=== PATIENT | male | born 1945 | race Caucasian/White ===

== ENCOUNTER 2019-10-21 13:49 | Inpatient (IN) | payer OTHER ==
[~2019-10-21] VITALS: Ht 185.4 cm; Wt 91.0 kg
[2019-10-21 14:13] LABS: BASOPHILS ABSOLUTE AUTO 0.06 K/mm3 (0.00-0.23); BASOPHILS PERCENT AUTO 1 % (0-2); EOSINOPHILS ABSOLUTE AUTO 0.11 K/mm3 (0.00-0.68); EOSINOPHILS PERCENT AUTO 1 % (0-6); Hematocrit 42.8 % (37.0-53.0); Hemoglobin 14.2 g/dL (13.5-17.5); IMMATURE GRAN ABSOLUTE AUTO 0.03 K/mm3 (0.00-0.10); IMMATURE GRAN PERCENT AUTO 0 % (0-1); LYMPHOCYTES PERCENT AUTO 13 % (21-46); MONOCYTES ABSOLUTE AUTO 0.63 K/mm3 (0.16-1.47); MONOCYTES PERCENT AUTO 6 % (4-13); Mean Corpuscular HGB 29.5 pg (26.0-34.0); Mean Corpuscular HGB Conc 33.2 g/dL (31.5-36.5); Mean Corpuscular Volume 89 fL (80-100); Mean Platelet Volume 9.6 fL (9.1-12.4); NEUTROPHILS ABSOLUTE AUTO 8.26 K/mm3 (1.96-9.15); NEUTROPHILS PERCENT AUTO 79 % (41-73); Platelet Count 234 K/mm3 (150-400); RDW Coefficient Variation 14.1 % (11.7-14.2); RDW Standard Deviation 45.3 fL (35.1-46.3); Red Blood Cell Count 4.81 M/mm3 (4.30-5.90); White Blood Cell Count 10.49 K/mm3 (4.00-11.30)
[2019-10-21 14:28] LABS: Alanine Aminotransfer (ALT/SGP 56 U/L (12-78); Albumin, Blood 2.9 g/dL (3.4-5.0); Albumin/Globulin Ratio 0.9 (0.8-1.8); Alk Phos 85 U/L (50-136); Anion Gap 7 mmol/L (6-16); Aspartate Aminotrans (AST/SGOT 37 U/L (12-37); Bilirubin, Total 0.9 mg/dL (0.1-1.0); Blood Urea Nitrogen 21 mg/dL (8-24); Bun/Creatinine Ratio 17.9 (12.0-20.0); CO2, Blood 26 mmol/L (21-32); Calcium, Blood 8.4 mg/dL (8.5-10.1); Chloride, Blood 100 mmol/L (98-108); Creatinine, Blood 1.17 mg/dL (0.60-1.20); Globulin, Blood 3.4 g/dL (2.2-4.0); Glomerular Filtration Rate >60 (60-); Glucose, Blood 268 mg/dL (70-99); Potassium, Blood 3.7 mmol/L (3.5-5.5); Sodium, Blood 133 mmol/L (136-145); Total Protein, Blood 6.3 g/dL (6.4-8.2); Troponin I 0.128 ng/mL (0.000-0.040)
[2019-10-21] MEDS ORDERED: DULO60 PO (17:26)
[2019-10-21] MEDS ORDERED: ELIQUIS5 MG PO (17:26)
[2019-10-21] MEDS ORDERED: GUAI600T33 PO (17:28)
[2019-10-21] MEDS ORDERED: GLIP5 PO (17:28)
[2019-10-21] MEDS ORDERED: FLUOCINOLON118.28 ML TOP (17:28)
[2019-10-21] MEDS ORDERED: LOSARTAN-HCTZ1 EACH PO (17:29)
[2019-10-21] MEDS ORDERED: Norco 10-325 T1 EACH PO (17:30)
[2019-10-21] MEDS ORDERED: MAGNESIUM OXID500 MG PO (17:31)
[2019-10-21] MEDS ORDERED: Ketoconazole120 ML TOP (17:31)
[2019-10-21] MEDS ORDERED: LEVALBUTEROL TA15 GM INH (17:31)
[2019-10-21] MEDS ORDERED: MEMA10 PO (17:32)
[2019-10-21] MEDS ORDERED: METO25ER PO (17:35)
[2019-10-21] MEDS ORDERED: METFORMIN HCL500 M3 PO (17:36)
[2019-10-21] MEDS ORDERED: NIFE90ER PO (17:36)
[2019-10-21] MEDS ORDERED: ASMANEX HFA13 G2 INH (17:38)
--- NOTE | 2019-10-21 18:21 | NUR ---
Echocardiogram completed.
--- NOTE | 2019-10-21 22:44 | NUR ---
CARE ASSUMPTION PT ADMITTED TO PCU @ APPROX 1830. CARE ASSUMPTION OF PT @ APPROX 1900. PT A&O X4. BP & HR ELEVATED, OTHERWISE VSS. MONITOR SHOWING AFIB, HR 100-150 UPON CARE ASSUMPTION W/ CARDIZEM GTT INFUSING @ 10 MG/HR. PT HR DECREASE TO 80-120 AFTER EVENING MEDICATION AND GOING TO SLEEP. LUNG SOUNDS CLEAR. SPO2 > 92% ON RA. PT INDEPENDENT IN ROOM. WILL CONTINUE TO MONITOR AND PROVIDE CARE.
[2019-10-22 02:27] LABS: BASOPHILS ABSOLUTE AUTO 0.06 K/mm3 (0.00-0.23); BASOPHILS PERCENT AUTO 1 % (0-2); EOSINOPHILS ABSOLUTE AUTO 0.19 K/mm3 (0.00-0.68); EOSINOPHILS PERCENT AUTO 2 % (0-6); Hematocrit 39.5 % (37.0-53.0); Hemoglobin 13.3 g/dL (13.5-17.5); IMMATURE GRAN ABSOLUTE AUTO 0.02 K/mm3 (0.00-0.10); IMMATURE GRAN PERCENT AUTO 0 % (0-1); LYMPHOCYTES ABSOLUTE AUTO 1.52 K/mm3 (0.84-5.20); LYMPHOCYTES PERCENT AUTO 13 % (21-46); MONOCYTES ABSOLUTE AUTO 0.75 K/mm3 (0.16-1.47); MONOCYTES PERCENT AUTO 7 % (4-13); Mean Corpuscular HGB 29.8 pg (26.0-34.0); Mean Corpuscular HGB Conc 33.7 g/dL (31.5-36.5); Mean Corpuscular Volume 88 fL (80-100); Mean Platelet Volume 9.1 fL (9.1-12.4); NEUTROPHILS ABSOLUTE AUTO 8.82 K/mm3 (1.96-9.15); NEUTROPHILS PERCENT AUTO 78 % (41-73); Platelet Count 222 K/mm3 (150-400); RDW Coefficient Variation 14.1 % (11.7-14.2); RDW Standard Deviation 45.1 fL (35.1-46.3); Red Blood Cell Count 4.47 M/mm3 (4.30-5.90); White Blood Cell Count 11.36 K/mm3 (4.00-11.30)
[2019-10-22 02:47] LABS: Bun/Creatinine Ratio 15.3 (12.0-20.0); Calcium, Blood 8.2 mg/dL (8.5-10.1); Creatinine, Blood 1.31 mg/dL (0.60-1.20); Potassium, Blood 2.9 mmol/L (3.5-5.5); Troponin I 0.153 ng/mL (0.000-0.040)
--- NOTE | 2019-10-22 04:44 | NUR ---
K & TROPONIN / CALL TO CALL TO MD STANTON @ APPROX 2029 TO REPORT K OF 2.9 THIS AM AND INCREASING TROPONINS. ORDERS FROM MD STANTON FOR 40 MEQ IV KCL SUPPLEMENTATION, SEE EMAR & REPEAT TROPONIN IN 6 HRS.
--- NOTE | 2019-10-22 05:59 | NUR ---
SHIFT SUMMARY PT A&O X4. VSS W/ BP & HR IMPROVEMENT. MONITOR SHOWS AFIB, W/ FLUCTUATING HR 70-120's. CARDIZEM GTT INFUSING @ 15 MG/HR TITRATED UP FROM 10 MG/HR THIS SHIFT. LUNG SOUNDS CLEAR. SPO2 > 92% ON RA. PT INDEPENDENT IN ROOM. CALL TO MD THIS SHIFT TO REPORT LOW K AND ELEVATING TROPONINS, SEE PREVIOUS NOTE. IV KCL INFUSING @ THIS TIME PER ORDERS. WILL CONTINUE TO MONITOR AND PROVIDE CARE UNTIL REPORT OFF TO DAY SHIFT RN.
--- NOTE | 2019-10-22 15:38 | NUR ---
PT C/O INCREASING SOB AND A "HEAVINESS TO MY BREATHING". LUNGS ARE CLEAR, SPO2 IS 96% ON RA, PT ABLE TO CONVERSE IN FULL SENTENCES. WHILE WAITING FOR CALL BACK FROM DR OLIVER, HAD DEAN FROM RT EVAL PT AND PT STARTED TO HAVE EMESIS. DR OLIVER ORDERED ADDITIONAL LASIX AND PRN ZOFRAN.
--- NOTE | 2019-10-22 18:26 | NUR ---
SHIFT SUMMARY AFTER CARDIOLOGY CONSULT TODAY, PT WAS TRANSITIONED OFF OF CARDIZEM DRIP TO AMIODARONE GTT. DRIP WAS DECREASED TO 0.5 MG/HR AT 1740 THIS EVENING. TELEMETRY HAS SHOWN PT TO A-FLUTTER WITH OCCASIONAL A-FIB, RATE 70'S-80'S. IN THE AFTERNOON PT HAD AN EPISODE OF WORSENING SHORTNESS OF BREATH. DR OLIVER ORDERED AN ADDITIONAL DOSE OF LASIX, AND THE PT REPORTED IMPROVEMENT IN HIS BREATHING AFTER DOSE. PT HAS BEEN DIURESING AND STARTED ON A 1.5L FLUID RESTRICT. EDUCATED PT AND FAMILY OF THE IMPORTANCE OF THE FR AND HOW IT WILL HELP IMPROVE HIS BREATHING AND CARDIAC FUNCTION. PT ALSO COMPLETED 1ST PART OF LEXISCAN TODAY. ELECTROLYTES WERE REPLACED PER MD ORDERS. VITALS HAVE REMAINED STABLE.
[2019-10-23 04:09] LABS: BASOPHILS ABSOLUTE AUTO 0.07 K/mm3 (0.00-0.23); BASOPHILS PERCENT AUTO 1 % (0-2); EOSINOPHILS ABSOLUTE AUTO 0.21 K/mm3 (0.00-0.68); EOSINOPHILS PERCENT AUTO 2 % (0-6); Hematocrit 42.2 % (37.0-53.0); Hemoglobin 13.6 g/dL (13.5-17.5); IMMATURE GRAN ABSOLUTE AUTO 0.06 K/mm3 (0.00-0.10); IMMATURE GRAN PERCENT AUTO 1 % (0-1); LYMPHOCYTES ABSOLUTE AUTO 1.58 K/mm3 (0.84-5.20); LYMPHOCYTES PERCENT AUTO 12 % (21-46); MONOCYTES ABSOLUTE AUTO 0.93 K/mm3 (0.16-1.47); MONOCYTES PERCENT AUTO 7 % (4-13); Mean Corpuscular HGB 28.8 pg (26.0-34.0); Mean Corpuscular HGB Conc 32.2 g/dL (31.5-36.5); Mean Corpuscular Volume 89 fL (80-100); Mean Platelet Volume 9.4 fL (9.1-12.4); NEUTROPHILS ABSOLUTE AUTO 10.15 K/mm3 (1.96-9.15); NEUTROPHILS PERCENT AUTO 78 % (41-73); Platelet Count 269 K/mm3 (150-400); RDW Coefficient Variation 14.1 % (11.7-14.2); RDW Standard Deviation 46.1 fL (35.1-46.3); Red Blood Cell Count 4.73 M/mm3 (4.30-5.90)
[2019-10-23 04:32] LABS: Magnesium, Blood 1.8 mg/dL (1.6-2.4)
[2019-10-23 04:33] LABS: Albumin, Blood 2.8 g/dL (3.4-5.0); Albumin/Globulin Ratio 0.8 (0.8-1.8); Bilirubin, Total 0.9 mg/dL (0.1-1.0); Bun/Creatinine Ratio 17.9 (12.0-20.0); Calcium, Blood 8.8 mg/dL (8.5-10.1); Creatinine, Blood 1.73 mg/dL (0.60-1.20); Globulin, Blood 3.4 g/dL (2.2-4.0); Potassium, Blood 3.6 mmol/L (3.5-5.5); Total Protein, Blood 6.2 g/dL (6.4-8.2)
[2019-10-23 04:37] LABS: Percent Saturation 9.1 % (20.0-50.0)
--- NOTE | 2019-10-23 05:39 | NUR ---
SHIFT SUMMARY PT SLEEPING IN ROOM COMFORTABLY AT THIS TIME. NO ACUTE CHANGES IN STATUS T/O NIGHT. PT SLEPT WELL AND USED CALL LIGHT APPROPRIATELY. PT DID WAKE ONCE DURING NIGHT AND REPORTED SOB, PT WAS LYING FLAT ON STOMACH IN BED AT THAT TIME AND REPORTED WORK OF BREATING DECREASED UPON SITING UP AND PERFORMING PURSED LIP BREATHING. RESP EVEN UNLABORED AT REST W/ SATS >92%. PT REPORTS "FEELS EASIER TO BREATH TONIGHT". DENIED ANY CP. DENIED OTHER NEEDS. AMIODARONE GTT CONTINUES TO INFUSE IN PIV. CALL LIGHT IN REACH.
--- NOTE | 2019-10-23 18:52 | NUR ---
SHIFT SUMMARY TODAY, COMPARED TO YESTERDAY, PT HAS STATED HIS SOB IS IMPROVED. JUAN COMPLETED TODAY AND DUE TO NEED TO FEED PT FOR SCAN, CARDIOVERSION WAS CANCELLED TODAY BY DR OLIVO. PT REMAINS IN A-FLUTTER ON TELEMETRY WITH RATES 70'S-120'S. CONTINUED AMIODARONE DRIP PER DR OLIVO. CONTINUED TO EDUCATED PT AND FAMILY ON FLUID RESTRICTION, MONITORING I&O'S AND WEIGHT MONITORING.
[2019-10-24 04:06] LABS: BASOPHILS PERCENT AUTO 1 % (0-2); EOSINOPHILS ABSOLUTE AUTO 0.23 K/mm3 (0.00-0.68); EOSINOPHILS PERCENT AUTO 2 % (0-6); Hemoglobin 14.3 g/dL (13.5-17.5); IMMATURE GRAN ABSOLUTE AUTO 0.03 K/mm3 (0.00-0.10); IMMATURE GRAN PERCENT AUTO 0 % (0-1); LYMPHOCYTES ABSOLUTE AUTO 1.26 K/mm3 (0.84-5.20); LYMPHOCYTES PERCENT AUTO 9 % (21-46); MONOCYTES ABSOLUTE AUTO 0.92 K/mm3 (0.16-1.47); MONOCYTES PERCENT AUTO 6 % (4-13); Mean Corpuscular HGB 29.7 pg (26.0-34.0); Mean Corpuscular HGB Conc 33.3 g/dL (31.5-36.5); Mean Corpuscular Volume 89 fL (80-100); Mean Platelet Volume 9.5 fL (9.1-12.4); NEUTROPHILS ABSOLUTE AUTO 12.08 K/mm3 (1.96-9.15); NEUTROPHILS PERCENT AUTO 83 % (41-73); Platelet Count 299 K/mm3 (150-400); RDW Coefficient Variation 14.1 % (11.7-14.2); RDW Standard Deviation 45.4 fL (35.1-46.3); Red Blood Cell Count 4.82 M/mm3 (4.30-5.90); White Blood Cell Count 14.62 K/mm3 (4.00-11.30)
[2019-10-24 04:29] LABS: Bun/Creatinine Ratio 24.8 (12.0-20.0); Calcium, Blood 8.8 mg/dL (8.5-10.1); Creatinine, Blood 1.41 mg/dL (0.60-1.20); Potassium, Blood 3.8 mmol/L (3.5-5.5)
--- NOTE | 2019-10-24 05:26 | NUR ---
SHIFT SUMMARY PT SLEEPING IN ROOM COMFORTABLY AT THIS TIME. PT SLEPT WELL T/O NIGHT DENIED NEEDS. RESP EVEN UNLABORED AT REST ON 2L NC W/ SATS >92%. DENIED CP T/O NIGHT. DENIED OTHER NEEDS. PT REPORTED BREATHING FELT EASIER TODAY AND WAS ABLE TO SLEEP LYING FLAT W/O WAKING UP GASPING FOR BREATH TONIGHT. AMIODARONE GTT INFUSING IN PIV PER EMAR. PT TO POSSIBLY HAVE CARDIOVERSION TODAY. REMAINS IN AFLUTTER. DENIES OTHER NEEDS. CALL LIGHT IN REACH.
--- NOTE | 2019-10-24 12:33 | NUR ---
CARDIOVERSION: DR. OLIVO IN, CONSENT SIGNED. IVF INFUSING, SUCTION SET UP, PADS PLACED ON PT. MEDS AND REVERSALS IN RM. RT, PRIMARY RN, MYSELF AND DR. OLIVO IN RM. 1234-BASELINE VS-BP-132/94, HR-116, RR-22, BIOX-88% ON 6L O2. 1237- TIME OUT COMPLETE. 1242- VERSED 2MG IV AND FENTANYL 50 MCG IV GIVEN. 1243- BP-133/97, HR-125, BIOX-86% ON 8L, RR-20, RT TITRATING O2 1247- VERSED 1MG AND FENTANYL 25MCG IV GIVEN. 1248- BP-144/98, HR-120, BIOX-92% ON 14L OXIMIZER. 1249- 50J SHOCK DELIVERED, PT NOW SR AT 74. 1250- BP-161/89, HR-74, BIOX-92% ON 14 L. PT DROWSY BUT REPSONDS EASILY TO VERBAL STIMULOUS. CARDIOVERSION COMPLETE
--- NOTE | 2019-10-24 19:29 | NUR ---
SHIFT SUMMARY PT REMAINS A&O X4, SINUS RHYTHM. O2 HAS BEEN TITRATED ACCORDING TO PT DEMAND, PT WILL FALL ASLEEP FROM MEDS AND O2 WILL DECREASE. PT HAD A BOODY NOSE THIS EVENING W/SOB. RT NOTIFIEDM NO BREATHING TX INDICATED, O2 CONVERTED TO HUMIDIFIED O2. CARDIOVERSION WAS COMPLETED AT THE BEDSIDE TODAY, PLEASE NOTE, VITAL SIGNS REMAIN STABLE. 40 MG IV LASIX WAS GIVEN POST CONVERSION. AMNIODERONE DRIP D/C, PO WAS STARTED. REPORT WAS GIVEN TO IDALMIS RICHARDSON. CALL LIGHT IN [facility].
--- NOTE | 2019-10-24 19:38 | NUR ---
SHIFT SUMMARY NO ACUTE CHANGES NOTED THROUGH THE SHIFT. PT REMAINS A&O, VSS, RA O2 SAT'S >92%, DENIES SOB, PRODUCTIVE COUGH. SPUTUM SAMPLE HAS BEEN SENT TO THE LAB. FLONASE AND INCREASED DOSE ON NICOTINE PATCH FROM 14 MG TO 21 MG PER PT REQUEST WAS ORDERED. PT REPORTS A LG BLACK STOOL X1, MILD STOMACH PAIN. REPORT GIVEN TO IDALMIS RN. CALL LIGHT IN REACH
[2019-10-24 22:56] LABS: PCO2 Arterial 39.4 mmHg (35-45); PO2 Arterial 138 mmHg (80-100); pH Blood Arterial 7.41 (7.35-7.45)
--- NOTE | 2019-10-24 23:50 | NUR ---
TRANSFER NOTE TRANSFER PT FROM PCU 3 TO ICU 15 PER BED. TRANSFER TO ICU BED WITH LIFT SHEET. ALERT FOLLOWING DIRECTIONS. BIPAP IN PLACE SPO2 90-95% LUNG SOUNDS COARSE WITH CRACKLES AND VERY DECREASED BASES R WORSE THAN LEFT. ABDOMEN SOFT WITH BOWEL SOUNDS FOUR QUADS. DR FONG ON PHONE ORDERS NOTED. HOSP AT BEDSIDE. PAWEL HOSE TO LOWER EXTREMITIES. SKIN WARM DRY. FAMILY NOTIFIED OF TRANSFER TO ICU. UPDATE GIVEN. CONTINUE TO MONITOR AND REPORT CHANGE IN PATIENT CONDITION.
--- NOTE | 2019-10-25 01:15 | NUR ---
GRACE PLACED WITH IMMEDIATE URINE RETURN. SPECIMAN SENT TO LAB
--- NOTE | 2019-10-25 01:31 | NUR ---
TRANSFER TO ICU UPON SHIFT CHANGE. PT BREATHING WELL WITH OXYMIZER AT 7L;. PT DENIES WORK OF BREATHING AND STATES BEING COMFORTABLE, SPO2 >92%. BOTH IV'S INFILTRATED, DC'D, AND NEW ONE PLACED BY BHAVNA Gomez. PT IN SR, BP STABLE. LUNGS WET SOUNDING AND COARSE, ESPECIALLY ON THE RIGHT SIDE. AT 2100, PT'S WOB INCREASES AND O2 DEMANDS DEMANDS. OXYMIZERR UP TO 9L. LOLI Pang FIELD SUPPORT TECHNICIAN CALLED, IN TO SEE PT. PLACES ORDER FOR CXR. WOB AND DYSPNEA SUBSIDES FOR 45 MINUTES OR SO. THEN O2 NEEDS INCREASE TO 11L OXYMIZER, LOLI CALLED AGAIN, ASKED IF SHE WOULD VIEW THE CXR. LOLI TO ROOM VERYU QUICKLY UPON VIEWING THIS IMAGE. ORDERS PLACED FOR LABS, IV LASIX, BIPAP, AND TRANSFER TO ICU. ORDERS FULFILLED. PT ON BIPAP /, 50% FIO2 BUT THE FIO2 INCREASEED TO 60%. REPORT CALLED TO PRASHANTH CABRERA, PT TO ICU @0838. ALL BELONGINGS AND MEDS WITH PT. ATTEMPTED TO CALL DAUGTHER/FAMILY BUT WAS UNSUCCESFUL THE LINE WE HAVE ON FILE HAS BEEN DISCONNECTED.
[2019-10-25 01:33] LABS: Source, Urine Catheter
[2019-10-25 01:37] LABS: Bilirubin, Urine Neg (Neg); Blood, Urine Neg (Neg); Glucose Qualitative, Urine Neg (Neg); Ketones, Urine Neg (Neg); Leukocyte Esterase, Urine Neg (Neg); Nitrite, Urine Neg (Neg); Protein, Urine Neg (Neg); Specific Gravity, Urine 1.015 (1.003-1.022); Urobilinogen, Urine NORM (Normal)
[2019-10-25 01:41] LABS: Appearance, Urine Clear (Clear); Color, Urine Yellow (P-Yellow)
--- NOTE | 2019-10-25 02:11 | NUR ---
RT CHANGED TO CPAPOF 10 WITH 60% AFTER PT COMPLAINED OF TOO MUCH PRESSURE CONTINUE TO MONITOR AND REPORT CHANGE IN PATEINT CONDITION
[2019-10-25 04:24] LABS: BASOPHILS ABSOLUTE AUTO 0.08 K/mm3 (0.00-0.23); BASOPHILS PERCENT AUTO 1 % (0-2); EOSINOPHILS PERCENT AUTO 1 % (0-6); Hematocrit 43.1 % (37.0-53.0); Hemoglobin 14.1 g/dL (13.5-17.5); IMMATURE GRAN ABSOLUTE AUTO 0.05 K/mm3 (0.00-0.10); IMMATURE GRAN PERCENT AUTO 0 % (0-1); LYMPHOCYTES ABSOLUTE AUTO 0.61 K/mm3 (0.84-5.20); LYMPHOCYTES PERCENT AUTO 4 % (21-46); MONOCYTES ABSOLUTE AUTO 0.87 K/mm3 (0.16-1.47); MONOCYTES PERCENT AUTO 6 % (4-13); Mean Corpuscular HGB 29.6 pg (26.0-34.0); Mean Corpuscular HGB Conc 32.7 g/dL (31.5-36.5); Mean Corpuscular Volume 90 fL (80-100); Mean Platelet Volume 9.3 fL (9.1-12.4); NEUTROPHILS ABSOLUTE AUTO 14.01 K/mm3 (1.96-9.15); NEUTROPHILS PERCENT AUTO 89 % (41-73); Platelet Count 279 K/mm3 (150-400); RDW Coefficient Variation 14.2 % (11.7-14.2); RDW Standard Deviation 46.7 fL (35.1-46.3); Red Blood Cell Count 4.77 M/mm3 (4.30-5.90); White Blood Cell Count 15.72 K/mm3 (4.00-11.30)
[2019-10-25 04:44] LABS: Albumin, Blood 2.5 g/dL (3.4-5.0); Albumin/Globulin Ratio 0.7 (0.8-1.8); Bilirubin, Total 1.3 mg/dL (0.1-1.0); Bun/Creatinine Ratio 27.5 (12.0-20.0); Calcium, Blood 8.5 mg/dL (8.5-10.1); Creatinine, Blood 1.49 mg/dL (0.60-1.20); Globulin, Blood 3.4 g/dL (2.2-4.0); Magnesium, Blood 1.8 mg/dL (1.6-2.4); Potassium, Blood 4.1 mmol/L (3.5-5.5); Total Protein, Blood 5.9 g/dL (6.4-8.2)
[2019-10-25 04:56] LABS: PCO2 Arterial 43.7 mmHg (35-45); pH Blood Arterial 7.35 (7.35-7.45)
--- NOTE | 2019-10-25 06:16 | NUR ---
SHIFT SUMMARY: RESTS QUIETLY WHEN UNDISTURBED. MONITOR INTACT SHOWING SINUS RHYTHM. HEART RATE 70'S, MEDICATED WITH 0.5 ATIVAN IV FOR INCREASING AGIATION. REMIANS ON BIPAP WITH SETTING 12/8 70% FIO2 BUR OF 10 AND SPO2 90-94 RESPIRATIONS 20-24PER MIN. ABDOMEN SOFT WITH BOWEL SOUNDS FOUR QUADS. FOLLEY PATENT DRAINING INEZ URINE. PAWEL HOSE TO LOWER EXTREMITIES. CONTINUE TO MONITOR AND REPORT CHANGE IN PATIENT CONDITION.
--- NOTE | 2019-10-25 08:00 | NUR ---
INITIAL ASSESSMENT PATIENT SLEEPING SOUNDLY UPON ENTERING ROOM. PATIENT WOKE TO VERBAL STIMULI. PATIENT ALERT AND ORIENTED X 4, AFEBRILE. PATIENT DENIES PAIN OR DISCOMFORT. PATIENT ON BIPAP 12/8, RR OF 10, 70% FIO2. LUNG SOUNDS COARSE THROUGHOUT. PATIENT HAS MOIST, NONPRODUCTIVE COUGH. SOB WITH EXERTION. PATIENT IN SR WITH BBB, HR IN THE 70S. SBP IN THE 160S. ANTIEMBOLISM STOCKINGS IN PLACE. 1+ EDEMA NOTED TO BLES. ABDOMEN SOFT, NONTENDER, NONDISTENDED, WITH HYPERACTIVE BS NOTED. LAST BM EARLY THIS AM. GRACE IN PLACE, DRAINING DARK INEZ COLORED URINE. PATIENT RECEIVING LASIX BID. IVS FLUSHED AND SALINE LOCKED. BED LOW, CALL LIGHT IN REACH. WILL CONTINUE TO MONITOR PATIENT FREQUENTLY THROUGHOUT SHIFT.
--- NOTE | 2019-10-25 12:28 | NUR ---
PATIENT SITTING UP IN BED, EATING LUNCH. PATIENT HAS NO COMPLAINTS. PATIENT REMAINS AFEBRILE. VITAL SIGNS STABLE. PATIENT SATTING 90% AND GREATER ON 12 L HF NC. LUNGS REMAIN VERY COARSE THROUGHOUT. PATIENT REMAINS IN SR WITH BBB, HR IN THE 70S. BP STABLE. URINE IS CRANBERRY IN COLOR. DR. FONG INFORMED THAT ONLY 350 MLS OUT OF GRACE SINCE AM LASIX GIVEN. BLOOD SUGAR OF 226; COVERAGE GIVEN. NO OTHER ACUTE CHANGES TO NOTE ON AT THIS TIME. WILL CONTINUE TO MONITOR.
--- NOTE | 2019-10-25 16:30 | NUR ---
PATIENT AFEBRILE. PATIENT COMPLAINED OF 6/10 SHARP LEFT UPPER CHEST PAIN AT 1605. INFORMED AND STAT 12 LEAD EKG. NO CHANGE IN EKG PER DR. FONG. DR. FONG WENT TO CHECK ON PATIENT SHORT TIME AGO AND PATIENT REPORTS PAIN HAS RESOLVED. NO FURTHER ORDERS ABOUT THE CHEST PAIN AT THIS TIME. PATIENT SATTING 90% AND GREATER ON BIPAP 10/5, 70% FIO2. PATIENT IN SR WITH BBB, HR 60S TO 70S. BP STABLE. PATIENT HAD BLOOD SUGAR OF 193; COVERAGE GIVEN. NO PATIENT'S DAUGHTER IN ROOM. NO CURRENT COMPLAINTS AT THIS TIME. WILL CONTINUE TO MONITOR.
--- NOTE | 2019-10-25 18:40 | NUR ---
SHIFT SUMMARY PATIENT NAPPED ON AND OFF THROUGHOUT DAY. PATIENT REMAINED ALERT AND ORIENTED X 4, AFEBRILE. PATIENT REMAINED SATTING 90% AND GREATER ON BIPAP 12/8, 70% IN AM AND 10/5, 70% IN AFTERNOON. PATIENT SATTED 90% AND GREATER ON 10 TO 12 L HF NC FOR BREAKS OFF OF THE BIPAP. LUNGS REMAINED COARSE THROUGHOUT. PATIENT CONTINUED TO HAVE SOB WITH EXERTION. PATIENT CONTINUED TO HAVE MOIST COUGH; PRODUCING THIN, PINK SPUTUM. PATIENT REMAINED IN SR WITH BBB. HR 60S TO 70S. BP REMAINED STABLE. PATIENT HAD POOR APPETITE MOST OF THE DAY. PATIENT REMAINED UNDER 1500 CC FLUID RESTRICTION. PATIENT GIVEN 100 MG LASIX THIS SHIFT WITH OUTPUT OF 2200 CC. URINE CHANGED FROM CRANBERRY COLOR TO DARK YELLOW. NO CHANGE IN SKIN. PATIENT REPOSITIONED SELF MOST TIMES WITH REMINDING FROM NURSE. IVS SALINE LOCKED. PATIENT REFUSED BED BATH TODAY. PATIENT COMPLAINED OF CP OT DURING SHIFT. STAT EKG PERFORMED; NO CHANGE IN EKG. DR. FONG SAW PATIENT AND PATIENT REPORTED RELIEF OF CHEST PAIN. PATIENT HAS NO COMPLAINTS AT THIS TIME. BED LOW, CALL LIGHT IN REACH. WILL CONTINUE TO MONITOR PATIENT FREQUENTLY UNTIL REPORT GIVEN TO ONCOMING SUPERVISOR FILLING AND PACKING NURSE SHORTLY.
--- NOTE | 2019-10-25 20:00 | NUR ---
ASSUMED CARE OF PT AT 1915. REPORT RECEIVED AT BEDSIDE. PT PRESENTS IN BED. ALERT AND ORIENTED. WEARING BIPAP MASK. TOLERATING THIS WELL. EMPTIED 500 ML URINE FROM GRACE CATHETER COLLECTION BAG PRIOR TO ADMINISTERING 40 MG LASIX. WILL REVIEW CHART AND PLAN OF CARE FOR THIS PT.
--- NOTE | 2019-10-25 23:13 | NUR ---
PT CONTIUES WITH MOIST COUGH. LUNGS WITH COARSENUSS SCATTERE. NO S/S ADVERSE REACTION TO ANTIBIOTIC THERAPY TO NOTE. PT DIURESING WELL. WILL CONTINUE TO MONITOR. HAVE ASSISTED PT WITH REPOSITIONING.
--- NOTE | 2019-10-26 03:57 | NUR ---
PT REQUESTS BREAK FROM BIPAP MASK. PT PLACED ON 10 L/M HIGH FLOW CANNULA. PT FALLS ASLEEP, AND BEGINS TO DESATURATE TO 87-88 PERCENT. PT PLACED BACK TO BIPAP. HE REQUEST THAT BIPAP AIR WARMER BE TURNED OFF. THIS DONE FOR PT. WILL CONTINUE TO MONITOR PT. PT CONTINUES IN SINUS RHYTHM WITH 1ST DEGREE HB, BUNDLE BRANCH BLOCK. WITH OCCASSIONAL PAC'S.
[2019-10-26 04:13] LABS: BASOPHILS ABSOLUTE AUTO 0.05 K/mm3 (0.00-0.23); BASOPHILS PERCENT AUTO 0 % (0-2); EOSINOPHILS ABSOLUTE AUTO 0.15 K/mm3 (0.00-0.68); EOSINOPHILS PERCENT AUTO 1 % (0-6); Hematocrit 41.4 % (37.0-53.0); Hemoglobin 13.5 g/dL (13.5-17.5); IMMATURE GRAN ABSOLUTE AUTO 0.04 K/mm3 (0.00-0.10); IMMATURE GRAN PERCENT AUTO 0 % (0-1); LYMPHOCYTES ABSOLUTE AUTO 1.09 K/mm3 (0.84-5.20); LYMPHOCYTES PERCENT AUTO 8 % (21-46); MONOCYTES ABSOLUTE AUTO 0.89 K/mm3 (0.16-1.47); MONOCYTES PERCENT AUTO 7 % (4-13); Mean Corpuscular HGB 29.3 pg (26.0-34.0); Mean Corpuscular HGB Conc 32.6 g/dL (31.5-36.5); Mean Corpuscular Volume 90 fL (80-100); Mean Platelet Volume 9.2 fL (9.1-12.4); NEUTROPHILS ABSOLUTE AUTO 10.93 K/mm3 (1.96-9.15); NEUTROPHILS PERCENT AUTO 83 % (41-73); Platelet Count 270 K/mm3 (150-400); RDW Coefficient Variation 14.3 % (11.7-14.2); RDW Standard Deviation 46.4 fL (35.1-46.3); Red Blood Cell Count 4.61 M/mm3 (4.30-5.90); White Blood Cell Count 13.15 K/mm3 (4.00-11.30)
[2019-10-26 04:53] LABS: Bun/Creatinine Ratio 25.9 (12.0-20.0); Calcium, Blood 8.6 mg/dL (8.5-10.1); Creatinine, Blood 1.39 mg/dL (0.60-1.20); Magnesium, Blood 1.9 mg/dL (1.6-2.4); Potassium, Blood 3.4 mmol/L (3.5-5.5)
--- NOTE | 2019-10-26 06:22 | NUR ---
PT RESTING IN BED. COMPLIANT WITH BIPAP. TOLERATING MUCH BETTER WITH WARMER TURNED OFF. PT DIURESES WELL AFTER LASIX. MOVES ABOUT IN BED ON HIS OWN. DENIES CHEST PAIN OR PRESSURE. WILL CONTINUE TO MONITOR PT, AND WILL REPORT OFF TO ONCOMING RN.
--- NOTE | 2019-10-26 07:15 | NUR ---
ASSUMED CARE PT. ALERT AND ORIENTED THIS AM. RESTING COMFORTABLY IN BED, DENIES PAIN. PT. ON BREAK FROM BIPAP ON 11L HIGH FLOW NC, WITH HUMIDITY. PT. ABLE TO REPOSITION SELF IN BED. BIPAP SETTINGS ARE 12/8, 60%. COMPRESSION STOCKINGS TO BILAT LE. PT HAS GRACE IN PLACE DRAINING TO GRAVITY FOR STRICT I&O. NADN, CALL LIGHT IN REACH. PT. REQUESTING TO SLEEP FOR A WHILE BEFORE BREAKFAST, BG CHECKED-INSULIN ADMIN PER ORDER. CALL LIGHT IN REACH.
--- NOTE | 2019-10-26 12:30 | NUR ---
PT RESTING COMFORTABLY IN BED T/O DAY. CONTINUES TO DENY PAIN. GOOD OUTPUT POST LASIX ADMIN.
--- NOTE | 2019-10-26 17:07 | NUR ---
SHIFT SUMMARY PT. REMAINS ALERT AND ORIENTED T/O DAY. 02 TITRATED DOWN TO 9LNC WHEN ASLEEP AND 6L NC WHILE AWAKE. PT. OFF BIPAP FOR MOST OF THE DAY. SLEEPING ON AND OFF T/O DAY. PT. VSS REMAIN STABLE. PLANS FOR STATUS CHANGE TOMORROW RAMANA REMAINS IN PLACE FOR STRICT I&O. CALL LIGHT IN REACH. REPORT TO ONCOMING RN.
--- NOTE | 2019-10-26 19:14 | NUR ---
ASSUMED CARE AT 1914. PT DENIES CHEST PAIN, C/O SOB, ON HIGHFLO AT 10L. GRACE INTACT, BIPAP FOR SLEEP.
[2019-10-27 01:57] LABS: Anion Gap 6 mmol/L (6-16); Blood Urea Nitrogen 27 mg/dL (8-24); Bun/Creatinine Ratio 22.1 (12.0-20.0); CO2, Blood 34 mmol/L (21-32); Calcium, Blood 8.6 mg/dL (8.5-10.1); Chloride, Blood 101 mmol/L (98-108); Creatinine, Blood 1.22 mg/dL (0.60-1.20); Glomerular Filtration Rate >60 (60-); Glucose, Blood 149 mg/dL (70-99); Potassium, Blood 3.2 mmol/L (3.5-5.5); Sodium, Blood 141 mmol/L (136-145)
--- NOTE | 2019-10-27 06:45 | NUR ---
PT ON CPAP ON AND OFF OVERNIGHT. ABLE TO MAINTAIN SATS ON NC WHILE AWAKE. ONCE PT FALL ASLEEP BEGINS TO DESAT, PLACED ON BIPAP WHILE SLEEPING. HEART RATE IN THE 80S BUT EKG DISPLAYS ECTOPY WITH INTERMITTEN RUN OF VT, PT IS ASYMPTHOMATIC. STAT MAG AND CBC DRAWN. MAG AND POTASSIUM REPLCED. GRACE INPLACE AND PATENT NO OTHER ACUTE EVENTS WILL CONTINUE TO MONITOR. PT MAY NEED PT/OT
--- NOTE | 2019-10-27 07:26 | NUR ---
ASSUMED CARE REPORT FROM CANDACE RICHARDSON. PT REPORTS SLEEPING POORLY LAST NIGHT; DISCUSSED PLAN OF CARE FOR TODAY WITH PT. PT. DENIES PAIN THIS AM, REPORTS WOB IS EASIER TODAY. PT. CURRENTLY ON 9L HIGH FLOW NC, TITRATED DOWN FROM 11L. VSS THIS AM. NADN. CALL LIGHT IN REACH.
[2019-10-27 08:29] LABS: Anion Gap 7 mmol/L (6-16); Blood Urea Nitrogen 27 mg/dL (8-24); Bun/Creatinine Ratio 23.5 (12.0-20.0); CO2, Blood 32 mmol/L (21-32); Calcium, Blood 8.8 mg/dL (8.5-10.1); Chloride, Blood 100 mmol/L (98-108); Creatinine, Blood 1.15 mg/dL (0.60-1.20); Glomerular Filtration Rate >60 (60-); Glucose, Blood 170 mg/dL (70-99); Magnesium, Blood 1.9 mg/dL (1.6-2.4); Potassium, Blood 3.7 mmol/L (3.5-5.5); Sodium, Blood 139 mmol/L (136-145)
--- NOTE | 2019-10-27 10:10 | NUR ---
UPDATE PT BATH DONE AND PT UP TO BEDSIDE CHAIR, TOLERATED TRASFER WELL. REMAINS ON HIGH FLOW NC, PT UP TO CHAIR FOR BREAKFAST. FLUTTER VALVE EDUCATION COMPLETED. VSS.
--- NOTE | 2019-10-27 11:07 | NUR ---
REPORT TO ONCOMING RN
--- NOTE | 2019-10-27 12:16 | NUR ---
ASSUMDED CARE REPORT RECEIVED FROM DEBRA MISTRY. PT SITTING UP IN BED ON 11L HI MAGNO NC WITH SPO2 96%. OXYGEN TITRATED DOWN TO 9L, THEN 7L WHEN PT MAINTAINED SPO2 ABOVE 90%. PT'S LUNGS HAVE INSPIRATORY WHEEZE, MILD DYSPNEA WITH EXERTION. REMAINS AFIB, RATE IN THE 60S AND 70S, BP STABLE, SEE VS. PT ATE LTAE BREAKFAST SO WISHES TO HAVE LUNCH TRAY HELD FOR NOW. INSULIN STILL GIVEN THOUGH GLUCOSE WAS OVER 300. PT WITH VISITORS IN THE ROOM, NO OTHER REQUESTS AT THIS TIME. CONTINUING TO MONITOR.
--- NOTE | 2019-10-27 17:40 | NUR ---
SHIFT SUMMARY: PT HAS DONE WELL TODAY WITH OXYGEN BEING TITRATED DOWN FROM 11L TO 6L/NC. LUNGS HAVE AN EXPIRATORY WHEEZE THIS EVENING. STILL AFIB, BPS TABLE. PT SPENT MOST OF THE AFTERNOON NAPPING IN BED. SANJAY LIN, AWAITING FIRST POST GRACE VOID. SPOKE WITH PT'S FE AND GAVE HER UPDATED. NO OTHER REQUESTS FROM PT. CONTINUING TO MONITOR.
--- NOTE | 2019-10-27 20:00 | NUR ---
ASSUMPTION OF CARE: PT A&O. AFEBRILE. LUNG SOUNDS COURSE THROUGHOUT. SPO2 >90% ON 6L NC. PT HAS MOIST PRODUCTIVE COUGH. IN AFIB WITH BBB. HR IN THE 80S, SBP IN THE 110S AND STABLE. PT IS ON A FLUID RESTRICTION AND IS VOIDING USING URINAL. 20G IVS IN R WRIST AND AC-SL. WILL CONTINUE TO MONITOR
[2019-10-28 04:09] LABS: BASOPHILS ABSOLUTE AUTO 0.04 K/mm3 (0.00-0.23); BASOPHILS PERCENT AUTO 0 % (0-2); EOSINOPHILS ABSOLUTE AUTO 0.26 K/mm3 (0.00-0.68); EOSINOPHILS PERCENT AUTO 2 % (0-6); Hematocrit 46.3 % (37.0-53.0); Hemoglobin 14.9 g/dL (13.5-17.5); IMMATURE GRAN ABSOLUTE AUTO 0.04 K/mm3 (0.00-0.10); IMMATURE GRAN PERCENT AUTO 0 % (0-1); LYMPHOCYTES ABSOLUTE AUTO 1.44 K/mm3 (0.84-5.20); LYMPHOCYTES PERCENT AUTO 11 % (21-46); MONOCYTES ABSOLUTE AUTO 0.85 K/mm3 (0.16-1.47); MONOCYTES PERCENT AUTO 6 % (4-13); Mean Corpuscular HGB 28.9 pg (26.0-34.0); Mean Corpuscular HGB Conc 32.2 g/dL (31.5-36.5); Mean Corpuscular Volume 90 fL (80-100); Mean Platelet Volume 9.1 fL (9.1-12.4); NEUTROPHILS ABSOLUTE AUTO 10.92 K/mm3 (1.96-9.15); NEUTROPHILS PERCENT AUTO 81 % (41-73); Platelet Count 321 K/mm3 (150-400); RDW Coefficient Variation 13.8 % (11.7-14.2); RDW Standard Deviation 45.7 fL (35.1-46.3); Red Blood Cell Count 5.16 M/mm3 (4.30-5.90); White Blood Cell Count 13.55 K/mm3 (4.00-11.30)
[2019-10-28 04:32] LABS: Anion Gap 7 mmol/L (6-16); Blood Urea Nitrogen 30 mg/dL (8-24); Bun/Creatinine Ratio 25.9 (12.0-20.0); CO2, Blood 33 mmol/L (21-32); Calcium, Blood 8.9 mg/dL (8.5-10.1); Chloride, Blood 102 mmol/L (98-108); Creatinine, Blood 1.16 mg/dL (0.60-1.20); Glomerular Filtration Rate >60 (60-); Glucose, Blood 133 mg/dL (70-99); Magnesium, Blood 1.9 mg/dL (1.6-2.4); Phosphorus, Blood 2.3 mg/dL (2.5-4.9); Potassium, Blood 3.4 mmol/L (3.5-5.5); Sodium, Blood 142 mmol/L (136-145)
--- NOTE | 2019-10-28 05:46 | NUR ---
SHIFT SUMMARY: PT A&O. AFEBRILE THROUGHOUT SHIFT. SPO2 >90% ON 6L NC. OCC PRODUCTIVE COUGH PRODUCING BLOOD TINGED SPUTUM-SAMPLE SENT TO LAB. EXP WHEEZES IN UPPER LOBE AND COARSE IN LOWER LOBES. HR IN THE 80-100S, AFIB WITH BBB. SBP STABLE IN THE 140S. PT IS ABLE TO USE URINAL WITHOUT EPISODES OF INCONTINENCE. 20G IV IN R WRIST AND 20G IN LAC. BOTH SL. FAMILY AT BEDSIDE FIRST PART OF SHIFT. PT CURRENTLY RESTING COMFORTABLY
--- NOTE | 2019-10-28 07:30 | NUR ---
ASSUMED CARE OF PATIENT; SEE ASSESSMENT CHARTING FOR DETAILS. PATIENT SLEEPY BUT ROUSES EASILY; ORIENTED X4. LUNGS REMAIN WITH COARSE WHEEZES T/O CHEST. UDN TX. GIVEN PER ORDER AND PATIENT USING FLUTTER VALVE ROUTINELY. COUGH STRONG AND PRODUCTIVE OF SOME BLOODY TINGED MUCUS; NOTE: PATIENT WITH SOME BLEEDING OF NARES; BLOOD IS MINIMAL AND NO CLOTS, ETC. NOTED. SATINDER GUILLORY PLACED, IN BILAT. NARES, USING Q TIPS. HOPEFULLY WILL HELP PREVENT BLEEDING. PATIENT VOIDING SMALL AMOUNTS OF INEZ-COLORED URINE, INTO URINAL. APPETITE FAIR TO GOOD; NO GI UPSET. STATES HE IS PASSING LG. AMT'S OF FLATUS; ABD. SOFT; DENIES ANY DISCOMFORT.
--- NOTE | 2019-10-28 10:15 | NUR ---
DR. FOX HERE; CHANGED PATIENT TO MED. FLOOR, WITH TELEM., STATUS. [facility]PH[facility] RIDER ORDERED; WILL HAVE MED. FLOOR INITIATE; ROOM ASSIGNMENT IS 326.
--- NOTE | 2019-10-28 10:52 | NUR ---
T/C TO ROSELIA CUTLER RN FOR REPORT; HE WILL CALL RN BACK.
--- NOTE | 2019-10-28 10:58 | NUR ---
REPORT GIVEN TO ROSELIA Bernal RN.
--- NOTE | 2019-10-28 11:15 | NUR ---
TRANSFERRED TO ROOM 326, VIA W/C. DAUGHTER AND SOLE SPLITTER ACCOMPANYING. PATIENT STOOD WITH SBA; STURDY ON FEET. [facility] R[facility]ER SENT WITH PATIENT ALONG WITH OTHER MEDS. CHART AND BELONGINGS SENT, ALSO.
--- NOTE | 2019-10-28 11:41 | NUR ---
NOTED IV IN LEFT AC, NOT CHARTED, IV NOT FLUSHING SO D/C'D THIS IV. UNABLE TO CHART REMOVAL WASN'T PRESENT
--- NOTE | 2019-10-28 18:20 | NUR ---
SHIFT SUMMARY PATIENT TRANSFER FROM ICU BY WC. TELEMETRY IN PLACE. VOIDING YELLOW/INEZ URINE. PATIENT ARRIVED ON 6 L NC. PATIENT ON ROOM AIR BY END OF SHIFT WITH SATS AROUND 92%. FLUID RESTRICTION IN PLACE OF PATIENT. PATIENT A/O AND MAKES NEEDS KNOWN. LN TO CONTINUE TO MONITOR.
--- NOTE | 2019-10-28 21:28 | NUR ---
BEGINNING SHIFT SUMMARY ASSUMED CARE OF PT AT 1900. PT WAS LYING IN BED SLEEPING. PT A/O. PT WAS ON 6L O2 IN ICU, PT WAS RA WHEN ASSESSED, VITALS TAKEN AND PT DROPPED INTO THE 80'S, 2L O2 ADMINISTERED, PT SATURATION ABOVE 90, BASLINE IS RA. HEART SOUNDS IRREGULAR, PT ON TELE, REPORT STATED PT WAS IN A FLUTTER WITH BBB AT 77, 2+ PITTING EDEMA IN BLE, SCUDS IN PLACE. LUNG SOUNDS WHEEZING AND CRACKLES T/O, PT DENIES SOB/DYSPNEA. PT RECEIVED SECOND IV FOR ABX. PT IS CURRENTLY SLEEPING, CALL LIGHT IN REACH, BED IN LOWEST POSTITION, WILL CONTINUE TO MONITOR.
[2019-10-29 05:48] LABS: Calcium, Blood 8.8 mg/dL (8.5-10.1); Creatinine, Blood 1.31 mg/dL (0.60-1.20); Potassium, Blood 3.3 mmol/L (3.5-5.5)
--- NOTE | 2019-10-29 06:33 | NUR ---
END SHIFT SUMMARY PT TOOK OFF OXYGEN DURING THE NIGHT, PT DESATURATED TO THE 80'S 4L O2 ADMINISTERED, PT IS NOT ABOVE 90%. PT HAD A NOSEBLEED DUE TO OXYGEN TUBING, TUBING CHANGED. CALL LIGHT IN REACH, BED IN LOWEST POSTION, WILL CONTINUE TO MONITOR UNTIL DAYSHIFT NURSE ARRIVES.
--- NOTE | 2019-10-29 15:44 | NUR ---
SHIFT SUMMARY DIANA DENIED PAIN THIS SHIFT. SBA TO BR, CALLS APPROPRIATELY. TELE SHOWS AFLUTTER WITH PVCS IN THE 80S. TRIED TO WEAN HIM DOWN ON HIS OXYGEN, UNABLE TO WEAN BELOW 4L OXYGEN AT THIS TIME, PT ON RA AT HOME. GOT INSULIN FOR CBGS. FLUID RESTRICTION LIBERALIZED TO 2L. LUNGS VERY COARSE. TOOK MEDS PRESCRIBED. CALL LIGHT IN REACH. WCTM
--- NOTE | 2019-10-29 18:07 | NUR ---
SHIFT SUMMARY PT AXO, PLEASANT AND COOPERATIVE WITH CARE. THIS NURSE ASSUMED CARE AT ABOUT 1545. NO ACUTE CHANGES. PT SITTING UP IN BED EATING DINNER AT THIS TIME. BED IN LOW POSITION, CALL LIGHT WITHIN REACH.
--- NOTE | 2019-10-30 05:33 | NUR ---
SUPERVISORY CBP OFFICER SUMMARY Patient alert and oriented X3. no complaints of pain or SOB. Moderate loose sounding non productive cough. lung sounds course. worse on left. OOB with standby in attendence for safety.
[2019-10-30 05:36] LABS: Bun/Creatinine Ratio 26.5 (12.0-20.0); Calcium, Blood 8.9 mg/dL (8.5-10.1); Creatinine, Blood 1.32 mg/dL (0.60-1.20); Potassium, Blood 3.7 mmol/L (3.5-5.5)
--- NOTE | 2019-10-30 17:52 | NUR ---
PATIENT A/OX4, WITH FWW AND SBA. ABLE TO USE URINAL INDEPENDENTLY AT BEDSIDE. PATIENT DENIES ANY PAIN OR DISCOMFORT. LUNGS WITH WHEEZES THROUGHOUT, NOW ON RA. TOLERATING ADA DIET. ACHS BLOOD SUGARS, COVERAGE PER SLIDING SCALE. SKIN INTACT.
[2019-10-31 05:19] LABS: BASOPHILS ABSOLUTE AUTO 0.07 K/mm3 (0.00-0.23); BASOPHILS PERCENT AUTO 1 % (0-2); EOSINOPHILS PERCENT AUTO 2 % (0-6); Hematocrit 44.8 % (37.0-53.0); Hemoglobin 14.4 g/dL (13.5-17.5); IMMATURE GRAN ABSOLUTE AUTO 0.04 K/mm3 (0.00-0.10); IMMATURE GRAN PERCENT AUTO 0 % (0-1); LYMPHOCYTES ABSOLUTE AUTO 1.88 K/mm3 (0.84-5.20); LYMPHOCYTES PERCENT AUTO 15 % (21-46); MONOCYTES ABSOLUTE AUTO 0.75 K/mm3 (0.16-1.47); MONOCYTES PERCENT AUTO 6 % (4-13); Mean Corpuscular HGB 28.5 pg (26.0-34.0); Mean Corpuscular HGB Conc 32.1 g/dL (31.5-36.5); Mean Corpuscular Volume 89 fL (80-100); Mean Platelet Volume 8.8 fL (9.1-12.4); NEUTROPHILS ABSOLUTE AUTO 9.91 K/mm3 (1.96-9.15); NEUTROPHILS PERCENT AUTO 77 % (41-73); Platelet Count 342 K/mm3 (150-400); RDW Coefficient Variation 13.7 % (11.7-14.2); RDW Standard Deviation 44.7 fL (35.1-46.3); Red Blood Cell Count 5.05 M/mm3 (4.30-5.90); White Blood Cell Count 12.85 K/mm3 (4.00-11.30)
[2019-10-31 05:48] LABS: Bun/Creatinine Ratio 26.4 (12.0-20.0); Calcium, Blood 8.6 mg/dL (8.5-10.1); Creatinine, Blood 1.29 mg/dL (0.60-1.20); Magnesium, Blood 1.9 mg/dL (1.6-2.4); Potassium, Blood 3.8 mmol/L (3.5-5.5)
[2019-10-31] MEDS ORDERED: ACET325 PO (09:23)
[2019-10-31] MEDS ORDERED: Amiodarone HCl200 MG PO (09:25)
[2019-10-31] MEDS ORDERED: FURO40 PO (09:25)
[2019-10-31] MEDS ORDERED: LOSA50 PO (09:25)
[2019-10-31] MEDS ORDERED: PRED20 PO (09:26)
[2019-10-31] MEDS ORDERED: POTCHL20ER PO (09:26)
--- NOTE | 2019-10-31 14:24 | NUR ---
PATIENT DISCHARGE: PATIENT DISCHARGED / XFR TO HOME HEALTH THIS SHIFT. MEDICATION RECONCILIATION COMPLETED; MED LIST FAXED TO [facility]. DISCHARGE EDUCATION COMPLETED WITH PATIENT. PATIENT TRANSPORTED TO EXIT BY [facility] WITH WHEELCHAIR AT 1420. PATIENT DEPARTED [facility] VIA PRIVATE AUTO.
== END 2019-10-31 14:19 | disposition home health service (06) | DRG 291 ==
LOC: ER 13:49 → PCU 16:39 → ICUW 16:39 → PCU 19:07 → ICUW 10-24 23:42 → MEDS 10-28 11:18 → ENPENDDIS 10-31 08:50 → MEDS 10-31 14:19
PROVIDERS: Emergency Medicine; Hospitalist; Internal Medicine; Internal Medicine Critical Care Medicine; Internal Medicine Pulmonary Disease; Nurse Practitioner Acute Care; ADMIT Family Medicine
PROC: 5A2204Z Restoration of Cardiac Rhythm, Single (ICD-10-PCS; principal; 2019-10-24)
DX: I11.0 Hypertensive heart disease with heart failure (principal); J18.9 Pneumonia, unspecified organism; J96.01 Acute respiratory failure with hypoxia; N17.9 Acute kidney failure, unspecified; I50.41 Acute combined systolic (congestive) and diastolic (congestive) heart failure; I48.91 Unspecified atrial fibrillation; Z79.01 Long term (current) use of anticoagulants; E87.6 Hypokalemia; E11.9 Type 2 diabetes mellitus without complications; E78.5 Hyperlipidemia, unspecified; K21.9 Gastro-esophageal reflux disease without esophagitis; F03.90 Unspecified dementia, unspecified severity, without behavioral disturbance, psychotic disturbance, mood disturbance, and anxiety; Z79.84 Long term (current) use of oral hypoglycemic drugs; E66.9 Obesity, unspecified; D50.9 Iron deficiency anemia, unspecified
CPT/HCPCS: 36415; 36600; 71045; 71046; 71260; 78452; 80048; 80053; 81003; 82728; 82803; 82947; 83540; 83550; 83605; 83735; 83880; 84100; 84145; 84443; 84484; 85025; 87040; 87070; 87205; 92960; 93005; 93010; 93017; 93306; 94640; 94660; 94760; 94761; 94762; 96374-59; 96375-59; 96376-59; 97110; 97162; 97165; 97530; 99152; 99285-25; A9270-GY; A9500; J0280; J0282; J0456; J0696; J1815; J1940; J2060; J2250; J2310; J2405; J2785; J3010; J3475; J3480; J7030; J7050; J7060; J7512; Q9967

== ENCOUNTER 2019-12-12 09:43 | Inpatient (IN) | payer OTHER, MEDICARE ==
[~2019-12-12] VITALS: Ht 185.4 cm; Wt 90.3 kg
[~2019-12-12 09:43] MED LIST: ACET325 PO; Amiodarone HCl200 MG PO; DULO60 PO; ELIQUIS5 MG PO; FLUOCINOLON118.28 ML TOP; FURO40 PO; GLIP5 PO; GUAI600T33 PO; Ketoconazole120 ML TOP; LEVALBUTEROL TA15 GM INH; LOSA50 PO; LOSARTAN-HCTZ1 EACH PO; MAGNESIUM OXID500 MG PO; MEMA10 PO; METO25ER PO; NIFE90ER PO; Norco 10-325 T1 EACH PO; POTCHL20ER PO; PRED20 PO
[2019-12-12 11:10] LABS: BASOPHILS PERCENT AUTO 1 % (0-2); EOSINOPHILS ABSOLUTE AUTO 0.23 K/mm3 (0.00-0.68); EOSINOPHILS PERCENT AUTO 2 % (0-6); Hematocrit 46.8 % (37.0-53.0); IMMATURE GRAN ABSOLUTE AUTO 0.02 K/mm3 (0.00-0.10); IMMATURE GRAN PERCENT AUTO 0 % (0-1); LYMPHOCYTES ABSOLUTE AUTO 1.52 K/mm3 (0.84-5.20); LYMPHOCYTES PERCENT AUTO 16 % (21-46); MONOCYTES PERCENT AUTO 6 % (4-13); Mean Corpuscular HGB 28.2 pg (26.0-34.0); Mean Corpuscular HGB Conc 32.1 g/dL (31.5-36.5); Mean Corpuscular Volume 88 fL (80-100); Mean Platelet Volume 8.6 fL (9.1-12.4); NEUTROPHILS PERCENT AUTO 75 % (41-73); Platelet Count 454 K/mm3 (150-400); RDW Coefficient Variation 13.9 % (11.7-14.2); RDW Standard Deviation 44.9 fL (35.1-46.3); Red Blood Cell Count 5.31 M/mm3 (4.30-5.90); White Blood Cell Count 9.67 K/mm3 (4.00-11.30)
[2019-12-12 11:38] LABS: Albumin, Blood 2.6 g/dL (3.4-5.0); Albumin/Globulin Ratio 0.7 (0.8-1.8); Bilirubin, Total 0.4 mg/dL (0.1-1.0); Bun/Creatinine Ratio 20.4 (12.0-20.0); Calcium, Blood 8.8 mg/dL (8.5-10.1); Creatinine, Blood 1.52 mg/dL (0.60-1.20); Globulin, Blood 3.6 g/dL (2.2-4.0); Potassium, Blood 3.9 mmol/L (3.5-5.5); Total Protein, Blood 6.2 g/dL (6.4-8.2); Troponin I 0.072 ng/mL (0.000-0.040)
--- NOTE | 2019-12-12 18:00 | NUR ---
PT WAS SEEN BY ROSELIA RIGGS SWITCHED PT TO MEDICAL STATUS AND TO TRANSFER TO MEDICAL FLOOR IF THERES ROOM AVAILABILITY, ALSO MENTIONED TO ROSELIA IRGGS ABOUT PT'S ORDER FOR ST TO EVAL AND TREAT IF PT WAS TO STAY NPO, PEARL STRINGER VERIFIED PT CAN RESUME DIET AND DOES NOT NEED TO BE NPO. NO ASPIRATION/COUGHING NOTED WITH PT'S DINNER.
--- NOTE | 2019-12-12 18:50 | NUR ---
SUMMARY: PT RECEIVED FROM ER AROUND 1500, PT IS HERE FOR AFIB RVR AND POSS LL PNA. PT WAS LAST HOSPITALIZED LAST SEPTEMBER 2019 D/T PNA WELL. PT PLAN TO TRANSFER TO MEDICAL FLOOR STATUS CHANGD TO MEDICAL WITH TELE. PT'S HRR AFIB 100'S-120'S PT DENIES CHEST PAIN AT THIS TIME. PT CURRENTLY ON 1L OF O2 SATS KEPT ABOVE 90% PT NOT IN RESPI DISTRESS. TOPROL PO GIVEN @1800 12.5MG. PT CURRENTLY IN BED RESTING CALL LIGHT ROBI ROBLES. TO GIVE REPORT TO ONCOMING SHIFT.
--- NOTE | 2019-12-12 19:08 | NUR ---
PT KINDLY REFUSED NEB TX. NO HOME INHALER AVAILABLE. SPO2 95% ON 1L NC. HR 84. BS DEC WITH CRACKLES LLL. NO RESP DISTRESS NOTED. ADVISED TO CALL IF SHORT OF BREATH.
[2019-12-13 03:57] LABS: BASOPHILS ABSOLUTE AUTO 0.11 K/mm3 (0.00-0.23); BASOPHILS PERCENT AUTO 1 % (0-2); EOSINOPHILS ABSOLUTE AUTO 0.32 K/mm3 (0.00-0.68); EOSINOPHILS PERCENT AUTO 3 % (0-6); Hematocrit 43.6 % (37.0-53.0); Hemoglobin 13.9 g/dL (13.5-17.5); IMMATURE GRAN ABSOLUTE AUTO 0.02 K/mm3 (0.00-0.10); IMMATURE GRAN PERCENT AUTO 0 % (0-1); LYMPHOCYTES ABSOLUTE AUTO 1.98 K/mm3 (0.84-5.20); LYMPHOCYTES PERCENT AUTO 21 % (21-46); MONOCYTES ABSOLUTE AUTO 0.63 K/mm3 (0.16-1.47); MONOCYTES PERCENT AUTO 7 % (4-13); Mean Corpuscular HGB 28.4 pg (26.0-34.0); Mean Corpuscular HGB Conc 31.9 g/dL (31.5-36.5); Mean Corpuscular Volume 89 fL (80-100); Mean Platelet Volume 8.6 fL (9.1-12.4); NEUTROPHILS ABSOLUTE AUTO 6.33 K/mm3 (1.96-9.15); NEUTROPHILS PERCENT AUTO 67 % (41-73); Platelet Count 374 K/mm3 (150-400); RDW Coefficient Variation 14.1 % (11.7-14.2); RDW Standard Deviation 45.3 fL (35.1-46.3); White Blood Cell Count 9.39 K/mm3 (4.00-11.30)
[2019-12-13 04:21] LABS: Albumin, Blood 2.3 g/dL (3.4-5.0); Albumin/Globulin Ratio 0.7 (0.8-1.8); Bilirubin, Total 0.5 mg/dL (0.1-1.0); Bun/Creatinine Ratio 20.1 (12.0-20.0); Calcium, Blood 8.3 mg/dL (8.5-10.1); Creatinine, Blood 1.49 mg/dL (0.60-1.20); Globulin, Blood 3.4 g/dL (2.2-4.0); Potassium, Blood 3.8 mmol/L (3.5-5.5); Total Protein, Blood 5.7 g/dL (6.4-8.2)
--- NOTE | 2019-12-13 05:47 | NUR ---
SHIFT SUMMARY PT SLEEPING IN ROOM COMFORTABLY AT THIS TIME. NO ACUTE CHANGES IN STATUS T/O NIGHT. PT SLEPT WELL. DENIED ANY CP OR SOB. RESP EVEN UNLABORED ON 1L NC W/ SATS >92%. DENIED OTHER NEEDS. PT ABLE TO AMBULATE TO AND FROM RR W/O ASSIST. PT PIV IS SL. CALL LIGHT IN REACH, PT CALLS APPROPRIATELY. WILL GIVE BEDSIDE REPORT TO ONCOMING RN.
--- NOTE | 2019-12-13 18:38 | NUR ---
SHIFT SUMMARY: PT ALERT AND ORIENTED X 4, PT CONTINUES TO RECEIVE IV ABO FOR LLL PNA, IV ABO INFUSED WITHOUT ANY ISSUES, PT HRR STARTED AFIB AT THE BEGINNING OF THE SHIFT CONTROLLED BY ORAL BP MEDS. PT WAS SEEN BY DR. STANTON TODAY ORDER TO DC TELE MONITOR TODAY AND TO REMAIN MEDICAL STATUS AND TO TRANSFER TO MEDICAL FLOOR IF THERE'S ANY ROOM AVAILABLE. PT'S SATS KEPT ABOVE 90% ON ROOMAIR, LUNGS COARSE ON LEFT LOBE, NO RESPI DISTRESS NOTED THROUGHOUT THE SHIFT, PT HAS BEEN INDEPENDENT TO GO TO THE BATHROOM FOR TOILETING. ST THERAPY CAME AND EVAL PT, NO OTHER ORDERS INDICATED. NO ASPIRATION/COUGHING DURING MEALS NOTED. PT CURRENTLY RESTING IN BED CALL LIGHTS WITHIN REACH. TO GIVE REPORT TO ONCOMING SHIFT
--- NOTE | 2019-12-13 22:08 | NUR ---
PT AAOX4. ANSWERES QUESTIONS APPROPRIATELY. INDEPENDENT IN ROOM. STEADY GATE. LUNG SOUNDS EXP WHEEZE IN LLL. NO COMPLAINTS OF PAIN OR DISCOMFORT AT THIS TIME.
--- NOTE | 2019-12-14 06:13 | NUR ---
NOC SHIFT SUMMARY PT IS PLEASANT AND COOPERATIVE WITH CARE. AAO, ANSWERES QUESTIONS APPROPRIATELY. VSS THIS NIGHT. WHEEZE IN LLL. NEED SPUTUM CX. CUP IN ROOM AND PT INSTRUCTED TO HOW TO GIVE SAMPLE WHEN ABLE. PT HAS SLEPT ON AND OFF THROUGH THE NIGHT. NO ACUTE CHANGES NOTED. PRESENTLY APPEARS IN NO ACUTE DISTRESS. CALL LIGHT IN REACH AND BED IN LOWES POSITION. INDEPENDENT IN ROOM. WILL CONTINUE TO MONITOR.
--- NOTE | 2019-12-14 07:15 | NUR ---
ASSUMED PATIENT CARE. PATIENT SLEEPING IN BED, NO SIGNS OF ACUTE DISTRESS.
--- NOTE | 2019-12-14 19:30 | NUR ---
RELINQUISHED PATIENT CARE.
--- NOTE | 2019-12-14 19:38 | NUR ---
PATIENT RECIEVED IV ABX PER ORDER, REMAINED ON ROOM AIR BUT COMPLAINED WORK OF BREATH AT TIMES THROUGH SHIFT. PATIENT A FIB AT BASELINE, RATE WAS CONTROLLED ON THIS DAY SHIFT. PATIENT CONCERNED ABOUT BEING DISCHARGED BEFORE HE IS WELL ENOUGH, CASE MANAGEMENT INVOLVED.
--- NOTE | 2019-12-14 19:55 | NUR ---
PT C/O MILD SOB. LUNGS DIMINISHED ON LEFT SIDE. WHEEZING NOTED. O2 SITTING AT 85-86% ON RA. PT PUT ON 3L WITH O2 AT 94%. WILL NOTIFY RT FOR PRN BREATHING TX.
--- NOTE | 2019-12-14 23:39 | NUR ---
PT TITRATED DOWN TO RA AFTER RESP TREATMENT. O2 NOW 96%. NO WHEEZING NOTED.
--- NOTE | 2019-12-15 04:18 | NUR ---
SHIFT SUMMARY: PT SOB IN BEGINNING OF SHIFT WITH AUDIBLE WHEEZING. LUNGS DIMINISHED ON LEFT SIDE. O2 85% ON RA. PT PUT ON 3LO2 VIA NC. RECIEVED PRN BREATHING TREATMENT X1. ATTEMPTED TO TITRATE OXYGEN DOWN TO RA, HOWEVER UNSUCCESSFUL AND PT REMAINS ON O2 WHILE SLEEPING. WHEEZING IMPROVED AFTER RT TREATMENT. PT INDEPENDENT IN ROOM. VS WNL. SPUTUM SAMPLE COLLECTED AND SENT TO LAB.
--- NOTE | 2019-12-15 07:19 | NUR ---
ASSUMED PATIENT CARE. PATIENT RESTING COMFORTABLY IN BED, ON 3 L O2 WITH O2 SAT IN 90S. NO SIGNS OF ACUTE DISTRESS, WCTM.
--- NOTE | 2019-12-15 12:07 | NUR ---
PATIENT MAINTAINING O2 SATS OF LOW 90S ON 2L OXYGEN. TITRATED DOWN TO 1 L O2 NASAL CANNULA, NO SIGNS OF ACUTE DISTRESS. WCTM.
--- NOTE | 2019-12-15 13:24 | NUR ---
REPORT GIVEN TO DEBRA TANG. PATIENT ON 2 L O2 AND MAINTAINING O2 SATURATION IN LOW 90S. NO SIGNS OF ACUTE DISTRESS.
--- NOTE | 2019-12-15 13:51 | NUR ---
PATIENT CALLED FOR NURSE DUE TO INCREASED WORK OF BREATHING, PATIENT O2 SATURATION 89-91 ON 3L OF O2. PATIENT LUNG SOUNDS ASSESSED, LLE INCREASED COURSENESS, NEW SLIGHT RUBBING SOUND NOTED. BILATERAL ACCESSORY MUSCLES IN USE. PATIENT SAYS "IT FEELS LIKE MY LUNGS ARE FILLING UP, MY BREATHS ARE GETTING SHORTER AND SHORTER." RT CALLED AND RESPIRATORY TREATMENT STARTED. WCTM.
--- NOTE | 2019-12-15 14:22 | NUR ---
DR. STANTON NOTIFIED OF PATIENT EVENT WITH INCREASED WORK OF BREATHING, INFORMED OF RT TREATMENT. DR. STANTON CAME AND LISTENED TO PATIENT LUNGS AND ORDERED A CHEST X-RAY. PATIENT NOTED SLIGHT IMPROVEMENT AFTER RT TREATMENT, BUT ENDORSES THAT HE FEELS MUCH WORSE THAN YESTERDAY. WCTM.
--- NOTE | 2019-12-15 19:28 | NUR ---
RELINQUISHED PATIENT CARE. PATIENT REMAINED IN LOW 90S O2 SATURATION FOR SHIFT EXCEPT FOR EVENT IN EARLY AFTERNOON OF INCREASED WORK OF BREATHING AND O2 DECREASING TO UPPER 80S. O2 WAS TITRATED FROM 1L TO 3L, RT WAS CALLED AND ADMINISTERED BREATHING TREATMENT. PATIENT ENDORSE A SLIGHT IMPROVEMENT, BUT SHARED THAT "IT FEELS LIKE MY LUNGS ARE FILLING UP." DR. STANTON NOTIFIED AND ASSESSED PATIENT, CHEST X-RAY DONE AND SHOWED FLUID IN LUNGS. LASIX ORDERED TO ADDRESS PULMONARY EDEMA.
[2019-12-16 04:39] LABS: BASOPHILS ABSOLUTE AUTO 0.09 K/mm3 (0.00-0.23); BASOPHILS PERCENT AUTO 1 % (0-2); EOSINOPHILS ABSOLUTE AUTO 0.22 K/mm3 (0.00-0.68); EOSINOPHILS PERCENT AUTO 2 % (0-6); Hematocrit 41.8 % (37.0-53.0); Hemoglobin 13.2 g/dL (13.5-17.5); IMMATURE GRAN ABSOLUTE AUTO 0.05 K/mm3 (0.00-0.10); IMMATURE GRAN PERCENT AUTO 0 % (0-1); LYMPHOCYTES ABSOLUTE AUTO 1.13 K/mm3 (0.84-5.20); LYMPHOCYTES PERCENT AUTO 10 % (21-46); MONOCYTES ABSOLUTE AUTO 0.85 K/mm3 (0.16-1.47); MONOCYTES PERCENT AUTO 7 % (4-13); Mean Corpuscular HGB 28.1 pg (26.0-34.0); Mean Corpuscular HGB Conc 31.6 g/dL (31.5-36.5); Mean Corpuscular Volume 89 fL (80-100); Mean Platelet Volume 8.7 fL (9.1-12.4); NEUTROPHILS ABSOLUTE AUTO 9.59 K/mm3 (1.96-9.15); NEUTROPHILS PERCENT AUTO 80 % (41-73); Platelet Count 302 K/mm3 (150-400); RDW Coefficient Variation 14.3 % (11.7-14.2); RDW Standard Deviation 46.5 fL (35.1-46.3); White Blood Cell Count 11.93 K/mm3 (4.00-11.30)
--- NOTE | 2019-12-16 05:45 | NUR ---
SHIFT SUMMARY PT SLEEPNING IN ROOM COMFRORTABLY AT THIS TMIE. NO ACUTE CHANGES IN STATUS T/O NIGHT. PT SLEPT WELL, DENIED ANY CP. PT DID WAKE ONC DURING NIGHT AND REPORT SOME DYSNPNEA AFTER STANDNIG TO USE RR. PT REQUESTED BREATHING TREATMENT. RT TO ROOM, PT REPORTING FEELING MUCH BETTER AFTER TREATMENT. PT BACK IN BED LYING DOWN TO SLEEP. RESP EVEN UNLABORED AT THIS TIME W/ SATS >92%. DENIED OTHER NEEDS. CALL LIGHT IN REACH. WILL GIVE BEDSIDE REPORT TO ONCOMING RN.
[2019-12-16 09:14] LABS: Anion Gap 3 mmol/L (6-16); Blood Urea Nitrogen 21 mg/dL (8-24); Bun/Creatinine Ratio 18.9 (12.0-20.0); CO2, Blood 33 mmol/L (21-32); Calcium, Blood 8.1 mg/dL (8.5-10.1); Chloride, Blood 100 mmol/L (98-108); Creatinine, Blood 1.11 mg/dL (0.60-1.20); Glomerular Filtration Rate >60 (60-); Glucose, Blood 313 mg/dL (70-99); Potassium, Blood 3.9 mmol/L (3.5-5.5); Sodium, Blood 136 mmol/L (136-145)
--- NOTE | 2019-12-16 18:40 | NUR ---
PCU DAY SHIFT SUMMARY ALERT ORIENTED X4 THROUGHOUT SHIFT. CRACKLES TO BILATERAL BASES. SPO2 >90% 4L, PATIENT DESATURATES ON RA AND WITH EXERTION. OCCASIONAL NON PRODUCTIVE COUGH. PATIENT AFIB AT BASELINE TAKES ELIQUIS AT HOME. PATIENT DENIES CHEST PAIN THROUGHOUT SHIFT. TRACE EDEMA OBSERVED TO BILATERAL LOWER EXTREMITIES. PATIENT CURRENTLY MED NO TELE. IS RESTING COMFORTABLY IND. IN ROOM. REFUSES IN ROOM REPORT WITH NOC SHIFT AT THIS TIME. CALL LIGHT WITHIN REACH. VSS THROUGHOUT SHIFT. WILL CONTINUE TO MONITOR AND GIVE REPORT TO NOC SHIFT RN.
[2019-12-17 02:22] LABS: Calcium, Blood 8.6 mg/dL (8.5-10.1); Creatinine, Blood 1.26 mg/dL (0.60-1.20); Potassium, Blood 3.9 mmol/L (3.5-5.5)
--- NOTE | 2019-12-17 05:28 | NUR ---
SHIFT SUMMARY PT SLEEPING IN ROOM COMFORTABLY AT THIS TMIE. NO ACUTE CHANGES IN STATUS T/ NIGHT. PT SLEPT WELL, DENIED ANY CP OR SOB RESP EVEN UNLABORED AT THIS TIME W/ SATS >92%. PT DID NOT REPORT ANY SOB DURING NIGHT AND DID NOT REQUEST BREATHING TX. DENIED OTHER NEEDS. CALL LIGHT IN REACH. WILL GIVE BEDSIDE REPORT TO ONCOMING RN.
--- NOTE | 2019-12-17 07:26 | NUR ---
ASSUMED PATIENT CARE. PATIENT RETING COMFORTABLY IN BED, SPEAKING WITH NURSING STAFF, NO SIGNS OF ACUTE DISTRESS, EQUAL BILATERAL CHEST RISE WITH BREATH.
--- NOTE | 2019-12-17 18:35 | NUR ---
PATIENT REQUIRED OXYGEN BY NASAL CANNULA THROUGHOUT SHIFT. PATIENT WAS FOUND TO BE NAPPING MIDDAY WITH AN O2 SATURATION OF 85-86, PATIENT WAS AWAKENED, INCREASED FROM 3 TO 5, PATIETN RECIEVED RT TREATMENT WHICH IMPROVED SATURATION UP TO 95%. PLAN IS TO CONTINUE TO MANAGE PULMONARY EDEMA VIA DIURESIS. PATIENT TO CONTINUE TO RECIEVE LASIX.
[2019-12-18 04:31] LABS: Anion Gap 7 mmol/L (6-16); Blood Urea Nitrogen 29 mg/dL (8-24); Bun/Creatinine Ratio 24.2 (12.0-20.0); CO2, Blood 29 mmol/L (21-32); Calcium, Blood 8.4 mg/dL (8.5-10.1); Chloride, Blood 103 mmol/L (98-108); Glomerular Filtration Rate >60 (60-); Glucose, Blood 171 mg/dL (70-99); Magnesium, Blood 1.9 mg/dL (1.6-2.4); Potassium, Blood 3.7 mmol/L (3.5-5.5); Sodium, Blood 139 mmol/L (136-145)
--- NOTE | 2019-12-18 07:41 | NUR ---
SHIFT SUMMARY PT A&O; INDEPENDENT TO BATHROOM; VSS; O2 SATS >93 ON 4L HIGH FLOW; PT STATED HE WANTED TO SLEEP AND HAVE DOOR CLOSED; PT SLEPT SEVERAL HOURS IN BETWEEN INTERVENTIONS; DENIES NEEDS; CURRENTLY SLEEPING; CALL LIGHT IN REACH; BED IN LOWEST POSITION; REPORT GIVEN TO DAY SHIFT RN.
--- NOTE | 2019-12-18 10:47 | NUR ---
NOTE PT RESTING QUIETLY. OFF TELEMETRY. PT MEDICAL STATUS NO TELEMETRY. AP IRREG/IRREG. AP HR LOW 100'S. PT REALTED THAT HE IS MORE SOB TODAY THAN YESTERDAY. HE IS REQUIRING 5L HIGH FLOW OXYGEN TO KEEP HIS SPO2 AT REST LOW 90'S. CRACKLES NOTED BILATERAL LUNG BASE. ORDERED LASIX GIVEN. NOTED A 3 POUND WEIGTH GAIN SINCE ADMIT. I/O CURRENTLY NEGATIVE. PT DENIES DISCOMFORT. CALL LIGHT WITH IN REACH AND BED IN LOW POSITION. CONTINUE POT.
--- NOTE | 2019-12-18 16:01 | NUR ---
transfer to 221 Report called to Rosamaria RICHARDSON. Pt tranfering via w/c accompanied by Kingsley. Continue pot.
--- NOTE | 2019-12-18 16:15 | NUR ---
ASSUMED PATIENT CARE. PATIENT ARRIVED TO UNIT VIA WHEELCHAIR, ALERT AND ORIENTED AND SPEAKING WITH NURSING STAFF. OXYGEN ON 5 L NASAL CANNULA. EQUAL BILATERAL CHEST RISE WITH BREATH. NO SIGNS OF ACUTE DISTRESS. WCTM.
--- NOTE | 2019-12-18 18:56 | NUR ---
PATIENT ARRIVED TO THIS UNIT FROM PCU THIS AFTERNOON. PATIENT ON 5 L OXYGEN THROUGH HIGH FLOW NASAL CANNULA. NO SIGNS OF ACUTE RESPIRATORY DISTRESS. PLAN IS TO CONTINUE TO TREAT PULMONARY EDEMA FOUND VIA CHEST X-RAY WITH LASIX. PNA TO CONTINUE TO BE TREATED WITH IV ABX.
[2019-12-19 06:01] LABS: Bun/Creatinine Ratio 25.2 (12.0-20.0); Calcium, Blood 8.8 mg/dL (8.5-10.1); Creatinine, Blood 1.27 mg/dL (0.60-1.20); Potassium, Blood 3.9 mmol/L (3.5-5.5)
--- NOTE | 2019-12-19 06:33 | NUR ---
SHIFT SUMMARY HAS RESTED WELL THIS SHIFT. REMAINS ON HIGH FLOW AT 5L. PRODUCTIVE COUGH NOTED. HAS DENIED PAIN, DISCOMFORT, OR FURTHER NEEDS. SAFETY MEASURES IN PLACE. WILL GIVE HAND OFF TO ONCOMING SHIFT USING SBAR DURING BEDSIDE REPORT.
--- NOTE | 2019-12-19 16:31 | NUR ---
SHIFT SUMMARY PT EATING AND DRINKING, VOIDING, PASSING GAS. PT CONT TO BE SOB WITH ACTIVITY. PT CONT TO BE ON HIGHFLOW O2. BP BEEN CHECKED MANUALLY R/T PT'S AFIB. PT BEEN ASSISTED WITH ADL'S PRN.
--- NOTE | 2019-12-20 03:59 | NUR ---
SHIFT SUMMARY PT IS A/O X4 AND IND. IN ROOM. PT HAS BEEN USING HIGH FLOW O2 THIS SHIFT. LUNGS REMAIN COARSE. DISCUSSED BREATHING TREATMENT WITH PT BUT DECLINED. TOLERATING PO INTAKE. PT HAS AMBULATED MULT TIMES TO BATHROOM; PT IS VOIDING. ASSISTED WITH ADL'S PRN.
[2019-12-20 05:10] LABS: BASOPHILS ABSOLUTE AUTO 0.03 K/mm3 (0.00-0.23); BASOPHILS PERCENT AUTO 0 % (0-2); EOSINOPHILS ABSOLUTE AUTO 0.01 K/mm3 (0.00-0.68); EOSINOPHILS PERCENT AUTO 0 % (0-6); Hemoglobin 13.3 g/dL (13.5-17.5); IMMATURE GRAN ABSOLUTE AUTO 0.04 K/mm3 (0.00-0.10); IMMATURE GRAN PERCENT AUTO 0 % (0-1); LYMPHOCYTES ABSOLUTE AUTO 0.72 K/mm3 (0.84-5.20); LYMPHOCYTES PERCENT AUTO 5 % (21-46); MONOCYTES ABSOLUTE AUTO 0.23 K/mm3 (0.16-1.47); MONOCYTES PERCENT AUTO 2 % (4-13); Mean Corpuscular HGB 28.4 pg (26.0-34.0); Mean Corpuscular HGB Conc 32.4 g/dL (31.5-36.5); Mean Corpuscular Volume 88 fL (80-100); Mean Platelet Volume 9.4 fL (9.1-12.4); NEUTROPHILS ABSOLUTE AUTO 14.38 K/mm3 (1.96-9.15); NEUTROPHILS PERCENT AUTO 93 % (41-73); Platelet Count 366 K/mm3 (150-400); RDW Coefficient Variation 14.6 % (11.7-14.2); RDW Standard Deviation 46.3 fL (35.1-46.3); Red Blood Cell Count 4.68 M/mm3 (4.30-5.90); White Blood Cell Count 15.41 K/mm3 (4.00-11.30)
[2019-12-20 05:23] LABS: Anion Gap 7 mmol/L (6-16); Blood Urea Nitrogen 35 mg/dL (8-24); Bun/Creatinine Ratio 28.5 (12.0-20.0); CO2, Blood 32 mmol/L (21-32); Calcium, Blood 8.8 mg/dL (8.5-10.1); Chloride, Blood 100 mmol/L (98-108); Creatinine, Blood 1.23 mg/dL (0.60-1.20); Glomerular Filtration Rate >60 (60-); Glucose, Blood 214 mg/dL (70-99); Potassium, Blood 3.9 mmol/L (3.5-5.5); Sodium, Blood 139 mmol/L (136-145)
--- NOTE | 2019-12-20 11:04 | NUR ---
DR ROMERO HERE TO SEE PT RECENTLY. WILL PLACE TELE ORDERED.
--- NOTE | 2019-12-20 16:03 | NUR ---
DR CHADWICK HERE RECENTLY TO SEE PT, REPORTED TO COMPLETE EKG NOW. EKG COMPLETED WHILE DR CHADWICK IN ROOM.
--- NOTE | 2019-12-20 17:02 | NUR ---
SHIFT SUMMARY PT EATING AND DRINKING, VOIDING, PASSING GAS. DR ROMERO AND FARRUKH BEEN TO SEE PT. PT HAD EKG COMPLETED PER DR CHADWICK. PT UP TO BATHROOM. PT BEEN ASSISTED WITH ADL'S PRN.
--- NOTE | 2019-12-20 17:39 | NUR ---
DR FONG HERE TO SEE PT.
--- NOTE | 2019-12-21 05:21 | NUR ---
PATIENT WAS ABLE TO SLEEP FOR A FEW HOURS THIS AM. HE HAD AN UNEVENTFUL NIGHT. HE HAS HAD NO COMPLAINTS OF PAIN OF DISCOMFORT. OCCASIONALY SOB AFTER UP TO VOID. RESOLVES AFTER 10 MINS. NO ACUTE CHANGES.
[2019-12-21 05:40] LABS: BASOPHILS ABSOLUTE AUTO 0.02 K/mm3 (0.00-0.23); BASOPHILS PERCENT AUTO 0 % (0-2); EOSINOPHILS ABSOLUTE AUTO 0.01 K/mm3 (0.00-0.68); EOSINOPHILS PERCENT AUTO 0 % (0-6); Hematocrit 41.2 % (37.0-53.0); IMMATURE GRAN PERCENT AUTO 1 % (0-1); LYMPHOCYTES ABSOLUTE AUTO 1.16 K/mm3 (0.84-5.20); LYMPHOCYTES PERCENT AUTO 6 % (21-46); MONOCYTES ABSOLUTE AUTO 0.87 K/mm3 (0.16-1.47); MONOCYTES PERCENT AUTO 4 % (4-13); Mean Corpuscular HGB 27.7 pg (26.0-34.0); Mean Corpuscular HGB Conc 31.6 g/dL (31.5-36.5); Mean Corpuscular Volume 88 fL (80-100); Mean Platelet Volume 9.5 fL (9.1-12.4); NEUTROPHILS ABSOLUTE AUTO 17.48 K/mm3 (1.96-9.15); NEUTROPHILS PERCENT AUTO 89 % (41-73); Platelet Count 414 K/mm3 (150-400); RDW Coefficient Variation 14.4 % (11.7-14.2); RDW Standard Deviation 45.9 fL (35.1-46.3); White Blood Cell Count 19.64 K/mm3 (4.00-11.30)
[2019-12-21 06:08] LABS: Bun/Creatinine Ratio 37.8 (12.0-20.0); Calcium, Blood 8.6 mg/dL (8.5-10.1); Creatinine, Blood 1.35 mg/dL (0.60-1.20); Free Thyroxine 1.04 ng/dL (0.70-1.60); Potassium, Blood 3.9 mmol/L (3.5-5.5)
--- NOTE | 2019-12-21 13:03 | NUR ---
PT GAVE PERMISSION TO CARE FOR HIM 12/21/2019 FROM [id number].
[2019-12-21 16:38] LABS: Adenovirus Not Detected (NOT DETECT); Bordetella pertussis Not Detected (NOT DETECT); Chlamydophila pneumoniae Not Detected (NOT DETECT); Coronavirus 229E Not Detected (NOT DETECT); Coronavirus HKU1 Not Detected (NOT DETECT); Coronavirus NL63 Not Detected (NOT DETECT); Coronavirus OC43 Not Detected (NOT DETECT); Human Metapneumovirus Not Detected (NOT DETECT); Human Rhinovirus/Enterovirus Not Detected (NOT DETECT); Influenza A Not Detected (NOT DETECT); Influenza A/2009-H1 Not Detected (NOT DETECT); Influenza A/H1 Not Detected (NOT DETECT); Influenza A/H3 Not Detected (NOT DETECT); Influenza B Not Detected (NOT DETECT); Mycoplasma pneumoniae Not Detected (NOT DETECT); Parainfluenza Virus 1 Not Detected (NOT DETECT); Parainfluenza Virus 2 Not Detected (NOT DETECT); Parainfluenza Virus 3 Not Detected (NOT DETECT); Parainfluenza Virus 4 Not Detected (NOT DETECT); Respiratory Syncytial Virus Not Detected (NOT DETECT)
--- NOTE | 2019-12-21 19:30 | NUR ---
SHIFT SUMMARY PT REMAINS SHORT OF BREATH WITH ACTIVITY. PT IS TOLERATING PO WELL. HE IS ALERT AND ABLE TO GET OOB WITH SBA. PT HAS HAD GOOD OUTPUT. VSS. WILL MONITOR UNTIL REPORT TO ONCOMING RN.
[2019-12-22 01:29] LABS: Vancomycin, Trough 18.4 ug/mL (5.0-10.0)
[2019-12-22 01:36] LABS: Bun/Creatinine Ratio 34.3 (12.0-20.0); Calcium, Blood 8.7 mg/dL (8.5-10.1); Creatinine, Blood 1.37 mg/dL (0.60-1.20); Potassium, Blood 4.1 mmol/L (3.5-5.5)
--- NOTE | 2019-12-22 01:41 | NUR ---
VANC TROUGH VALUE OF 18.4 CALLED TO PHARMACY WHO STATES THAT THEY WILL SEND DOWN THE NEXT DOSE. WILL CONTINUE TO MONITOR.
--- NOTE | 2019-12-22 05:56 | NUR ---
SHIFT SUMMARY HAS RESTED WELL, IS INDEPENDENT IN ROOM. REMAINS ON HIGH FLOW AT 5L, DISPNEA WITH EXERTION. PRODUCTIVE COUGH NOTED. HAS DENIED PAIN, DISCOMFORT, OR FURTHER NEEDS. SAFETY MEASURES IN PLACE. WILL GIVE HAND OFF TO ONCOMING SHIFT USING SBAR DURING BEDSIDE REPORT.
--- NOTE | 2019-12-22 10:43 | NUR ---
BUSINESS INTELLIGENCE MANAGER SHIF ASSESSMENT REVIEWED AND THIS RN AGREES WITH THAT ASSESSMENT BY WESLEY PETERS STUDENT NURSE. WILL CONTINUE TO MONITOR.
--- NOTE | 2019-12-22 10:58 | NUR ---
ELEVATED HR INCREASED O2 NEEDS. DISCUSSED HR BETWEEN [address] ROMERO. ORDERS FOR DIGOXIN PLACED BY DR. ROMERO, WILL MONITOR HR. DISCUSSED INCREASED O2 NEEDS FROM 3L TO 5L. WILL ENCOURAGE PULMONARY HYGIENE.
--- NOTE | 2019-12-22 16:52 | NUR ---
ASSUMED PT CARE AT THIS TIME
--- NOTE | 2019-12-22 16:56 | NUR ---
SHIFT SUMMARY OXYGEN HAS BEEN TITRATED FROM 5L TO 2L. PT WORKING ON PULMONARY HYGIENE. PT IS SBA IN ROOM. VSS. REPORT GIVEN TO NAVJOT RICHARDSON.
--- NOTE | 2019-12-23 04:48 | NUR ---
SHIFT SUMMARY AAOX4, VSS. PT ON 3L 02 CURRENTLT. PT DENIES SOB T/O SHIFT. STATES FEELING "MUCH BETTER". LUNG SOUNDS CLEAR T/O WHEN PT SAT UP. PT TOLERATING PO WELL. SATS ABOVE 92 DURNIG SHIFT. AFIB PER TELE DURING SHIFT. PLAN TO DISCHARGE TO SNF EVENTUALLY
[2019-12-23 06:07] LABS: BASOPHILS ABSOLUTE AUTO 0.01 K/mm3 (0.00-0.23); BASOPHILS PERCENT AUTO 0 % (0-2); EOSINOPHILS PERCENT AUTO 2 % (0-6); Hematocrit 42.2 % (37.0-53.0); Hemoglobin 13.2 g/dL (13.5-17.5); IMMATURE GRAN ABSOLUTE AUTO 0.03 K/mm3 (0.00-0.10); IMMATURE GRAN PERCENT AUTO 0 % (0-1); LYMPHOCYTES ABSOLUTE AUTO 1.64 K/mm3 (0.84-5.20); LYMPHOCYTES PERCENT AUTO 13 % (21-46); MONOCYTES PERCENT AUTO 6 % (4-13); Mean Corpuscular HGB 27.7 pg (26.0-34.0); Mean Corpuscular HGB Conc 31.3 g/dL (31.5-36.5); Mean Corpuscular Volume 89 fL (80-100); Mean Platelet Volume 8.8 fL (9.1-12.4); NEUTROPHILS ABSOLUTE AUTO 10.06 K/mm3 (1.96-9.15); NEUTROPHILS PERCENT AUTO 79 % (41-73); Platelet Count 321 K/mm3 (150-400); RDW Coefficient Variation 14.4 % (11.7-14.2); RDW Standard Deviation 46.4 fL (35.1-46.3); Red Blood Cell Count 4.77 M/mm3 (4.30-5.90); White Blood Cell Count 12.74 K/mm3 (4.00-11.30)
[2019-12-23 06:36] LABS: Anion Gap 3 mmol/L (6-16); Blood Urea Nitrogen 35 mg/dL (8-24); CO2, Blood 35 mmol/L (21-32); Calcium, Blood 8.3 mg/dL (8.5-10.1); Chloride, Blood 103 mmol/L (98-108); Creatinine, Blood 1.06 mg/dL (0.60-1.20); Glomerular Filtration Rate >60 (60-); Glucose, Blood 188 mg/dL (70-99); Potassium, Blood 4.1 mmol/L (3.5-5.5); Sodium, Blood 141 mmol/L (136-145)
[2019-12-23 06:47] LABS: Digoxin (Lanoxin) 1.03 ug/mL (0.80-2.00)
--- NOTE | 2019-12-23 14:02 | NUR ---
polst information given nursing to advise when family available to complete.
--- NOTE | 2019-12-23 17:15 | NUR ---
IV RFA D/C'D AT THIS TIME D/T LEAKING WHEN FLUSHED.
--- NOTE | 2019-12-23 19:38 | NUR ---
SHIFT SUMMARY PATIENT STATES HE 'FEELS BETTER.' O2 @ 6L. PATIENT DENIES SOB WITH AMBULATION. CONT TO HAVE OCCASSIONAL COUGH PRODUCTIVE THIN WHITISH SPUTUM. APPETITE GOOD. CBG'S INCREASINGLY ELEVATED THROUGH DAY, COVERED WITH SS INSULIN. NEW IV RFA PLACED BY CN. VOIDING. NO ACUTE CHANGES OR C/O THIS SHIFT.
--- NOTE | 2019-12-24 03:54 | NUR ---
SHIFT SUMMARY PT IS A/O X4 AND IND. IN ROOM. PT HAS BEEN USING 5-6L O2 HIGH FLOW WITH NC. CONT BIOX IN PLACE. TELE IN PLACE. PT HAS HAD PRN BREATHING TREATMENTS. BLOOD GLUCOSE WAS HIGH AT 2100 CHECK; DR NOTIFIED AND INSULIN ADJUSTED PER ORDERS. RECHECK SHOWED MUCH BETTER GLUCOSE LEVEL. PT HAS BEEN RESTING QUIETLY MOST OF THE NIGHT. NO C/O OF PAIN. ASSISTED WITH ADL'S PRN.
[2019-12-24 05:51] LABS: Anion Gap 3 mmol/L (6-16); Blood Urea Nitrogen 30 mg/dL (8-24); Bun/Creatinine Ratio 27.5 (12.0-20.0); CO2, Blood 34 mmol/L (21-32); Calcium, Blood 8.3 mg/dL (8.5-10.1); Chloride, Blood 102 mmol/L (98-108); Creatinine, Blood 1.09 mg/dL (0.60-1.20); Glomerular Filtration Rate >60 (60-); Glucose, Blood 157 mg/dL (70-99); Magnesium, Blood 1.9 mg/dL (1.6-2.4); Potassium, Blood 3.9 mmol/L (3.5-5.5); Sodium, Blood 139 mmol/L (136-145)
[2019-12-24 06:04] LABS: Digoxin (Lanoxin) 0.88 ug/mL (0.80-2.00)
--- NOTE | 2019-12-24 10:06 | NUR ---
DR ROMERO HERE TO SEE PT, DISCUSSED PT'S STATUS.
[2019-12-24] MEDS ORDERED: LANOXIN125 MCG PO (17:19)
[2019-12-24] MEDS ORDERED: GUAI600T33 PO (17:20)
[2019-12-24] MEDS ORDERED: BASAGLAR K100 UNIT/1 SC (17:20)
[2019-12-24] MEDS ORDERED: NOVOLOG100 UNIT/1 SC (17:22)
[2019-12-24] MEDS ORDERED: PRED20 PO (17:23)
--- NOTE | 2019-12-24 17:45 | NUR ---
DISCHARGE: PT EATING AND DRINKING, VOIDING, HAD BM TODAY. PT HAS HOME O2 SET UP NOW AND HERE. PT MEDICATIONS FAXED TO [facility] AND [facility]. PT REPORTS HAVING SOME MEDICATIONS AT HOME. PT REPORTS UNDERSTANDING OF DISCHARGE INSTRUCTIONS INCLUDING 02 AND MEDICATIONS. PT UP IND WITH O2 IN PLACE. PT FRIEND GIVING PT RIDE HOME, IV OUT WNL. PT HAS NO OTHER IV'S IN PLACE. PT SENT WITH BELONGINGS. PT SENT WITH PAPERWORK.
== END 2019-12-24 17:45 | disposition home or self-care (01) | DRG 871 ==
LOC: ER 09:43 → PCU 13:48 → SURS 13:48 → ERHOLD 13:48 → PCU 16:57 → SURS 12-18 16:24
PROVIDERS: Emergency Medicine; Internal Medicine; Internal Medicine Pulmonary Disease; Nurse Practitioner Acute Care; ADMIT Hospitalist
DX: A41.9 Sepsis, unspecified organism (principal); J18.9 Pneumonia, unspecified organism; J96.01 Acute respiratory failure with hypoxia; I50.43 Acute on chronic combined systolic (congestive) and diastolic (congestive) heart failure; I48.92 Unspecified atrial flutter; N17.9 Acute kidney failure, unspecified; I13.0 Hypertensive heart and chronic kidney disease with heart failure and stage 1 through stage 4 chronic kidney disease, or unspecified chronic kidney disease; I42.9 Cardiomyopathy, unspecified; I48.0 Paroxysmal atrial fibrillation; R65.20 Severe sepsis without septic shock; J44.9 Chronic obstructive pulmonary disease, unspecified; F03.90 Unspecified dementia, unspecified severity, without behavioral disturbance, psychotic disturbance, mood disturbance, and anxiety; F32.9 Major depressive disorder, single episode, unspecified; N18.3 Chronic kidney disease, stage 3 (moderate); E11.22 Type 2 diabetes mellitus with diabetic chronic kidney disease; E78.5 Hyperlipidemia, unspecified; Z87.891 Personal history of nicotine dependence; Z79.01 Long term (current) use of anticoagulants; Z79.84 Long term (current) use of oral hypoglycemic drugs; Z79.899 Other long term (current) drug therapy; Z86.718 Personal history of other venous thrombosis and embolism
CPT/HCPCS: 0099U; 36415; 71045; 71046; 71250; 80048; 80053; 80162; 80202; 82947; 83605; 83735; 83880; 84145; 84439; 84484; 85025; 87040; 87070; 87205; 92610; 93005; 93010; 94640; 94760; 94761; 94762; 96365; 96367; 97110; 97116; 97162; 97530; 99285-25; A9270-GY; J0360; J0456; J0696; J1940; J2930; J3370; J3475; J7050; J7512

== ENCOUNTER 2019-12-26 16:20 | Emergency (ER) | payer OTHER, MEDICARE ==
[~2019-12-26] VITALS: Ht 185.4 cm; Wt 93.0 kg
[~2019-12-26 16:20] MED LIST changes: +BASAGLAR K100 UNIT/1 SC; +LANOXIN125 MCG PO; +NOVOLOG100 UNIT/1 SC
[2019-12-26] MEDS ORDERED: TOPROL XL50 MG PO (16:43)
[2019-12-26] MEDS ORDERED: Adalat Cc90 MG PO (16:44)
[2019-12-26] MEDS ORDERED: ZOLOFT50 MG PO (16:44)
[2019-12-26] MEDS ORDERED: LOSARTAN-HCTZ1 EAC1 PO (16:44)
[2019-12-26] MEDS ORDERED: LOSARTAN POTAS100 MG PO (16:46)
[2019-12-26 17:39] LABS: BASOPHILS ABSOLUTE AUTO 0.03 K/mm3 (0.00-0.23); BASOPHILS PERCENT AUTO 0 % (0-2); EOSINOPHILS ABSOLUTE AUTO 0.01 K/mm3 (0.00-0.68); EOSINOPHILS PERCENT AUTO 0 % (0-6); Hematocrit 46.6 % (37.0-53.0); Hemoglobin 14.9 g/dL (13.5-17.5); IMMATURE GRAN ABSOLUTE AUTO 0.07 K/mm3 (0.00-0.10); IMMATURE GRAN PERCENT AUTO 1 % (0-1); LYMPHOCYTES PERCENT AUTO 5 % (21-46); MONOCYTES ABSOLUTE AUTO 0.31 K/mm3 (0.16-1.47); MONOCYTES PERCENT AUTO 3 % (4-13); Mean Corpuscular HGB 27.9 pg (26.0-34.0); Mean Corpuscular Volume 87 fL (80-100); Mean Platelet Volume 10.1 fL (9.1-12.4); NEUTROPHILS PERCENT AUTO 91 % (41-73); Platelet Count 387 K/mm3 (150-400); RDW Standard Deviation 47.6 fL (35.1-46.3); Red Blood Cell Count 5.35 M/mm3 (4.30-5.90); White Blood Cell Count 11.92 K/mm3 (4.00-11.30)
== END 2019-12-26 22:01 | disposition home or self-care (01) ==
LOC: ER 16:20
PROVIDERS: Physician Assistant
DX: R06.02 Shortness of breath (principal); J44.9 Chronic obstructive pulmonary disease, unspecified; I50.9 Heart failure, unspecified; I48.91 Unspecified atrial fibrillation; Z87.891 Personal history of nicotine dependence; Z88.5 Allergy status to narcotic agent; Z79.899 Other long term (current) drug therapy
CPT/HCPCS: 36415; 71046; 83880; 85025

== ENCOUNTER 2019-12-28 10:09 | Observation (INO) | payer OTHER ==
[~2019-12-28] VITALS: Ht 182.9 cm; Wt 88.7 kg
[~2019-12-28 10:09] MED LIST changes: +Adalat Cc90 MG PO; +LOSARTAN POTAS100 MG PO; +LOSARTAN-HCTZ1 EAC1 PO; +TOPROL XL50 MG PO; +ZOLOFT50 MG PO
[2019-12-28] MEDS ORDERED: AMIODARONE HCL200 M1 PO (10:35)
[2019-12-28 10:44] LABS: BASOPHILS ABSOLUTE AUTO 0.05 K/mm3 (0.00-0.23); BASOPHILS PERCENT AUTO 0 % (0-2); EOSINOPHILS ABSOLUTE AUTO 0.55 K/mm3 (0.00-0.68); EOSINOPHILS PERCENT AUTO 4 % (0-6); Hematocrit 45.7 % (37.0-53.0); Hemoglobin 14.7 g/dL (13.5-17.5); IMMATURE GRAN ABSOLUTE AUTO 0.06 K/mm3 (0.00-0.10); IMMATURE GRAN PERCENT AUTO 0 % (0-1); LYMPHOCYTES ABSOLUTE AUTO 2.03 K/mm3 (0.84-5.20); LYMPHOCYTES PERCENT AUTO 14 % (21-46); MONOCYTES ABSOLUTE AUTO 0.83 K/mm3 (0.16-1.47); MONOCYTES PERCENT AUTO 6 % (4-13); Mean Corpuscular HGB 28.1 pg (26.0-34.0); Mean Corpuscular HGB Conc 32.2 g/dL (31.5-36.5); Mean Corpuscular Volume 87 fL (80-100); Mean Platelet Volume 8.7 fL (9.1-12.4); NEUTROPHILS ABSOLUTE AUTO 11.16 K/mm3 (1.96-9.15); NEUTROPHILS PERCENT AUTO 76 % (41-73); Platelet Count 280 K/mm3 (150-400); RDW Coefficient Variation 14.7 % (11.7-14.2); RDW Standard Deviation 46.5 fL (35.1-46.3); Red Blood Cell Count 5.23 M/mm3 (4.30-5.90); White Blood Cell Count 14.68 K/mm3 (4.00-11.30)
[2019-12-28 11:11] LABS: Albumin, Blood 2.6 g/dL (3.4-5.0); Albumin/Globulin Ratio 0.8 (0.8-1.8); Bun/Creatinine Ratio 23.8 (12.0-20.0); Calcium, Blood 8.9 mg/dL (8.5-10.1); Creatinine, Blood 1.43 mg/dL (0.60-1.20); Globulin, Blood 3.2 g/dL (2.2-4.0); Potassium, Blood 3.5 mmol/L (3.5-5.5); Total Protein, Blood 5.8 g/dL (6.4-8.2)
[2019-12-28 11:19] LABS: Bilirubin, Total 0.5 mg/dL (0.1-1.0)
[2019-12-28 11:27] LABS: Digoxin (Lanoxin) 0.44 ug/mL (0.80-2.00)
--- NOTE | 2019-12-28 11:33 | NUR ---
Initial Visit: ED Palliative Care Consult for Goals of Care. Spoke with Dr Loaiza and discussed case. Pt has histor of CHF, COPD, Afib, Dementia, DVT's in Bilateral Lower Extremities, DM2, AAA, and possible Interstitial Lung Disease. Pt resting on gurney upon arrival. Pt is A&OX4 and denies pain at this time. Pt reports pressure in his chest and SOB improves with rest. Pt reports significant SOB with exertion. Pt reports anxiety due to his health issues and not having any support at home. Engaged in therapeutic discussion regarding goals of care. Pt reports his daughter lives at home with him and at one point was his caregiver. Pt reports recently daughter became to overwhelmed and has not been supportive to Pt. Pt has not been able to contact his daughter in sometime. Pt reports independent of ambulation, transfering, and toileting. He reports he has not showered or bathed in a few days due to fear of falling when steping into the tub. Pt reports feeling dizzy when ambulating too far or bending down. He states he is able to ambulate from his bedroom to the bathroom but any further he becomes dizzy, SOB, and weak requiring rest to recover. Educated Pt on disease process and trajectory of disease. Encouraged the importance of planning for the future including the possibility of needing a higher level of care. Pt states he feels he is at the point and is interested in living at an assisted living facility. Pt is requesting to be admitted to the hospital. No other concerns reported at this time. Spoke with hospitalist Emeka and discussed case. Emeka is currently evaluating if Pt meets criteria for admission. Palliative Care will F/U with Pt if admitted to floor.
--- NOTE | 2019-12-28 11:46 | NUR ---
Late Entry from previous note. Attempted to call Pt's daughter with no answer. Voicmail is full and unable to leave a message. Called Pt's home phone number and left a message in hopes daughter receives message.
[2019-12-28 15:42] LABS: Influenza A Negative (NEGATIVE); Influenza B Negative (NEGATIVE)
--- NOTE | 2019-12-28 17:45 | NUR ---
SHIFT SUMMARY PT ARRIVED TO FLOOR FROM ED VIA STRETCHER AROUND 1320. [facility], BUT WAS TOLD HE WAS "TOO SICK" & SENT HERE. PT AAOX4, NOTED TO BE SOMEWHAT FORGETFUL AT TIMES REGARDING HIS MEDICAL CONDITIONS. PT WAS IN A RAPID AFIB W/ RVR 140S IN THE ER. UPON ARRIVAL TO PCU, HR AROUND 100S, JUMPING UP TO 130S; MEDS ADMINISTERED ORDERED. MOST RECENT HR AVERAGING BETWEEN 70-90S. PT STATES HE WAS DISCHARGED FROM HOSPITAL 4 DAYS AGO W/ OXYGEN - 2L NC CONTINUOUSLY & 5L PRN. PT SENT UP FROM ED ON 4L O2 VIA NC, PULSE OX 98%. PT NOW ON 2L O2 VIA NC, PULSE OX 94%. PT DENIES ANY C/O CHEST PAIN, PALPITATIONS, OR SOB. CURRENTLY RESTING IN BED IN NO DISTRESS. VS STABLE. BED LOCKED & IN LOWEST POSITION, CALL ATUL W/ IN REACH. WILL CONTINUE TO MONITOR.
--- NOTE | 2019-12-28 19:10 | NUR ---
RECEIVED REPORT FROM DEBRA ENNIS. ASSUMED CARE OF PT. ASLEEP AT THIS TIME, NO S/S DISTRESS NOTED. CALL LIGHT IN REACH, BED ALARM ACTIVATED. WILL CONTINUE TO MONITOR.
--- NOTE | 2019-12-28 19:30 | NUR ---
PATIENT REPORTS THAT HE WAS NOT ABLE TO CONFERENCE SERVICES MANAGER MEDICATIONS AFTER HE WAS DISCHARGED LAST WEEK.
[2019-12-28] MEDS ORDERED: ASMANEX HFA13 G2 INH (22:23)
[2019-12-28] MEDS ORDERED: METFORMIN HCL500 M3 PO (22:23)
[2019-12-28] MEDS ORDERED: MAGNESIUM OXID500 MG PO (22:24)
[2019-12-29 03:59] LABS: BASOPHILS ABSOLUTE AUTO 0.06 K/mm3 (0.00-0.23); BASOPHILS PERCENT AUTO 1 % (0-2); EOSINOPHILS PERCENT AUTO 7 % (0-6); Hematocrit 43.5 % (37.0-53.0); IMMATURE GRAN ABSOLUTE AUTO 0.05 K/mm3 (0.00-0.10); IMMATURE GRAN PERCENT AUTO 1 % (0-1); LYMPHOCYTES ABSOLUTE AUTO 2.32 K/mm3 (0.84-5.20); LYMPHOCYTES PERCENT AUTO 23 % (21-46); MONOCYTES ABSOLUTE AUTO 0.64 K/mm3 (0.16-1.47); MONOCYTES PERCENT AUTO 6 % (4-13); Mean Corpuscular HGB 27.9 pg (26.0-34.0); Mean Corpuscular HGB Conc 32.2 g/dL (31.5-36.5); Mean Corpuscular Volume 87 fL (80-100); Mean Platelet Volume 8.7 fL (9.1-12.4); NEUTROPHILS ABSOLUTE AUTO 6.36 K/mm3 (1.96-9.15); NEUTROPHILS PERCENT AUTO 63 % (41-73); Platelet Count 246 K/mm3 (150-400); RDW Coefficient Variation 14.8 % (11.7-14.2); RDW Standard Deviation 47.3 fL (35.1-46.3); Red Blood Cell Count 5.02 M/mm3 (4.30-5.90); White Blood Cell Count 10.13 K/mm3 (4.00-11.30)
[2019-12-29 04:19] LABS: Albumin, Blood 2.2 g/dL (3.4-5.0); Albumin/Globulin Ratio 0.8 (0.8-1.8); Bilirubin, Total 0.4 mg/dL (0.1-1.0); Calcium, Blood 8.6 mg/dL (8.5-10.1); Creatinine, Blood 1.26 mg/dL (0.60-1.20); Globulin, Blood 2.9 g/dL (2.2-4.0); Potassium, Blood 3.5 mmol/L (3.5-5.5); Total Protein, Blood 5.1 g/dL (6.4-8.2)
--- NOTE | 2019-12-29 06:35 | NUR ---
SHIFT SUMMARY: PT RESTING COMFORTABLY, NO S/S ACUTE DISTRES NOTED. NO ACUTE EVENTS NOTED T/O NIGHT, VS STABLE. SLEPT ON AND OFF. DENIES ANY NEEDS AT THIS TIME, CALL LIGHT AND POSSESSIONS IN REACH, WILL CONTINUE TO MONITOR UNTIL REPORT GIVEN TO ONCOMING RN.
--- NOTE | 2019-12-29 08:00 | NUR ---
pt sitting on side of bed, with PT working with him, a/ox3, pleasant and cooperative with care, a bit forgetful at times, lungs are clear in upper moon, a bit course, dim in bases, resp even and unlabored, no cough noted, hrirr, tele in place running afib per monitor, see strip, no edema noted, ppp+1, cap refill <3sec, vs stable, afebrile, iv site is clear and patent, btx4, he thinks last bm was yesterday, voids without diff, skin c/w/d, maew, jovita, call light in reach.
--- NOTE | 2019-12-29 12:05 | NUR ---
pt resting in bed, no needs or complaints, has been changed to medical status. call light in reach.
--- NOTE | 2019-12-29 14:14 | NUR ---
Brief visit this afternoon. Pt resting in bed with his eyes closed upon arrival. Pt wakes to this RN's voice. Pt deneis pain at this time. Pt reports no concerns and requests a visit later. Spoke with bedside DEBRA Solorzano and discussed case. Palliative Care will remain available.
--- NOTE | 2019-12-29 18:04 | NUR ---
pt has been changed to medical, report was given to Katie. son came in to visit, pt taken to 355 via wheelchair with creative producer in attendence with all belongings.
--- NOTE | 2019-12-29 18:17 | NUR ---
PCU TRANSFER- PT ARRIVED TO ROOM 355 VIA W/C FROM PCU. PT INDEP TRANSFER INTO BED. PT DENIES ANY COMPLAINTS AT THIS TIME. ON 2L N/C WHICH HE REPORTS HE RECENTLY STARTED AT HOME. PT ORIENTED TO ROOM AND CALL SYSTEM, CALL LIGHT IN REACH. WILL REPORT TO ONCOMING RN.
--- NOTE | 2019-12-30 04:37 | NUR ---
SHIFT SUMMARY PT HAS RESTED MOST OF THE NIGHT. HE HAS DENIED NEEDS, STEADY ON HIS FEET AND INDEPENDENT IN THE ROOM. A/OX4, OCCASIONALLY FORGETFUL. LUNGS DIMINISHED T/O. RESP E/U ON 2L O2. NON PRODUCTIVE COUGH, STILL NEEDING SPUTUM SAMPLE AT THIS TIME. NO ACUTE CHANGES IN PT ASSESSMENT. BED IN LOWEST POSITION, CALL LIGHT WITHIN REACH. WILL CONTINUE TO MONITOR AND REPORT TO ONCOMING RN.
[2019-12-30 05:07] LABS: Bun/Creatinine Ratio 22.4 (12.0-20.0); Calcium, Blood 8.4 mg/dL (8.5-10.1); Creatinine, Blood 1.43 mg/dL (0.60-1.20); Potassium, Blood 3.7 mmol/L (3.5-5.5)
--- NOTE | 2019-12-30 18:28 | NUR ---
SHIFT SUMMARY- PT HAS HAD NO ACUTE CHANGE T/O THE SHIFT. PT GOT UP INTO THE SHOWER THIS AFTERNOON, AFTER COMPLETING THE SHOWER PHYSICAL THERAPY CAME TO SEE THE PT AND PT DECLINED TO WORK WITH THEM AT THAT TIME HE WAS SO TORED FROM THE EXERTION OF THE SHOWER. PT HAS IRREGULAR HEART BEAT WITH A Hx OF AFIB, SCHEDULED RATE CONTROL MEDICATION GIVEN THIS MORNING HR AT THE TIME (APICAL PULSE) WAS 87. PT STATED THIS EVENING HE FEELS THAT HIS BREATHING HAS IMPROVED T/O THE SHIFT. NOTED SOME COARSE CRACKLES THIS MORNING IN THE LLL. PT SEEMS TO BE IN GOOD SPIRITS AND HIS BIGEST DRIVE FOR THE DAY WAS TO TRY TO GET SOME SLEEP. PT IS [facility] AND IS WELL AWARE OF HIS MEDICATIONS AND MEDICAL Hx. HE STATED HE LIKES TO "STAY ON TOP OF THINGS LIKE THAT." PT CURRENTLY SITTING AT THE EOB WITH THE CALL LIGHT IN REACH. PT INDEPENDENT IN THE ROOM. PT HAS DENIED ANY NEED FOR PAIN MEDICATION T/O THE DAY. WILL CTM AND PASS ON TO NIGHT RN.
--- NOTE | 2019-12-31 04:39 | NUR ---
SHIFT SUMMARY PT IS PLEASANT AND COOPERATIVE WITH CARE. ANSWERES QUESTIONS APPROPRIATELY. VSS. HAS SLEPT MUCH OF THE NIGHT WITH NO COMPLAINTS OF PAIN OR DISCOMFORT. PRESENTLY ON 1LNC. PT PRESENTLY AWAKE, APPEARS IN NO ACUTE DISTRESS. RESP E/U. WILL CONTINUE TO MONITOR.
--- NOTE | 2019-12-31 08:00 | NUR ---
PT PLEASANT COOP A/O STATES X . THANKED FOR HIS SERVICE. DENIES PAIN. H/R IS IRREG, NO MURMER NOTED. HAS HX OF AFIB. LUNGS CRACKLES BASES. ON 2L L2. RESP EASY, UNLABORED. BT X4 LAST 2 DAYS/. VOIDS PER BATHROOM. INDEPENDANT IN ROOM. BED IN LOW POSITION, PATRICIO LITE IN REACH, CALLS APPROP. OLD SCAR ON ABD. DIAGONAL. STATES GALL BLADDER. SCAR OLD ON BACK. RT UPPER. STATES NOT KNOWN WHAT FROM.
--- NOTE | 2019-12-31 19:31 | NUR ---
PT SALENA WALTERS. LADY FRIEND IN TO VISIT AND PRAY. HE ABOUT ROOM WALKING. NO C/O PAIN. NO OTHER CONCERNS AT THIS TIME. BED IN LOW POSITION, CALL LITE IN REACH, CALLS APPROP
--- NOTE | 2020-01-01 06:40 | NUR ---
SHIFT SUMMARY PLEASANT AND COOPERATIVE WITH CARE. VSS. WENT TO SLEEP SHORTLY AFTER EVENING ASSESMENT AND MED PASS AND HAS SLEPT MUCH OF THE NIGHT. NO COMPLAINTS PAIN OR DISCOMFORT. NO ACUTE CHANGES NOTED. WILL CONTINUE TO MONITOR.
--- NOTE | 2020-01-01 19:36 | NUR ---
SHIFT SUMMARY- PT ALERT AND ORIENTED LAYING IN BED CURRENTLY. PT IS INDEPENDENT IN THE ROOM BUT IS 1PA FOR AMBULATION IN THE HALLS. POSSIBLE DC TOMORROW, [facility]. PT HAS HAD NO ACUTE CHANGES T/O THE SHIFT, BEDSIDE REPORT COMPLETED WITH NIGHT DEBRA ALVAREZ.
[2020-01-02 05:45] LABS: Albumin, Blood 2.3 g/dL (3.4-5.0); Anion Gap 4 mmol/L (6-16); Blood Urea Nitrogen 22 mg/dL (8-24); Bun/Creatinine Ratio 19.1 (12.0-20.0); CO2, Blood 31 mmol/L (21-32); Calcium, Blood 8.2 mg/dL (8.5-10.1); Chloride, Blood 106 mmol/L (98-108); Creatinine, Blood 1.15 mg/dL (0.60-1.20); Glomerular Filtration Rate >60 (60-); Phosphorus, Blood 2.7 mg/dL (2.5-4.9); Potassium, Blood 4.2 mmol/L (3.5-5.5); Sodium, Blood 141 mmol/L (136-145)
[2020-01-02 05:47] LABS: Glucose, Blood 42 mg/dL (70-99)
--- NOTE | 2020-01-02 07:35 | NUR ---
SHIFT SUMMARY PT IS PLEASANT AND COOPERATIVE WITH CARE. AAOX4, RESP E/U. PT SLEPT MUCH OF THE NIGHT AND DID NOT VERBALIZE ANY NEEDS OR DISCOMFORT. RECIEVED CALL FOR CRITICAL LOW BLOOD SUGAR FROM LAB AT 0547. SUGAR WAS 42. GAVE PT ENSURE, SANDWITCH, AND PEANUT BUTTER. HE THEN REQUESTED PUDING. RECHECKED BLOOD SUGAR AT 0618 IT WAS 67. CALLED TO HOSPITALIST, GOT MACHINE, AND LEFT MESSAGE FOR HIM TO CALL BACK. HOSPITALIST CALLED BACK DURING SHIFT CHANGE. RECEIVED ORDER FOR 0.5 AMP OF D-50 IV. WHEN I WAS ABOUT TO GIVE D50 THE AIR TRAFFIC CONTROL SUPERVISOR CAME IN TO CHECK BLOOD SUGAR AGAIN. IT WAS 241. I HELD D50 AND INFORMED ONCOMING RN. PT WAS AAOX4 AND APPEARS IN NO ACUTE DISTRESS.
--- NOTE | 2020-01-02 16:38 | NUR ---
PT IS A/O, PLESANT AND COOPERATIVE. HE HAS EXPRITORY WHEEZING. WORKING WITH WEB CONTENT WRITER TO FIND APPROPIIATE LIVING SITUATION. HE IS EATING AND DRINKING WELL.
--- NOTE | 2020-01-02 23:44 | NUR ---
CALL TO ANSWERING SERVICE: SPOKE W/ LOLI MODI NP REGARDING PT RECURRING LOW CBG IN AM. RECIEVED ORDER TO HOLD HS TONIA AQUINO AND ADDRESS W/ PHYSICIAN OVERSEEING PT CARE TOMORROW.
--- NOTE | 2020-01-03 06:11 | NUR ---
SHIFT SUMMARY: VSS. AFEB. A/OX3. 02 97% ON 2L VIA NC. UP INDEPENDENTLY IN ROOM. REPORTS EXERTIONAL DYSPNEA BUT STATES MUCH IMPROVED. NO COUGHING. NO ACUTE CHANGES OVERNIGHT, WILL CONT TO MONITOR.
--- NOTE | 2020-01-03 19:27 | NUR ---
SHIFT SUMMARY PT A/0 THIS SHIFT. VISITOR IN TO SEE PT THIS AFTERNOON. PT DENIES ANY NEEDS DURING THIS SHIFT. PT DENIES SOB THROUGHOUT THIS SHIFT. PT CURRENTLY SITTING UP WATCHING TELEVISION.
--- NOTE | 2020-01-04 06:58 | NUR ---
END OF SHIFT: PATIENT WAS AOX4 THIS SHIFT. PT WAS INDEPENDENT IN ROOM TONIGHT, HE DENIES PAIN ALL SHIFT. HE WAS CALM AND COOPERATIVE WITH CARE, FOLLOWED INSTRUCTION, CALLED APPROPRIATELY AND MADE HIS NEEDS KNOWN. NO ACUTE CHANGES OCCURED.
--- NOTE | 2020-01-04 07:37 | NUR ---
PT'S BLOOD GLUCOSE 68. ORANGE JUICE PROVIDED. BLOOD GLUCOSE TO BE RECHECKED IN 1 HOUR.
[2020-01-04] MEDS ORDERED: FURO20 PO (16:00)
[2020-01-04] MEDS ORDERED: Humalog100 UNIT/3 SC (16:07)
[2020-01-04] MEDS ORDERED: INSULANPEN SC (16:07)
[2020-01-04] MEDS ORDERED: METO50ER PO (16:09)
[2020-01-04] MEDS ORDERED: LOSA50 PO (16:15)
--- NOTE | 2020-01-04 18:52 | NUR ---
SHIFT SUMMARY PT ALERT AND ORIENTED, INDEPENDENT IN THE ROOM THIS SHIFT. PT UP TO SHOWER INDEPENDENTLY THIS SHIFT. PT HAD VISITORS IN THE ROOM THIS SHIFT. PT CURRENTLY SITTING UP IN BED WATCHING TELEVISION.
--- NOTE | 2020-01-04 22:17 | NUR ---
SPOKE TO DAUGHTER MICHAEL WHO SAYS HER HOUSE IS NOT ADEQUATE FOR HER DAD TO DISCHARGE TO. SHE IS UNABLE TO CARE FOR HIM THERE. SHE WOULD LIKE THE PHYSICIAN OBSTETRICIAN OR BEEKEEPER TO CONTACT HER AT [phone] TO DISCUSS THE DATAILS OF HIS PLAN FOR DISCHARGE.
--- NOTE | 2020-01-05 07:37 | NUR ---
Shift Summary: Patient AO4, independent in the room, no acute changes to report. pleasant and coooperative with care.
== END 2020-01-05 17:32 | disposition home health service (06) ==
LOC: ER 10:09 → PCU 10:10 → ERHOLD 10:10 → PCU 11:11 → ERHOLD 12:11 → PCU 12:11 → ER 12:11 → PCU 13:10 → ERHOLD 13:10 → PCU 12-29 09:45 → MEDS 12-29 18:06
PROVIDERS: Emergency Medicine; Internal Medicine; Nurse Practitioner Acute Care; ADMIT Internal Medicine
DX: I48.91 Unspecified atrial fibrillation (principal); J44.9 Chronic obstructive pulmonary disease, unspecified; F03.90 Unspecified dementia, unspecified severity, without behavioral disturbance, psychotic disturbance, mood disturbance, and anxiety; I13.0 Hypertensive heart and chronic kidney disease with heart failure and stage 1 through stage 4 chronic kidney disease, or unspecified chronic kidney disease; E11.22 Type 2 diabetes mellitus with diabetic chronic kidney disease; N18.9 Chronic kidney disease, unspecified; J84.9 Interstitial pulmonary disease, unspecified; I50.22 Chronic systolic (congestive) heart failure; Z79.01 Long term (current) use of anticoagulants; Z99.81 Dependence on supplemental oxygen; N17.9 Acute kidney failure, unspecified; Z88.5 Allergy status to narcotic agent; Z79.4 Long term (current) use of insulin; Z79.899 Other long term (current) drug therapy; F32.9 Major depressive disorder, single episode, unspecified; E78.5 Hyperlipidemia, unspecified; Z87.891 Personal history of nicotine dependence
CPT/HCPCS: 36415; 71046; 80048; 80053; 80069; 80162; 82947; 83735; 83880; 84145; 85025; 87070; 87205; 87804; 93005; 93010; 94640; 94760; 97110; 97116; 97162; 97165; 97530; 99285-25; A9270-GY; G0378

== ENCOUNTER 2020-01-16 17:32 | Inpatient (IN) | payer OTHER, MEDICARE ==
[~2020-01-16] VITALS: Ht 185.4 cm; Wt 93.8 kg
[~2020-01-16 17:32] MED LIST changes: +AMIODARONE HCL200 M1 PO; +ASMANEX HFA13 G2 INH; +INSULANPEN SC; +METFORMIN HCL500 M3 PO; +METO100ER PO; +NOVOLOG FL100 UNIT/1 SC
[2020-01-16 17:58] LABS: BASOPHILS ABSOLUTE AUTO 0.11 K/mm3 (0.00-0.23); BASOPHILS PERCENT AUTO 2 % (0-2); EOSINOPHILS ABSOLUTE AUTO 0.63 K/mm3 (0.00-0.68); EOSINOPHILS PERCENT AUTO 8 % (0-6); Hematocrit 45.4 % (37.0-53.0); Hemoglobin 13.9 g/dL (13.5-17.5); IMMATURE GRAN ABSOLUTE AUTO 0.02 K/mm3 (0.00-0.10); IMMATURE GRAN PERCENT AUTO 0 % (0-1); LYMPHOCYTES ABSOLUTE AUTO 1.92 K/mm3 (0.84-5.20); LYMPHOCYTES PERCENT AUTO 25 % (21-46); MONOCYTES ABSOLUTE AUTO 0.61 K/mm3 (0.16-1.47); MONOCYTES PERCENT AUTO 8 % (4-13); Mean Corpuscular HGB 27.4 pg (26.0-34.0); Mean Corpuscular HGB Conc 30.6 g/dL (31.5-36.5); Mean Corpuscular Volume 90 fL (80-100); Mean Platelet Volume 8.8 fL (9.1-12.4); NEUTROPHILS ABSOLUTE AUTO 4.28 K/mm3 (1.96-9.15); NEUTROPHILS PERCENT AUTO 56 % (41-73); Platelet Count 323 K/mm3 (150-400); RDW Coefficient Variation 15.1 % (11.7-14.2); RDW Standard Deviation 49.2 fL (35.1-46.3); Red Blood Cell Count 5.07 M/mm3 (4.30-5.90); White Blood Cell Count 7.57 K/mm3 (4.00-11.30)
[2020-01-16 18:20] LABS: Alanine Aminotransfer (ALT/SGP 33 U/L (12-78); Albumin, Blood 2.8 g/dL (3.4-5.0); Albumin/Globulin Ratio 0.7 (0.8-1.8); Alk Phos 87 U/L (50-136); Anion Gap 3 mmol/L (6-16); Aspartate Aminotrans (AST/SGOT 29 U/L (12-37); Bilirubin, Total 0.4 mg/dL (0.1-1.0); Blood Urea Nitrogen 26 mg/dL (8-24); CO2, Blood 35 mmol/L (21-32); Calcium, Blood 8.8 mg/dL (8.5-10.1); Chloride, Blood 104 mmol/L (98-108); Creatinine, Blood 1.24 mg/dL (0.60-1.20); Globulin, Blood 3.9 g/dL (2.2-4.0); Glomerular Filtration Rate >60 (60-); Glucose, Blood 163 mg/dL (70-99); Potassium, Blood 3.9 mmol/L (3.5-5.5); Sodium, Blood 142 mmol/L (136-145); Total Protein, Blood 6.7 g/dL (6.4-8.2); Troponin I 0.123 ng/mL (0.000-0.040)
[2020-01-16] MEDS ORDERED: GUAI600T33 PO (20:44)
[2020-01-16 21:01] LABS: Magnesium, Blood 1.7 mg/dL (1.6-2.4)
--- NOTE | 2020-01-17 01:08 | NUR ---
PROVIDER LOLI Pang ALARM INVESTIGATOR CALLED REGARDING PT'S CBG ON ADMIT OF 324. PT RECEIVED STEROIDS IN ER AND WAS CURRENTLY BEING INFUSED WITH NS. DECISION MADE TO NOT COVER AT THIS TIME AND AWAIT AM COVERAGE.
[2020-01-17 01:27] LABS: Adenovirus Not Detected (NOT DETECT); Bordetella pertussis Not Detected (NOT DETECT); Chlamydophila pneumoniae Not Detected (NOT DETECT); Coronavirus 229E Not Detected (NOT DETECT); Coronavirus HKU1 Not Detected (NOT DETECT); Coronavirus NL63 Not Detected (NOT DETECT); Coronavirus OC43 Not Detected (NOT DETECT); Human Metapneumovirus Not Detected (NOT DETECT); Human Rhinovirus/Enterovirus Not Detected (NOT DETECT); Influenza A/2009-H1 Not Detected (NOT DETECT); Influenza A/H1 Not Detected (NOT DETECT); Influenza A/H3 Not Detected (NOT DETECT); Influenza B Not Detected (NOT DETECT); Mycoplasma pneumoniae Not Detected (NOT DETECT); Parainfluenza Virus 1 Not Detected (NOT DETECT); Parainfluenza Virus 2 Not Detected (NOT DETECT); Parainfluenza Virus 3 Not Detected (NOT DETECT); Parainfluenza Virus 4 Not Detected (NOT DETECT); Respiratory Syncytial Virus Not Detected (NOT DETECT)
--- NOTE | 2020-01-17 05:03 | NUR ---
END OF SHIFT SUMMARY PT TO UNIT FROM ED. RECEIVED DILTIAZEM BOLUS IN ED, HR 110'S, BP WITH HTN. PT STARTED ON DILTIAZEM GTT 5, TITRATED TO 10. HR 90'S SBP 140'S AND STABLE. PT REMAINS IN AFLUTTER AT THIS TIME. PT INDEPENDENT IN ROOM. TROPONIN HAS DECREASED SINCE ADMISSION. DENIES ANY CP/PRESSURE. IS ON BASELINE 3LNC. RESP PCR NEGATIVE. PT STATES BREATHING EASIER. PT WITHOUT ACUTE CARDIAC EVENTS. IS VERY PLEASANT AND COOPERARTIVE. WILL CONTINUE TO MONITOR UNTIL SHIFT CHANGE.
[2020-01-17 08:09] LABS: BASOPHILS ABSOLUTE AUTO 0.01 K/mm3 (0.00-0.23); BASOPHILS PERCENT AUTO 0 % (0-2); EOSINOPHILS ABSOLUTE AUTO 0.01 K/mm3 (0.00-0.68); EOSINOPHILS PERCENT AUTO 0 % (0-6); Hematocrit 38.5 % (37.0-53.0); Hemoglobin 11.9 g/dL (13.5-17.5); IMMATURE GRAN ABSOLUTE AUTO 0.02 K/mm3 (0.00-0.10); IMMATURE GRAN PERCENT AUTO 0 % (0-1); LYMPHOCYTES PERCENT AUTO 7 % (21-46); MONOCYTES ABSOLUTE AUTO 0.06 K/mm3 (0.16-1.47); MONOCYTES PERCENT AUTO 1 % (4-13); Mean Corpuscular HGB Conc 30.9 g/dL (31.5-36.5); Mean Corpuscular Volume 88 fL (80-100); Mean Platelet Volume 9.3 fL (9.1-12.4); NEUTROPHILS ABSOLUTE AUTO 4.88 K/mm3 (1.96-9.15); NEUTROPHILS PERCENT AUTO 91 % (41-73); Platelet Count 291 K/mm3 (150-400); RDW Coefficient Variation 14.9 % (11.7-14.2); RDW Standard Deviation 48.1 fL (35.1-46.3); White Blood Cell Count 5.38 K/mm3 (4.00-11.30)
--- NOTE | 2020-01-17 08:30 | NUR ---
ASSUMED CARE PT ALERT AND ORIENTED. VS STABLE. 02 SATS REMAIN ABOVE 90% ON 2L NC. HR AFLUTTER IN THE 80'S. CARDIZEM GTT INFUSING AT 5ML/H. HR HAS BEEN TOUCHING DOWN TO THE 60'S, SO CARDIZEM GTT STOPPED AT 0750. BP STABLE. PT ABLE TO AMBULATE TO BATHROOM NEEDED TO VOID WITH HR REMAINING IN THE 80'S. CBG ELEVATED THIS AM AND DR. LOPEZ CALLED WITH NEW ORDERS. WILL CONTINUE TO MONITOR CLOSELY.
[2020-01-17 08:32] LABS: Anion Gap 10 mmol/L (6-16); Blood Urea Nitrogen 27 mg/dL (8-24); CO2, Blood 26 mmol/L (21-32); Chloride, Blood 104 mmol/L (98-108); Creatinine, Blood 1.08 mg/dL (0.60-1.20); Glomerular Filtration Rate >60 (60-); Glucose, Blood 375 mg/dL (70-99); Potassium, Blood 4.4 mmol/L (3.5-5.5); Sodium, Blood 140 mmol/L (136-145); Troponin I 0.064 ng/mL (0.000-0.040)
--- NOTE | 2020-01-17 17:09 | NUR ---
SHIFT SUMMARY PT ALERT AND ORIENTED. VS STABLE. HR AFLUTTER IN THE 80'S. BP STABLE. PT DENIES ANY PAIN. O2 SATS REMAIN ABOVE 90% ON 2L NC. PT ABLE TO AMBULATE IN THE ROOM INDEPENDENTLY. WILL CONTINUE TO MONITOR AND REPORT TO ONCOMING RN. CALL LIGHT IN REACH.
[2020-01-18 04:08] LABS: Anion Gap 6 mmol/L (6-16); Blood Urea Nitrogen 35 mg/dL (8-24); Bun/Creatinine Ratio 30.2 (12.0-20.0); CO2, Blood 28 mmol/L (21-32); Calcium, Blood 8.3 mg/dL (8.5-10.1); Chloride, Blood 103 mmol/L (98-108); Creatinine, Blood 1.16 mg/dL (0.60-1.20); Glomerular Filtration Rate >60 (60-); Glucose, Blood 258 mg/dL (70-99); Potassium, Blood 4.6 mmol/L (3.5-5.5); Sodium, Blood 137 mmol/L (136-145)
--- NOTE | 2020-01-18 04:57 | NUR ---
SHIFT SUMMARY PT SLEEPING IN ROOM COMFORTABLY AT THIS TIME. NO ACUTE CHANGES IN STATUYS T/O NIGHT. PT HAS REPORTED NOT SLEEPING WELL. PT WAS MEDICATRED ONCE DURING NIGHT FOR INSOMNIA, PT REPORTED DID NOT WORK GREAT. RESP EVEN UNLABORED ON 2L NC W/ SATS >92%, PT DID REPORT SOME SOB EARLY IN SHIFT RT CALLED TO ROOM FOR INHALER USE. PT TO RECEIVE LAXIS PO IN AM. SOME CRACKLES NOTED TO BILAT LOWE RLOBES. PT REPORTS FEELING BETTER AFTER INHALER. PT DENIED ANY CP T/O NIGHT, DENIED OTHER PAIN. PT IND IN ROOM AT BEDIDE W/ URINAL, CALLS APPROPRIATLY FOR EMPTYING. CALL LIGHT IN REACH.
--- NOTE | 2020-01-18 09:49 | NUR ---
PT SITTING UP TO BEDSIDE, A/O X4, DENIES CP OR SOB. LAUGHING AND TALKING WITH STAFF IN FULL SENTENCES
--- NOTE | 2020-01-18 17:13 | NUR ---
REPORT TO BASIA RICHARDSON
--- NOTE | 2020-01-18 18:41 | NUR ---
PT ARRIVED TO THE FLOOR AT APPROXIMATELY 1835. PT IS ALERT AND ORIENTED. HE DENIES SHORTNESS OF BREATH. WILL MONITOR UNTIL REPORT TO ONCOMING RN.
--- NOTE | 2020-01-19 04:33 | NUR ---
SUMMARY NO ISSUES NOTED. PT HAS BEEN SLEEPING T/O SHIFT. PT CURRENTLY SLEEPING AND BREATHING EASY. CALL LIGHT IN REACH
[2020-01-19 05:26] LABS: Anion Gap 4 mmol/L (6-16); Blood Urea Nitrogen 36 mg/dL (8-24); Bun/Creatinine Ratio 30.3 (12.0-20.0); CO2, Blood 30 mmol/L (21-32); Calcium, Blood 8.5 mg/dL (8.5-10.1); Chloride, Blood 105 mmol/L (98-108); Creatinine, Blood 1.19 mg/dL (0.60-1.20); Glomerular Filtration Rate >60 (60-); Glucose, Blood 176 mg/dL (70-99); Potassium, Blood 4.6 mmol/L (3.5-5.5); Sodium, Blood 139 mmol/L (136-145)
--- NOTE | 2020-01-19 08:29 | NUR ---
PER SAAD RN PT'S HR IS 92 AT TIME MEDICATIONS WERE ADMINISTERED. THIS RN COUNTED HR AND FOUND IT TO BE 90. WILL CONTINUE TO MONITOR.
[2020-01-19] MEDS ORDERED: PRED10 PO (11:43)
[2020-01-19] MEDS ORDERED: SPIR25 PO (11:48)
--- NOTE | 2020-01-19 12:33 | NUR ---
DISCHARGE PT PROVIDED WITH WRITTEN AND VERBAL DISCHARGE INSTRUCTIONS; HE REPORTED UNDERSTANDING. PT ASSISTED OUT TO HIS VEHICLE IN A WHEELCHAIR. PT IS ABLE TO WALK INDEPENDENTLY BUT GET SHORT OF BREATH WITH INCREASED ACTIVITY. PT ON 2L AT TIME OF DISCHARGE AND O2 SATURATION 94%. PT REPORTS HE IS AT THIS BASELINE. PT REPORTED HE HAS AN APPOINTMENT WITH HIS PRIMARY CARE DOCTOR TOMORROW.
== END 2020-01-19 12:21 | disposition home health service (06) | DRG 189 ==
LOC: ER 17:32 → MEDS 17:33 → PCU 17:33 → ER 17:33 → PCU 17:33 → MEDS 01-18 18:35
PROVIDERS: Emergency Medicine; Internal Medicine; Physician Assistant; ADMIT Family Medicine
DX: J96.21 Acute and chronic respiratory failure with hypoxia (principal); I13.0 Hypertensive heart and chronic kidney disease with heart failure and stage 1 through stage 4 chronic kidney disease, or unspecified chronic kidney disease; J44.1 Chronic obstructive pulmonary disease with (acute) exacerbation; I48.20 Chronic atrial fibrillation, unspecified; I24.8 Other forms of acute ischemic heart disease; I50.42 Chronic combined systolic (congestive) and diastolic (congestive) heart failure; G31.84 Mild cognitive impairment of uncertain or unknown etiology; E11.65 Type 2 diabetes mellitus with hyperglycemia; Z79.01 Long term (current) use of anticoagulants; Z99.81 Dependence on supplemental oxygen; F03.90 Unspecified dementia, unspecified severity, without behavioral disturbance, psychotic disturbance, mood disturbance, and anxiety; F32.9 Major depressive disorder, single episode, unspecified; Z86.718 Personal history of other venous thrombosis and embolism; E78.5 Hyperlipidemia, unspecified; K21.9 Gastro-esophageal reflux disease without esophagitis; Z87.891 Personal history of nicotine dependence; E11.22 Type 2 diabetes mellitus with diabetic chronic kidney disease; N18.3 Chronic kidney disease, stage 3 (moderate)
CPT/HCPCS: 0099U; 36415; 71045; 80048; 80053; 82947; 83735; 83880; 84145; 84484; 85025; 93005; 93010; 94640; 94760; 96361; 96365; 96366; 96375; 96376; 99285-25; A9270-GY; G0378; J1940; J2930; J3475; J7030; J7512

== ENCOUNTER 2020-04-10 15:29 | Inpatient (IN) | payer OTHER, MEDICARE ==
[~2020-04-10] VITALS: Ht 185.4 cm; Wt 94.9 kg
[~2020-04-10 15:29] MED LIST changes: -ASMANEX HFA13 G2 INH; +ASMANEX HFA13 G4 INH; +BASAGLAR K100 UNIT/1 PO; +FURO20 PO; -INSULANPEN SC; +LEVALBUTEROL TA15 G1 INH; -LEVALBUTEROL TA15 GM INH; -METO100ER PO; -NOVOLOG FL100 UNIT/1 SC; +NOVOLOG FL100 UNIT/3 SC; +PRED10 PO; +SPIR25 PO
[2020-04-10 17:01] LABS: BASOPHILS ABSOLUTE AUTO 0.08 K/mm3 (0.00-0.23); BASOPHILS PERCENT AUTO 1 % (0-2); EOSINOPHILS ABSOLUTE AUTO 0.07 K/mm3 (0.00-0.68); EOSINOPHILS PERCENT AUTO 1 % (0-6); Hematocrit 42.2 % (37.0-53.0); Hemoglobin 12.7 g/dL (13.5-17.5); IMMATURE GRAN ABSOLUTE AUTO 0.03 K/mm3 (0.00-0.10); IMMATURE GRAN PERCENT AUTO 0 % (0-1); LYMPHOCYTES ABSOLUTE AUTO 1.38 K/mm3 (0.84-5.20); LYMPHOCYTES PERCENT AUTO 15 % (21-46); MONOCYTES ABSOLUTE AUTO 0.66 K/mm3 (0.16-1.47); MONOCYTES PERCENT AUTO 7 % (4-13); Mean Corpuscular HGB 24.5 pg (26.0-34.0); Mean Corpuscular HGB Conc 30.1 g/dL (31.5-36.5); Mean Corpuscular Volume 82 fL (80-100); Mean Platelet Volume 9.9 fL (9.1-12.4); NEUTROPHILS ABSOLUTE AUTO 7.12 K/mm3 (1.96-9.15); NEUTROPHILS PERCENT AUTO 76 % (41-73); Platelet Count 319 K/mm3 (150-400); RDW Coefficient Variation 15.9 % (11.7-14.2); Red Blood Cell Count 5.18 M/mm3 (4.30-5.90); White Blood Cell Count 9.34 K/mm3 (4.00-11.30)
[2020-04-10 17:23] LABS: Albumin, Blood 3.1 g/dL (3.4-5.0); Albumin/Globulin Ratio 0.9 (0.8-1.8); Bilirubin, Total 1.1 mg/dL (0.1-1.0); Bun/Creatinine Ratio 25.4 (12.0-20.0); Calcium, Blood 8.9 mg/dL (8.5-10.1); Creatinine, Blood 1.34 mg/dL (0.60-1.20); Globulin, Blood 3.4 g/dL (2.2-4.0); Potassium, Blood 4.4 mmol/L (3.5-5.5); Total Protein, Blood 6.5 g/dL (6.4-8.2); Troponin I 0.109 ng/mL (0.000-0.040)
[2020-04-10 17:29] LABS: Magnesium, Blood 1.9 mg/dL (1.6-2.4)
[2020-04-10 17:40] LABS: Digoxin (Lanoxin) 0.07 ug/mL (0.80-2.00)
[2020-04-10] MEDS ORDERED: Amiodarone HCl200 MG PO (18:41)
[2020-04-10] MEDS ORDERED: Vitamin D2000 UNIT PO (18:42)
[2020-04-10] MEDS ORDERED: GLUCOSE4 GM PO (18:44)
[2020-04-10] MEDS ORDERED: FISH OIL 1,001000 M1 PO (18:44)
[2020-04-10] MEDS ORDERED: EUTHYROX75 MCG PO (18:51)
[2020-04-10] MEDS ORDERED: MAGNESIUM OXID500 MG PO (18:52)
[2020-04-10 19:06] LABS: Source, Urine Voided
[2020-04-10 19:13] LABS: Appearance, Urine Clear (Clear); Bilirubin, Urine Neg (Neg); Blood, Urine Neg (Neg); Color, Urine Amber (P-Yellow); Glucose Qualitative, Urine 1+ (Neg); Ketones, Urine Neg (Neg); Leukocyte Esterase, Urine Neg (Neg); Nitrite, Urine Neg (Neg); Protein, Urine 2+ (Neg); Specific Gravity, Urine 1.025 (1.003-1.022); Urobilinogen, Urine NORM (Normal)
[2020-04-10 19:20] LABS: Bacteria Few /hpf; Mucus Light (0-Heavy); Red Blood Cells, Urine 0-2 /hpf (0-2); Squamous Epithelial Cells Few /hpf (Few); White Blood Cells, Urine 0-2 /hpf (0-5)
[2020-04-11 03:50] LABS: BASOPHILS PERCENT AUTO 1 % (0-2); EOSINOPHILS ABSOLUTE AUTO 0.21 K/mm3 (0.00-0.68); EOSINOPHILS PERCENT AUTO 2 % (0-6); Hemoglobin 11.9 g/dL (13.5-17.5); IMMATURE GRAN ABSOLUTE AUTO 0.02 K/mm3 (0.00-0.10); IMMATURE GRAN PERCENT AUTO 0 % (0-1); LYMPHOCYTES ABSOLUTE AUTO 1.65 K/mm3 (0.84-5.20); LYMPHOCYTES PERCENT AUTO 17 % (21-46); MONOCYTES PERCENT AUTO 7 % (4-13); Mean Corpuscular HGB 24.2 pg (26.0-34.0); Mean Corpuscular HGB Conc 29.8 g/dL (31.5-36.5); Mean Corpuscular Volume 81 fL (80-100); Mean Platelet Volume 9.6 fL (9.1-12.4); NEUTROPHILS ABSOLUTE AUTO 6.83 K/mm3 (1.96-9.15); NEUTROPHILS PERCENT AUTO 72 % (41-73); Platelet Count 276 K/mm3 (150-400); RDW Coefficient Variation 15.9 % (11.7-14.2); RDW Standard Deviation 46.8 fL (35.1-46.3); Red Blood Cell Count 4.92 M/mm3 (4.30-5.90); White Blood Cell Count 9.51 K/mm3 (4.00-11.30)
[2020-04-11 04:16] LABS: Albumin, Blood 2.8 g/dL (3.4-5.0); Albumin/Globulin Ratio 0.9 (0.8-1.8); Bilirubin, Total 1.1 mg/dL (0.1-1.0); Bun/Creatinine Ratio 27.3 (12.0-20.0); Calcium, Blood 8.4 mg/dL (8.5-10.1); Creatinine, Blood 1.28 mg/dL (0.60-1.20); Globulin, Blood 3.1 g/dL (2.2-4.0); Potassium, Blood 3.5 mmol/L (3.5-5.5); Total Protein, Blood 5.9 g/dL (6.4-8.2)
--- NOTE | 2020-04-11 05:41 | NUR ---
SHIFT SUMMARY PT SLEEPING IN ROOM COMFORTABLY AT THIS TIME. PT HAS SEVERAL EKG CHANGES T/O NIUGHT. WIDE COMPLEX TACH NOTED ON TELE BETWEEN 130-140'S. PT WAS MEDICATED X3 W/ PRN METOPROLOL PER EMAR. HR DECREASED BELOW 100BPM FOR 1-2 HOURS BEFORE JUMPING BACK UP. WHEN HR SLOWED RHYTHYM APPEARED TO BE MORE OF AFIB/AFLUTTER. WHEN HR WAS 130-140 COMPLEX APPEARED TO BE AN ACCELERATED JUNCTIONAL. PT APPEARED ASYMPTOMATIC DURING ELEVATED HR PERIODS. DID C/O SOME DYSPNEA UPON WAKING A FEW TIMES DURING NIIGHT BASELINE O2 BUMPED FROM 2LNC TO 3L W/ SATS >92%. PT DENIED CP BUT REPORTED FEELING "LIKE THERE WAS A PLUNGER ON MY LOW CHEST AND BELLY" PT DID REPORT FEELING SUBSIDED AFTER A FEW MINS. DENIED OTHER NEED.S PT HAD BEEN INDEPENDENT IN ROOM UNTIL CHEST PRESSURE EPISODES. NOW USING URINAL AT BEDSIDE. CALL LIGHT IN REACH.
--- NOTE | 2020-04-11 10:04 | NUR ---
PT WAS UP IN THE SIDE OF THE BED FOR BREAKFAST HRR NOTED ON THE MONITOR AFIB UP TO 150'S. PT WAS ASSISTED TO LAY BACK IN BED PT SLOWLY TREND DOWN TO 110'S-130'S. ORAL MEDS GIVEN AFTER VITALS WERE TAKEN, PT CURRENTLY RESTING IN BED HRR NOW ON THE 100'S-110'S, PROVIDER IS AWARE MADE ROUNDS WITH THIS RN THIS MORNING. WILL CONTINUE TO MONITOR
--- NOTE | 2020-04-11 19:09 | NUR ---
PT SUMMARY: SEE PREVIOUS NOTES PT WAS GIVEN X1 OF IV LOPRESSOR, PT HR WENT UP TO 150'S UPON STANDING UP TO USE THE URINAL. PT IS ASYMPTOMATIC BUT IS SHORT OF BREATH UPON GETTING BACK TO BED. PT IS CURRENTLY ON 2L OF O2 SATS ABOVE 94%. HRR AFIB CURRENTLY NOW 90'S-110'S, INCREASES WITH EXERTION. CONTINUES ON DIURETICS PT WITH DECENT AMOUNT OF URINE OUTPUT FOR THE SHIFT. PT CURRENTLY RESTING IN BED, ABLE TO MAKE NEEDS KNOWN, CALL LIGHTS WITHIN REACH. REPORT GIVEN TO ONCOMING SHIFT.
[2020-04-12 04:36] LABS: Albumin, Blood 2.7 g/dL (3.4-5.0); Anion Gap 2 mmol/L (6-16); Blood Urea Nitrogen 39 mg/dL (8-24); Bun/Creatinine Ratio 27.5 (12.0-20.0); CO2, Blood 30 mmol/L (21-32); Calcium, Blood 8.2 mg/dL (8.5-10.1); Chloride, Blood 107 mmol/L (98-108); Creatinine, Blood 1.42 mg/dL (0.60-1.20); Glomerular Filtration Rate 51 (60-); Glucose, Blood 175 mg/dL (70-99); Phosphorus, Blood 3.3 mg/dL (2.5-4.9); Potassium, Blood 3.8 mmol/L (3.5-5.5); Sodium, Blood 139 mmol/L (136-145)
--- NOTE | 2020-04-12 05:36 | NUR ---
SHIFT SUMMARY PT SLEEPING IN ROOM COMFORTABLY AT THIS TIME. NO ACUTE CHANGES IN STATUS T/O NIGHT. PT SLEPT WELL. RESP EVEN UNLABORED ON 2L NC W/ SATS >92% WHICH IS PT BASELINE. PT DID REPORT SOME CHEST PALPITATIONS AT APPROX 0400 PT HR INCREASED ON TELE AVG >100BPM PT MEDICATED PER EMAR WITH PRN LOPRESSOR. PT BACK TO SLEEP DENYING OTHER NEEDS. PT USED CALL LIGHT APPROPRIATELY. CALL LIGHT IN REACH.
--- NOTE | 2020-04-12 18:09 | NUR ---
SHIFT SUMMARY PATIENT HR ELEVATES > 140 W/ UP TO BR. MEDICATED FOR RESTING HR OF 107 WITH LOPRESSOR 2.5 MG IV. DENIES CP/HEAVINESS. PRN UDN X 2 THIS AFTERNOON WITH GOOD RESULTS PER PATIENT. DENIES PAIN/NAUSEA. CALL LIGHT IN REACH. CONT TO MONITOR.
[2020-04-13 04:31] LABS: Albumin, Blood 2.7 g/dL (3.4-5.0); Anion Gap 2 mmol/L (6-16); Blood Urea Nitrogen 40 mg/dL (8-24); Bun/Creatinine Ratio 26.8 (12.0-20.0); CO2, Blood 30 mmol/L (21-32); Calcium, Blood 8.2 mg/dL (8.5-10.1); Chloride, Blood 107 mmol/L (98-108); Creatinine, Blood 1.49 mg/dL (0.60-1.20); Glomerular Filtration Rate 49 (60-); Glucose, Blood 113 mg/dL (70-99); Phosphorus, Blood 3.7 mg/dL (2.5-4.9); Potassium, Blood 3.5 mmol/L (3.5-5.5); Sodium, Blood 139 mmol/L (136-145)
--- NOTE | 2020-04-13 05:24 | NUR ---
SHIFT SUMMARY PT SLEEPING IN ROOM COMFORTABLY AT THIS TIME. NO ACUTE CHANGES IN STATUS T/O NIGHT. PT DID NOT SLEEP WELL. REPORTS WOKE UP M,ULTIPLE TIMES T/O NIGHT. PT USED URINAL AT BEDSIDE AND CALLED APPROPIRATLEY. DENIED ANY CP DURING NIGHT. DIOD REPORT SOME SOB AFTER LYING FLAT DURING SLEEP. PT WORE 2L NC DURING SLEEP AFTER WAKING UP SOB. RESP EVEN UNLABORED AT REST W/ SATS >92%. DENIED OTHER NEEDS. PT HR REMAINED AVG <100 NO PRN LOPRESSOR PUSHES NEEDED. CALL LIGHT IN REACH.
--- NOTE | 2020-04-13 08:00 | NUR ---
pt sitting on side of the bed eating breakfast, a/ox3, pleasant and coopertive with care, follows commands well, denies pain, states he had a rough night, but is fine now, lungs are clear, course in bases, resp even and unlabored, is currently on r/a, no cough noted, hrirr, tele in place running afib per monitor, see strip, trace edema noted, ppp+2, cap refill <3sec, vs stable, afebrile, iv site to left hand is clear and patent, btx4, abd flat soft nontender, voids via urinal, skin c/w/d, vicki, jovita, call light in reach.
--- NOTE | 2020-04-13 12:38 | NUR ---
pt states he only slept a few hrs last night and wants to sleep this afternoon, sat up on the side of the bed for lunch, v.s. stable. call light in reach.
--- NOTE | 2020-04-13 14:37 | NUR ---
pt will be moving to the medical floor, report given to Bernardo RICHARDSON. pt taken to floor via wheelchair with all his belongings with international project manager in attendence.
--- NOTE | 2020-04-13 14:49 | NUR ---
1440 PT TRANSFERRED FROM PCU. HE IS ALERT AND ORIENTED AND ABLE TO EXPRESS ANY NEEDS. PT HAS ON COMPLAINTS OF PAIN, SOB OR NV. HE IS ON 2 LITERS O2 AT BASELINE AND AT THE PRESENT. PT ASKED TO BE ABLE TO SLEEP UNTIL DINNER. PT RESTING IN BED AT THIS TIME.
--- NOTE | 2020-04-13 18:19 | NUR ---
PT TRANSFERRED FROM U. HE HAS RESTED MOST OF THE SHIFT. NO ACUTE CHANGES. CBGS WNL. CALL LIGHT WITHIN REACH.
--- NOTE | 2020-04-13 22:49 | NUR ---
PT REQUESTING MEDICATION FOR INSOMNIA. HOSPITALIST CONTACTED. N.O. FOR MELATONIN.
[2020-04-14 05:33] LABS: BASOPHILS ABSOLUTE AUTO 0.12 K/mm3 (0.00-0.23); BASOPHILS PERCENT AUTO 1 % (0-2); EOSINOPHILS PERCENT AUTO 2 % (0-6); Hemoglobin 12.5 g/dL (13.5-17.5); IMMATURE GRAN ABSOLUTE AUTO 0.03 K/mm3 (0.00-0.10); IMMATURE GRAN PERCENT AUTO 0 % (0-1); LYMPHOCYTES ABSOLUTE AUTO 1.83 K/mm3 (0.84-5.20); LYMPHOCYTES PERCENT AUTO 18 % (21-46); MONOCYTES ABSOLUTE AUTO 0.87 K/mm3 (0.16-1.47); MONOCYTES PERCENT AUTO 9 % (4-13); Mean Corpuscular HGB 24.8 pg (26.0-34.0); Mean Corpuscular HGB Conc 30.5 g/dL (31.5-36.5); Mean Corpuscular Volume 81 fL (80-100); Mean Platelet Volume 9.9 fL (9.1-12.4); NEUTROPHILS ABSOLUTE AUTO 7.09 K/mm3 (1.96-9.15); NEUTROPHILS PERCENT AUTO 70 % (41-73); Platelet Count 319 K/mm3 (150-400); RDW Coefficient Variation 15.9 % (11.7-14.2); RDW Standard Deviation 46.8 fL (35.1-46.3); Red Blood Cell Count 5.04 M/mm3 (4.30-5.90); White Blood Cell Count 10.14 K/mm3 (4.00-11.30)
[2020-04-14 06:09] LABS: Albumin, Blood 2.8 g/dL (3.4-5.0); Albumin/Globulin Ratio 0.9 (0.8-1.8); Bilirubin, Total 0.7 mg/dL (0.1-1.0); Bun/Creatinine Ratio 26.4 (12.0-20.0); Calcium, Blood 8.4 mg/dL (8.5-10.1); Creatinine, Blood 1.44 mg/dL (0.60-1.20); Globulin, Blood 3.1 g/dL (2.2-4.0); Potassium, Blood 3.5 mmol/L (3.5-5.5); Total Protein, Blood 5.9 g/dL (6.4-8.2)
--- NOTE | 2020-04-14 07:19 | NUR ---
SHIFT SUMMARY: VSS. AFEB. 02 SAT 93% ON RA. NO SOB. LSCTA. PULSE 99. AAOX3. COMMUNICATES NEEDS. BLE SWELLING +2. PT REFUSES TO TAKE PAWEL HOSE OFF AT HS. STATES HE WEARS THEM AROUND THE CLOCK AT HOME AND CHANGES THEM EVERY 2 DAYS. OFFERED EDUCATION ABOUT THIS. PT CONT TO REFUSE. SEEMED TO HAVE SLEPT QUIETLY THROUGH MUCH OF THE NIGHT. INDEPENDENT IN ROOM. NO ACUTE CHANGES OVER NIGHT. WILL CONT TO MONITOR.
--- NOTE | 2020-04-14 09:52 | NUR ---
IV IV TO LEFT HAND IS PATENT AND FLUSHES WITHOUT DIFFICULTY.
--- NOTE | 2020-04-14 18:25 | NUR ---
SHIFT SUMMARY PT HAS HAD NO COMPLAINTS THIS SHIFT. PT HAD A SHOWER AND TOLERATED WELL. PT HAS BEEN SLEEPING OFF AND ON. SAT UP IN CHAIR FOR LUNCH. NO ACUTE CHANGES THIS SHIFT. CALL LIGHT IN REACH. WILL CONTINUE TO MONITOR AND REPORT TO ONCOMING RN.
--- NOTE | 2020-04-15 03:59 | NUR ---
SHIFT SUMMARY: VSS. AFEB. AAOX3. COMMUNICATES NEEDS. CALLS FOR ASSIST. NO ATTEMPTS TO SELF T/F. BED ALARM ON. PT AMB W/ SBA. GAIT IS FAST FACED PAST, STEADY. CONTINENT. MED X 1 FOR PAIN W/GOOD EFFECT. PT SEEMS TO HAVE SLEPT WELL THROUGH MUCH OF THE NIGHT. NO ACUTE CHANGES. WILL CONT TO MONITOR.
--- NOTE | 2020-04-15 04:48 | NUR ---
SHIFT SUMMARY: AAOX3. 02 90-92% ON RA. PULSE RANGING FROM 49-52 THIS AM. SBP 124. DENIES CHEST PAIN. RT CALLED FOR NEB TX X1 TONIGHT FOR SOB. PT STATES HELPFUL. LSCTA. +2 EDEMA TO BLE. PT WEARING PAWEL HOSE CONTINUOUSLY, REFUSES TO REMOVE AT HS. INDEPENDENT IN ROOM. CALL FOR ASSIST. CBG 138 AT HS. BEDTIME SNACK GIVEN. MELATONIN ADMINISTERED SLEEP AID. PT APPEARS TO HAVE SLEPT WELL THROUGH MUCH OF THE NIGHT. NO ACUTE CHANGES AT THIS TIME. WILL CONT TO MONITOR.
--- NOTE | 2020-04-15 07:40 | NUR ---
PT PLEASANT COOP AO. DENIES PAIN. CBG LOW. SEE NOTE. JUICE GIVEN. YOGURT GIVEN. PT TALKATIVE. H/R IRREG, NO TELE. NO MURMER NOTED. CALLED DR ELLIS BP AND CBG. ORDERS GIVEN, TELE PLACED. IS AFIB AT 78. PT STATES TIRED. OTHERWISE ASYMPTOMATIC. LUNGS CLEAR T/O. RESP EASY, UNLABORED, ON R.A. BT HYPOACTIVE LAST BM YEST. VOIDS PER BATHROOM, INDEPENDANT IN ROOM. BED IN LOW POSITION, CALL LITE IN REACH, CALLS APPROP
--- NOTE | 2020-04-15 07:42 | NUR ---
CBG 55. PT A/O TALKING, STATES TIRED. ADMIN JUICE AND YOGURT. ABLE TO SWALLOW SAFELY. WILL FOLLOW
--- NOTE | 2020-04-15 08:14 | NUR ---
RECHECK CBG AFTER EATING AND DRINKING IS 89. PT STATES FEELING PRETTY GOOD. TALKATIVE, PLEASASNT
--- NOTE | 2020-04-15 08:31 | NUR ---
CALLED DR OLIVER. NOT ON DR LIST. RE BP AND H/R AND CBG. ORDERS PENDING. HOLD BP MEDS THIS AM.
--- NOTE | 2020-04-15 11:33 | NUR ---
PT STATES SOB. PLACED BACK ON 1L O2. CALLED RT FOR BREATHING TX. LUNGS CLEAR, 92% ON R/A. 96-98 ON 1L O2. PER TELE AFIB AT 97. RADIAL PULSE 52, IRREG. BP 125/77 PULSE ON MACHINE IS 70, CBG 124. WILL CONTINUE TO MONITOR.
--- NOTE | 2020-04-15 14:10 | NUR ---
SPOKE TO DR OLIVER 1300. WILL REVIEW ORDERS AND SEE PT SHORTLY
--- NOTE | 2020-04-15 17:34 | NUR ---
TELE CALLED, PT HAD 3 BEAT RUN V-TACH. AFIB IN 120'S BEFORE AND AFTER. PT RESTING, EYES CLOSED, RESP EASY, UNLABORED. DID NOT AWAKEN
--- NOTE | 2020-04-15 18:09 | NUR ---
CALLED THIS AM RE LOW BP AND CBG. MADE MED ADJUSTMENTS. PT RESTING WELL TODAY. BP AND CBG'S IMPROVED T/O DAY. NO NEW CONCERNS AT THIS TIME. BED IN LOW POSITION, CALL LITE IN REACH, CALLS APPROP
--- NOTE | 2020-04-16 04:32 | NUR ---
SHIFT SUMMARY HAS BEEN RESTING QUIETLY WITH OCCASIONAL INTERRUPTIONS. TELE CONTINUES, TELE MONITOR CALLED NURSE, VOICED HR IN THE 130'S - 140'S. UPON ENTERING ROOM PT AWAKE, DENIED DISTRESS, AFFECT CHEERFUL. HR BACK TO WNL LATER. WILL CONTINUE TO MONITOR. CALL LIGHT IN REACH.
[2020-04-16 05:58] LABS: BASOPHILS ABSOLUTE AUTO 0.09 K/mm3 (0.00-0.23); BASOPHILS PERCENT AUTO 1 % (0-2); EOSINOPHILS ABSOLUTE AUTO 0.23 K/mm3 (0.00-0.68); EOSINOPHILS PERCENT AUTO 3 % (0-6); Hematocrit 41.2 % (37.0-53.0); Hemoglobin 12.2 g/dL (13.5-17.5); IMMATURE GRAN ABSOLUTE AUTO 0.02 K/mm3 (0.00-0.10); IMMATURE GRAN PERCENT AUTO 0 % (0-1); LYMPHOCYTES ABSOLUTE AUTO 1.76 K/mm3 (0.84-5.20); LYMPHOCYTES PERCENT AUTO 23 % (21-46); MONOCYTES ABSOLUTE AUTO 0.85 K/mm3 (0.16-1.47); MONOCYTES PERCENT AUTO 11 % (4-13); Mean Corpuscular HGB 24.6 pg (26.0-34.0); Mean Corpuscular HGB Conc 29.6 g/dL (31.5-36.5); Mean Corpuscular Volume 83 fL (80-100); Mean Platelet Volume 10.1 fL (9.1-12.4); NEUTROPHILS ABSOLUTE AUTO 4.77 K/mm3 (1.96-9.15); NEUTROPHILS PERCENT AUTO 62 % (41-73); Platelet Count 279 K/mm3 (150-400); Red Blood Cell Count 4.96 M/mm3 (4.30-5.90); White Blood Cell Count 7.72 K/mm3 (4.00-11.30)
[2020-04-16 06:13] LABS: Bun/Creatinine Ratio 22.5 (12.0-20.0); Calcium, Blood 8.2 mg/dL (8.5-10.1); Creatinine, Blood 1.51 mg/dL (0.60-1.20)
--- NOTE | 2020-04-16 06:22 | NUR ---
HR 140's per med telephone maintainer. Continues to stay in the 140's. Asymptomatic. VS: BP 105/69. R 18. O2 sats 89% - placed on 2L/min per NC which brought sats to 96%. Call placed to cognos consultant MD. Orders obtained - see MAR for details. Call light in reach.
--- NOTE | 2020-04-16 07:35 | NUR ---
IV PLACED PRIOR TO THIS SHIFT. UNAWARE OF DATE OR TIME.
--- NOTE | 2020-04-16 15:58 | NUR ---
PT DISCHARGED. PT DISCHARGED AT 1558. PT IN STABLE CONDITION. MEDS SENT TO [facility]. PT & DAUGHTER EDUCATED ON DC INSTRUCTIONS & FOLLOW UP APPOINTMENTS. NO FURTHER QUESTIONS AT THIS TIME. PT WHEELED OUT BY AIDE. DRIVEN HOME BY DAUGHTER.
== END 2020-04-16 16:02 | disposition home or self-care (01) | DRG 291 ==
LOC: ER 15:29 → PCU 19:45 → MEDS 04-13 14:38
PROVIDERS: Emergency Medicine; Family Medicine; Internal Medicine; Nurse Practitioner Acute Care; Physician Assistant; ADMIT Internal Medicine
DX: I13.0 Hypertensive heart and chronic kidney disease with heart failure and stage 1 through stage 4 chronic kidney disease, or unspecified chronic kidney disease (principal); I50.43 Acute on chronic combined systolic (congestive) and diastolic (congestive) heart failure; J84.9 Interstitial pulmonary disease, unspecified; I48.20 Chronic atrial fibrillation, unspecified; I48.92 Unspecified atrial flutter; J44.9 Chronic obstructive pulmonary disease, unspecified; Z79.4 Long term (current) use of insulin; F03.90 Unspecified dementia, unspecified severity, without behavioral disturbance, psychotic disturbance, mood disturbance, and anxiety; K21.9 Gastro-esophageal reflux disease without esophagitis; E87.5 Hyperkalemia; Z87.891 Personal history of nicotine dependence; F32.9 Major depressive disorder, single episode, unspecified; E11.22 Type 2 diabetes mellitus with diabetic chronic kidney disease
CPT/HCPCS: 36415; 71045; 80048; 80053; 80069; 80162; 81001; 82947; 83735; 83880; 84443; 84484; 85025; 93005; 93010; 94640; 94664; 94667; 94760; 96365; 96366; 96375; 96376; 98960; 99285-25; A9270; A9270-GY; J1940; J3475

== ENCOUNTER 2020-07-27 12:16 | Emergency (ER) | payer OTHER ==
[~2020-07-27] VITALS: Ht 180.3 cm; Wt 94.8 kg
[~2020-07-27 12:16] MED LIST changes: +ALDACTONE25 MG PO; +EUTHYROX75 MCG PO; +FISH OIL 1,001000 M1 PO; -FURO20 PO; +GLUCOSE4 GM PO; +HUMALOG KW100 UNIT/1 SC; +IPRAT-ALBUT 0.5-3 ML NEB; +LOSA25 PO; +METF500 PO; -METFORMIN HCL500 M3 PO; +METO50 PO; +METO50ER PO; -NOVOLOG FL100 UNIT/3 SC; +Vitamin D2000 UNIT PO
[2020-07-27] MEDS ORDERED: DULO60 PO (12:32)
[2020-07-27] MEDS ORDERED: FISH OIL 1,2001 EAC7 PO (12:33)
[2020-07-27] MEDS ORDERED: FLUO.025TO (12:35)
[2020-07-27] MEDS ORDERED: MAGNESIUM OXID500 MG PO (12:37)
[2020-07-27 12:41] LABS: BASOPHILS ABSOLUTE AUTO 0.08 K/mm3 (0.00-0.23); BASOPHILS PERCENT AUTO 1 % (0-2); EOSINOPHILS ABSOLUTE AUTO 0.24 K/mm3 (0.00-0.68); EOSINOPHILS PERCENT AUTO 3 % (0-6); Hematocrit 42.3 % (37.0-53.0); Hemoglobin 12.9 g/dL (13.5-17.5); IMMATURE GRAN ABSOLUTE AUTO 0.03 K/mm3 (0.00-0.10); IMMATURE GRAN PERCENT AUTO 0 % (0-1); LYMPHOCYTES ABSOLUTE AUTO 1.34 K/mm3 (0.84-5.20); LYMPHOCYTES PERCENT AUTO 15 % (21-46); MONOCYTES ABSOLUTE AUTO 0.62 K/mm3 (0.16-1.47); MONOCYTES PERCENT AUTO 7 % (4-13); Mean Corpuscular HGB 24.6 pg (26.0-34.0); Mean Corpuscular HGB Conc 30.5 g/dL (31.5-36.5); Mean Corpuscular Volume 81 fL (80-100); NEUTROPHILS PERCENT AUTO 74 % (41-73); Platelet Count 249 K/mm3 (150-400); RDW Coefficient Variation 20.5 % (11.7-14.2); Red Blood Cell Count 5.24 M/mm3 (4.30-5.90); White Blood Cell Count 8.91 K/mm3 (4.00-11.30)
[2020-07-27 12:56] LABS: Alanine Aminotransfer (ALT/SGP 48 U/L (12-78); Albumin, Blood 3.3 g/dL (3.4-5.0); Alk Phos 89 U/L (50-136); Anion Gap 6 mmol/L (6-16); Aspartate Aminotrans (AST/SGOT 27 U/L (12-37); Bilirubin, Total 0.9 mg/dL (0.1-1.0); Blood Urea Nitrogen 25 mg/dL (8-24); Bun/Creatinine Ratio 23.6 (12.0-20.0); CO2, Blood 23 mmol/L (21-32); Calcium, Blood 8.8 mg/dL (8.5-10.1); Chloride, Blood 111 mmol/L (98-108); Creatinine, Blood 1.06 mg/dL (0.60-1.20); Globulin, Blood 3.3 g/dL (2.2-4.0); Glomerular Filtration Rate >60 (60-); Glucose, Blood 187 mg/dL (70-99); Potassium, Blood 3.7 mmol/L (3.5-5.5); Sodium, Blood 140 mmol/L (136-145); Total Protein, Blood 6.6 g/dL (6.4-8.2); Troponin I 0.117 ng/mL (0.000-0.040)
[2020-07-27 14:17] LABS: Digoxin (Lanoxin) 0.53 ug/mL (0.80-2.00)
== END 2020-07-27 15:20 | disposition home or self-care (01) ==
LOC: ER 12:16
PROVIDERS: Emergency Medicine
DX: I48.91 Unspecified atrial fibrillation (principal); I11.0 Hypertensive heart disease with heart failure; J44.9 Chronic obstructive pulmonary disease, unspecified; E11.9 Type 2 diabetes mellitus without complications; F03.90 Unspecified dementia, unspecified severity, without behavioral disturbance, psychotic disturbance, mood disturbance, and anxiety; E78.2 Mixed hyperlipidemia; K21.9 Gastro-esophageal reflux disease without esophagitis; I50.42 Chronic combined systolic (congestive) and diastolic (congestive) heart failure; R89.2 Abnormal level of other drugs, medicaments and biological substances in specimens from other organs, systems and tissues; Z79.01 Long term (current) use of anticoagulants; Z79.899 Other long term (current) drug therapy; Z79.4 Long term (current) use of insulin; Z88.5 Allergy status to narcotic agent; Z86.718 Personal history of other venous thrombosis and embolism; Z87.891 Personal history of nicotine dependence
CPT/HCPCS: 71045; 80053; 80162; 83880; 84484; 85025; 93005; 93010; 94640; 96374; 96375; 99285-25; J1940

== ENCOUNTER 2020-09-06 13:24 | Inpatient (IN) | payer OTHER, MEDICARE ==
[~2020-09-06] VITALS: Ht 185.4 cm; Wt 91.3 kg
[~2020-09-06 13:24] MED LIST changes: +FISH OIL 1,2001 EAC7 PO; +FLUO.025TO
[2020-09-06 14:28] LABS: BASOPHILS ABSOLUTE AUTO 0.06 K/mm3 (0.00-0.23); BASOPHILS PERCENT AUTO 1 % (0-2); EOSINOPHILS ABSOLUTE AUTO 0.15 K/mm3 (0.00-0.68); EOSINOPHILS PERCENT AUTO 2 % (0-6); Hematocrit 42.8 % (37.0-53.0); Hemoglobin 12.8 g/dL (13.5-17.5); IMMATURE GRAN ABSOLUTE AUTO 0.02 K/mm3 (0.00-0.10); IMMATURE GRAN PERCENT AUTO 0 % (0-1); LYMPHOCYTES ABSOLUTE AUTO 1.23 K/mm3 (0.84-5.20); LYMPHOCYTES PERCENT AUTO 14 % (21-46); MONOCYTES ABSOLUTE AUTO 0.63 K/mm3 (0.16-1.47); MONOCYTES PERCENT AUTO 7 % (4-13); Mean Corpuscular HGB 24.6 pg (26.0-34.0); Mean Corpuscular HGB Conc 29.9 g/dL (31.5-36.5); Mean Corpuscular Volume 82 fL (80-100); Mean Platelet Volume 9.2 fL (9.1-12.4); NEUTROPHILS ABSOLUTE AUTO 7.01 K/mm3 (1.96-9.15); NEUTROPHILS PERCENT AUTO 77 % (41-73); Platelet Count 213 K/mm3 (150-400); RDW Standard Deviation 52.1 fL (35.1-46.3); Red Blood Cell Count 5.21 M/mm3 (4.30-5.90)
[2020-09-06 14:58] LABS: Alanine Aminotransfer (ALT/SGP 35 U/L (12-78); Albumin, Blood 3.1 g/dL (3.4-5.0); Albumin/Globulin Ratio 0.9 (0.8-1.8); Alk Phos 95 U/L (50-136); Anion Gap 6 mmol/L (6-16); Aspartate Aminotrans (AST/SGOT 33 U/L (12-37); Bilirubin, Total 0.7 mg/dL (0.1-1.0); Blood Urea Nitrogen 28 mg/dL (8-24); Bun/Creatinine Ratio 24.6 (12.0-20.0); CO2, Blood 26 mmol/L (21-32); Chloride, Blood 110 mmol/L (98-108); Creatinine, Blood 1.14 mg/dL (0.60-1.20); Globulin, Blood 3.6 g/dL (2.2-4.0); Glomerular Filtration Rate >60 (60-); Glucose, Blood 230 mg/dL (70-99); Potassium, Blood 4.3 mmol/L (3.5-5.5); Sodium, Blood 142 mmol/L (136-145); Total Protein, Blood 6.7 g/dL (6.4-8.2); Troponin I 0.135 ng/mL (0.000-0.040)
--- NOTE | 2020-09-06 19:55 | NUR ---
PT TRANSFERRED TO UNIT VIA STRETCHER, A/O X 4, PLEASANT COOPERATIVE, SPO2 94% RA, SOB WITH EXERTION, STANDS AND WALKS TO BED, VSS
[2020-09-07 04:13] LABS: BASOPHILS ABSOLUTE AUTO 0.09 K/mm3 (0.00-0.23); BASOPHILS PERCENT AUTO 1 % (0-2); EOSINOPHILS PERCENT AUTO 3 % (0-6); Hematocrit 42.5 % (37.0-53.0); Hemoglobin 12.6 g/dL (13.5-17.5); IMMATURE GRAN ABSOLUTE AUTO 0.02 K/mm3 (0.00-0.10); IMMATURE GRAN PERCENT AUTO 0 % (0-1); LYMPHOCYTES ABSOLUTE AUTO 1.69 K/mm3 (0.84-5.20); LYMPHOCYTES PERCENT AUTO 18 % (21-46); MONOCYTES ABSOLUTE AUTO 0.75 K/mm3 (0.16-1.47); MONOCYTES PERCENT AUTO 8 % (4-13); Mean Corpuscular HGB 23.7 pg (26.0-34.0); Mean Corpuscular HGB Conc 29.6 g/dL (31.5-36.5); Mean Corpuscular Volume 80 fL (80-100); Mean Platelet Volume 9.9 fL (9.1-12.4); NEUTROPHILS ABSOLUTE AUTO 6.43 K/mm3 (1.96-9.15); NEUTROPHILS PERCENT AUTO 69 % (41-73); Platelet Count 255 K/mm3 (150-400); RDW Coefficient Variation 17.5 % (11.7-14.2); RDW Standard Deviation 50.9 fL (35.1-46.3); Red Blood Cell Count 5.31 M/mm3 (4.30-5.90); White Blood Cell Count 9.28 K/mm3 (4.00-11.30)
[2020-09-07 04:28] LABS: Bun/Creatinine Ratio 22.7 (12.0-20.0); Calcium, Blood 9.1 mg/dL (8.5-10.1); Creatinine, Blood 1.28 mg/dL (0.60-1.20); Potassium, Blood 3.3 mmol/L (3.5-5.5)
--- NOTE | 2020-09-07 06:39 | NUR ---
SHIFT SUMMARY PT PCU STATUS, A&O X4. VSS. MONITOR SHOWS AFIB, HR 70's-110's. SPO2 > 92% ON 2L NC. PT DENIES SOB. +2 BLE EDEMA NOTED. NO EVENTS OVER NIGHT. WILL CONTINUE TO MONITOR & PROVIDE CARE UNTIL REPORT OFF TO DAY SHIFT RN.
--- NOTE | 2020-09-07 07:48 | NUR ---
ASSUMED CARE RECEIVED REPORT FROM DEBRA QUIROZ. PT IS SITTING UP IN BED RECEIVING A NEB TREATMENT FROM RT. HE IS IN AFIB, RATE 90-100s. STABLE BP. SATs AT 98% ON 2L. HE IS ALERT AND ORIENTED X 4. PT IS SALINE LOCKED. CALL LIGHT WITHIN REACH. BED LOW AND LOCKED. HE DENIES CP, SOB AT REST, AND NAUSEA.
--- NOTE | 2020-09-07 10:30 | NUR ---
Clinical Visit: Pt is alert, oriented. He has a FULL code POLST in Maintenance Assistant. Reviewed this with him - risk vs benefit of resusitation efforts. Pt reports that he understands the risks and he would like to remain full code. Discussion of pt's medical problems. He knows and understands that his disease is end stage. He is very functional at home: cooks for himself, able to ambulate without a walker, has a fair appetite. He is happy with his quality of life and does not want to make any changes to his plan. He states that he is diligent in his medication and treatment compliance. Will remain available.
--- NOTE | 2020-09-07 12:10 | NUR ---
UPDATE PT IS WANTING TO SLEEP FOR A BIT LONGER, BEFORE EATING LUNCH. I WILL HOLD CHECKING THE SUGAR AND HUMALOG TILL HE WANTS TO EAT. BED LOW AND LOCKED. CALL LIGHT WITHIN REACH.
--- NOTE | 2020-09-07 17:42 | NUR ---
RECIEVED REPORT FROM JOSE, LIQUOR BRIDGE OPERATOR HELPER, @ [phone]. PATIENT TO TRANSFER TO ROOM 335 WHEN ROOM IS CLEANED.
--- NOTE | 2020-09-07 20:42 | NUR ---
ASSUMED CARE. JACE IS SITTING ON SIDE OF BED, ON RA. DENIES ANY PAIN OR DISCOMFORT. LUNG SOUNDS ARE CLEAR DIMINISHED SLIGHTLY IN BASES. TELE REPORTS SINUS. ABDOMIN SLIGHTLY DISTENDED STATES IS HIS NORMAL. BLE EDEMA 3+. ENCOURAGED TO ELEVATE. STATES IV IN RIGHT AC IS TENDER AND HURTS FOR HIM TO BEND HIS ARM. REMOVED IV. NEW IV STARTED RIGHT FA 20G, FLUSHED WELL. DENIES ANY OTHER NEEDS OR CONCERNS AT THIS TIME. CALL LIGHT IN REACH.
[2020-09-08 05:30] LABS: BASOPHILS ABSOLUTE AUTO 0.12 K/mm3 (0.00-0.23); BASOPHILS PERCENT AUTO 1 % (0-2); EOSINOPHILS ABSOLUTE AUTO 0.34 K/mm3 (0.00-0.68); EOSINOPHILS PERCENT AUTO 4 % (0-6); Hemoglobin 12.4 g/dL (13.5-17.5); IMMATURE GRAN ABSOLUTE AUTO 0.03 K/mm3 (0.00-0.10); IMMATURE GRAN PERCENT AUTO 0 % (0-1); LYMPHOCYTES ABSOLUTE AUTO 1.67 K/mm3 (0.84-5.20); LYMPHOCYTES PERCENT AUTO 19 % (21-46); MONOCYTES ABSOLUTE AUTO 0.78 K/mm3 (0.16-1.47); MONOCYTES PERCENT AUTO 9 % (4-13); Mean Corpuscular HGB 23.8 pg (26.0-34.0); Mean Corpuscular HGB Conc 29.5 g/dL (31.5-36.5); Mean Corpuscular Volume 81 fL (80-100); Mean Platelet Volume 9.9 fL (9.1-12.4); NEUTROPHILS PERCENT AUTO 66 % (41-73); Platelet Count 255 K/mm3 (150-400); RDW Coefficient Variation 17.2 % (11.7-14.2); RDW Standard Deviation 50.6 fL (35.1-46.3); White Blood Cell Count 8.74 K/mm3 (4.00-11.30)
[2020-09-08 06:18] LABS: Anion Gap 4 mmol/L (6-16); Blood Urea Nitrogen 32 mg/dL (8-24); Bun/Creatinine Ratio 22.2 (12.0-20.0); CO2, Blood 32 mmol/L (21-32); Calcium, Blood 8.7 mg/dL (8.5-10.1); Chloride, Blood 107 mmol/L (98-108); Creatinine, Blood 1.44 mg/dL (0.60-1.20); Digoxin (Lanoxin) 0.25 ug/mL (0.80-2.00); Glomerular Filtration Rate 51 (60-); Glucose, Blood 108 mg/dL (70-99); Magnesium, Blood 1.7 mg/dL (1.6-2.4); Potassium, Blood 3.5 mmol/L (3.5-5.5); Sodium, Blood 143 mmol/L (136-145)
--- NOTE | 2020-09-08 07:01 | NUR ---
SHIFT SUMMARY: AOX3, INDEPENDENT IN THE ROOM. NO PAIN/CHEST PAIN. LUNG SOUNDS CLEAR. BLE 3+ EDEMA UP TO SHOOK AREA. TELE REPORTS SINUS T/O NIGHT. GOOD APPETITE. VS WNL, AFEBRILE. SLEPT WELL T/O NIGHT. NO ACUTE CHANGES THIS SHIFT. HOPES TO BE ABLE TO GO HOME TODAY. CALL LIGHT IN REACH.
[2020-09-08] MEDS ORDERED: Klor-Con 1010 MEQ PO (11:31)
[2020-09-08] MEDS ORDERED: ENTRESTO 49 MG1 EACH PO (11:33)
--- NOTE | 2020-09-08 12:13 | NUR ---
PATIENT DISCHARGE TO HOME, PLANS TO DRIVE HIMSELF. IV SALINE LOCK REMOVED WITHOUT INCIDENT. TELEMETRY REMOVED. PATIENT VERBALIZED UNDERSTANDING OF D/C INSTRUCTIONS. CM WILL MAKE HIS F/U APPOINTMENTS ON THURSDAY. LEFT UNIT AT 1210, AMBULATORY.
== END 2020-09-08 12:10 | disposition home health service (06) | DRG 291 ==
LOC: ER 13:24 → ICUW 16:42 → ERHOLD 16:42 → ICUW 19:34 → MEDS 09-07 19:10
PROVIDERS: Emergency Medicine; ADMIT Internal Medicine
DX: I13.0 Hypertensive heart and chronic kidney disease with heart failure and stage 1 through stage 4 chronic kidney disease, or unspecified chronic kidney disease (principal); I50.43 Acute on chronic combined systolic (congestive) and diastolic (congestive) heart failure; J84.9 Interstitial pulmonary disease, unspecified; E11.22 Type 2 diabetes mellitus with diabetic chronic kidney disease; N18.30 Chronic kidney disease, stage 3 unspecified; J44.9 Chronic obstructive pulmonary disease, unspecified; F03.90 Unspecified dementia, unspecified severity, without behavioral disturbance, psychotic disturbance, mood disturbance, and anxiety; E03.9 Hypothyroidism, unspecified; I48.0 Paroxysmal atrial fibrillation; E78.5 Hyperlipidemia, unspecified; E87.6 Hypokalemia; J84.10 Pulmonary fibrosis, unspecified; Z86.718 Personal history of other venous thrombosis and embolism; Z79.4 Long term (current) use of insulin; Z87.891 Personal history of nicotine dependence
CPT/HCPCS: 36415; 71046; 80048; 80053; 80162; 82947; 83735; 83880; 84484; 85025; 93005; 93010; 94640; 96374; 96375; 96376; 99285-25; A9270-GY; J1940; P9046

== ENCOUNTER 2020-11-07 16:44 | Emergency (ER) | payer OTHER ==
[~2020-11-07] VITALS: Ht 185.4 cm; Wt 93.9 kg
[~2020-11-07 16:44] MED LIST changes: +Aspirin EC81 MG PO; -BASAGLAR K100 UNIT/1 PO; +ENTRESTO 49 MG1 EACH PO; +FURO80 PO; +IPRAT-ALBUT 0.5-3 ML INH; -IPRAT-ALBUT 0.5-3 ML NEB; +JARDIANCE10 MG PO; +Klor-Con 1010 MEQ PO; +TRAM50 PO
[2020-11-07 17:46] LABS: BASOPHILS ABSOLUTE AUTO 0.11 K/mm3 (0.00-0.23); BASOPHILS PERCENT AUTO 1 % (0-2); EOSINOPHILS ABSOLUTE AUTO 0.15 K/mm3 (0.00-0.68); EOSINOPHILS PERCENT AUTO 2 % (0-6); Hematocrit 44.3 % (37.0-53.0); Hemoglobin 12.9 g/dL (13.5-17.5); IMMATURE GRAN ABSOLUTE AUTO 0.02 K/mm3 (0.00-0.10); IMMATURE GRAN PERCENT AUTO 0 % (0-1); LYMPHOCYTES ABSOLUTE AUTO 1.16 K/mm3 (0.84-5.20); LYMPHOCYTES PERCENT AUTO 13 % (21-46); MONOCYTES PERCENT AUTO 8 % (4-13); Mean Corpuscular HGB Conc 29.1 g/dL (31.5-36.5); Mean Corpuscular Volume 79 fL (80-100); NEUTROPHILS ABSOLUTE AUTO 6.51 K/mm3 (1.96-9.15); NEUTROPHILS PERCENT AUTO 75 % (41-73); Platelet Count 228 K/mm3 (150-400); RDW Coefficient Variation 18.3 % (11.7-14.2); RDW Standard Deviation 50.7 fL (35.1-46.3); Red Blood Cell Count 5.61 M/mm3 (4.30-5.90); White Blood Cell Count 8.65 K/mm3 (4.00-11.30)
[2020-11-07 18:07] LABS: Albumin, Blood 3.4 g/dL (3.4-5.0); Bilirubin, Total 0.8 mg/dL (0.1-1.0); Bun/Creatinine Ratio 27.8 (12.0-20.0); Calcium, Blood 9.3 mg/dL (8.5-10.1); Creatinine, Blood 1.33 mg/dL (0.60-1.20); Globulin, Blood 3.4 g/dL (2.2-4.0); Total Protein, Blood 6.8 g/dL (6.4-8.2); Troponin I 0.12 ng/mL (0.000-0.040)
== END 2020-11-07 19:37 | disposition home or self-care (01) ==
LOC: ER 16:44
PROVIDERS: Physician Assistant
DX: I50.40 Unspecified combined systolic (congestive) and diastolic (congestive) heart failure (principal); E11.22 Type 2 diabetes mellitus with diabetic chronic kidney disease; N18.30 Chronic kidney disease, stage 3 unspecified; E03.9 Hypothyroidism, unspecified; J44.9 Chronic obstructive pulmonary disease, unspecified; I48.91 Unspecified atrial fibrillation; Z79.899 Other long term (current) drug therapy; Z79.01 Long term (current) use of anticoagulants; Z79.82 Long term (current) use of aspirin; Z79.4 Long term (current) use of insulin; Z88.5 Allergy status to narcotic agent; Z87.891 Personal history of nicotine dependence
CPT/HCPCS: 36415; 71046; 80053; 83880; 84484; 85025; 93005; 93010; 96374; 99285-25; A9270; J1940

== ENCOUNTER 2020-12-23 18:53 | Inpatient (IN) | payer OTHER, MEDICARE ==
[~2020-12-23] VITALS: Ht 185.4 cm; Wt 93.5 kg
[2020-12-23 19:25] LABS: BASOPHILS PERCENT AUTO 1 % (0-2); EOSINOPHILS ABSOLUTE AUTO 0.16 K/mm3 (0.00-0.68); EOSINOPHILS PERCENT AUTO 2 % (0-6); Hemoglobin 12.8 g/dL (13.5-17.5); IMMATURE GRAN ABSOLUTE AUTO 0.02 K/mm3 (0.00-0.10); IMMATURE GRAN PERCENT AUTO 0 % (0-1); LYMPHOCYTES ABSOLUTE AUTO 1.19 K/mm3 (0.84-5.20); LYMPHOCYTES PERCENT AUTO 14 % (21-46); MONOCYTES ABSOLUTE AUTO 0.67 K/mm3 (0.16-1.47); MONOCYTES PERCENT AUTO 8 % (4-13); Mean Corpuscular HGB 23.1 pg (26.0-34.0); Mean Corpuscular HGB Conc 29.8 g/dL (31.5-36.5); Mean Corpuscular Volume 78 fL (80-100); Mean Platelet Volume 9.9 fL (9.1-12.4); NEUTROPHILS ABSOLUTE AUTO 6.22 K/mm3 (1.96-9.15); NEUTROPHILS PERCENT AUTO 75 % (41-73); Platelet Count 269 K/mm3 (150-400); RDW Coefficient Variation 19.1 % (11.7-14.2); RDW Standard Deviation 51.5 fL (35.1-46.3); Red Blood Cell Count 5.55 M/mm3 (4.30-5.90); White Blood Cell Count 8.36 K/mm3 (4.00-11.30)
[2020-12-23 19:50] LABS: Alanine Aminotransfer (ALT/SGP 45 U/L (12-78); Albumin, Blood 3.1 g/dL (3.4-5.0); Albumin/Globulin Ratio 0.9 (0.8-1.8); Alk Phos 122 U/L (50-136); Anion Gap 7 mmol/L (6-16); Aspartate Aminotrans (AST/SGOT 34 U/L (12-37); Blood Urea Nitrogen 31 mg/dL (8-24); Bun/Creatinine Ratio 25.8 (12.0-20.0); CO2, Blood 22 mmol/L (21-32); Calcium, Blood 8.8 mg/dL (8.5-10.1); Chloride, Blood 109 mmol/L (98-108); Globulin, Blood 3.6 g/dL (2.2-4.0); Glomerular Filtration Rate >60 (60-); Glucose, Blood 211 mg/dL (70-99); Potassium, Blood 4.9 mmol/L (3.5-5.5); Sodium, Blood 138 mmol/L (136-145); Total Protein, Blood 6.7 g/dL (6.4-8.2); Troponin I 0.108 ng/mL (0.000-0.040)
[2020-12-23 22:29] LABS: Digoxin (Lanoxin) 0.15 ug/mL (0.80-2.00)
[2020-12-24 03:34] LABS: BASOPHILS ABSOLUTE AUTO 0.09 K/mm3 (0.00-0.23); BASOPHILS PERCENT AUTO 1 % (0-2); EOSINOPHILS ABSOLUTE AUTO 0.15 K/mm3 (0.00-0.68); EOSINOPHILS PERCENT AUTO 2 % (0-6); Hematocrit 38.9 % (37.0-53.0); Hemoglobin 11.7 g/dL (13.5-17.5); IMMATURE GRAN ABSOLUTE AUTO 0.01 K/mm3 (0.00-0.10); IMMATURE GRAN PERCENT AUTO 0 % (0-1); LYMPHOCYTES ABSOLUTE AUTO 1.07 K/mm3 (0.84-5.20); LYMPHOCYTES PERCENT AUTO 15 % (21-46); MONOCYTES ABSOLUTE AUTO 0.63 K/mm3 (0.16-1.47); MONOCYTES PERCENT AUTO 9 % (4-13); Mean Corpuscular HGB 22.7 pg (26.0-34.0); Mean Corpuscular HGB Conc 30.1 g/dL (31.5-36.5); Mean Corpuscular Volume 75 fL (80-100); Mean Platelet Volume 9.7 fL (9.1-12.4); NEUTROPHILS PERCENT AUTO 72 % (41-73); Platelet Count 251 K/mm3 (150-400); RDW Coefficient Variation 18.5 % (11.7-14.2); Red Blood Cell Count 5.16 M/mm3 (4.30-5.90); White Blood Cell Count 7.05 K/mm3 (4.00-11.30)
[2020-12-24 04:18] LABS: Albumin, Blood 2.9 g/dL (3.4-5.0); Albumin/Globulin Ratio 0.9 (0.8-1.8); Bun/Creatinine Ratio 22.1 (12.0-20.0); Calcium, Blood 8.5 mg/dL (8.5-10.1); Creatinine, Blood 1.31 mg/dL (0.60-1.20); Globulin, Blood 3.2 g/dL (2.2-4.0); Potassium, Blood 3.8 mmol/L (3.5-5.5); Total Protein, Blood 6.1 g/dL (6.4-8.2)
[2020-12-24 04:21] LABS: Troponin I 0.101 ng/mL (0.000-0.040)
[2020-12-24 07:01] LABS: Digoxin (Lanoxin) 0.13 ug/mL (0.80-2.00)
[2020-12-24 12:15] LABS: Troponin I 0.088 ng/mL (0.000-0.040)
[2020-12-25 05:37] LABS: Bun/Creatinine Ratio 24.1 (12.0-20.0); Calcium, Blood 8.3 mg/dL (8.5-10.1); Creatinine, Blood 1.41 mg/dL (0.60-1.20)
[2020-12-26 04:25] LABS: Bun/Creatinine Ratio 25.8 (12.0-20.0); Calcium, Blood 8.5 mg/dL (8.5-10.1); Creatinine, Blood 1.51 mg/dL (0.60-1.20); Potassium, Blood 3.4 mmol/L (3.5-5.5)
[2020-12-27 04:43] LABS: Calcium, Blood 8.5 mg/dL (8.5-10.1); Creatinine, Blood 1.52 mg/dL (0.60-1.20); Magnesium, Blood 1.8 mg/dL (1.6-2.4); Potassium, Blood 3.3 mmol/L (3.5-5.5)
[2020-12-27] MEDS ORDERED: BUME2 PO (14:24)
[2020-12-27 14:45] LABS: Bun/Creatinine Ratio 25.6 (12.0-20.0); Calcium, Blood 8.7 mg/dL (8.5-10.1); Creatinine, Blood 1.56 mg/dL (0.60-1.20); Potassium, Blood 3.9 mmol/L (3.5-5.5)
== END 2020-12-27 17:40 | disposition home health service (06) | DRG 291 ==
LOC: ER 18:53 → PCU 18:54 → ER 22:45 → PCU 22:55 → MEDS 12-26 18:22
PROVIDERS: Emergency Medicine; Family Medicine; ADMIT Internal Medicine
DX: I13.0 Hypertensive heart and chronic kidney disease with heart failure and stage 1 through stage 4 chronic kidney disease, or unspecified chronic kidney disease (principal); I50.43 Acute on chronic combined systolic (congestive) and diastolic (congestive) heart failure; J84.9 Interstitial pulmonary disease, unspecified; I48.20 Chronic atrial fibrillation, unspecified; I48.92 Unspecified atrial flutter; N18.30 Chronic kidney disease, stage 3 unspecified; E11.65 Type 2 diabetes mellitus with hyperglycemia; E11.22 Type 2 diabetes mellitus with diabetic chronic kidney disease; J44.9 Chronic obstructive pulmonary disease, unspecified; F03.90 Unspecified dementia, unspecified severity, without behavioral disturbance, psychotic disturbance, mood disturbance, and anxiety; E87.6 Hypokalemia; J84.10 Pulmonary fibrosis, unspecified; E03.9 Hypothyroidism, unspecified; Z86.718 Personal history of other venous thrombosis and embolism; Z79.01 Long term (current) use of anticoagulants; Z79.4 Long term (current) use of insulin; Z79.82 Long term (current) use of aspirin; Z87.891 Personal history of nicotine dependence
CPT/HCPCS: 36415; 71045; 71046; 80048; 80053; 80162; 82550; 82947; 83735; 83880; 84484; 85025; 93005; 93010; 94640; 94760; 96374; 96375; 97110; 97162; 97165; 97535; 99285-25; A9270; G0008; G0378; J1940; Q2038

== ENCOUNTER 2021-02-09 10:07 | Inpatient (IN) | payer OTHER, MEDICARE ==
[~2021-02-09] VITALS: Ht 188 cm; Wt 95.8 kg
[~2021-02-09 10:07] MED LIST changes: +BUME2 PO
[2021-02-09 10:49] LABS: BASOPHILS ABSOLUTE AUTO 0.08 K/mm3 (0.00-0.23); BASOPHILS PERCENT AUTO 1 % (0-2); EOSINOPHILS ABSOLUTE AUTO 0.16 K/mm3 (0.00-0.68); EOSINOPHILS PERCENT AUTO 2 % (0-6); Hemoglobin 12.7 g/dL (13.5-17.5); IMMATURE GRAN ABSOLUTE AUTO 0.02 K/mm3 (0.00-0.10); IMMATURE GRAN PERCENT AUTO 0 % (0-1); LYMPHOCYTES ABSOLUTE AUTO 0.92 K/mm3 (0.84-5.20); LYMPHOCYTES PERCENT AUTO 11 % (21-46); MONOCYTES ABSOLUTE AUTO 0.43 K/mm3 (0.16-1.47); MONOCYTES PERCENT AUTO 5 % (4-13); Mean Corpuscular HGB 22.4 pg (26.0-34.0); Mean Corpuscular HGB Conc 29.5 g/dL (31.5-36.5); Mean Corpuscular Volume 76 fL (80-100); Mean Platelet Volume 9.6 fL (9.1-12.4); NEUTROPHILS ABSOLUTE AUTO 6.71 K/mm3 (1.96-9.15); NEUTROPHILS PERCENT AUTO 81 % (41-73); Platelet Count 229 K/mm3 (150-400); RDW Coefficient Variation 18.8 % (11.7-14.2); Red Blood Cell Count 5.68 M/mm3 (4.30-5.90); White Blood Cell Count 8.32 K/mm3 (4.00-11.30)
[2021-02-09 11:10] LABS: Albumin, Blood 3.3 g/dL (3.4-5.0); Bilirubin, Total 0.9 mg/dL (0.1-1.0); Bun/Creatinine Ratio 22.3 (12.0-20.0); Calcium, Blood 8.6 mg/dL (8.5-10.1); Creatinine, Blood 1.39 mg/dL (0.60-1.20); Globulin, Blood 3.4 g/dL (2.2-4.0); Potassium, Blood 4.1 mmol/L (3.5-5.5); Total Protein, Blood 6.7 g/dL (6.4-8.2); Troponin I 0.1 ng/mL (0.000-0.040)
[2021-02-09 11:30] LABS: Digoxin (Lanoxin) 0.11 ug/mL (0.80-2.00)
[2021-02-09] MEDS ORDERED: ELIQUIS5 M2 PO (13:21)
[2021-02-09] MEDS ORDERED: ASPI81CH PO (13:23)
[2021-02-09] MEDS ORDERED: BUME2 PO (13:24)
[2021-02-09] MEDS ORDERED: Digoxin PO (13:25)
[2021-02-09] MEDS ORDERED: JARDIANCE10 MG PO (13:26)
[2021-02-09] MEDS ORDERED: INSULANPEN SC (13:27)
[2021-02-09] MEDS ORDERED: Iprat-Albut 0.5-3(2. INH (13:29)
[2021-02-09] MEDS ORDERED: LEVALBUTEROL TA15 G1 INH (13:30)
[2021-02-09] MEDS ORDERED: SYNTHROID75 MCG PO (13:31)
[2021-02-09] MEDS ORDERED: MEMA10 PO (13:32)
[2021-02-09] MEDS ORDERED: METO50ER PO (13:33)
[2021-02-09] MEDS ORDERED: ASMANEX HFA13 G4 INH (13:35)
[2021-02-09] MEDS ORDERED: KLOR-CON 1010 ME1 PO (13:36)
[2021-02-09] MEDS ORDERED: ENTRESTO 49 MG1 EAC2 PO (13:37)
[2021-02-09] MEDS ORDERED: Vitamin D PO (13:38)
--- NOTE | 2021-02-09 15:34 | NUR ---
Echocardiogram completed.
--- NOTE | 2021-02-09 18:19 | NUR ---
SHIFT NOTE PT ARRIVED THIS AFTERNOON FROM ER WITH DX OF AFIB c RVR. PT ARRIVED ON CARDIZEM DRIP AT 10MG/HOUR, CARDIZEM WAS STOPPED AND ORAL METOPOROL WAS STARTED. A FIB 87 NOTED AT THIS TIME. PT IS SBA TO BATHROOM. VSS. PT C/O ONCE OF CO SHORTLY AFTER ARRIVAL THAT RESOLVED WITHOUT INTERVENTION. DR NGUYEN WAS IN TO SEE HIM, HE WAS EDUCATED BY MD ABOUT TAKING MEDICATIONS REGULARLY.
--- NOTE | 2021-02-09 19:15 | NUR ---
ASSUMED CARE RECEIVED BEDSIDE REPORT FROM DEBRA MARQUEZ AND COMMERCIAL CARPENTER MARINE; PT A&O X 4; VSS; O2 SATS >93 ON RA; RESTING IN BED W/ NO DISTRESS NOTED; BELONGINGS AND CALL LIGHT IN REACH
[2021-02-10 03:10] LABS: Hematocrit 40.1 % (37.0-53.0); Hemoglobin 11.9 g/dL (13.5-17.5); Mean Corpuscular HGB 22.8 pg (26.0-34.0); Mean Corpuscular HGB Conc 29.7 g/dL (31.5-36.5); Mean Corpuscular Volume 77 fL (80-100); Mean Platelet Volume 10.1 fL (9.1-12.4); Platelet Count 234 K/mm3 (150-400); RDW Coefficient Variation 18.7 % (11.7-14.2); RDW Standard Deviation 50.3 fL (35.1-46.3); Red Blood Cell Count 5.21 M/mm3 (4.30-5.90); White Blood Cell Count 7.72 K/mm3 (4.00-11.30)
[2021-02-10 03:38] LABS: Alanine Aminotransfer (ALT/SGP 19 U/L (12-78); Albumin, Blood 3.1 g/dL (3.4-5.0); Alk Phos 104 U/L (50-136); Anion Gap 7 mmol/L (6-16); Aspartate Aminotrans (AST/SGOT 13 U/L (12-37); Blood Urea Nitrogen 30 mg/dL (8-24); Bun/Creatinine Ratio 20.5 (12.0-20.0); CHOL/HDL RATIO 3.7; CO2, Blood 26 mmol/L (21-32); Calcium, Blood 8.6 mg/dL (8.5-10.1); Chloride, Blood 109 mmol/L (98-108); Cholesterol 116 mg/dL (50-200); Creatinine, Blood 1.46 mg/dL (0.60-1.20); Globulin, Blood 3.2 g/dL (2.2-4.0); Glomerular Filtration Rate 50 (60-); Glucose, Blood 162 mg/dL (70-99); HDL Cholesterol 31 mg/dL (>39); LDL/HDL RATIO 2.2; Low Density Lipoprotein Chol 67 mg/dL (0-110); Magnesium, Blood 1.7 mg/dL (1.6-2.4); Phosphorus, Blood 3.7 mg/dL (2.5-4.9); Potassium, Blood 3.7 mmol/L (3.5-5.5); Sodium, Blood 142 mmol/L (136-145); Total Protein, Blood 6.3 g/dL (6.4-8.2); Triglycerides 89 mg/dL (30-160); Troponin I 0.111 ng/mL (0.000-0.040); Very Low Density Lipoprot Chol 17 mg/dL (6-32)
--- NOTE | 2021-02-10 07:39 | NUR ---
SHIFT SUMMARY PT A&O X 3; PLEASANT & COMPLIANT W/ CARE; FORGETS SOME DETAILS REGARDING MEDICATIONS AND EVENT TIME FRAME; VSS; AFLUTTER NOTED ON TELE W/ HR 90'S; O2 SATS >93 ON 4L NC; PT C/O OF SOB; RT AT BEDSIDE FOR BREATHING TX X1; SUPERVISOR BLUEPRINTING AND PHOTOCOPY IN ROOM TO START NEW IV; NO DISTRESS NOTED THIS SHIFT; CALL LIGHT IN REACH; BED IN LOWEST POSITION; BEDSIDE REPORT GIVEN TO DAY SHIFT RN JOSE MARIA.
--- NOTE | 2021-02-10 19:10 | NUR ---
ASSUMED CARE RECEIVED REPORT FROM DEBRA MOISE; PT A&O X 4; SMILING AND TEASING STAFF; VSS; AFLUTTER NOTED ON TELE; SITTING AT BEDSIDE W/ NO DISTRESS NOTED; BELONGINGS AND CALL LIGHT IN REACH.
--- NOTE | 2021-02-10 19:12 | NUR ---
SHIFT SUMMARY NO ACUTE CHANGES NOTED, PT IS A&O X4, VSS, ON RA WHILE AWAKE, 2 L WHILE SLEEPING. PT HAS DENIED CP/PRESSURE, HR SINUS/SINUS TACH. LUNGS DIMINISHED IN BILATERAL BASES. PT IS TOLERATING PO INTAKE, VOIDING WNL. PT REMINDED TO MEASURE URINE FOR AN ACURATE. PT HAS BEEN RESTING IN BED THROUGH THE DAY. BED IN LOW POSITION, CALL LIGHT IN REACH, REPORT GIVEN TO IDALMIS RICHARDSON.
[2021-02-11 04:13] LABS: Albumin, Blood 3.2 g/dL (3.4-5.0); Anion Gap 4 mmol/L (6-16); Blood Urea Nitrogen 29 mg/dL (8-24); Bun/Creatinine Ratio 19.5 (12.0-20.0); CO2, Blood 30 mmol/L (21-32); Calcium, Blood 8.5 mg/dL (8.5-10.1); Chloride, Blood 108 mmol/L (98-108); Creatinine, Blood 1.49 mg/dL (0.60-1.20); Glomerular Filtration Rate 49 (60-); Glucose, Blood 65 mg/dL (70-99); Phosphorus, Blood 3.7 mg/dL (2.5-4.9); Potassium, Blood 3.1 mmol/L (3.5-5.5); Sodium, Blood 142 mmol/L (136-145)
--- NOTE | 2021-02-11 07:54 | NUR ---
SHIFT SUMMARY PT A&O X 4; PLEASANT & COMPLIANT W/ CARE; VSS; AFLUTTER ON TELE; HAD A 12 BEAT RUN OF VTACH APPROXIMATELY 0625, PT NOTICED "SOMETHING DIDN'T FEEL RIGHT"; O2 SATS >93 ON RA; SLEPT SEVERAL HOURS IN BETWEEN INTERVENTIONS; CALL LIGHT IN REACH; BED IN LOWEST POSITION; REPORT GIVEN TO DEBRA MOISE.
--- NOTE | 2021-02-11 17:06 | NUR ---
SUMMARY PT IS A&O X4, INDEPENDENT IN THE ROOM, ON ROOM AIR WHILE AWAKE. NO ACUTE CHANGES NOTED THROUGH THE DAY, PT IS VOIDING WNL, TOLERATING PO INTAKE. HE REPORTS LACK OF APPETITE, SNACKS ENC TO PREVENT HYPOGLYCEMIA. SINUS RHYTHM/TACH 80-100 BPM. PT TRANSPORTED TO MEDICAL FLOOR, ROOM 305 AT THIS TIME VIA W/C, PT HAS HIS PERSONAL BELONGINGS. REPORT CALLED TO FREDERIC RICHARDSON.
--- NOTE | 2021-02-11 17:43 | NUR ---
SHIFT SUMMARY PATIENT TRANSFERED TO THE MEDICAL FLOOR LATE THIS SHIFT. PATIENT TO THE FLOOR VIA WHEELCHAIR. PATIENT TRANSFERED INDEPENDENLY TO THE BED. PATIENT HUBERT PAIN. PATIENT ORIENTED TO THE ROOM. PATIENT CURRENTLY SITTING UP IN BED.
--- NOTE | 2021-02-12 05:01 | NUR ---
SHIFT SUMMARY NO ACUTE EVENTS THIS SHIFT. PT IS A&O X4, IND IN ROOM, CALL APPROPRIATELY. PT STATED SOME TROUBLE WITH SLEEPING @ 0400 OTHERWISE NO OTHER COMPLAINTS. PT IS LAYING IN BED WITH EYES CLOSED, EVEN AND UNLABORED RESPIRATIONS. BED IN LOWERED POSITION WITH SIDE RAILS UP X2 FOR SAFETY. CALL LIGHT AND PERSONAL ITEMS WITH IN REACH. NO APPARENT NEEDS OR DISTRESS AT THIS TIME, WILL CONTINUE TO MONITOR UNTIL REPORT GIVEN TO DAY RN.
[2021-02-12 05:07] LABS: Anion Gap 7 mmol/L (6-16); Blood Urea Nitrogen 32 mg/dL (8-24); Bun/Creatinine Ratio 20.5 (12.0-20.0); CO2, Blood 27 mmol/L (21-32); Calcium, Blood 8.5 mg/dL (8.5-10.1); Chloride, Blood 107 mmol/L (98-108); Creatinine, Blood 1.56 mg/dL (0.60-1.20); Glomerular Filtration Rate 46 (60-); Glucose, Blood 93 mg/dL (70-99); Magnesium, Blood 1.5 mg/dL (1.6-2.4); Phosphorus, Blood 3.8 mg/dL (2.5-4.9); Potassium, Blood 3.3 mmol/L (3.5-5.5); Sodium, Blood 141 mmol/L (136-145)
--- NOTE | 2021-02-12 12:45 | NUR ---
Supportive visit this afternoon. Spoke with Bedside RN Moe and discussed case. Pt to D/C this afternoon with resumption of HH. Pt sitting on edge of bed upon arrival. Pt denies pain at this time. He reports dyspnea as improved and is agreeable with D/C plan. Listened as Pt reports not seen his PCP since being D/C from his last hospital stay. [place] educated Pt on the importance of routine visits with PCP to manage chronic illnesses. Gentlely re-enforced education on developing multiple plans with PCP as disease progresses. Continued therapeutic listening as Pt reports living alone and daughter has been doing well since finishing ADAPT. Pt reports no concerns at this time. Palliative Care will remain available.
--- NOTE | 2021-02-12 15:48 | NUR ---
DISCHARGE NOTE PATIENT DISCHARGED TO HOME WITH HOME HEALTH. PATIENT ALERT AND ORIENTED THIS SHIFT. PATIENT INDEPENDENT IN THE ROOM, WALKING IN THE ROOM AND TO THE BATHROOM. PATIENT WORKED WITH PHYSICAL THERAPY THIS SHIFT. PATIENT LYING IN BED THROUGHOUT MOST OF THIS SHIFT. PATIENT DENIES PAIN THIS SHIFT. PATIENT ON ROOM AIR THIS SHIFT. PATIENT PROVIDED WITH DISCHARGE AND MEDICATION INSTRUCTIONS. PATIENT DENIES QUESTIONS AT THIS TIME. IV REMOVED PRIOR TO DISCHARGE. PATIENT TO VEHICLE VIA WHEELCHAIR. FAMILY PROVIDING TRANSPORTATION HOME.
== END 2021-02-12 15:35 | disposition home health service (06) | DRG 291 ==
LOC: ER 10:07 → PCU 12:41 → ERHOLD 12:41 → PCU 14:09 → MEDS 02-11 17:06
PROVIDERS: Emergency Medicine; ADMIT Internal Medicine
DX: I13.0 Hypertensive heart and chronic kidney disease with heart failure and stage 1 through stage 4 chronic kidney disease, or unspecified chronic kidney disease (principal); I50.23 Acute on chronic systolic (congestive) heart failure; I47.2 Ventricular tachycardia; I48.92 Unspecified atrial flutter; I48.20 Chronic atrial fibrillation, unspecified; J96.11 Chronic respiratory failure with hypoxia; I24.8 Other forms of acute ischemic heart disease; E11.22 Type 2 diabetes mellitus with diabetic chronic kidney disease; I25.10 Atherosclerotic heart disease of native coronary artery without angina pectoris; Z60.2 Problems related to living alone; E03.9 Hypothyroidism, unspecified; I27.20 Pulmonary hypertension, unspecified; I42.9 Cardiomyopathy, unspecified; G31.84 Mild cognitive impairment of uncertain or unknown etiology; J84.10 Pulmonary fibrosis, unspecified; M19.90 Unspecified osteoarthritis, unspecified site; J44.9 Chronic obstructive pulmonary disease, unspecified; T50.2X5A Adverse effect of carbonic-anhydrase inhibitors, benzothiadiazides and other diuretics, initial encounter; N18.30 Chronic kidney disease, stage 3 unspecified; E87.6 Hypokalemia; Z88.5 Allergy status to narcotic agent; Z90.49 Acquired absence of other specified parts of digestive tract; Z98.890 Other specified postprocedural states; Z87.891 Personal history of nicotine dependence; Z79.01 Long term (current) use of anticoagulants; Z79.899 Other long term (current) drug therapy; Z79.82 Long term (current) use of aspirin; Z79.51 Long term (current) use of inhaled steroids; Z91.14 Patient's other noncompliance with medication regimen
CPT/HCPCS: 36415; 71045; 80053; 80061; 80069; 80162; 82947; 83036; 83735; 83880; 84100; 84439; 84443; 84484; 85025; 85027; 93005; 93010; 93306; 94640; 94760; 96365; 96366; 96375; 96376; 97110; 97161; 99285-25; A9270; A9270-GY; J1720; J1940; J3475; J7050

== ENCOUNTER 2021-03-26 08:21 | Emergency (ER) | payer OTHER ==
[~2021-03-26] VITALS: Ht 177.8 cm; Wt 93.9 kg
[~2021-03-26 08:21] MED LIST changes: +ASPI81CH PO; +Digoxin PO; +ELIQUIS5 M2 PO; +ENTRESTO 49 MG1 EAC2 PO; +INSULANPEN SC; +Iprat-Albut 0.5-3(2. INH; +KLOR-CON 1010 ME1 PO; +SYNTHROID75 MCG PO; +Vitamin D PO
[2021-03-26 08:50] LABS: BASOPHILS ABSOLUTE AUTO 0.09 K/mm3 (0.00-0.23); BASOPHILS PERCENT AUTO 1 % (0-2); EOSINOPHILS ABSOLUTE AUTO 0.09 K/mm3 (0.00-0.68); EOSINOPHILS PERCENT AUTO 1 % (0-6); Hematocrit 42.7 % (37.0-53.0); Hemoglobin 13.1 g/dL (13.5-17.5); IMMATURE GRAN ABSOLUTE AUTO 0.03 K/mm3 (0.00-0.10); IMMATURE GRAN PERCENT AUTO 0 % (0-1); LYMPHOCYTES ABSOLUTE AUTO 0.93 K/mm3 (0.84-5.20); LYMPHOCYTES PERCENT AUTO 9 % (21-46); MONOCYTES ABSOLUTE AUTO 0.64 K/mm3 (0.16-1.47); MONOCYTES PERCENT AUTO 6 % (4-13); Mean Corpuscular HGB 23.2 pg (26.0-34.0); Mean Corpuscular HGB Conc 30.7 g/dL (31.5-36.5); Mean Corpuscular Volume 76 fL (80-100); Mean Platelet Volume 9.2 fL (9.1-12.4); NEUTROPHILS ABSOLUTE AUTO 8.91 K/mm3 (1.96-9.15); NEUTROPHILS PERCENT AUTO 83 % (41-73); Platelet Count 224 K/mm3 (150-400); RDW Coefficient Variation 19.9 % (11.7-14.2); RDW Standard Deviation 51.8 fL (35.1-46.3); Red Blood Cell Count 5.65 M/mm3 (4.30-5.90); White Blood Cell Count 10.69 K/mm3 (4.00-11.30)
[2021-03-26 09:13] LABS: Albumin, Blood 3.3 g/dL (3.4-5.0); Albumin/Globulin Ratio 0.9 (0.8-1.8); Bilirubin, Total 0.8 mg/dL (0.1-1.0); Bun/Creatinine Ratio 26.7 (12.0-20.0); Calcium, Blood 9.5 mg/dL (8.5-10.1); Creatinine, Blood 1.35 mg/dL (0.60-1.20); Globulin, Blood 3.6 g/dL (2.2-4.0); Potassium, Blood 4.4 mmol/L (3.5-5.5); Total Protein, Blood 6.9 g/dL (6.4-8.2); Troponin I 0.141 ng/mL (0.000-0.040)
== END 2021-03-26 12:47 | disposition home or self-care (01) ==
LOC: ER 08:21
PROVIDERS: Emergency Medicine
DX: J81.1 Chronic pulmonary edema (principal); I48.91 Unspecified atrial fibrillation; R79.89 Other specified abnormal findings of blood chemistry; I13.0 Hypertensive heart and chronic kidney disease with heart failure and stage 1 through stage 4 chronic kidney disease, or unspecified chronic kidney disease; N18.30 Chronic kidney disease, stage 3 unspecified; I50.22 Chronic systolic (congestive) heart failure; I25.10 Atherosclerotic heart disease of native coronary artery without angina pectoris; E03.9 Hypothyroidism, unspecified; Z88.5 Allergy status to narcotic agent; Z79.899 Other long term (current) drug therapy; Z79.82 Long term (current) use of aspirin; Z79.01 Long term (current) use of anticoagulants
CPT/HCPCS: 36415; 71045; 80053; 84484; 85025; 93005; 93010; 96374; 96375; 99285-25

== ENCOUNTER 2021-04-10 08:41 | Emergency (ER) | payer OTHER ==
[~2021-04-10] VITALS: Ht 185.4 cm; Wt 93.9 kg
[2021-04-10 09:20] LABS: BASOPHILS ABSOLUTE AUTO 0.12 K/mm3 (0.00-0.23); BASOPHILS PERCENT AUTO 1 % (0-2); EOSINOPHILS ABSOLUTE AUTO 0.11 K/mm3 (0.00-0.68); EOSINOPHILS PERCENT AUTO 1 % (0-6); Hematocrit 43.3 % (37.0-53.0); Hemoglobin 13.3 g/dL (13.5-17.5); IMMATURE GRAN ABSOLUTE AUTO 0.04 K/mm3 (0.00-0.10); IMMATURE GRAN PERCENT AUTO 0 % (0-1); LYMPHOCYTES ABSOLUTE AUTO 1.02 K/mm3 (0.84-5.20); LYMPHOCYTES PERCENT AUTO 10 % (21-46); MONOCYTES ABSOLUTE AUTO 0.57 K/mm3 (0.16-1.47); MONOCYTES PERCENT AUTO 6 % (4-13); Mean Corpuscular HGB 23.6 pg (26.0-34.0); Mean Corpuscular HGB Conc 30.7 g/dL (31.5-36.5); Mean Corpuscular Volume 77 fL (80-100); Mean Platelet Volume 9.2 fL (9.1-12.4); NEUTROPHILS ABSOLUTE AUTO 8.35 K/mm3 (1.96-9.15); NEUTROPHILS PERCENT AUTO 82 % (41-73); Platelet Count 252 K/mm3 (150-400); RDW Coefficient Variation 19.9 % (11.7-14.2); RDW Standard Deviation 53.7 fL (35.1-46.3); Red Blood Cell Count 5.63 M/mm3 (4.30-5.90); White Blood Cell Count 10.21 K/mm3 (4.00-11.30)
[2021-04-10 09:34] LABS: Albumin, Blood 3.5 g/dL (3.4-5.0); Albumin/Globulin Ratio 0.9 (0.8-1.8); Bun/Creatinine Ratio 29.9 (12.0-20.0); Calcium, Blood 9.4 mg/dL (8.5-10.1); Creatinine, Blood 1.27 mg/dL (0.60-1.20); Globulin, Blood 3.9 g/dL (2.2-4.0); Potassium, Blood 4.1 mmol/L (3.5-5.5); Total Protein, Blood 7.4 g/dL (6.4-8.2); Troponin I 0.13 ng/mL (0.000-0.040)
[2021-04-10 11:13] LABS: Digoxin (Lanoxin) 0.17 ug/mL (0.80-2.00)
--- NOTE | 2021-04-10 12:36 | NUR ---
ED Palliative Care Consult Pt to the ED for SOB. 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 Multiple ED visits and hospitalizations in the last 6 months. Spoke with ED Provider Hui and Hospitalist Emeka. Discussed case and concerns. Pt may benefit from discussion regarding goals of care including the option for hospice. Pt sitting on edge of gonzalesrny upon arrival. Pt is A&OX3/4. Pt has difficulty remebering the name of the hospital but know he is in a hospital in [place]. Pt denies pain at this time. Offered theraeputic listening as Pt reports have increased dyspnea over the last couple of days. Pt reports living by himself with his dog. Pt's daughter Lisa is supportive when she is not at work. Pt is known to this commercial insurance underwriter from previous hospital stays. Engaged in therapeutic discussion regarding goals of care. Educated on disease process including trajectory of disease and considering own goals and values. Discussed the option for hospice. Educted on hospice philosophy. Pt's daughter Bridgette calls during conversation and is placed on speaker phone. Answered questions and listened to concerns. Pt and daughter report needing time to process information and to determine Pt's goals and values. Pt and daughter express appreciation of conversation. PPS 50% Pt high risk for readmission. Palliative Care will remain available.
== END 2021-04-10 14:10 | disposition home or self-care (01) ==
LOC: ER 08:41
PROVIDERS: Physician Assistant
DX: J81.1 Chronic pulmonary edema (principal); I48.91 Unspecified atrial fibrillation; I13.0 Hypertensive heart and chronic kidney disease with heart failure and stage 1 through stage 4 chronic kidney disease, or unspecified chronic kidney disease; E11.22 Type 2 diabetes mellitus with diabetic chronic kidney disease; I50.22 Chronic systolic (congestive) heart failure; N18.30 Chronic kidney disease, stage 3 unspecified; Z88.5 Allergy status to narcotic agent; Z79.899 Other long term (current) drug therapy
CPT/HCPCS: 36415; 71046; 80053; 80162; 83880; 84484; 85025; 93005; 93010; 96374; 96375; 96376; 99285-25; A9270; J2405

== ENCOUNTER 2021-05-19 16:18 | Emergency (ER) | payer OTHER ==
[~2021-05-19] VITALS: Ht 185.4 cm; Wt 93.9 kg
[2021-05-19 16:58] LABS: BASOPHILS ABSOLUTE AUTO 0.08 K/mm3 (0.00-0.23); BASOPHILS PERCENT AUTO 1 % (0-2); EOSINOPHILS ABSOLUTE AUTO 0.19 K/mm3 (0.00-0.68); EOSINOPHILS PERCENT AUTO 2 % (0-6); Hematocrit 42.1 % (37.0-53.0); Hemoglobin 12.8 g/dL (13.5-17.5); IMMATURE GRAN ABSOLUTE AUTO 0.02 K/mm3 (0.00-0.10); IMMATURE GRAN PERCENT AUTO 0 % (0-1); LYMPHOCYTES ABSOLUTE AUTO 1.11 K/mm3 (0.84-5.20); LYMPHOCYTES PERCENT AUTO 14 % (21-46); MONOCYTES ABSOLUTE AUTO 0.51 K/mm3 (0.16-1.47); MONOCYTES PERCENT AUTO 7 % (4-13); Mean Corpuscular HGB 24.1 pg (26.0-34.0); Mean Corpuscular HGB Conc 30.4 g/dL (31.5-36.5); Mean Corpuscular Volume 79 fL (80-100); Mean Platelet Volume 9.7 fL (9.1-12.4); NEUTROPHILS ABSOLUTE AUTO 5.92 K/mm3 (1.96-9.15); NEUTROPHILS PERCENT AUTO 76 % (41-73); Platelet Count 257 K/mm3 (150-400); RDW Coefficient Variation 18.6 % (11.7-14.2); RDW Standard Deviation 51.9 fL (35.1-46.3); Red Blood Cell Count 5.31 M/mm3 (4.30-5.90); White Blood Cell Count 7.83 K/mm3 (4.00-11.30)
[2021-05-19 17:15] LABS: Albumin, Blood 3.3 g/dL (3.4-5.0); Albumin/Globulin Ratio 0.9 (0.8-1.8); Bilirubin, Total 0.8 mg/dL (0.1-1.0); Bun/Creatinine Ratio 26.8 (12.0-20.0); Calcium, Blood 8.9 mg/dL (8.5-10.1); Creatinine, Blood 1.27 mg/dL (0.60-1.20); Globulin, Blood 3.6 g/dL (2.2-4.0); Potassium, Blood 4.2 mmol/L (3.5-5.5); Total Protein, Blood 6.9 g/dL (6.4-8.2)
== END 2021-05-19 18:57 | disposition left against medical advice (07) ==
LOC: ER 16:18
PROVIDERS: Physician Assistant
DX: R06.02 Shortness of breath (principal); Z53.21 Procedure and treatment not carried out due to patient leaving prior to being seen by health care provider
CPT/HCPCS: 36415; 71046; 80053; 85025; 93005; 93010; 99283-25

== ENCOUNTER 2021-06-02 08:28 | Emergency (ER) | payer OTHER ==
[~2021-06-02] VITALS: Ht 185.4 cm; Wt 93.9 kg
[2021-06-02 09:51] LABS: BASOPHILS ABSOLUTE AUTO 0.09 K/mm3 (0.00-0.23); BASOPHILS PERCENT AUTO 1 % (0-2); EOSINOPHILS ABSOLUTE AUTO 0.07 K/mm3 (0.00-0.68); EOSINOPHILS PERCENT AUTO 1 % (0-6); Hematocrit 42.9 % (37.0-53.0); IMMATURE GRAN ABSOLUTE AUTO 0.03 K/mm3 (0.00-0.10); IMMATURE GRAN PERCENT AUTO 0 % (0-1); LYMPHOCYTES ABSOLUTE AUTO 0.73 K/mm3 (0.84-5.20); LYMPHOCYTES PERCENT AUTO 8 % (21-46); MONOCYTES ABSOLUTE AUTO 0.39 K/mm3 (0.16-1.47); MONOCYTES PERCENT AUTO 4 % (4-13); Mean Corpuscular HGB 23.9 pg (26.0-34.0); Mean Corpuscular HGB Conc 30.3 g/dL (31.5-36.5); Mean Corpuscular Volume 79 fL (80-100); Mean Platelet Volume 9.3 fL (9.1-12.4); NEUTROPHILS ABSOLUTE AUTO 7.82 K/mm3 (1.96-9.15); NEUTROPHILS PERCENT AUTO 86 % (41-73); Platelet Count 238 K/mm3 (150-400); RDW Coefficient Variation 18.3 % (11.7-14.2); RDW Standard Deviation 50.5 fL (35.1-46.3); Red Blood Cell Count 5.44 M/mm3 (4.30-5.90); White Blood Cell Count 9.13 K/mm3 (4.00-11.30)
[2021-06-02 10:06] LABS: Troponin I 0.117 ng/mL (0.000-0.040)
[2021-06-02 10:15] LABS: Albumin, Blood 3.4 g/dL (3.4-5.0); Albumin/Globulin Ratio 0.9 (0.8-1.8); Bilirubin, Total 1.3 mg/dL (0.1-1.0); Bun/Creatinine Ratio 20.9 (12.0-20.0); Calcium, Blood 8.7 mg/dL (8.5-10.1); Creatinine, Blood 1.29 mg/dL (0.60-1.20); Globulin, Blood 3.6 g/dL (2.2-4.0)
[2021-06-02 13:03] LABS: Source, Urine Clean Catch
[2021-06-02 13:05] LABS: Appearance, Urine Clear (Clear); Bilirubin, Urine Neg (Neg); Blood, Urine 1+ (Neg); Color, Urine Yellow (P-Yellow); Glucose Qualitative, Urine 2+ (Neg); Ketones, Urine Neg (Neg); Leukocyte Esterase, Urine Neg (Neg); Nitrite, Urine Neg (Neg); Protein, Urine 4+ (Neg); Specific Gravity, Urine 1.025 (1.003-1.022); Urobilinogen, Urine 1+ (Normal)
[2021-06-02 13:16] LABS: Bacteria Mod /hpf; Red Blood Cells, Urine 0-2 /hpf (0-2); Squamous Epithelial Cells Few /hpf (Few)
== END 2021-06-02 13:44 | disposition home or self-care (01) ==
LOC: ER 08:28
PROVIDERS: Physician Assistant
DX: R10.9 Unspecified abdominal pain (principal); I48.3 Typical atrial flutter; R79.89 Other specified abnormal findings of blood chemistry; I13.0 Hypertensive heart and chronic kidney disease with heart failure and stage 1 through stage 4 chronic kidney disease, or unspecified chronic kidney disease; I50.9 Heart failure, unspecified; N18.30 Chronic kidney disease, stage 3 unspecified; E11.22 Type 2 diabetes mellitus with diabetic chronic kidney disease; J44.9 Chronic obstructive pulmonary disease, unspecified; E03.9 Hypothyroidism, unspecified; Z88.5 Allergy status to narcotic agent; Z79.82 Long term (current) use of aspirin; Z79.4 Long term (current) use of insulin; Z79.890 Hormone replacement therapy; Z79.899 Other long term (current) drug therapy
CPT/HCPCS: 36415; 71046; 74176; 80053; 81001; 83880; 84484; 85025; 87086; 93005; 93010; 96374; 96375; 99284-25; J2270; J2405; J7030

== ENCOUNTER 2021-06-02 15:49 | Emergency (ER) | payer OTHER ==
[~2021-06-02] VITALS: Ht 185.4 cm; Wt 93.9 kg
== END 2021-06-02 20:55 | disposition home or self-care (01) ==
LOC: ER 15:49
DX: S42.001A Fracture of unspecified part of right clavicle, initial encounter for closed fracture (principal); S09.90XA Unspecified injury of head, initial encounter; I13.0 Hypertensive heart and chronic kidney disease with heart failure and stage 1 through stage 4 chronic kidney disease, or unspecified chronic kidney disease; I50.9 Heart failure, unspecified; N18.30 Chronic kidney disease, stage 3 unspecified; J44.9 Chronic obstructive pulmonary disease, unspecified; E11.22 Type 2 diabetes mellitus with diabetic chronic kidney disease; E03.9 Hypothyroidism, unspecified; I48.91 Unspecified atrial fibrillation; Z88.5 Allergy status to narcotic agent; Z79.82 Long term (current) use of aspirin; Z79.4 Long term (current) use of insulin; Z79.890 Hormone replacement therapy; W10.8XXA Fall (on) (from) other stairs and steps, initial encounter; Y92.009 Unspecified place in unspecified non-institutional (private) residence as the place of occurrence of the external cause
CPT/HCPCS: 70450; 71260; 74177; 99284-25; A9270; Q9967

== ENCOUNTER 2021-06-16 16:03 | Inpatient (IN) | payer OTHER, MEDICARE ==
[~2021-06-16] VITALS: Ht 185.4 cm; Wt 99.6 kg
[2021-06-16 16:29] LABS: BASOPHILS ABSOLUTE AUTO 0.09 K/mm3 (0.00-0.23); BASOPHILS PERCENT AUTO 1 % (0-2); EOSINOPHILS ABSOLUTE AUTO 0.13 K/mm3 (0.00-0.68); EOSINOPHILS PERCENT AUTO 2 % (0-6); Hematocrit 39.7 % (37.0-53.0); Hemoglobin 12.1 g/dL (13.5-17.5); IMMATURE GRAN ABSOLUTE AUTO 0.02 K/mm3 (0.00-0.10); IMMATURE GRAN PERCENT AUTO 0 % (0-1); LYMPHOCYTES ABSOLUTE AUTO 0.87 K/mm3 (0.84-5.20); LYMPHOCYTES PERCENT AUTO 10 % (21-46); MONOCYTES ABSOLUTE AUTO 0.59 K/mm3 (0.16-1.47); MONOCYTES PERCENT AUTO 7 % (4-13); Mean Corpuscular HGB 23.6 pg (26.0-34.0); Mean Corpuscular HGB Conc 30.5 g/dL (31.5-36.5); Mean Corpuscular Volume 77 fL (80-100); Mean Platelet Volume 9.4 fL (9.1-12.4); NEUTROPHILS ABSOLUTE AUTO 6.99 K/mm3 (1.96-9.15); NEUTROPHILS PERCENT AUTO 81 % (41-73); Platelet Count 266 K/mm3 (150-400); RDW Coefficient Variation 18.1 % (11.7-14.2); RDW Standard Deviation 49.3 fL (35.1-46.3); Red Blood Cell Count 5.13 M/mm3 (4.30-5.90); White Blood Cell Count 8.69 K/mm3 (4.00-11.30)
[2021-06-16 16:50] LABS: Albumin, Blood 3.1 g/dL (3.4-5.0); Albumin/Globulin Ratio 0.9 (0.8-1.8); Bilirubin, Total 0.9 mg/dL (0.1-1.0); Bun/Creatinine Ratio 22.8 (12.0-20.0); Calcium, Blood 8.8 mg/dL (8.5-10.1); Creatinine, Blood 1.45 mg/dL (0.60-1.20); Globulin, Blood 3.4 g/dL (2.2-4.0); Total Protein, Blood 6.5 g/dL (6.4-8.2); Troponin I 0.141 ng/mL (0.000-0.040)
[2021-06-16 18:24] LABS: Digoxin (Lanoxin) 0.12 ug/mL (0.80-2.00)
--- NOTE | 2021-06-17 02:00 | NUR ---
PHONE CALL WITH PHYSICIAN SPOKE TO DR. BARRY, PT IS HAVING PAIN 6/10 IN BROKEN CLAVICLE. WILL NOT TAKE THE TYLENOL ORDERED ON DEC. DR. BARRY WITH ORDERS FOR TRAMADOL 50 MG Q 6 HRS PRN PAIN.
--- NOTE | 2021-06-17 02:07 | NUR ---
Pt was admitted to rm 340 via stretcher from the ER. Pt is alert and cooperative but is forgetful of when he last took meds, states he "thinks" he has been taking them. His daughter used to help him but he states she is using meth and is no longer helping him. Pt recently fell at home and has a fx rt clavical. There is swelling at the site. Pt has significant bruising to rt chest wall and flank. Pt has pain 6/10 but refuses tylenol. Pt has UNNA boots to willie lower extemities due to weeping wounds. Pt is on an egg crate mattress from the ED. Pt is on Tele, SR with PVC's. Lungs dim in bases, pt is on 4 liters via NC. Call light is in reach.
--- NOTE | 2021-06-17 02:22 | NUR ---
PHONE CALL TO PHYSICIAN PHARMACY ASKED THAT DR. BARRY VERIFY MEDICATION ORDER FOR TRAMADOL, PT HAS ALLERGIC REACTION OF CONVULSIONS TO TRAMADOL. DR. BARRY WITH ORDERS FOR FENTANYL 25 MCG Q 3H PRN PAIN.
[2021-06-17 06:09] LABS: BASOPHILS ABSOLUTE AUTO 0.09 K/mm3 (0.00-0.23); BASOPHILS PERCENT AUTO 1 % (0-2); EOSINOPHILS ABSOLUTE AUTO 0.11 K/mm3 (0.00-0.68); EOSINOPHILS PERCENT AUTO 1 % (0-6); Hematocrit 38.8 % (37.0-53.0); Hemoglobin 11.9 g/dL (13.5-17.5); IMMATURE GRAN ABSOLUTE AUTO 0.02 K/mm3 (0.00-0.10); IMMATURE GRAN PERCENT AUTO 0 % (0-1); LYMPHOCYTES ABSOLUTE AUTO 0.92 K/mm3 (0.84-5.20); LYMPHOCYTES PERCENT AUTO 12 % (21-46); MONOCYTES ABSOLUTE AUTO 0.53 K/mm3 (0.16-1.47); MONOCYTES PERCENT AUTO 7 % (4-13); Mean Corpuscular HGB 23.9 pg (26.0-34.0); Mean Corpuscular HGB Conc 30.7 g/dL (31.5-36.5); Mean Corpuscular Volume 78 fL (80-100); Mean Platelet Volume 10.2 fL (9.1-12.4); NEUTROPHILS ABSOLUTE AUTO 6.24 K/mm3 (1.96-9.15); NEUTROPHILS PERCENT AUTO 79 % (41-73); Platelet Count 264 K/mm3 (150-400); RDW Standard Deviation 49.9 fL (35.1-46.3); Red Blood Cell Count 4.98 M/mm3 (4.30-5.90); White Blood Cell Count 7.91 K/mm3 (4.00-11.30)
[2021-06-17 06:38] LABS: Bun/Creatinine Ratio 20.7 (12.0-20.0); Calcium, Blood 8.9 mg/dL (8.5-10.1); Creatinine, Blood 1.64 mg/dL (0.60-1.20); Percent Saturation 8.5 % (20.0-50.0); Potassium, Blood 3.8 mmol/L (3.5-5.5)
[2021-06-17 15:34] LABS: SARS-Cov-2 (COVID-19) PCR, MMC NEGATIVE (NEGATIVE)
--- NOTE | 2021-06-17 17:10 | NUR ---
SHIFT SUMMARY/TRANSFER SUMMARY PT AxOx4. PLEASANT AND COOPERATIVE WITH CARE. PT TRANSFERRING TO [facility] TODAY. REPORT CALLED TO DEBRA RAI AT THE [facility]. PT VERBALIZES UNDERSTANDING OF TRANSFER FOR CONTINUATION OF CARE. DENIES ANY FURTHER QUESTIONS AT THIS TIME. DC PACKET SENT WITH TRANSPORTERS. VITALS REVIEWED. PT SAFELY ESCORTED OUT VIA GURNEY WITH AMBULANCE TRANSPORT.
== END 2021-06-17 17:17 | disposition short-term general hospital (02) | DRG 291 ==
LOC: ER 16:03 → ERHOLD 19:44 → MEDS 19:44
PROVIDERS: Emergency Medicine; Internal Medicine; Physician Assistant; ADMIT Internal Medicine
DX: I13.0 Hypertensive heart and chronic kidney disease with heart failure and stage 1 through stage 4 chronic kidney disease, or unspecified chronic kidney disease (principal); I50.23 Acute on chronic systolic (congestive) heart failure; J96.11 Chronic respiratory failure with hypoxia; I48.20 Chronic atrial fibrillation, unspecified; J44.9 Chronic obstructive pulmonary disease, unspecified; J84.10 Pulmonary fibrosis, unspecified; I25.10 Atherosclerotic heart disease of native coronary artery without angina pectoris; E11.22 Type 2 diabetes mellitus with diabetic chronic kidney disease; Z20.822 Contact with and (suspected) exposure to COVID-19; N18.30 Chronic kidney disease, stage 3 unspecified; I27.20 Pulmonary hypertension, unspecified; G31.84 Mild cognitive impairment of uncertain or unknown etiology; I87.2 Venous insufficiency (chronic) (peripheral); D50.9 Iron deficiency anemia, unspecified; E03.9 Hypothyroidism, unspecified; Z90.49 Acquired absence of other specified parts of digestive tract; Z99.81 Dependence on supplemental oxygen; Z88.5 Allergy status to narcotic agent; Z98.890 Other specified postprocedural states; Z91.14 Patient's other noncompliance with medication regimen; Z79.01 Long term (current) use of anticoagulants; Z87.891 Personal history of nicotine dependence; Z79.82 Long term (current) use of aspirin; Z79.899 Other long term (current) drug therapy; Z79.4 Long term (current) use of insulin
CPT/HCPCS: 36415; 71046; 80048; 80053; 80162; 82728; 82947; 83540; 83550; 83690; 83880; 84484; 85025; 93005; 93010; 96374; 99285-25; A9270; J1940; J3010; U0004

== ENCOUNTER 2021-07-01 12:47 | Emergency (ER) | payer OTHER, MEDICARE ==
[~2021-07-01] VITALS: Ht 177.8 cm; Wt 95.2 kg
[2021-07-01 14:45] LABS: Calcium, Ionized (POC) 1.21 mmol/L (1.10-1.46); Chloride (POC) 99 mmol/L (98-108); Creatinine (POC) 1.7 mg/dL (0.8-1.3); Glucose (ISTAT POC) 157 mg/dL (70-99); Hemoglobin (POC) 13.3 g/dL (13.5-17.5); Potassium (POC) 3.3 mmol/L (3.5-5.5); Sodium (POC) 141 mmol/L (135-148); Total CO2 (POC) 28 mmol/L (21-32)
== END 2021-07-01 17:13 | disposition home or self-care (01) ==
LOC: ER 12:47
PROVIDERS: Emergency Medicine
DX: M54.5 Low back pain (principal); I48.91 Unspecified atrial fibrillation; E11.622 Type 2 diabetes mellitus with other skin ulcer; L97.819 Non-pressure chronic ulcer of other part of right lower leg with unspecified severity; I13.2 Hypertensive heart and chronic kidney disease with heart failure and with stage 5 chronic kidney disease, or end stage renal disease; I25.10 Atherosclerotic heart disease of native coronary artery without angina pectoris; E11.22 Type 2 diabetes mellitus with diabetic chronic kidney disease; I50.9 Heart failure, unspecified; N18.30 Chronic kidney disease, stage 3 unspecified; J44.9 Chronic obstructive pulmonary disease, unspecified; E03.9 Hypothyroidism, unspecified; J96.11 Chronic respiratory failure with hypoxia; Z23 Encounter for immunization; Z88.5 Allergy status to narcotic agent; Z79.899 Other long term (current) drug therapy; Z79.82 Long term (current) use of aspirin; Z79.4 Long term (current) use of insulin; Z79.01 Long term (current) use of anticoagulants; Z99.81 Dependence on supplemental oxygen; W01.0XXA Fall on same level from slipping, tripping and stumbling without subsequent striking against object, initial encounter
CPT/HCPCS: 70450; 72100; 80047; 85014; 90471; 90714; 99284-25

== ENCOUNTER 2021-07-05 11:58 | Inpatient (IN) | payer OTHER, MEDICARE ==
[~2021-07-05] VITALS: Ht 185.4 cm; Wt 86.0 kg
[2021-07-05 13:57] LABS: BASOPHILS ABSOLUTE AUTO 0.02 K/mm3 (0.00-0.23); BASOPHILS PERCENT AUTO 0 % (0-2); EOSINOPHILS PERCENT AUTO 0 % (0-6); Hematocrit 43.6 % (37.0-53.0); Hemoglobin 13.5 g/dL (13.5-17.5); IMMATURE GRAN ABSOLUTE AUTO 0.07 K/mm3 (0.00-0.10); IMMATURE GRAN PERCENT AUTO 1 % (0-1); LYMPHOCYTES ABSOLUTE AUTO 0.58 K/mm3 (0.84-5.20); LYMPHOCYTES PERCENT AUTO 4 % (21-46); MONOCYTES ABSOLUTE AUTO 0.72 K/mm3 (0.16-1.47); MONOCYTES PERCENT AUTO 5 % (4-13); Mean Corpuscular HGB 25.2 pg (26.0-34.0); Mean Corpuscular Volume 82 fL (80-100); NEUTROPHILS ABSOLUTE AUTO 12.43 K/mm3 (1.96-9.15); NEUTROPHILS PERCENT AUTO 90 % (41-73); NRBC ABSOLUTE 0.13 K/mm3 (0.00-0.02); NRBC Auto 0.9 /100 WBC (0.0-0.2); Platelet Count 166 K/mm3 (150-400); RDW Coefficient Variation 23.3 % (11.7-14.2); RDW Standard Deviation 62.5 fL (35.1-46.3); Red Blood Cell Count 5.35 M/mm3 (4.30-5.90); White Blood Cell Count 13.82 K/mm3 (4.00-11.30)
[2021-07-05 14:02] LABS: Mean Platelet Volume 11.6 fL (9.1-12.4)
[2021-07-05 14:03] LABS: Bicarbonate Venous 23.6 mmol/L (24.0-30.0); PCO2 Venous 38.6 mmHg (38-42)
[2021-07-05 14:29] LABS: Creatine Kinase MB 12.8 ng/mL (0.0-3.6); Creatine Kinase MB Index 3.6 (0.0-4.0); Magnesium, Blood 2.7 mg/dL (1.6-2.4)
[2021-07-05 14:45] LABS: Albumin, Blood 3.3 g/dL (3.4-5.0); Bilirubin, Direct 2.2 mg/dL (0.0-0.3); Bilirubin, Indirect 1.5 mg/dL (0.1-0.7); Bilirubin, Total 3.7 mg/dL (0.1-1.0); Calcium, Blood 9.3 mg/dL (8.5-10.1); Creatinine, Blood 2.92 mg/dL (0.60-1.20); Globulin, Blood 3.3 g/dL (2.2-4.0); Total Protein, Blood 6.6 g/dL (6.4-8.2); Troponin I 0.537 ng/mL (0.000-0.040)
[2021-07-05 15:03] LABS: Source, Urine Catheter
[2021-07-05 15:09] LABS: Appearance, Urine Clear (Clear); Blood, Urine 4+ (Neg); Color, Urine Amber (P-Yellow); Glucose Qualitative, Urine Neg (Neg); Ketones, Urine 1+ (Neg); Leukocyte Esterase, Urine 1+ (Neg); Nitrite, Urine Neg (Neg); Protein, Urine 3+ (Neg); Specific Gravity, Urine 1.025 (1.003-1.022); Urobilinogen, Urine 2+ (Normal)
[2021-07-05 15:28] LABS: Bilirubin, Urine 1+ (Neg)
[2021-07-05 15:30] LABS: Bacteria Few /hpf; Squamous Epithelial Cells Few /hpf (Few)
[2021-07-05] MEDS ORDERED: IPRAT-ALBUT 0.5-3 ML NEB (18:25)
[2021-07-05] MEDS ORDERED: ELIQUIS5 M2 PO (18:25)
[2021-07-05] MEDS ORDERED: BUME2 PO (18:25)
[2021-07-05] MEDS ORDERED: VITAMIN D31000 UNI1 PO (18:26)
[2021-07-05] MEDS ORDERED: CYCL10 PO (18:28)
[2021-07-05] MEDS ORDERED: LANOXIN125 MCG PO (18:28)
[2021-07-05] MEDS ORDERED: JARDIANCE10 MG PO (18:29)
[2021-07-05] MEDS ORDERED: DONE5 PO (18:29)
[2021-07-05] MEDS ORDERED: INSULANI SC (18:30)
[2021-07-05] MEDS ORDERED: HYDACE10B PO (18:30)
[2021-07-05] MEDS ORDERED: LEVSOD75 PO (18:30)
[2021-07-05] MEDS ORDERED: MAGNESIUM OXID500 MG PO (18:31)
[2021-07-05] MEDS ORDERED: MEMA10 PO (18:31)
[2021-07-05] MEDS ORDERED: METO50ER PO (18:33)
[2021-07-05] MEDS ORDERED: MOME220I INH (18:34)
[2021-07-05] MEDS ORDERED: POTCHL20ER PO (18:35)
[2021-07-05] MEDS ORDERED: ENTRESTO 49 MG1 EACH PO (18:35)
[2021-07-05 18:37] LABS: SARS-Cov-2 (COVID-19) PCR, MMC NEGATIVE (NEGATIVE)
[2021-07-06 05:29] LABS: BASOPHILS ABSOLUTE AUTO 0.02 K/mm3 (0.00-0.23); BASOPHILS PERCENT AUTO 0 % (0-2); EOSINOPHILS PERCENT AUTO 0 % (0-6); Hemoglobin 13.3 g/dL (13.5-17.5); IMMATURE GRAN ABSOLUTE AUTO 0.08 K/mm3 (0.00-0.10); IMMATURE GRAN PERCENT AUTO 1 % (0-1); LYMPHOCYTES ABSOLUTE AUTO 0.73 K/mm3 (0.84-5.20); LYMPHOCYTES PERCENT AUTO 6 % (21-46); MONOCYTES ABSOLUTE AUTO 0.85 K/mm3 (0.16-1.47); MONOCYTES PERCENT AUTO 7 % (4-13); Mean Corpuscular HGB 25.7 pg (26.0-34.0); Mean Corpuscular HGB Conc 30.9 g/dL (31.5-36.5); Mean Corpuscular Volume 83 fL (80-100); NEUTROPHILS ABSOLUTE AUTO 11.29 K/mm3 (1.96-9.15); NEUTROPHILS PERCENT AUTO 87 % (41-73); NRBC ABSOLUTE 0.08 K/mm3 (0.00-0.02); NRBC Auto 0.6 /100 WBC (0.0-0.2); Platelet Count 144 K/mm3 (150-400); RDW Coefficient Variation 23.7 % (11.7-14.2); RDW Standard Deviation 63.2 fL (35.1-46.3); Red Blood Cell Count 5.18 M/mm3 (4.30-5.90); White Blood Cell Count 12.97 K/mm3 (4.00-11.30)
[2021-07-06 05:36] LABS: Mean Platelet Volume 10.9 fL (9.1-12.4)
[2021-07-06 06:08] LABS: Albumin, Blood 3.1 g/dL (3.4-5.0); Bilirubin, Total 2.7 mg/dL (0.1-1.0); Bun/Creatinine Ratio 39.5 (12.0-20.0); Creatinine, Blood 2.71 mg/dL (0.60-1.20); Globulin, Blood 3.1 g/dL (2.2-4.0); Magnesium, Blood 2.9 mg/dL (1.6-2.4); Potassium, Blood 3.6 mmol/L (3.5-5.5); Total Protein, Blood 6.2 g/dL (6.4-8.2)
--- NOTE | 2021-07-06 06:44 | NUR ---
SHIFT SUMMARY PT WAS A NEW ADMIT DURING THE NIGHT, ARRIVING ON THE FLOOR AT 2004. HE WAS ADMITTED FOR AFIB C RVR AND CORBIN AFTER A FALL AND UNKNOWN AMOUNT OF TIME DOWN. HE IS A&O X 2, VERY CONFUSED AT TIMES, FREQUENTLY YELLING OUT FOR HELP. THIS AM, PT HAD A 10 BEAT RUN OF V-TACH, AND THEN WHILE SITTING ON THE SIDE OF THE BED TO USE THE URINAL, BEGAN HAVING SHORT INTERMITTENT RUNS OF V-TACH SEVERAL TIMES A MINUTE, WELL C/O MILD NAUSEA-LIKE SYMPTOMS. THE HOSPITALIST DR VASQUEZ WAS NOTIFIED, WHO ORDERED MG/K+ CHECKED. VITAL SIGNS OTHERWISE STABLE. PT RECEIVING NS @ 75 ML/HR. NO ACUTE CHANGES IN PT CONDITION NOTED DURING THE NIGHT. WILL CONTINUE TO MONITOR AND TREAT PER EMAR UNTIL HAND OFF TO DAY SHIFT RN.
[2021-07-06 14:21] LABS: Bun/Creatinine Ratio 42.4 (12.0-20.0); Calcium, Blood 8.2 mg/dL (8.5-10.1); Creatinine, Blood 2.36 mg/dL (0.60-1.20); Potassium, Blood 3.6 mmol/L (3.5-5.5)
[2021-07-07] MEDS ORDERED: ACET325 PO (04:52)
[2021-07-07] MEDS ORDERED: CEPH500 PO (04:55)
[2021-07-07 05:20] LABS: BASOPHILS ABSOLUTE AUTO 0.01 K/mm3 (0.00-0.23); BASOPHILS PERCENT AUTO 0 % (0-2); EOSINOPHILS ABSOLUTE AUTO 0.23 K/mm3 (0.00-0.68); EOSINOPHILS PERCENT AUTO 2 % (0-6); Hematocrit 44.4 % (37.0-53.0); Hemoglobin 13.4 g/dL (13.5-17.5); IMMATURE GRAN ABSOLUTE AUTO 0.05 K/mm3 (0.00-0.10); IMMATURE GRAN PERCENT AUTO 1 % (0-1); LYMPHOCYTES ABSOLUTE AUTO 0.69 K/mm3 (0.84-5.20); LYMPHOCYTES PERCENT AUTO 7 % (21-46); MONOCYTES ABSOLUTE AUTO 0.69 K/mm3 (0.16-1.47); MONOCYTES PERCENT AUTO 7 % (4-13); Mean Corpuscular HGB 25.3 pg (26.0-34.0); Mean Corpuscular HGB Conc 30.2 g/dL (31.5-36.5); Mean Corpuscular Volume 84 fL (80-100); Mean Platelet Volume 11.7 fL (9.1-12.4); NEUTROPHILS PERCENT AUTO 84 % (41-73); NRBC ABSOLUTE 0.02 K/mm3 (0.00-0.02); NRBC Auto 0.2 /100 WBC (0.0-0.2); Platelet Count 140 K/mm3 (150-400); RDW Standard Deviation 65.4 fL (35.1-46.3); White Blood Cell Count 10.17 K/mm3 (4.00-11.30)
--- NOTE | 2021-07-07 05:32 | NUR ---
SHIFT SUMMARY PT IS A 76 Y/O FEMALE, ADMITTED FOR AFIB WITH RVR AND CORBIN. HE IS A&O X 2, PLEASANT AND COOPERATIVE WITH CARE. BEDREST. NO C/O ACUTE PAIN, NAUSEA OR SOB. TELE SHOWED AFIB IN THE 80-90S, WITH ONE 10 BEAT RUN OF V-TACH. VITAL SIGNS OTHERWISE STABLE. PT SLEPT WELL THROUGH THE NIGHT. NO ACUTE CHANGES IN PT CONDITION NOTED. WILL CONTINUE TO MONITOR AND TREAT PER EMAR UNTIL HAND OFF TO DAY SHIFT RN.
[2021-07-07] MEDS ORDERED: LEVALBUTEROL TA15 G1 INH (05:41)
[2021-07-07 05:43] LABS: Albumin, Blood 2.5 g/dL (3.4-5.0); Albumin/Globulin Ratio 0.8 (0.8-1.8); Bun/Creatinine Ratio 43.2 (12.0-20.0); Calcium, Blood 8.5 mg/dL (8.5-10.1); Creatinine, Blood 1.99 mg/dL (0.60-1.20); Potassium, Blood 3.5 mmol/L (3.5-5.5); Total Protein, Blood 5.5 g/dL (6.4-8.2)
[2021-07-07] MEDS ORDERED: LIDO700A20 TOP (05:47)
--- NOTE | 2021-07-07 08:51 | NUR ---
CBG THIS AM 64 PER DIGITAL MEDIA BUYER, NURSE EVALUATED PT @ THIS TIME. PT A&Ox2 WHICH IS BASELINE FOR PT, ABLE TO FOLLOW DIRECTION AND CARRY CONVERSATION. SKIN NONDIAPHORETIC AND PT DENIES ANY DISTRESS. PT ABLE TO SWALLOW, ORANGE JUICE PROVIDED. CBG RECHECKED 15 MINUTES LATER, CBG WAS [place] @ 47. CHOCOLATE PUDDING PROVIDED AND JERMAN CRACKERS SINCE PT IS ON FLUID RESTRICTION. BREAKFAST ALSO PROVIDED TO PT. CBG RECHECKED AND NOW 78. WILL RECHECK CBG IN ONE HOUR (0945).
--- NOTE | 2021-07-07 18:12 | NUR ---
NO ACUTE CHANGES, WILL CONTINUE TO MONITOR
[2021-07-08 05:05] LABS: Bun/Creatinine Ratio 42.8 (12.0-20.0); Calcium, Blood 7.3 mg/dL (8.5-10.1); Creatinine, Blood 1.45 mg/dL (0.60-1.20); Potassium, Blood 3.4 mmol/L (3.5-5.5)
--- NOTE | 2021-07-08 06:35 | NUR ---
SHIFT SUMMARY PT IS A 76 Y/O MALE, ADMITTED FOR AFIB WITH RVR. HE IS A&O X 2, CONFUSED AT TIMES. 1-2PA TO THE BSC. HE WAS MEDICATED THIS AM FOR R SHOULDER PAIN WITH PRN HYDROCODONE. NO C/O NAUSEA OR SOB. VITAL SIGNS STABLE. NO ACUTE CHANGES IN PT CONDITION NOTED DURING THE NIGHT. WILL CONTINUE TO MONITOR AND TREAT PER EMAR UNTIL HAND OFF TO DAY SHIFT RN.
[2021-07-08 16:09] LABS: SARS-Cov-2 (COVID-19) PCR, MMC NEGATIVE (NEGATIVE)
--- NOTE | 2021-07-08 17:17 | NUR ---
REPORT TO KIMBER RICHARDSON AT [facility]
--- NOTE | 2021-07-08 18:07 | NUR ---
WAITING FOR PATIENTS RIDE FOR TRANSPORT TO [facility]
--- NOTE | 2021-07-08 18:50 | NUR ---
patient left via ambulance at 185
== END 2021-07-08 18:49 | DRG 682 ==
LOC: ER 11:58 → MEDS 20:17 → ENPENDDIS 07-08 15:45 → MEDS 07-08 18:49
PROVIDERS: Family Medicine; Hospitalist; Student in an Organized Health Care Education/Training Program; ADMIT Internal Medicine
DX: N17.9 Acute kidney failure, unspecified (principal); I21.A1 Myocardial infarction type 2; I48.20 Chronic atrial fibrillation, unspecified; R65.10 Systemic inflammatory response syndrome (SIRS) of non-infectious origin without acute organ dysfunction; I13.0 Hypertensive heart and chronic kidney disease with heart failure and stage 1 through stage 4 chronic kidney disease, or unspecified chronic kidney disease; I50.42 Chronic combined systolic (congestive) and diastolic (congestive) heart failure; J96.11 Chronic respiratory failure with hypoxia; N18.4 Chronic kidney disease, stage 4 (severe); Z20.822 Contact with and (suspected) exposure to COVID-19; E11.22 Type 2 diabetes mellitus with diabetic chronic kidney disease; J44.9 Chronic obstructive pulmonary disease, unspecified; I25.10 Atherosclerotic heart disease of native coronary artery without angina pectoris; J84.10 Pulmonary fibrosis, unspecified; E03.9 Hypothyroidism, unspecified; E86.0 Dehydration; I71.4 Abdominal aortic aneurysm, without rupture; G31.84 Mild cognitive impairment of uncertain or unknown etiology; E11.649 Type 2 diabetes mellitus with hypoglycemia without coma; Z87.891 Personal history of nicotine dependence; Z88.5 Allergy status to narcotic agent; Z79.01 Long term (current) use of anticoagulants; Z79.899 Other long term (current) drug therapy; Z79.82 Long term (current) use of aspirin; Z79.4 Long term (current) use of insulin; Z79.51 Long term (current) use of inhaled steroids
CPT/HCPCS: 36415; 70450; 71045; 73030; 74176; 80048; 80053; 80076; 81001; 82550; 82553; 82803; 82947; 83605; 83735; 84484; 85025; 87040; 93005; 93010; 94640; 94762; 96365; 96366; 96367; 96368; 96375; 96376; 97110; 97162; 97166; 97530; 97535; 99285-25; A9270; J0692; J1815; J2765; J3370; J3475; J7030; J7050; J7120; U0004

== ENCOUNTER → 2021-09-02 | Outpatient (CLI) | payer MEDICARE, OTHER ==
[~2021-09-02] MED LIST changes: +CEPH500 PO; +CYCL10 PO; +DONE5 PO; +Floxin10 ML RIGHTEYE; +HYDACE10B PO; +HYDRA25 PO; +INSULANI SC; +IPRAT-ALBUT 0.5-3 ML NEB; +K-Dur10 MEQ PO; +KETO.5OPSO RIGHTEYE; +LEVSOD75 PO; +LIDO700A20 TOP; +METO100ER PO; +MIRALAX17 GM PO; +MOME220I INH; +Norco 5-325 Ta1 EACH PO; +PREDNISOLONE ACE5 ML; +Prednisolone Ace5 ML RIGHTEYE; +SENN187 PO; +VITAMIN D31000 UNI1 PO
[2021-09-02 20:02] LABS: Bun/Creatinine Ratio 25.4 (12.0-20.0); Calcium, Blood 9.6 mg/dL (8.5-10.1); Creatinine, Blood 1.26 mg/dL (0.60-1.20); Potassium, Blood 3.6 mmol/L (3.5-5.5)
== END | disposition home or self-care (01) ==
LOC: EDSTATUS 10:16 → LAB UVN 18:23
PROVIDERS: Internal Medicine
DX: I12.9 Hypertensive chronic kidney disease with stage 1 through stage 4 chronic kidney disease, or unspecified chronic kidney disease (principal); N18.30 Chronic kidney disease, stage 3 unspecified
CPT/HCPCS: 80048

== ENCOUNTER 2021-11-10 14:24 | Emergency (ER) | payer MEDICARE, OTHER ==
[~2021-11-10] VITALS: Ht 185.4 cm; Wt 84.4 kg
[~2021-11-10 14:24] MED LIST changes: -Floxin10 ML RIGHTEYE; -HYDRA25 PO; -K-Dur10 MEQ PO; -KETO.5OPSO RIGHTEYE; -METO100ER PO; -MIRALAX17 GM PO; -Norco 5-325 Ta1 EACH PO; -PREDNISOLONE ACE5 ML; -Prednisolone Ace5 ML RIGHTEYE; -SENN187 PO
[2021-11-10 14:54] LABS: Source, Urine Voided
[2021-11-10 14:58] LABS: BASOPHILS ABSOLUTE AUTO 0.07 K/mm3 (0.00-0.23); BASOPHILS PERCENT AUTO 1 % (0-2); EOSINOPHILS ABSOLUTE AUTO 0.34 K/mm3 (0.00-0.68); EOSINOPHILS PERCENT AUTO 4 % (0-6); Hematocrit 47.2 % (37.0-53.0); Hemoglobin 16.2 g/dL (13.5-17.5); IMMATURE GRAN ABSOLUTE AUTO 0.01 K/mm3 (0.00-0.10); IMMATURE GRAN PERCENT AUTO 0 % (0-1); LYMPHOCYTES ABSOLUTE AUTO 1.62 K/mm3 (0.84-5.20); LYMPHOCYTES PERCENT AUTO 21 % (21-46); MONOCYTES ABSOLUTE AUTO 0.71 K/mm3 (0.16-1.47); MONOCYTES PERCENT AUTO 9 % (4-13); Mean Corpuscular HGB 31.2 pg (26.0-34.0); Mean Corpuscular HGB Conc 34.3 g/dL (31.5-36.5); Mean Corpuscular Volume 91 fL (80-100); Mean Platelet Volume 9.2 fL (9.1-12.4); NEUTROPHILS ABSOLUTE AUTO 5.16 K/mm3 (1.96-9.15); NEUTROPHILS PERCENT AUTO 65 % (41-73); Platelet Count 159 K/mm3 (150-400); RDW Coefficient Variation 13.1 % (11.7-14.2); RDW Standard Deviation 43.9 fL (35.1-46.3); White Blood Cell Count 7.91 K/mm3 (4.00-11.30)
[2021-11-10 14:59] LABS: Appearance, Urine Clear (Clear); Bilirubin, Urine Neg (Neg); Blood, Urine Neg (Neg); Color, Urine Yellow (P-Yellow); Glucose Qualitative, Urine 4+ (Neg); Ketones, Urine Neg (Neg); Leukocyte Esterase, Urine Neg (Neg); Nitrite, Urine Neg (Neg); Protein, Urine Neg (Neg); Urobilinogen, Urine NORM (Normal)
[2021-11-10 15:18] LABS: Albumin/Globulin Ratio 0.9 (0.8-1.8); Bilirubin, Total 0.3 mg/dL (0.1-1.0); Bun/Creatinine Ratio 25.4 (12.0-20.0); Calcium, Blood 8.8 mg/dL (8.5-10.1); Creatinine, Blood 1.34 mg/dL (0.60-1.20); Globulin, Blood 3.2 g/dL (2.2-4.0); Potassium, Blood 3.6 mmol/L (3.5-5.5); Total Protein, Blood 6.2 g/dL (6.4-8.2)
== END 2021-11-10 21:49 | disposition home or self-care (01) ==
LOC: ER 14:24
PROVIDERS: Emergency Medicine
DX: E11.65 Type 2 diabetes mellitus with hyperglycemia (principal); I13.2 Hypertensive heart and chronic kidney disease with heart failure and with stage 5 chronic kidney disease, or end stage renal disease; E11.22 Type 2 diabetes mellitus with diabetic chronic kidney disease; N18.30 Chronic kidney disease, stage 3 unspecified; I50.9 Heart failure, unspecified; J44.9 Chronic obstructive pulmonary disease, unspecified; I48.91 Unspecified atrial fibrillation; I25.10 Atherosclerotic heart disease of native coronary artery without angina pectoris; E03.9 Hypothyroidism, unspecified; Z88.5 Allergy status to narcotic agent; Z79.899 Other long term (current) drug therapy; Z79.01 Long term (current) use of anticoagulants; Z79.4 Long term (current) use of insulin
CPT/HCPCS: 80053; 81003; 82947; 83036; 85025; 99285; A9270

== ENCOUNTER 2021-11-27 08:33 | Inpatient (IN) | payer OTHER ==
[~2021-11-27] VITALS: Ht 185.4 cm; Wt 88.1 kg
[2021-11-27 08:58] LABS: BASOPHILS PERCENT AUTO 1 % (0-2); EOSINOPHILS ABSOLUTE AUTO 0.24 K/mm3 (0.00-0.68); EOSINOPHILS PERCENT AUTO 2 % (0-6); Hemoglobin 18.7 g/dL (13.5-17.5); IMMATURE GRAN ABSOLUTE AUTO 0.08 K/mm3 (0.00-0.10); IMMATURE GRAN PERCENT AUTO 1 % (0-1); LYMPHOCYTES ABSOLUTE AUTO 1.02 K/mm3 (0.84-5.20); LYMPHOCYTES PERCENT AUTO 7 % (21-46); MONOCYTES ABSOLUTE AUTO 1.49 K/mm3 (0.16-1.47); MONOCYTES PERCENT AUTO 10 % (4-13); Mean Corpuscular HGB 30.5 pg (26.0-34.0); Mean Corpuscular HGB Conc 32.4 g/dL (31.5-36.5); Mean Corpuscular Volume 94 fL (80-100); Mean Platelet Volume 9.6 fL (9.1-12.4); NEUTROPHILS ABSOLUTE AUTO 12.82 K/mm3 (1.96-9.15); NEUTROPHILS PERCENT AUTO 81 % (41-73); Platelet Count 217 K/mm3 (150-400); RDW Coefficient Variation 13.8 % (11.7-14.2); RDW Standard Deviation 48.7 fL (35.1-46.3); Red Blood Cell Count 6.13 M/mm3 (4.30-5.90); White Blood Cell Count 15.75 K/mm3 (4.00-11.30)
[2021-11-27 09:00] LABS: Calcium, Ionized (POC) 1.23 mmol/L (1.10-1.46); Chloride (POC) 108 mmol/L (98-108); Glucose (ISTAT POC) 380 mg/dL (70-99); Potassium (POC) 3.7 mmol/L (3.5-5.5); Sodium (POC) 151 mmol/L (135-148); Total CO2 (POC) 29 mmol/L (21-32)
[2021-11-27 09:13] LABS: Hematocrit 57.7 % (37.0-53.0)
[2021-11-27 09:23] LABS: Alanine Aminotransfer (ALT/SGP 22 U/L (12-78); Albumin, Blood 3.1 g/dL (3.4-5.0); Albumin/Globulin Ratio 0.6 (0.8-1.8); Alk Phos 149 U/L (50-136); Anion Gap 9 mmol/L (6-16); Aspartate Aminotrans (AST/SGOT 11 U/L (12-37); Bilirubin, Total 0.9 mg/dL (0.1-1.0); Blood Urea Nitrogen 59 mg/dL (8-24); Bun/Creatinine Ratio 32.1 (12.0-20.0); CHOL/HDL RATIO 4.4; CO2, Blood 31 mmol/L (21-32); Calcium, Blood 10.5 mg/dL (8.5-10.1); Chloride, Blood 109 mmol/L (98-108); Cholesterol 161 mg/dL (50-200); Creatinine, Blood 1.84 mg/dL (0.60-1.20); Globulin, Blood 5.2 g/dL (2.2-4.0); Glomerular Filtration Rate 36 (60-); Glucose, Blood 383 mg/dL (70-99); HDL Cholesterol 37 mg/dL (>39); LDL/HDL RATIO 2.5; Low Density Lipoprotein Chol 93 mg/dL (0-110); Potassium, Blood 3.7 mmol/L (3.5-5.5); Sodium, Blood 149 mmol/L (136-145); Total Protein, Blood 8.3 g/dL (6.4-8.2); Triglycerides 157 mg/dL (30-160); Very Low Density Lipoprot Chol 31 mg/dL (6-32)
[2021-11-27 10:57] LABS: International Normalized Ratio 1.14; Prothrombin Time Results 11.9 Sec (9.7-11.5)
[2021-11-27] MEDS ORDERED: METO100ER PO (12:08)
[2021-11-27] MEDS ORDERED: MIRALAX17 GM PO (12:09)
[2021-11-27] MEDS ORDERED: KETO.5OPSO RIGHTEYE ×2 (12:12→12:25)
[2021-11-27] MEDS ORDERED: Norco 5-325 Ta1 EACH PO (12:16)
[2021-11-27] MEDS ORDERED: Floxin10 ML RIGHTEYE ×2 (12:18→12:27)
[2021-11-27] MEDS ORDERED: K-Dur10 MEQ PO (12:21)
[2021-11-27] MEDS ORDERED: PREDNISOLONE ACE5 ML (12:23)
[2021-11-27] MEDS ORDERED: Prednisolone Ace5 ML RIGHTEYE (12:32)
[2021-11-27] MEDS ORDERED: HYDRA25 PO (12:37)
[2021-11-27] MEDS ORDERED: SENN187 PO (12:38)
[2021-11-27 13:40] LABS: Digoxin (Lanoxin) 0.88 ug/mL (0.80-2.00)
[2021-11-27 15:28] LABS: Influenza A, PCR NEGATIVE (NEGATIVE); Influenza B, PCR NEGATIVE (NEGATIVE); Resp Syncytial Virus, PCR NEGATIVE (NEGATIVE)
[2021-11-27 15:35] LABS: SARS-Cov-2 (COVID-19) PCR, MMC POSITIVE (NEGATIVE)
--- NOTE | 2021-11-27 18:17 | NUR ---
SHIFT SUMMARY; ASSUMED CARE FROM [facility] ANG[facility]. ALERT TO SELF AND SURROUNDINGS. HX OF DEMENTIA, UNCLEAR OF BASELINE. FEM STOP IN PLACE TO RIGHT GROIN. AREA SOFT AND NO BLEEDING. FEM STOP AND PT FLAT X4 HOURS PER ORDERS. FEM STOP REMOVED AT 1730. AREA SOFT AND NO HEMATOMA. PEDAL PULSE PALPABLE AND RIGHT LEG WARM WITH CAP REFILL <3 DURING RECOVERY. ANGIO SEAL IN PLACE. NS INFUSING AT 100ML/HR, VSS, APPEARS SLEEPY BUT ARROUSES TO VERBAL STIMULI. 3L 02 TO MAINTAIN SATS IN LOW 90'S. VSS, WILL CONTINUE TO MONITOR UNTIL CHANGE OF SHIFT.
[2021-11-27 21:49] LABS: Source, Urine Straight Cath
[2021-11-27 21:51] LABS: Bilirubin, Urine Neg (Neg); Blood, Urine 1+ (Neg); Glucose Qualitative, Urine 4+ (Neg); Ketones, Urine Neg (Neg); Leukocyte Esterase, Urine Neg (Neg); Nitrite, Urine Neg (Neg); Protein, Urine 2+ (Neg); Specific Gravity, Urine 1.015 (1.003-1.022); Urobilinogen, Urine NORM (Normal)
[2021-11-27 23:07] LABS: BASOPHILS ABSOLUTE AUTO 0.05 K/mm3 (0.00-0.23); BASOPHILS PERCENT AUTO 0 % (0-2); Hematocrit 51.9 % (37.0-53.0); Hemoglobin 16.8 g/dL (13.5-17.5); LYMPHOCYTES ABSOLUTE AUTO 0.84 K/mm3 (0.84-5.20); LYMPHOCYTES PERCENT AUTO 6 % (21-46); MONOCYTES ABSOLUTE AUTO 1.37 K/mm3 (0.16-1.47); MONOCYTES PERCENT AUTO 10 % (4-13); Mean Corpuscular HGB 30.4 pg (26.0-34.0); Mean Corpuscular HGB Conc 32.4 g/dL (31.5-36.5); Mean Corpuscular Volume 94 fL (80-100); Mean Platelet Volume 9.7 fL (9.1-12.4); Platelet Count 224 K/mm3 (150-400); RDW Coefficient Variation 13.8 % (11.7-14.2); RDW Standard Deviation 48.5 fL (35.1-46.3); Red Blood Cell Count 5.53 M/mm3 (4.30-5.90); White Blood Cell Count 14.04 K/mm3 (4.00-11.30)
[2021-11-27 23:10] LABS: EOSINOPHILS ABSOLUTE AUTO 0.11 K/mm3 (0.00-0.68); EOSINOPHILS PERCENT AUTO 1 % (0-6); IMMATURE GRAN ABSOLUTE AUTO 0.06 K/mm3 (0.00-0.10); IMMATURE GRAN PERCENT AUTO 0 % (0-1); NEUTROPHILS ABSOLUTE AUTO 11.61 K/mm3 (1.96-9.15); NEUTROPHILS PERCENT AUTO 83 % (41-73)
[2021-11-27 23:16] LABS: Appearance, Urine Hazy (Clear); Color, Urine Yellow (P-Yellow)
[2021-11-27 23:18] LABS: Bacteria Rare /hpf; Red Blood Cells, Urine 0-2 /hpf (0-2); Squamous Epithelial Cells Few /hpf (Few); White Blood Cells, Urine 0-2 /hpf (0-5)
--- NOTE | 2021-11-27 23:27 | NUR ---
UPDATE PT'S R GROIN BECAME MORE SWOLLEN AND TENDER SO DR. VIDAL CONTACTED AND THE PROVIDER SAW THE PT AT THE BEDSIDE. DR. ALVAREZ CONSULTED DR. POLLARD WHO ORDERED MANUAL PRESSURE BE HELD UNTILL HE ARRIVED. PROVIDER ARRIVED AND ASSESS THE PT TO WHICH HE REPLACED THE FEMSTOP W ORDERS TO TITRATE THE PRESSURE DOWN. PT'S VSS AND PT SLEEPING COMFORTABLY IN BED W CALL LIGHT WITHIN REACH.
--- NOTE | 2021-11-28 05:41 | NUR ---
CUSTOMER SERVICE SPECIALIST SUMMARY PT IS AXOX 2 THIS SHIFT. PT LETHARGIC BUT EASILY AROUSABLE W SPEECH. PT HAD GROIN SITE W HEMATOMA THIS SHIFT, SEE PREVIOUS NOTES, DR. POLLARD WAS AT BEDSIDE AND REAPPLIED FEMSTOP WHICH WAS TAKEN OFF AT 0500. SITE IS STILL SLIGHTLY SWOLLEN AND TENDER BUT HAS NO OBVIOUS S/S OF BLEEDING. VSS AND PT AFEBRILE THIS SHIFT. PT HAS DENIED ANY CP OR PRESSURE THIS SHIFT. O2 SATS >90% ON 4L NC. WILL REPORT TO ONCOMING RN.
[2021-11-28 06:15] LABS: BASOPHILS ABSOLUTE AUTO 0.06 K/mm3 (0.00-0.23); BASOPHILS PERCENT AUTO 0 % (0-2); EOSINOPHILS PERCENT AUTO 0 % (0-6); IMMATURE GRAN ABSOLUTE AUTO 0.09 K/mm3 (0.00-0.10); IMMATURE GRAN PERCENT AUTO 1 % (0-1); LYMPHOCYTES ABSOLUTE AUTO 0.81 K/mm3 (0.84-5.20); LYMPHOCYTES PERCENT AUTO 6 % (21-46); MONOCYTES PERCENT AUTO 8 % (4-13); Mean Corpuscular HGB 30.9 pg (26.0-34.0); Mean Corpuscular HGB Conc 32.1 g/dL (31.5-36.5); Mean Corpuscular Volume 96 fL (80-100); Mean Platelet Volume 9.7 fL (9.1-12.4); NEUTROPHILS ABSOLUTE AUTO 12.35 K/mm3 (1.96-9.15); NEUTROPHILS PERCENT AUTO 85 % (41-73); Platelet Count 224 K/mm3 (150-400); RDW Standard Deviation 50.2 fL (35.1-46.3); Red Blood Cell Count 5.51 M/mm3 (4.30-5.90); White Blood Cell Count 14.51 K/mm3 (4.00-11.30)
[2021-11-28 06:23] LABS: Albumin, Blood 2.4 g/dL (3.4-5.0); Albumin/Globulin Ratio 0.5 (0.8-1.8); Bilirubin, Total 0.5 mg/dL (0.1-1.0); Bun/Creatinine Ratio 41.4 (12.0-20.0); Calcium, Blood 10.1 mg/dL (8.5-10.1); Creatinine, Blood 1.98 mg/dL (0.60-1.20); Potassium, Blood 3.4 mmol/L (3.5-5.5); Total Protein, Blood 7.4 g/dL (6.4-8.2)
--- NOTE | 2021-11-28 10:16 | NUR ---
Pt resting in bed and is non responsive. Spoke with Primary DEBRA Stein and discussed case. Reviewed plan of care. Pt on 5 L O2 via NC. Pt currently very sick. Spoke with Dr Stiles and discussed case. Family may benefit from discussion regarding Pt's wishes regarding code status. Obtained family contact information from [facility]. Daughter Jumana [phone], Sister Yas [phone]. Called and spoke with Pt's daughter Jumana. Provided update and engaged in therapeutic discussion regarding Pt's wishes for CPR. Jumana does admit that she has not been involved much with Pt since he has lived at [facility]. Educated on life sustaining treatment including risk factors and implications. Difficult to know how much information Jumana processed as she reports being at work and conversation needed to be quick. Yas reports Pt would want to be a full code even knowing the risks and consequences of CPR. Relayed information obtained to Primary DEBRA Stein. Palliative Care will remain available.
--- NOTE | 2021-11-28 14:19 | NUR ---
Spiritual care visit conducted. Patient is sitting up in bed and alert. 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 Pt states that he is really a self made man and is not rattled by much. Pt says that the on going wu to manage his heart is just an annoyance and inconvenient because he is the caregiver for his 92 y/o mother. I provde therapeutic listening, companionship and gentle intellectual property counsel. Pt responds well and shows signs of an elevated mood. Pt voices appreciation for the visit. I will continue to remain available.
--- NOTE | 2021-11-28 14:30 | NUR ---
Spiritual care visit conducted. Patient is lying in bed and resting. Patient opens his eyes slightly when I speak to him. He tells me that things are not going well but then closes his eyes. I ask if I could say a prayer for him and he says, "Please do." I gladly provide a prayer. Patient says, Amen" with me as I conclude the prayer. Pt voices appreciation. I let pt return to sleeping
--- NOTE | 2021-11-28 17:39 | NUR ---
SHIFT SUMMARY; ASSUMED CARE AT 0700, LAYING FLAT ON GURNEY. FEM STOP REMOVED PRIOR TO SHIFT CHANGE. RIGHT GROIN NON SWOLLEN, NO ACTIVE BLEEDING. OPENS EYES TO VERBAL STIMULI, ORIENTED TO SELF, RESPONDS TO PAIN. EXTREMETIES WEAK WITH SPONTANEOUS MOVEMENT. GRACE CATH PLACED TODAY, IN AFTERNOON HEMATURIA NOTED IN URINE BAG AND TUBING. SLIGHT BLOODY DRAINAGE FROM URETHRA. CATH POSSIBLY TUGGED ON BY PT. CATH REMAINS IN PLACE AND DRAINING. NO VISIBLE TRAUMA. DR. QUAN NOTIFIED, WILL CONTINUE TO MONITOR URINE COLOR. APPEARS PAINFUL TO RIGHT HUMEROUS/SHOULDER. VERBAL ORDER GIVEN BY DR. QUAN FOR XRAY. REMAINS LETHARGIC THROUGHOUT SHIFT SLEEPING WHEN NOT IN ROOM. Q2 TURNS AND REPOSITIONING, 4L 02 TO MAINTAIN SATS OF 95%. NPO DUE TO ASPIRATION RISK. PO MEDS HELD TODAY, DR. QUAN NOTIFIED. WILL CONTINUE TO MONITOR AND TREAT UNTIL CHANGE OF SHIFT.
--- NOTE | 2021-11-28 19:52 | NUR ---
ASSUMED CARE OF PATIENT AT APPROXIMATELY 1905 FROM MALIKA Barreto RN. PATIENT LETHARGIC; OPENS EYES TO VERBAL STIMULUS AT TIMES AND REPOSISTIONING. PATIENT UNABLE TO STATE NAME, , LOCATION, OR EVENT; STARTS TO SPEAK THEN FALLS BACK ASLEEP; PATIENT AFEBRILE BUT SKIN MOIST. AFIB W/ PVCS AND ST DEPRESSION AND ELEVATION ON TELE W/ RATES UP TO 130'S; OXYGEN SATURATION ABOVE 90% ON 7LPM VIA NC; UP FROM 4 AT START OF SHIFT; LABORED BREATHING. URINARY CATHETER DRAINING BLOODY URINE; PER DAYSHIFT RN AWARE. RIGHT GROIN SITE W/ TEGADERM; DRIED BLOOD NOTED ON DRESSING; D5 GTT PER ORDER. NPO; Q2H TURNS.
--- NOTE | 2021-11-28 20:32 | NUR ---
CALLED DR. VIDAL REGARDING PATIENT'S HEART RATE INCREASING TO 110-120'S AT APPROXIMATELY 1700; SINUS TACH W/ PVC'S; PO METOPROLOL HELD THIS AM DUE TO PATIENT BEING LETHARGIC AND NPO; DR. VIDAL CALLED DR. PATTERSON AND REPORTED HE WILL PUT IN ORDERS FOR IV METOPROLOL. REPORTED PATIENT NOT ON ANY CHEMICAL OR MECHANICAL DVT PROPHYLAXIS; ORDERS FOR SCD ONLY ON LEFT LEG; NO ON SAME LEG ANGIO AND HEMATOMA (RIGHT GROIN). REPORTED PATIENT NPO AND BLOOD SUGARS AC/HS; ORDERS FOR Q6 BLOOD SUGAR AND ADJUST INSULIN ORDERS.
--- NOTE | 2021-11-28 20:43 | NUR ---
CALLED DR. VIDAL ABOUT HEPARIN SC ORDERED FOR TONIGHT AND REPORTED PATIENT HAD BLOODY URINE THAT STARTED TODAY; D/C HEPARIN ORDER AND PUT SCDS ON BOTH LEGS.
--- NOTE | 2021-11-28 21:42 | NUR ---
PATIENT MORE ALERT; AWAKE WITH EYES OPEN; ABLE TO STATE NAME BUT NOT , LOCATION, OR EVENT; REPORTS RIGHT SHOULDER HURTS WHEN IT IS MOVED; WHEN ASKED IF HE WANTED AN ICE PACK HE STATE YES. PATIENT REPORTS HE IS MOVE COMFORTABLE NOW; SCDS PLACED; IV METOPROLOL GIVEN FOR HEART RATE OF 117-125; DROPPED TO 70S THEN BACK UP TO 110'S.
--- NOTE | 2021-11-28 22:00 | NUR ---
TROPONIN TRENDING UP; UPDATED DR. VIDAL
--- NOTE | 2021-11-28 23:37 | NUR ---
422 CBG TAKEN ON FINGER WITH DEXTROSE RUNNING INTO HAND; REDONE AND 374
--- NOTE | 2021-11-28 23:43 | NUR ---
CALLED DR. VIDAL TO REPORT HEART RATE IN 130'S AND SUSTAINING; PATIENT SLEEPING IN BED; BP 116/78; ORDERS FOR 5MG IV METOPROLOL NOW BLOOD SUGAR 374; ORDERS TO INCREASE C.S. FROM LOW TO MEDIUM.
[2021-11-29 03:44] LABS: Hematocrit 49.8 % (37.0-53.0); Hemoglobin 15.5 g/dL (13.5-17.5); Mean Corpuscular HGB 30.3 pg (26.0-34.0); Mean Corpuscular HGB Conc 31.1 g/dL (31.5-36.5); Mean Corpuscular Volume 97 fL (80-100); Mean Platelet Volume 9.8 fL (9.1-12.4); Platelet Count 242 K/mm3 (150-400); RDW Coefficient Variation 14.2 % (11.7-14.2); RDW Standard Deviation 50.9 fL (35.1-46.3); Red Blood Cell Count 5.12 M/mm3 (4.30-5.90); White Blood Cell Count 17.55 K/mm3 (4.00-11.30)
[2021-11-29 04:26] LABS: Bun/Creatinine Ratio 43.3 (12.0-20.0); Calcium, Blood 10.1 mg/dL (8.5-10.1); Creatinine, Blood 2.31 mg/dL (0.60-1.20); Potassium, Blood 3.2 mmol/L (3.5-5.5)
--- NOTE | 2021-11-29 05:03 | NUR ---
CALLED DR. VILLARREAL ABOUT PATIENT'S HEART RATE MAINTAINING 130'S AFTER METOPROLOL; WILL LOOK INTO CHART. ALSO REPORTED PATIENT'S AM BLOOD SUGAR 486; USE 0600 INSULIN DOSE TO COVER PATIENT.
--- NOTE | 2021-11-29 05:03 | NUR ---
CALLED DR. VILLARREAL TO REPORT PATIENT'S HEART RATE IN 130'S AGAIN AFTER IV METOPROLOL; WILL LOOK INTO CHART. AM LABS GLUCOSE 486; ORDERS TO COVER WITH CURRNT SLIDING SCALE. ALSO REPORTED THAT PATIENT NPO AND NOT GETTING PO SYNTHROID; ORDERS TO SWITCH TO IV; WILL CALL PHAMACMAS[facility] WILLIS FOR COVERSION FROM PO TO IV DOSE
--- NOTE | 2021-11-29 06:48 | NUR ---
NO ACUTE CHANGES TO REPORT. PATIENT SLEPT MOST OF SHIFT.
[2021-11-29 07:37] LABS: Vancomycin, Trough 14.3 ug/mL (5.0-10.0)
--- NOTE | 2021-11-29 17:11 | NUR ---
SHIFT SUMMARY PT HAS BEEN RESTING IN BED. THIS AM PT WAS LETHARGIC AND DIFFICULT TO ROUSE, THIS PM PT IS ALERT AND AWAKE AND RESPONSIVE. PT IS ORIENTED TO SELF AND FAMILY. PT HAS BEEN PLEASANT AND COOPERATIVE WITH CARES. SBP 68-130, HEART RATE HAS BEEN STEADY IN THE 130'S, AND SPO2 STABLE >90% ON 6L NC.
[2021-11-30 04:02] LABS: Vancomycin, Random 21.2 ug/mL
--- NOTE | 2021-11-30 06:48 | NUR ---
SHIFT SUMMARY PT IS ALERT AND ORIENTED BUT VERY LETHARGIC AT TIMES. BP HAS BEEN SOFT AND HR HAS MAINTAINED ABOVE 120-130'S. PT HAS BEEN PAINFUL IN THE RIGHT SHOULDER/ARM. REPORTS FALLING A COUPLE MONTHS AGO. THERE HAVE BEEN NO ACUTE CHANGES FOR THIS PT. GRACE DRAINING BLOODY URINE. DENIES CHEST PAIN OR FEELING SOB. CALL LIGHT IS WITHIN REACH.
[2021-11-30 12:25] LABS: Albumin, Blood 1.8 g/dL (3.4-5.0); Anion Gap 7 mmol/L (6-16); Blood Urea Nitrogen 85 mg/dL (8-24); CO2, Blood 29 mmol/L (21-32); Calcium, Blood 8.7 mg/dL (8.5-10.1); Chloride, Blood 105 mmol/L (98-108); Glomerular Filtration Rate 39 (60-); Glucose, Blood 305 mg/dL (70-99); Phosphorus, Blood 3.7 mg/dL (2.5-4.9); Potassium, Blood 3.1 mmol/L (3.5-5.5); Sodium, Blood 141 mmol/L (136-145)
--- NOTE | 2021-11-30 17:41 | NUR ---
SHIFT SUMMARY PT HAS BEEN ALERT AND ORIENTED, UNABLE TO RECALL DATE/TIME. PT HAS TIRED EASILY AND TAKEN SEVERAL LIGHT NAPS THROUGHOUT THE DAY. PT IS EASILY ROUSED BY VOICE OR LIGHT TOUCH. PT HAS DENIED C/O PAIN OR DISCOMFORT AND HAS TRIED TO REPOSITION SELF THOUGH OFTEN REQUIRES ASSISTANCE TO PROPERLY REPOSITION. PT HAS TRIED TO FEED THEMSELF THOUGH WILL TIRE EASILY FROM THE EFFORT AND IS THEN ASSISTED. OXYGEN DEMAND HAS FALLEN AND PT IS STABLE ON 4L, SPO2 >90%. BLOOD PRESSURE HAS REMAINED SOFT WITH SBP RANGING 95-117. HEART RATE HAS RANGED APPROXIMATELY 80-100.
[2021-12-01 04:02] LABS: Hematocrit 40.1 % (37.0-53.0); Hemoglobin 13.2 g/dL (13.5-17.5); Mean Corpuscular HGB 30.3 pg (26.0-34.0); Mean Corpuscular HGB Conc 32.9 g/dL (31.5-36.5); Mean Platelet Volume 9.7 fL (9.1-12.4); NRBC ABSOLUTE 0.02 K/mm3 (0.00-0.02); NRBC Auto 0.1 /100 WBC (0.0-0.2); Platelet Count 206 K/mm3 (150-400); RDW Coefficient Variation 13.2 % (11.7-14.2); RDW Standard Deviation 44.7 fL (35.1-46.3); Red Blood Cell Count 4.35 M/mm3 (4.30-5.90); White Blood Cell Count 17.82 K/mm3 (4.00-11.30)
[2021-12-01 04:03] LABS: Mean Corpuscular Volume 92 fL (80-100)
[2021-12-01 04:23] LABS: Bun/Creatinine Ratio 48.5 (12.0-20.0); Calcium, Blood 8.7 mg/dL (8.5-10.1); Creatinine, Blood 1.32 mg/dL (0.60-1.20); Potassium, Blood 3.1 mmol/L (3.5-5.5)
--- NOTE | 2021-12-01 05:16 | NUR ---
CALLED DR VILLARREAL REGARDING K OF 3.1. ORDER OF KCL 40 IV X1 GIVEN.
--- NOTE | 2021-12-01 06:31 | NUR ---
STOPPED K AT 0620 DUE TO SITE IRRITATION
--- NOTE | 2021-12-01 06:45 | NUR ---
SHIFT SUMMARY PT IS ALERT AND ORIENTED X3. HAS BEEN ABLE TO COMMUNICATE WITH STAFF PROPERLY. BP HAS BEEN SOFT AND HR IN THE 90-100'S, DENIES CHEST PAIN OR SOB. PT IS NOW ON ROOM AIR WITH SATS ABOVE 90%. PT HAS BEEN VERY PAINFUL IN THE RIGHT ARM/SHOULDER AND THERE IS SOME SWELLING IN HAND. GRACE DRAINING BRIGHT RED URINE AND WAS VERY PAINFUL WHEN DC'D. PT WAS UNABLE TO TOLERATE IV K+ THIS AM, K+ WAS 3.1. CALL LIGHT IS WITHIN REACH.
--- NOTE | 2021-12-01 18:17 | NUR ---
SHIFT SUMMARY PT HAS BEEN RESTING IN BED, PT HAS ATTEMPTED TO REPOSITION SELF BUT IS STILL WEAKENED AND REQUIRES ASSISTANCE. PT CALLED APPROPRIATELY FOR ASSISTANCE. PT STILL HAS PAIN TO THE RIGHT SHOULDER AND REFUSED MEDICATION TWICE BECAUSE "IT MAKES ME SLEEPY." HEART RATE 104-123. SBP 111-134. PT HAS STATED THAT THEIR MEMORY "IS JAMEE SUCKY" BUT THEY ARE FEELING BETTER TODAY. PT SPENT LESS TIME SLEEPING TODAY COMPARED TO YESTERDAY.
[2021-12-02 04:11] LABS: BASOPHILS ABSOLUTE AUTO 0.04 K/mm3 (0.00-0.23); BASOPHILS PERCENT AUTO 0 % (0-2); EOSINOPHILS PERCENT AUTO 0 % (0-6); Hematocrit 37.8 % (37.0-53.0); Hemoglobin 12.4 g/dL (13.5-17.5); Mean Corpuscular HGB 30.5 pg (26.0-34.0); Mean Corpuscular HGB Conc 32.8 g/dL (31.5-36.5); Mean Corpuscular Volume 93 fL (80-100); Mean Platelet Volume 9.6 fL (9.1-12.4); Platelet Count 190 K/mm3 (150-400); RDW Coefficient Variation 13.2 % (11.7-14.2); RDW Standard Deviation 44.7 fL (35.1-46.3); Red Blood Cell Count 4.06 M/mm3 (4.30-5.90)
[2021-12-02 04:18] LABS: IMMATURE GRAN ABSOLUTE AUTO 0.27 K/mm3 (0.00-0.10); IMMATURE GRAN PERCENT AUTO 2 % (0-1); LYMPHOCYTES ABSOLUTE AUTO 1.29 K/mm3 (0.84-5.20); LYMPHOCYTES PERCENT AUTO 8 % (21-46); MONOCYTES ABSOLUTE AUTO 0.48 K/mm3 (0.16-1.47); MONOCYTES PERCENT AUTO 3 % (4-13); NEUTROPHILS ABSOLUTE AUTO 13.52 K/mm3 (1.96-9.15); NEUTROPHILS PERCENT AUTO 87 % (41-73)
[2021-12-02 04:35] LABS: Albumin, Blood 2.1 g/dL (3.4-5.0); Anion Gap 7 mmol/L (6-16); Blood Urea Nitrogen 52 mg/dL (8-24); Bun/Creatinine Ratio 41.3 (12.0-20.0); CO2, Blood 28 mmol/L (21-32); Calcium, Blood 8.8 mg/dL (8.5-10.1); Chloride, Blood 106 mmol/L (98-108); Creatinine, Blood 1.26 mg/dL (0.60-1.20); Glomerular Filtration Rate 55 (60-); Glucose, Blood 311 mg/dL (70-99); Phosphorus, Blood 2.8 mg/dL (2.5-4.9); Sodium, Blood 141 mmol/L (136-145)
--- NOTE | 2021-12-02 06:16 | NUR ---
SHIFT SUMMARY ASSUMED CARE OF PT FROM SOLEDAD RICHARDSON AT 0030. PT ALERT AND ORIENTED X3. UNABLE TO TELL MONTH OR TIME. HR SR/ST 60'S-90'S. BP STABLE. ON RA MAINTAINING SATS OVER 94%. PT REMAINS INCONTINENT OF STOOL AND URINE. SCROTUM DISCOLORED, SWOLLEN AND SENSITIVE TO TOUCH. CHANGE IN APPEARANCE, NOTED BY PREVIOUS RN. RIGHT ARM ALSO SENSITIVE TO TOUCH. PT MODERATE X2 ASSIST FOR TURNS AND CHANGING. PT DENIES PAIN. HARRIET POWERGLIDE PATENT AND DRAWS BLOOD. EKG DONE AT 0530. PT IN BED SLEEPING WITH CALL ALARM AT SIDE. WILL CONTINUE TO MONITOR UNTIL REPORT GIVEN TO DAYSHIFT RN
--- NOTE | 2021-12-02 10:57 | NUR ---
CHAINSTITCH TUNNEL ELASTIC OPERATOR INFORMED ME OF 437 CBG, AT 1050. CALLED TO PROVIDER PROVIDER WITH ADD ADDITIONAL ORDERS. WILL CONTINUE TO MONITOR AND AWAIT ORDERS FOR CORRECT ADMINISTRATION AND COVERAGE FOR THIS TRENDING HIGHS OF CBG'S SINCE YESTERDAY.
--- NOTE | 2021-12-02 18:27 | NUR ---
END OF SHIFT: PATINET MENTATION HAS GREATLY INCREASED, AND WAS ABLE TO EAT ALL HIS MEALS TODAY, CBGS WERE INCREASED SIGNIFICANTLY DUE TO THIS, LONG ACTING LANTUS AND CORRECTION SCALE INCREASED, STILL A&O X 3. ANCEF TWICE DURING DAY, RA SPO2 GREATER THAN 94%. PATIENT HAD MULTIPLE BM'S TODAY TARRY NO SIGNS OF BLOOD. HEART RATE THIS AM 130'S AFTER AMIODARONE, AND METOPROLOL PO THAN, 60-80'S SR WITH PVCS, WILL CONTINUE TO MONITOR
--- NOTE | 2021-12-03 06:14 | NUR ---
SHIFT [facility] PATIENT FOUND TO BE A&OX2-3 AND PLESANT WITH CARE. GEN WEAKNESS NOTED. RIGHT SIDE ARM ESPECIALLY WEAK WITH REDUCED MOBILITY FOR FEW MONTHS PER PATIENT REPORT AND SOME PAIN TO TOUCH ON THIS SIDE OF BODY. VSS. ON RA. SR ON THE MONITOR WITH PVC'S IN THE 70'S-90'S. HEMATOMA STABLE AND SEEMINGLY IMPROVING. INCONTINENT OF URINE AND STOOL AND HAD A LARGE TARRY STOOL OVERNIGHT. TOLERATING PUREED DIET AFTER FULL SET UP OF TRAY. BLOOD SUGARS MUCH IMPROVED. Q2H TURNS IN PLACE. IV ABX INFUSED PER ORDER. NO ACUTE CONCERNS AT THIS TIME. WILL CONTINUE PLAN OF CARE UNTIL REPROT GIVEN TO WILLIAM RICHARDSON.
--- NOTE | 2021-12-03 11:40 | NUR ---
CARE NOTE THIS AM PT REPORTED 7/10 CHEST PAIN, EKG ORDERED AND MADE AWARE. UPON REASSESSMENT PT NO REPORTED CHEST PAIN HAS RESOLVED. PER REPORT PT WAS IN SINUS RYTHM/SINUS TACH LAST PM SHIFT, PT NOW IN AFLUTTER PER TELE REPORT. MOST RECENT EKG IS IN PT CHART. WILL CONTINUE TO MONITOR FOR CHEST PAIN/PRESSURE.
--- NOTE | 2021-12-03 17:07 | NUR ---
SHIFT SUMMARY PT IS ALERT TO SELF, PLACE, TIME AND FAMILY. HE ANSWERS QUESTIONS APPROPRIATELY AND UTILIZES THE CALL LIGHT APPROPRIATELY. HR IS AFLUTTER PER TELE REPORT, BP IS STABLE, SPO2 IN UPPER 90'S VIA ROOM AIR. THIS AM PATIENT COMPLAINED OF CHEST PAIN, SEE PREVIOUS NOTES, BUT HAS SINCE DENIED CHEST PAIN/PRESSURE. HE DOES COMPLAIN OF PAIN IN HIS RIGHT SHOULDER. PER PATIENT REPORT, HE HAD A FALL AT HOME IN AND HAS BEEN UNABLE TO UTILIZE RIGHT ARM, PAIN IS LOCALIZED IN SHOULDER. POWERGLIDE IN LEFT UPPER ARM IS SALINE LOCKED. HE IS INCONTINENT AND HAS BRIEFS IN PLACE THAT ARE DRY/CLEAN/INTACT. RIGHT GROIN SITE HAS REMAINED UNCHANGED FROM PREVIOUS ASSESSMENT. SCROTUM REMAINS SWOLLEN AND IS PURPLE IN COLOR BUT HAS REMAINED UNCHANGED FROM PREVIOUS ASSESSMENT. NO ACUTE CHAGES NOTED DURING SHIFT. WILL CONTINUE TO MONITOR UNITL REPORT GIVEN. CALL LIGHT IN REACH. PT NOW APPEARS TO BE SLEEPING.
--- NOTE | 2021-12-04 06:28 | NUR ---
SHIFT SUMMARY PATIENT IS A PLESANT MAN WHO IS A&OX2-3 AND FORGETFUL AT BASELINE. SOME RIGHT SIDE WEAKNESS AND PAINFUL TO TOUCH ON THIS SIDE. FOLLOWS COMMANDS. GEN WEAKNESS. ON RA. AFLUTTER IN THE 70'S-80'S ON THE MONIOTR ALL SHIFT. VSS. INCONTINENT OF LIQUID STOOL X2 AND CDIFF SAMPLE TO BE SENT AFTER NEXT ONE. INCONTINENT OF URINE . CLEAN BRIEF IN PLACE. Q2H TURNS IN PLACE. TOLERATES MECH SOFT DIET AFTER FULL TRAY SET UP. NO ACUTE CONCERNS AT THIS TIME. WILL COTNINUE PLAN OF CARE UNTIL REPORT GIVEN TO WILLIAM RICHARDSON.
[2021-12-04 10:56] LABS: Campylobacter Sp Not Detected (NOT DETECT); Cryptosporidium Not Detected (NOT DETECT); Cyclospora Cayetanensis Not Detected (NOT DETECT); E. Coli O157 Not Detected (NOT DETECT); Enteroaggregative E. coli-EAEC Not Detected (NOT DETECT); Enteropathogenic E. coli-EPEC Not Detected (NOT DETECT); Enterotoxigenic E. coli-ETEC Not Detected (NOT DETECT); Plesiomonas Shigelloides Not Detected (NOT DETECT); Salmonella Sp Not Detected (NOT DETECT); Shiga Toxin-prod E. coli-STEC Not Detected (NOT DETECT); Shigella/Enteroin E. coli-EIEC Not Detected (NOT DETECT); Vibrio Cholerae Not Detected (NOT DETECT); Vibrio Sp Not Detected (NOT DETECT); Yersinia Enterocolitica Not Detected (NOT DETECT)
[2021-12-04 10:57] LABS: Adenovirus F 40/41 Not Detected (NOT DETECT); Astrovirus Not Detected (NOT DETECT); Entamoeba Histolytica Not Detected (NOT DETECT); Giardia Lamblia Not Detected (NOT DETECT); Norovirus GI/GII Not Detected (NOT DETECT); Rotavirus A Not Detected (NOT DETECT); Sapovirus Not Detected (NOT DETECT)
--- NOTE | 2021-12-04 17:47 | NUR ---
END OF SHIFT: MARY HAS IMPROVED IN MENTATION. CARDIAC HAS BEEN UNCHANGED SINCE RECIEVING THE PATIENT, HE IS STILL A FLUTTER 60-80'S, DENIES CHEST PAIN OR SOB. MARY HAS BEEN PLEASANT AND COOPERATIVE WITH ORAL CARE Q2 TURNS, AND MEDICATION ADMINISTRATION. GI: MARY HAD A LARGE LIQUID BM WHICH WE SENT FOR CDIFF, CDIFF NEGATIVE. PATIENT STILL INCONTINENT, BUT COOPERATES AND CAN BE CHANGED WITH ONE PERSON. SCROTUM HAS IMPROVED IN REGARDS TO SWELLING AND BRUISING. MARY DOES ALSO HAVE FLANK BRUISING TO WHICH IS IN REGARDS TO R GROIN SITE FROM HIS ANGIO. PATIENT IS STILL ON RA, TO WHICH HE HAS BEEN >94%SPO2. WILL CONTINUE TO MONITOR.
--- NOTE | 2021-12-05 03:43 | NUR ---
SHIFT SUMMARY PATIENT HAD NO ACUTE CHANGES OBSERVED. AXOX 3 AND BEDREST. TAKES MEDICATION WHOLE WITH WATER. POWERGLIDE HARRIET INTACT. ON ROOM AIR. VSS/AFEBRILE. DENIES CHEST PAIN, SOB, AND N/V. TURNING PRN. ENHANCED PRECAUTIONS WITH COVID-19+. PATIENT ABLE TO SLEEP MOST OF THE SHIFT. CALL LIGHT IN REACH. BED IN LOWEST POSITION. WILL CONTINUE TO MONITOR UNTIL DAY SHIFT NURSE ASSUMES CARE.
--- NOTE | 2021-12-05 17:14 | NUR ---
SHIFT SUMMARY PATIENT IS ALERT AND ORIENTED X3. PATIENT HAS A POWERGLIDE IN LEFT UPPER ARM. COVID POSITIVE. PATIENT IS ON ROOM AIR. PATIENT HAS DENIED PAIN, SOB, NAUSEA AND VOMITTING THIS SHIFT. PATIENT HAS RESTED MOST OF SHIFT. PATIENT HAS HAD NO ACUTE EVENTS THIS SHIFT. BED IN LOCKED AND LOWEST POSITION. CALL LIGHT IN PLACE. WILL MONITOR UNTIL SHIFT CHANGE.
--- NOTE | 2021-12-06 04:08 | NUR ---
SHIFT SUMMARY Pt rested well, c/o pain to R arm/hand with movement, pt has limited movement to that extremity. Pt has baseline dementia, alert, able to follow commands appropriately. Bruising noted to R abd and groin, incontint of urine, barb care done and pt repositioned for comfort. Lungs diminished, no cough or distress noted this shift. VSS, anticipate d/c when medically stable.
[2021-12-06 05:47] LABS: Hematocrit 35.7 % (37.0-53.0); Hemoglobin 11.7 g/dL (13.5-17.5); Mean Corpuscular HGB 30.2 pg (26.0-34.0); Mean Corpuscular HGB Conc 32.8 g/dL (31.5-36.5); Mean Corpuscular Volume 92 fL (80-100); Mean Platelet Volume 9.3 fL (9.1-12.4); Platelet Count 222 K/mm3 (150-400); RDW Coefficient Variation 14.3 % (11.7-14.2); RDW Standard Deviation 46.5 fL (35.1-46.3); Red Blood Cell Count 3.88 M/mm3 (4.30-5.90); White Blood Cell Count 12.17 K/mm3 (4.00-11.30)
[2021-12-06 06:22] LABS: Anion Gap 6 mmol/L (6-16); Blood Urea Nitrogen 20 mg/dL (8-24); Bun/Creatinine Ratio 18.9 (12.0-20.0); CO2, Blood 27 mmol/L (21-32); Calcium, Blood 8.3 mg/dL (8.5-10.1); Chloride, Blood 109 mmol/L (98-108); Creatinine, Blood 1.06 mg/dL (0.60-1.20); Glomerular Filtration Rate >60 (60-); Glucose, Blood 89 mg/dL (70-99); Potassium, Blood 3.7 mmol/L (3.5-5.5); Sodium, Blood 142 mmol/L (136-145)
[2021-12-06] MEDS ORDERED: CEFAZOLIN2 GM/50 M3 IV (12:55)
[2021-12-06] MEDS ORDERED: Vitamin D1000 UNI1 PO (12:56)
[2021-12-06] MEDS ORDERED: METO50ER PO (12:58)
[2021-12-06] MEDS ORDERED: VISBIOME 112.51 EACH PO (12:59)
[2021-12-06] MEDS ORDERED: HYDACE10B PO (13:00)
[2021-12-06] MEDS ORDERED: ASPI81CH PO (13:01)
[2021-12-06] MEDS ORDERED: ATOR40TA PO (13:01)
[2021-12-06] MEDS ORDERED: Amiodarone HCl200 MG PO (13:02)
--- NOTE | 2021-12-06 17:25 | NUR ---
SHIFT SUMMARY PATIENT IS ALERT AND ORIENTED X3. PATIENT HAS BEEN RESTING MOST OF DAY. PATIENT HAS DEMENTIA AT BASELINE BUT FOLLOWS COMMANDS AND QUESTIONS APPROPRIATELY. PATIENT HAS BEEN INCONTINENT OF URINE BUT CONTINENT OF STOOL THIS SHIFT. PATIENT HAS BEEN REPOSITIONED FOR COMFORT AT LEAST Q2. PATIENT HAS NOT COMPLAINED OF NAUSEA, PAIN, SOB, OR VOMITTING THIS SHIFT. VITAL SIGNS REVIEWED. NO ACUTE EVENTS THIS SHIFT. PATIENT IS AWAITING DISCHARGE TO SNF. DISCHARGE PAPERWORK IS DONE AND AWAITING TRANSPORT. WILL MONITOR UNTIL SHIFT CHANGE OR WHEN TRANSPORT IS COORDINATED.
--- NOTE | 2021-12-06 20:01 | NUR ---
DISCHARGE Transport here to filler picker pt to transfer to [facility] Unit. Pt transferred to w/c with 2 person assist. Pt was incontinent of urine and bowel, barb care done and new attends placed on pt. Powerglide IV remained in LUE for continued IV abx's at SNF. Discharge paperwork and RX, along with facesheet given to transporter. Report called to SNF by day shift RN, Shola.
== END 2021-12-06 20:03 | DRG 871 ==
LOC: ER 08:33 → PCU 09:54 → MEDS 09:54 → PCU 10:20 → MEDS 12-04 19:20 → ENPENDDIS 12-06 12:11 → MEDS 12-06 20:03
PROVIDERS: Family Medicine; Internal Medicine; Nurse Practitioner Acute Care; Pharmacist; Student in an Organized Health Care Education/Training Program; ADMIT Internal Medicine Cardiovascular Disease
PROC: 4A023N7 Measurement of Cardiac Sampling and Pressure, Left Heart, Percutaneous Approach (ICD-10-PCS; principal; 2021-11-27)
PROC: B2111ZZ Fluoroscopy of Multiple Coronary Arteries using Low Osmolar Contrast (ICD-10-PCS; 2021-11-27)
PROC: 8E0ZXY6 Isolation (ICD-10-PCS; 2021-11-27)
PROC: XW033E5 Introduction of Remdesivir Anti-infective into Peripheral Vein, Percutaneous Approach, New Technology Group 5 (ICD-10-PCS; 2021-11-27)
PROC: 3E03329 Introduction of Other Anti-infective into Peripheral Vein, Percutaneous Approach (ICD-10-PCS; 2021-11-27)
PROC: 3E0333Z Introduction of Anti-inflammatory into Peripheral Vein, Percutaneous Approach (ICD-10-PCS; 2021-11-28)
PROC: XW0DXM6 Introduction of Baricitinib into Mouth and Pharynx, External Approach, New Technology Group 6 (ICD-10-PCS; 2021-12-01)
DX: A41.89 Other specified sepsis (principal); R65.21 Severe sepsis with septic shock; U07.1 COVID-19; G92.8 Other toxic encephalopathy; J96.21 Acute and chronic respiratory failure with hypoxia; J96.22 Acute and chronic respiratory failure with hypercapnia; J12.82 Pneumonia due to coronavirus disease 2019; I21.29 ST elevation (STEMI) myocardial infarction involving other sites; E87.2 Acidosis; N17.9 Acute kidney failure, unspecified; I42.9 Cardiomyopathy, unspecified; E87.0 Hyperosmolality and hypernatremia; I50.42 Chronic combined systolic (congestive) and diastolic (congestive) heart failure; I47.2 Ventricular tachycardia; N18.30 Chronic kidney disease, stage 3 unspecified; I71.4 Abdominal aortic aneurysm, without rupture; I48.0 Paroxysmal atrial fibrillation; S30.22XA Contusion of scrotum and testes, initial encounter; Z79.01 Long term (current) use of anticoagulants; E03.9 Hypothyroidism, unspecified; Z90.49 Acquired absence of other specified parts of digestive tract; Z98.890 Other specified postprocedural states; Z88.5 Allergy status to narcotic agent; Z88.8 Allergy status to other drugs, medicaments and biological substances; Z87.891 Personal history of nicotine dependence; I45.10 Unspecified right bundle-branch block; E87.6 Hypokalemia
CPT/HCPCS: 0097U; 0241U; 36415; 71045; 73060; 76775; 76937; 80047; 80048; 80053; 80061; 80069; 80162; 80202; 81001; 82947; 83605; 83735; 83880; 84145; 84295; 84484; 85014; 85025; 85027; 85347; 85610; 85730; 86850; 86900; 86901; 87040; 87077; 87147; 87186; 92526; 92610; 93005; 93010; 93306; 93458; 94640; 94762; 96374; 96375; 99152; 99153; 99285-25; A9270; C1751; C1760; C1769; C1887; C1894; C9399; J0248; J0456; J0690; J0696; J1100; J1644; J1815; J2250; J2370; J3010; J3370; J3480; J7030; J7040; J7050; J7070; J7120; Q9967

== ENCOUNTER → 2022-01-28 | Outpatient (CLI) | payer MEDICARE, OTHER ==
[~2022-01-28] MED LIST changes: +ATOR40TA PO; +CEFAZOLIN2 GM/50 M3 IV; +Floxin10 ML RIGHTEYE; +HYDRA25 PO; +K-Dur10 MEQ PO; +KETO.5OPSO RIGHTEYE; +METO100ER PO; +MIRALAX17 GM PO; +Norco 5-325 Ta1 EACH PO; +PREDNISOLONE ACE5 ML; +Prednisolone Ace5 ML RIGHTEYE; +SENN187 PO; +VISBIOME 112.51 EACH PO; +Vitamin D1000 UNI1 PO
[2022-01-28 13:27] LABS: BASOPHILS ABSOLUTE AUTO 0.06 K/mm3 (0.00-0.23); BASOPHILS PERCENT AUTO 1 % (0-2); EOSINOPHILS PERCENT AUTO 4 % (0-6); Hematocrit 43.6 % (37.0-53.0); Hemoglobin 13.6 g/dL (13.5-17.5); IMMATURE GRAN ABSOLUTE AUTO 0.03 K/mm3 (0.00-0.10); IMMATURE GRAN PERCENT AUTO 0 % (0-1); LYMPHOCYTES ABSOLUTE AUTO 0.94 K/mm3 (0.84-5.20); LYMPHOCYTES PERCENT AUTO 10 % (21-46); MONOCYTES ABSOLUTE AUTO 0.56 K/mm3 (0.16-1.47); MONOCYTES PERCENT AUTO 6 % (4-13); Mean Corpuscular HGB 27.8 pg (26.0-34.0); Mean Corpuscular HGB Conc 31.2 g/dL (31.5-36.5); Mean Corpuscular Volume 89 fL (80-100); Mean Platelet Volume 9.4 fL (9.1-12.4); NEUTROPHILS ABSOLUTE AUTO 7.56 K/mm3 (1.96-9.15); NEUTROPHILS PERCENT AUTO 79 % (41-73); Platelet Count 241 K/mm3 (150-400); RDW Coefficient Variation 14.5 % (11.7-14.2); Red Blood Cell Count 4.89 M/mm3 (4.30-5.90); White Blood Cell Count 9.55 K/mm3 (4.00-11.30)
[2022-01-28 16:30] LABS: Alanine Aminotransfer (ALT/SGP 30 U/L (12-78); Albumin, Blood 2.9 g/dL (3.4-5.0); Albumin/Globulin Ratio 0.9 (0.8-1.8); Alk Phos 102 U/L (50-136); Anion Gap 5 mmol/L (6-16); Aspartate Aminotrans (AST/SGOT 17 U/L (12-37); Bilirubin, Total 0.5 mg/dL (0.1-1.0); Blood Urea Nitrogen 27 mg/dL (8-24); Bun/Creatinine Ratio 27.8 (12.0-20.0); CO2, Blood 26 mmol/L (21-32); Calcium, Blood 8.6 mg/dL (8.5-10.1); Chloride, Blood 109 mmol/L (98-108); Creatinine, Blood 0.97 mg/dL (0.60-1.20); Globulin, Blood 3.1 g/dL (2.2-4.0); Glomerular Filtration Rate >60 (60-); Glucose, Blood 261 mg/dL (70-99); Potassium, Blood 3.6 mmol/L (3.5-5.5); Sodium, Blood 140 mmol/L (136-145)
== END | disposition home or self-care (01) ==
LOC: LAB UVN 13:03 → EDSTATUS 14:09
PROVIDERS: Internal Medicine
DX: G93.41 Metabolic encephalopathy (principal); I10 Essential (primary) hypertension
CPT/HCPCS: 80053; 85025

== ENCOUNTER → 2022-03-18 | Outpatient (CLI) | payer MEDICARE, OTHER ==
[2022-03-18 10:40] LABS: BASOPHILS ABSOLUTE AUTO 0.05 K/mm3 (0.00-0.23); BASOPHILS PERCENT AUTO 1 % (0-2); EOSINOPHILS ABSOLUTE AUTO 0.51 K/mm3 (0.00-0.68); EOSINOPHILS PERCENT AUTO 7 % (0-6); Hematocrit 38.1 % (37.0-53.0); Hemoglobin 11.4 g/dL (13.5-17.5); IMMATURE GRAN ABSOLUTE AUTO 0.02 K/mm3 (0.00-0.10); IMMATURE GRAN PERCENT AUTO 0 % (0-1); LYMPHOCYTES ABSOLUTE AUTO 0.92 K/mm3 (0.84-5.20); LYMPHOCYTES PERCENT AUTO 13 % (21-46); MONOCYTES ABSOLUTE AUTO 0.47 K/mm3 (0.16-1.47); MONOCYTES PERCENT AUTO 7 % (4-13); Mean Corpuscular HGB 25.1 pg (26.0-34.0); Mean Corpuscular HGB Conc 29.9 g/dL (31.5-36.5); Mean Corpuscular Volume 84 fL (80-100); Mean Platelet Volume 9.3 fL (9.1-12.4); NEUTROPHILS ABSOLUTE AUTO 4.97 K/mm3 (1.96-9.15); NEUTROPHILS PERCENT AUTO 72 % (41-73); Platelet Count 225 K/mm3 (150-400); RDW Coefficient Variation 15.5 % (11.7-14.2); RDW Standard Deviation 47.9 fL (35.1-46.3); Red Blood Cell Count 4.54 M/mm3 (4.30-5.90); White Blood Cell Count 6.94 K/mm3 (4.00-11.30)
== END ==
LOC: LAB UVN 05:15 → EDSTATUS 12:03
PROVIDERS: Internal Medicine
DX: G93.41 Metabolic encephalopathy (principal); E11.9 Type 2 diabetes mellitus without complications; U07.1 COVID-19
CPT/HCPCS: 85025

== ENCOUNTER → 2022-04-04 | Outpatient (CLI) | payer MEDICARE, OTHER ==
[2022-04-04 20:12] LABS: Bun/Creatinine Ratio 26.8 (12.0-20.0); Creatinine, Blood 1.23 mg/dL (0.60-1.20); Potassium, Blood 3.8 mmol/L (3.5-5.5)
[2022-04-04 22:48] LABS: BASOPHILS ABSOLUTE AUTO 0.08 K/mm3 (0.00-0.23); BASOPHILS PERCENT AUTO 1 % (0-2); EOSINOPHILS ABSOLUTE AUTO 0.35 K/mm3 (0.00-0.68); EOSINOPHILS PERCENT AUTO 5 % (0-6); Hematocrit 34.4 % (37.0-53.0); Hemoglobin 10.2 g/dL (13.5-17.5); IMMATURE GRAN ABSOLUTE AUTO 0.01 K/mm3 (0.00-0.10); IMMATURE GRAN PERCENT AUTO 0 % (0-1); LYMPHOCYTES PERCENT AUTO 13 % (21-46); MONOCYTES ABSOLUTE AUTO 0.52 K/mm3 (0.16-1.47); MONOCYTES PERCENT AUTO 8 % (4-13); Mean Corpuscular HGB 23.9 pg (26.0-34.0); Mean Corpuscular HGB Conc 29.7 g/dL (31.5-36.5); Mean Corpuscular Volume 81 fL (80-100); Mean Platelet Volume 9.6 fL (9.1-12.4); NEUTROPHILS ABSOLUTE AUTO 5.05 K/mm3 (1.96-9.15); NEUTROPHILS PERCENT AUTO 73 % (41-73); Platelet Count 196 K/mm3 (150-400); RDW Standard Deviation 46.9 fL (35.1-46.3); Red Blood Cell Count 4.26 M/mm3 (4.30-5.90); White Blood Cell Count 6.91 K/mm3 (4.00-11.30)
== END | disposition home or self-care (01) ==
LOC: EDSTATUS 15:00 → LAB UVN 18:55
PROVIDERS: Internal Medicine
DX: G93.41 Metabolic encephalopathy (principal)
CPT/HCPCS: 80048; 85025

== ENCOUNTER → 2022-12-09 | Outpatient (CLI) | payer MEDICARE, OTHER ==
[2022-12-09 22:10] LABS: Bilirubin, Urine Neg (Neg); Blood, Urine Neg (Neg); Glucose Qualitative, Urine 4+ (Neg); Ketones, Urine Neg (Neg); Leukocyte Esterase, Urine Neg (Neg); Nitrite, Urine Neg (Neg); Protein, Urine Neg (Neg); Urobilinogen, Urine NORM (Normal)
[2022-12-09 22:13] LABS: Appearance, Urine Clear (Clear); Color, Urine Yellow (P-Yellow)
== END ==
LOC: EDSTATUS 10:03 → LAB UVN 22:02
PROVIDERS: Internal Medicine
DX: N39.0 Urinary tract infection, site not specified (principal)
CPT/HCPCS: 81003; 87086

== ENCOUNTER 2023-12-08 11:50 | Day surgery (SDC) | payer OTHER ==
[~2023-12-08] VITALS: Ht 185.4 cm; Wt 79.0 kg
[~2023-12-08 11:50] MED LIST changes: +ASMANEX220 MC8 INH; +Balanced Salt Epinephrine Irrigation Solution 500 mL IR SCH; +ELIQUIS5 M2; +HYDR1TAB94 PO; +KLOR-CON 1010 ME9 PO; +Lidocaine HCl/Pf 1% 5 ML VIAL XX SCH; +MELA3 PO; -MOME220I INH; +Moxifloxacin HCL 0.5 MG/0.1 ML 0.4MLSYR RIGHTEYE SCH; +NS 500 ML IV ONE; +PHENYLEPHRINE\\TROPICAMIDE\\TETRACAINE OPHTHALMIC DILATING SOLN RIGHTEYE PRN; +Povidone-Iodine 450 DROP/30 ML Solution ONE; +Povidone-Iodine 450 DROP/30 ML Solution RIGHTEYE SCH; +SEMGLEE (Y100 UNIT/2
[2023-12-08] MEDS ORDERED: SPIRONOLACTONE25 MG PO (12:50)
[2023-12-08] MEDS ORDERED: INVOKANA100 MG PO (12:52)
[2023-12-08] MEDS ORDERED: FLUTICASONE P250 MCG INH (13:07)
[2023-12-08] MEDS ORDERED: PRED FORTE5 ML RIGHTEYE (13:08)
[2023-12-08] MEDS ORDERED: HYDROCODONE-AC1 EA19 PO (13:08)
[2023-12-08] MEDS ORDERED: KETOROLAC TROMET3 ML (13:10)
[2023-12-08] MEDS ORDERED: OCUFLOX511 (13:10)
[2023-12-08] MEDS ORDERED: ALBU90OI INH (13:12)
[2023-12-08] MEDS ORDERED: DULCOLAX400 MG/5 M PO (13:13)
[2023-12-08] MEDS ORDERED: NS 500 ML IV ONE (13:24)
[2023-12-08] MEDS ORDERED: Tetracaine HCl 0.5% Opth Soln 15 ml XX ONE (13:39)
[2023-12-08] MEDS ORDERED: Midazolam HCl 1MG / ML 2ML Vial ONE (13:41)
[2023-12-08 14:06] VITALS: BP 118/98
--- NOTE | 2023-12-08 14:49 | NUR ---
12/08/23 1449 Leah Webb LATE ENTRY: PT WITH VERY WEAK LEGS AND WE DID A 5 PERSON GUIDED FALL UPON TRANSFER TO . PT DID NOT HIT ANY BODY PART THE 5 PEOPLE GENTLY LOWERED HIM TO THE GROUND. KELTON BAKER AND DEBRA CORTÉS LIFTED PATIENT TO FOR TRANSPORT TO [facility] IN DIRECT ACCESS MEDICAL TRANSPORT WITH A W/C LIFT. PT WITH NO COMPLAINTS WHEN IN WHEELCHAIR.
== END 2023-12-08 14:50 | disposition home or self-care (01) ==
LOC: ORSCSDS 11:50
PROVIDERS: Student in an Organized Health Care Education/Training Program
PROC: 08RJ3JZ Replacement of Right Lens with Synthetic Substitute, Percutaneous Approach (ICD-10-PCS; principal; 2023-12-08 13:45)
DX: E11.36 Type 2 diabetes mellitus with diabetic cataract (principal); H25.13 Age-related nuclear cataract, bilateral; I12.9 Hypertensive chronic kidney disease with stage 1 through stage 4 chronic kidney disease, or unspecified chronic kidney disease; E11.22 Type 2 diabetes mellitus with diabetic chronic kidney disease; N18.9 Chronic kidney disease, unspecified; E78.5 Hyperlipidemia, unspecified; K21.9 Gastro-esophageal reflux disease without esophagitis; J44.9 Chronic obstructive pulmonary disease, unspecified; Z79.82 Long term (current) use of aspirin; Z79.4 Long term (current) use of insulin; Z79.899 Other long term (current) drug therapy
CPT/HCPCS: 82947; J2250; J7040; V2632

== ENCOUNTER 2024-06-14 16:03 | Emergency (ER) | payer OTHER ==
[~2024-06-14] VITALS: Ht 185.4 cm; Wt 95.2 kg
[~2024-06-14 16:03] MED LIST changes: +ALBU90OI INH; +ARNUITY ELLIP100 MCG; +ASMANEX220 M14 INH; +Amiodarone HCl200 MG; -Balanced Salt Epinephrine Irrigation Solution 500 mL IR SCH; +DULCOLAX400 MG/5 M PO; +FLUTICASONE P250 MCG INH; +HYDROCODONE-AC1 EA19 PO; +INVOKANA100 MG; +INVOKANA100 MG PO; +KETOROLAC TROMET3 ML; -Lidocaine HCl/Pf 1% 5 ML VIAL XX SCH; -Moxifloxacin HCL 0.5 MG/0.1 ML 0.4MLSYR RIGHTEYE SCH; -NS 500 ML IV ONE; +OCUFLOX511; -PHENYLEPHRINE\\TROPICAMIDE\\TETRACAINE OPHTHALMIC DILATING SOLN RIGHTEYE PRN; +PRED FORTE5 ML RIGHTEYE; -Povidone-Iodine 450 DROP/30 ML Solution ONE; -Povidone-Iodine 450 DROP/30 ML Solution RIGHTEYE SCH; -SEMGLEE (Y100 UNIT/2; +SEMGLEE (Y100 UNIT/2 SC; +SPIR25; +SPIRONOLACTONE25 MG PO
[2024-06-14 16:07] VITALS: BP 146/72
[2024-06-14 16:33] LABS: BASOPHILS ABSOLUTE AUTO 0.06 K/mm3 (0.00-0.23); BASOPHILS PERCENT AUTO 1 % (0-2); EOSINOPHILS ABSOLUTE AUTO 0.37 K/mm3 (0.00-0.68); EOSINOPHILS PERCENT AUTO 4 % (0-6); Hematocrit 51.8 % (37.0-53.0); Hemoglobin 16.8 g/dL (13.5-17.5); IMMATURE GRAN ABSOLUTE AUTO 0.02 K/mm3 (0.00-0.10); IMMATURE GRAN PERCENT AUTO 0 % (0-1); LYMPHOCYTES ABSOLUTE AUTO 1.36 K/mm3 (0.84-5.20); LYMPHOCYTES PERCENT AUTO 14 % (21-46); MONOCYTES PERCENT AUTO 7 % (4-13); Mean Corpuscular HGB Conc 32.4 g/dL (31.5-36.5); Mean Corpuscular Volume 87 fL (80-100); Mean Platelet Volume 9.4 fL (9.1-12.4); NEUTROPHILS PERCENT AUTO 74 % (41-73); Platelet Count 192 K/mm3 (150-400); RDW Coefficient Variation 14.5 % (11.7-14.2); RDW Standard Deviation 45.7 fL (35.1-46.3); Red Blood Cell Count 5.99 M/mm3 (4.30-5.90); White Blood Cell Count 9.61 K/mm3 (4.00-11.30)
[2024-06-14 16:48] LABS: Albumin/Globulin Ratio 0.8 (0.8-1.8); Bilirubin, Total 0.4 mg/dL (0.1-1.0); Bun/Creatinine Ratio 39.1 (12.0-20.0); Calcium, Blood 9.2 mg/dL (8.5-10.1); Creatinine, Blood 1.79 mg/dL (0.60-1.20); Globulin, Blood 3.8 g/dL (2.2-4.0); Potassium, Blood 4.7 mmol/L (3.5-5.5); Total Protein, Blood 6.8 g/dL (6.4-8.2)
== END 2024-06-14 19:24 | disposition home or self-care (01) ==
LOC: ER 16:03
PROVIDERS: Physician Assistant
DX: R63.0 Anorexia (principal); R19.5 Other fecal abnormalities; R53.1 Weakness; I13.0 Hypertensive heart and chronic kidney disease with heart failure and stage 1 through stage 4 chronic kidney disease, or unspecified chronic kidney disease; E11.22 Type 2 diabetes mellitus with diabetic chronic kidney disease; N18.30 Chronic kidney disease, stage 3 unspecified; I50.9 Heart failure, unspecified; J44.9 Chronic obstructive pulmonary disease, unspecified; I48.91 Unspecified atrial fibrillation; I25.10 Atherosclerotic heart disease of native coronary artery without angina pectoris; E03.9 Hypothyroidism, unspecified; Z68.27 Body mass index [BMI] 27.0-27.9, adult; Z79.01 Long term (current) use of anticoagulants; Z79.82 Long term (current) use of aspirin; Z79.4 Long term (current) use of insulin; Z79.890 Hormone replacement therapy; Z79.899 Other long term (current) drug therapy; Z88.5 Allergy status to narcotic agent
CPT/HCPCS: 71046; 80053; 85025; 93005; 93010; 99284-25

== ENCOUNTER 2024-08-11 10:04 | Inpatient (IN) | payer MEDICARE, OTHER ==
[2024-08-11] VITALS (14 sets, daily range): BP systolic 97–130; BP diastolic 62–111
[~2024-08-11] VITALS: Ht 185.4 cm; Wt 103.1 kg
[2024-08-11] MEDS ORDERED: NS 1,000 ML IV SCH ×2 (10:15→12:55)
[2024-08-11 10:28] LABS: BASOPHILS ABSOLUTE AUTO 0.04 K/mm3 (0.00-0.23); BASOPHILS PERCENT AUTO 0 % (0-2); EOSINOPHILS ABSOLUTE AUTO 0.22 K/mm3 (0.00-0.68); EOSINOPHILS PERCENT AUTO 2 % (0-6); Hematocrit 46.1 % (37.0-53.0); Hemoglobin 14.8 g/dL (13.5-17.5); IMMATURE GRAN ABSOLUTE AUTO 0.09 K/mm3 (0.00-0.10); IMMATURE GRAN PERCENT AUTO 1 % (0-1); LYMPHOCYTES ABSOLUTE AUTO 0.71 K/mm3 (0.84-5.20); LYMPHOCYTES PERCENT AUTO 6 % (21-46); MONOCYTES ABSOLUTE AUTO 0.75 K/mm3 (0.16-1.47); MONOCYTES PERCENT AUTO 6 % (4-13); Mean Corpuscular HGB Conc 32.1 g/dL (31.5-36.5); Mean Corpuscular Volume 87 fL (80-100); Mean Platelet Volume 9.1 fL (9.1-12.4); NEUTROPHILS ABSOLUTE AUTO 10.96 K/mm3 (1.96-9.15); NEUTROPHILS PERCENT AUTO 86 % (41-73); Platelet Count 271 K/mm3 (150-400); RDW Coefficient Variation 15.5 % (11.7-14.2); RDW Standard Deviation 49.6 fL (35.1-46.3); Red Blood Cell Count 5.29 M/mm3 (4.30-5.90); White Blood Cell Count 12.77 K/mm3 (4.00-11.30)
[2024-08-11 10:29] LABS: Base Excess Venous -1.9 mmol/L; PCO2 Venous 39.2 mmHg (38-42); pH Blood Venous 7.38 (7.34-7.37)
[2024-08-11] MEDS ORDERED: CefTRIAXone Sodium 1,000 MG in NS 50 ML IV ONE (11:00)
[2024-08-11] MEDS ORDERED: Azithromycin 500 MG in NS 250 ML IV ONE (11:00)
[2024-08-11 11:06] LABS: Albumin, Blood 2.1 g/dL (3.4-5.0); Albumin/Globulin Ratio 0.4 (0.8-1.8); Bilirubin, Total 0.5 mg/dL (0.1-1.0); Calcium, Blood 8.6 mg/dL (8.5-10.1); Creatinine, Blood 1.61 mg/dL (0.60-1.20); Potassium, Blood 5.9 mmol/L (3.5-5.5); Total Protein, Blood 7.1 g/dL (6.4-8.2)
[2024-08-11 11:09] LABS: Beta-hydroxybutyrate 1.4 mg/dL (0.2-2.8); Magnesium, Blood 2.7 mg/dL (1.6-2.4)
[2024-08-11 11:21] LABS: Source, Urine Straight Cath
[2024-08-11 11:25] LABS: Appearance, Urine Clear (Clear); Bilirubin, Urine Neg (Neg); Blood, Urine 1+ (Neg); Color, Urine Yellow (P-Yellow); Glucose Qualitative, Urine 4+ (Neg); Ketones, Urine Neg (Neg); Leukocyte Esterase, Urine Neg (Neg); Nitrite, Urine Neg (Neg); Protein, Urine Neg (Neg); Specific Gravity, Urine 1.015 (1.003-1.022); Urobilinogen, Urine NORM (Normal)
[2024-08-11 11:31] LABS: Red Blood Cells, Urine 0-2 /hpf (0-2); White Blood Cells, Urine 0-2 /hpf (0-5)
[2024-08-11 11:32] LABS: Bacteria Rare /hpf; Renal Epithelial Rare /hpf (0-Rare); Squamous Epithelial Cells Not Seen /hpf (Few)
[2024-08-11] MEDS ORDERED: Albuterol 2.5 MG/3 ML VIAL INH SCH (11:40)
[2024-08-11] MEDS ORDERED: Insulin Regular 100 Unit/ML 1ML Dose IV ONE (11:40)
[2024-08-11] MEDS ORDERED: Sodium Bicarb 8.4% 1 MEQ/ML 50 ML Vial IV ONE (11:40)
[2024-08-11] MEDS ORDERED: Dextrose 50% 50 ML Syringe IV ONE (11:40)
[2024-08-11] MEDS ORDERED: HYDROcodone 5-APAP 325 TAB PO PRN (12:55)
[2024-08-11] MEDS ORDERED: FLU VACC TS2024-25(6MOS UP)/PF 45 MCG/0.5 ML SYRINGE IM ONE (13:00)
[2024-08-11] MEDS ORDERED: Insulin Human Regular 100 UNIT in NS 100 ML IV SCH (13:00)
[2024-08-11] MEDS ORDERED: Metoclopramide HCl 5MG / ML 2ML Vial IV PRN (13:00)
[2024-08-11] MEDS ORDERED: HydrALAZINE HCl 25 MG Tab PO SCH (14:00)
[2024-08-11 16:02] LABS: Bun/Creatinine Ratio 43.4 (12.0-20.0); Calcium, Blood 7.8 mg/dL (8.5-10.1); Creatinine, Blood 1.59 mg/dL (0.60-1.20); Potassium, Blood 4.5 mmol/L (3.5-5.5)
[2024-08-11] MEDS ORDERED: CefTRIAXone Sodium 1,000 MG in NS 100 ML IV ONE (17:15)
[2024-08-11] MEDS ORDERED: NS 1,000 ML IV ONE (17:15)
[2024-08-11] MEDS ORDERED: Albuterol 2.5 MG/3 ML VIAL INH PRN (17:55)
--- NOTE | 2024-08-11 18:07 | NUR ---
INBOUND TELEMARKETER / SHIFT SUMMARY PT ARRIVED TO ICU FROM ED AT 1523 VIA GURNEY ACCOMPANIED BY RN ON CONTINUOUS CARDIAC MONITORING. PT IS PLEASANTLY CONFUSED, ORIENTED X SELF BUT NOT PLACE OR TIME. HAS HX OF DEMENTIA AND THIS IS PT'S NEURO BASELINE. SR W/BBB, OCCAS PVC'S, BP WNL WITH SBP 120'S TO 130'S. LUNGS CLEAR/DIM BASES, O2 SAT 95% ON ROOM AIR, OCCASIONAL LOOSE NON-PRODUCTIVE COUGH. NORMOACTIVE BS IN ALL 4 QUADRANTS, PASSING FLATUS, NO BM. PT IS INCONTINENT OF URINE, BRIEF CHANGED AND SKIN CLEANSED UPON ARRIVAL TO ICU. SKIN WITH BLANCHABLE REDNESS TO BILAT ELBOWS AND HEELS, PREVENTATIVE MEPILEX DRESSINGS PLACED TO ALL 4 SITES. PT HAS HEALING SCABS TO RIGHT KNEE, DOES NOT KNOW HOW THEY OCCURED. PIV X1, FLUSHES AND WITHDRAWS BLOOD WELL. NS @ 75 ML/HR INFUSING. BLOOD GLUCOSE IS 302 ON LAST CHECK AND CONTINUES TO DECREASE WITHOUT INSULIN DRIP. CALL PLACED TO DR. ROMERO TO REPORT CRITICAL LACTATE OF 3.3 AND DISCUSS PLAN FOR HYPERGLYCEMIA, POC BLOOD GLUCOSE CHECKS CHANGED TO AC/HS WITH A ONE TIME CHECK AT 0100, INSULIN DRIP D/C'D AND 1 LITER FLUID BOLUS ORDERED AND INITIATED. PT DENIES ANY PAIN. C/O BEING COLD, COVERED WITH WARM BLANKETS. NO FAMILY AT BEDSIDE, BROTHER LISTED POINT OF CONTACT, PT STATES BROTHER WAS UPDATED BY COMMUNICATIONS CONTROLLER OF NEED FOR HOSPITALIZATION. ADMISSION HISTORY AND ASSESSMENT COMPLETED UPON ARRIVAL. POC ONGOING.
[2024-08-11] MEDS ORDERED: HydrALAZINE HCl 25 MG Tab PO PRN (20:00)
[2024-08-11] MEDS ORDERED: Famotidine 20 MG Tab PO SCH (21:00)
[2024-08-11] MEDS ORDERED: Sennosides 8.6 MG Tab PO SCH (21:00)
[2024-08-11] MEDS ORDERED: Insulin Glargine-Yfgn 100 Unit/mL 3 ML SYR SC SCH (21:00)
[2024-08-11] MEDS ORDERED: Apixaban 5 MG Tab PO SCH (21:00)
[2024-08-11] MEDS ORDERED: Mometasone Furoate Inhaler 220 mcg 14 ACT INH SCH (21:00)
[2024-08-11] MEDS ORDERED: Insulin Human Lispro 100 Units/ML 3ML Syringe SC SCH (21:00)
[2024-08-11 21:02] LABS: Influenza A, PCR NEGATIVE (NEGATIVE); Influenza B, PCR NEGATIVE (NEGATIVE); Resp Syncytial Virus, PCR NEGATIVE (NEGATIVE)
[2024-08-11 22:06] LABS: SARS-Cov-2 (COVID-19) PCR, MMC POSITIVE (NEGATIVE)
[2024-08-12] VITALS: BP 105/64
[2024-08-12 03:32] LABS: Base Excess Venous -1.3 mmol/L; Bicarbonate Venous 22.4 mmol/L (24.0-30.0); PCO2 Venous 44.2 mmHg (38-42); pH Blood Venous 7.35 (7.34-7.37)
[2024-08-12 03:33] LABS: BASOPHILS ABSOLUTE AUTO 0.07 K/mm3 (0.00-0.23); BASOPHILS PERCENT AUTO 1 % (0-2); EOSINOPHILS ABSOLUTE AUTO 0.22 K/mm3 (0.00-0.68); EOSINOPHILS PERCENT AUTO 2 % (0-6); Hematocrit 44.2 % (37.0-53.0); Hemoglobin 14.2 g/dL (13.5-17.5); IMMATURE GRAN ABSOLUTE AUTO 0.09 K/mm3 (0.00-0.10); IMMATURE GRAN PERCENT AUTO 1 % (0-1); LYMPHOCYTES ABSOLUTE AUTO 0.97 K/mm3 (0.84-5.20); LYMPHOCYTES PERCENT AUTO 8 % (21-46); MONOCYTES ABSOLUTE AUTO 0.66 K/mm3 (0.16-1.47); MONOCYTES PERCENT AUTO 6 % (4-13); Mean Corpuscular HGB 28.1 pg (26.0-34.0); Mean Corpuscular HGB Conc 32.1 g/dL (31.5-36.5); Mean Corpuscular Volume 88 fL (80-100); Mean Platelet Volume 8.8 fL (9.1-12.4); NEUTROPHILS ABSOLUTE AUTO 9.47 K/mm3 (1.96-9.15); NEUTROPHILS PERCENT AUTO 83 % (41-73); Platelet Count 223 K/mm3 (150-400); RDW Coefficient Variation 15.5 % (11.7-14.2); RDW Standard Deviation 49.9 fL (35.1-46.3); Red Blood Cell Count 5.05 M/mm3 (4.30-5.90); White Blood Cell Count 11.48 K/mm3 (4.00-11.30)
[2024-08-12 03:59] LABS: Albumin/Globulin Ratio 0.4 (0.8-1.8); Bilirubin, Total 0.2 mg/dL (0.1-1.0); Bun/Creatinine Ratio 37.2 (12.0-20.0); Calcium, Blood 8.3 mg/dL (8.5-10.1); Creatinine, Blood 1.37 mg/dL (0.60-1.20); Globulin, Blood 4.5 g/dL (2.2-4.0); Potassium, Blood 5.1 mmol/L (3.5-5.5); Total Protein, Blood 6.5 g/dL (6.4-8.2)
[2024-08-12 04:00] VITALS: BP 127/67
[2024-08-12 06:26] VITALS: BP 137/76
[2024-08-12 08:25] VITALS: BP 140/84
[2024-08-12] MEDS ORDERED: Metoprolol Succinate 50 MG TABCR PO SCH (09:00)
[2024-08-12] MEDS ORDERED: Azithromycin 500 MG in NS 250 ML IV SCH (09:00)
[2024-08-12] MEDS ORDERED: Empagliflozin 10 MG TAB PO SCH (09:00)
[2024-08-12] MEDS ORDERED: CefTRIAXone Sodium 2,000 MG in NS 100 ML IV SCH (09:00)
[2024-08-12] MEDS ORDERED: Amiodarone HCl 200 MG Tab PO SCH (09:00)
[2024-08-12] MEDS ORDERED: Apixaban 5 MG Tab PO SCH (09:00)
[2024-08-12 12:37] VITALS: BP 148/87
[2024-08-12 17:46] VITALS: BP 151/81
--- NOTE | 2024-08-12 17:48 | NUR ---
ASSUMED CARE OF PT AT 0700 THIS AM. PT ORIENTED TO HIM SELF ONLY, REMOVED HIS R FA IV. NEW IV PLACED AND PT RECEIVED IV ABX PER MD ORDERS. IVF DISCONTINUED. PT HAS HAD NO COMPLAINTS AND SEEMS TO HAVE IMPROVED MENTATION THIS EVENING. THIS RN SPOKE WITH PT'S BROTHER PATT VIA TELEPHONE THIS AFTERNOON FOR AN UPDATE. NO CONCERNS THIS SHIFT. PT IS RESTING IN BED, WATCHING TV. CALM, COOPERATIVE AND INTERACTIVE WITH STAFF. BED ALARM ON FOR SAFETY AND CALL LIGHT IN REACH. WILL CONTINUE TO MONITOR AND GIVE REPORT TO NOC SHIFT RN.
--- NOTE | 2024-08-12 22:15 | NUR ---
ASSUMPTION OF CARE: PATIENT IS A/O X 1. TELEMETRY IN PLACE. 1L VIA NC. USES THE CALL LIGHT OCCASSIONALLY, BED ALRM FOR SAFETY DUE TO MODERATE GENERALIZED WEAKNESS AND BASELINE MENTATION. NO ACUTE CONCERNS FOR PATIENT VSS. NO ACUTE DISTRESS. IMPROVING MENTATION FROM THIS AM WHEN TRANSFERED AND SETTLE AT 0630. NO CONCERNS FROM THIS RN.
[2024-08-13 00:08] VITALS: BP 137/80
[2024-08-13 03:07] VITALS: BP 123/89
[2024-08-13 04:54] LABS: BASOPHILS ABSOLUTE AUTO 0.07 K/mm3 (0.00-0.23); BASOPHILS PERCENT AUTO 1 % (0-2); EOSINOPHILS ABSOLUTE AUTO 0.35 K/mm3 (0.00-0.68); EOSINOPHILS PERCENT AUTO 3 % (0-6); Hematocrit 44.5 % (37.0-53.0); Hemoglobin 13.9 g/dL (13.5-17.5); IMMATURE GRAN ABSOLUTE AUTO 0.13 K/mm3 (0.00-0.10); IMMATURE GRAN PERCENT AUTO 1 % (0-1); LYMPHOCYTES ABSOLUTE AUTO 0.95 K/mm3 (0.84-5.20); LYMPHOCYTES PERCENT AUTO 9 % (21-46); MONOCYTES ABSOLUTE AUTO 0.61 K/mm3 (0.16-1.47); MONOCYTES PERCENT AUTO 6 % (4-13); Mean Corpuscular HGB 27.5 pg (26.0-34.0); Mean Corpuscular HGB Conc 31.2 g/dL (31.5-36.5); Mean Corpuscular Volume 88 fL (80-100); Mean Platelet Volume 8.6 fL (9.1-12.4); NEUTROPHILS ABSOLUTE AUTO 8.52 K/mm3 (1.96-9.15); NEUTROPHILS PERCENT AUTO 80 % (41-73); Platelet Count 234 K/mm3 (150-400); RDW Coefficient Variation 15.4 % (11.7-14.2); RDW Standard Deviation 49.5 fL (35.1-46.3); Red Blood Cell Count 5.06 M/mm3 (4.30-5.90); White Blood Cell Count 10.63 K/mm3 (4.00-11.30)
[2024-08-13 05:39] LABS: Bun/Creatinine Ratio 25.4 (12.0-20.0); Calcium, Blood 8.5 mg/dL (8.5-10.1); Creatinine, Blood 1.22 mg/dL (0.60-1.20); Potassium, Blood 4.6 mmol/L (3.5-5.5)
--- NOTE | 2024-08-13 05:55 | NUR ---
eos: ONLY CHANGES FROM ASSUMPTION IS PATIENT REQUIRED 1L-2L WHILE SLEEPING DUE TO PROBABLE SLEEP APNEA, NO CARDIAC EVENTS, DENIES CHSET PAIN PRESSURE OR SOB. PATIENT SLEEP WELL THROUGH THE NIGHT. MULTIPLE BRIEF CHANGES AND Q2 REPOSITIONS. NO ACUTE CONCERNS, POTENTIAL STATUS CHANGE VSS.
[2024-08-13 08:20] VITALS: BP 166/81
--- NOTE | 2024-08-13 09:42 | NUR ---
ASSUMED CARE OF PT AT 0700 THIS AM. PT IS AWAKE AND ALERT, IMPROVED MENTATION COMPARED TO YESTERDAY. PT NOTED TO HAVE A BLOODY NOSE, 02 VIA NC REMOVED AND SPO2 REMAINED > 95% ON RA. PT INSTRUCTED TO HOLD PRESSURE ON BRIDGE OF NOSE AND NOSE BLEED RESOLVED SHORTLY AFTER. PER DR ROMERO, PT IS NOW MEDICAL NO TELE STATUS. PT HAS NO COMPLAINTS THIS AM. BED ALARM ON FOR SAFETY. PT DOES NOT ALWAYS REMEMBER TO USE HIS CALL LIGHT FOR NEEDS. WILL CONTINUE TO MONITOR.
[2024-08-13 12:50] VITALS: BP 109/71
--- NOTE | 2024-08-13 12:52 | NUR ---
TO ROOM FROM U 20 AT 1245. REPORT FROM AUTO BODY REPAIR TEACHER.
[2024-08-13 16:19] VITALS: BP 121/77
--- NOTE | 2024-08-13 17:57 | NUR ---
PT PLEASANT SINCE TRANSFER TO THIS FLOOR FROM U. PT A/O X2-3 DENIES PAIN THIS AFT. LUNGS DIM AND FINE CRACKLES IN BASES. ON R.A AT THIS TIME. DID TALK SOME ABOUT HIS LIFE [employer]. STATES HE REALLY LIKED THAT. CONTINUES TO BE ABLE TO FOLLOW INSTRUCTIONS, BUT QUITE FORGETFUL. NO OTHER NEW CONCERNS NOTED THIS SHIFT. BED IN LOW POSITION, CALL LITE IN REACH, BED ALARM ON FOR SAFETY
[2024-08-13 19:44] VITALS: BP 115/77
[2024-08-13] MEDS ORDERED: Famotidine 20 MG Tab PO SCH (21:00)
[2024-08-14 03:04] VITALS: BP 143/94
--- NOTE | 2024-08-14 06:27 | NUR ---
SHIFT SUMMARY PT IS ALERT AND ORIENTED TIMES 2-3. PT HAD O2 ON AND OFF THROUGH THE NIGHT. PT WAS INCONTINENT OF STOOL AND URINE ONCE. PT WAS COOPERATIVE WITH CARE. CALL LIGHT WITHIN REACH, RAILS TIMES 2, AND BED IN LOW POSITION.
[2024-08-14 07:05] VITALS: BP 122/90
[2024-08-14] MEDS ORDERED: CEFP200 PO (11:35)
--- NOTE | 2024-08-14 11:57 | NUR ---
DISCHARGE SUMMARY PATIENT SET TO DISCHARGE BACK TO [facility]. IV REMOVED WITHOUT COMPLICATION. NO C/O PAIN ON DISCHARGE. A/O X2. LARGE BM THIS SHIFT, MIXED CONTINENCE FOR URINE. ON 3 LITERS NC. REPORT CALLED TO [facility]. DISCHARGE PACKET WILL BE SENT WITH [facility].
--- NOTE | 2024-08-14 13:05 | NUR ---
PATIENT DISCHARGED WITH EMS TRANSPORT TO [facility].
== END 2024-08-14 12:58 | DRG 871 ==
LOC: ER 10:04 → PCU 12:53 → ICUE 15:23 → PCU 08-12 06:21 → MEDS 08-13 12:43 → ENPENDDIS 08-14 11:51 → MEDS 08-14 12:58
PROVIDERS: Nurse Practitioner Acute Care; Student in an Organized Health Care Education/Training Program; ADMIT Internal Medicine
DX: A41.9 Sepsis, unspecified organism (principal); G92.8 Other toxic encephalopathy; I77.72 Dissection of iliac artery; J18.9 Pneumonia, unspecified organism; I50.42 Chronic combined systolic (congestive) and diastolic (congestive) heart failure; J44.0 Chronic obstructive pulmonary disease with (acute) lower respiratory infection; F03.918 Unspecified dementia, unspecified severity, with other behavioral disturbance; I13.0 Hypertensive heart and chronic kidney disease with heart failure and stage 1 through stage 4 chronic kidney disease, or unspecified chronic kidney disease; J96.11 Chronic respiratory failure with hypoxia; Z28.89 Immunization not carried out for other reason; E11.65 Type 2 diabetes mellitus with hyperglycemia; I25.10 Atherosclerotic heart disease of native coronary artery without angina pectoris; J84.10 Pulmonary fibrosis, unspecified; Z99.81 Dependence on supplemental oxygen; E11.22 Type 2 diabetes mellitus with diabetic chronic kidney disease; E66.01 Morbid (severe) obesity due to excess calories; E03.9 Hypothyroidism, unspecified; I71.40 Abdominal aortic aneurysm, without rupture, unspecified; N18.31 Chronic kidney disease, stage 3a; I72.4 Aneurysm of artery of lower extremity; I45.10 Unspecified right bundle-branch block; I48.0 Paroxysmal atrial fibrillation; E87.5 Hyperkalemia; Z86.16 Personal history of COVID-19; Z98.61 Coronary angioplasty status; Z88.5 Allergy status to narcotic agent; Z79.899 Other long term (current) drug therapy; Z79.4 Long term (current) use of insulin; Z79.82 Long term (current) use of aspirin; Z79.84 Long term (current) use of oral hypoglycemic drugs; Z90.49 Acquired absence of other specified parts of digestive tract; Z98.890 Other specified postprocedural states; Z79.890 Hormone replacement therapy
CPT/HCPCS: 0241U; 36415; 51701; 71045; 80048; 80053; 81001; 82010; 82803; 82947; 83605; 83735; 84145; 84484; 85025; 87040; 93005; 93010; 94640; 94644; 94664; 94760; 96360-59; 99285-25; A9270; J0456; J0696; J1815; J7030; J7050

== ENCOUNTER 2025-01-04 09:26 | Inpatient (IN) | payer MEDICARE, OTHER ==
[~2025-01-04] VITALS: Ht 185.4 cm; Wt 100.4 kg
[~2025-01-04 09:26] MED LIST changes: -ARNUITY ELLIP100 MCG; +ARNUITY ELLIP100 MCG INH; -Amiodarone HCl200 MG; +CEFP200 PO; +ELIQUIS2.5 MG PO; -SPIR25
[2025-01-04 09:42] LABS: BASOPHILS ABSOLUTE AUTO 0.07 K/mm3 (0.00-0.23); BASOPHILS PERCENT AUTO 1 % (0-2); EOSINOPHILS ABSOLUTE AUTO 0.44 K/mm3 (0.00-0.68); EOSINOPHILS PERCENT AUTO 4 % (0-6); Hematocrit 49.9 % (37.0-53.0); Hemoglobin 16.2 g/dL (13.5-17.5); IMMATURE GRAN ABSOLUTE AUTO 0.08 K/mm3 (0.00-0.10); IMMATURE GRAN PERCENT AUTO 1 % (0-1); LYMPHOCYTES ABSOLUTE AUTO 2.21 K/mm3 (0.84-5.20); LYMPHOCYTES PERCENT AUTO 22 % (21-46); MONOCYTES ABSOLUTE AUTO 0.61 K/mm3 (0.16-1.47); MONOCYTES PERCENT AUTO 6 % (4-13); Mean Corpuscular HGB 28.6 pg (26.0-34.0); Mean Corpuscular HGB Conc 32.5 g/dL (31.5-36.5); Mean Corpuscular Volume 88 fL (80-100); Mean Platelet Volume 8.8 fL (9.1-12.4); NEUTROPHILS ABSOLUTE AUTO 6.89 K/mm3 (1.96-9.15); NEUTROPHILS PERCENT AUTO 67 % (41-73); Platelet Count 200 K/mm3 (150-400); RDW Coefficient Variation 16.9 % (11.7-14.2); RDW Standard Deviation 53.3 fL (35.1-46.3); Red Blood Cell Count 5.66 M/mm3 (4.30-5.90)
[2025-01-04] MEDS ORDERED: BASAGLAR K100 UNIT/1 SC (09:54)
[2025-01-04] MEDS ORDERED: LISI5 PO (09:55)
[2025-01-04] MEDS ORDERED: DAPAGLIFLOZIN10 MG PO (09:56)
[2025-01-04] MEDS ORDERED: METF500 PO (09:56)
[2025-01-04] MEDS ORDERED: NS 1,000 ML IV SCH ×3 (10:00→11:50)
[2025-01-04 10:11] LABS: Albumin, Blood 3.5 g/dL (3.4-5.0); Bilirubin, Total 0.5 mg/dL (0.1-1.0); Bun/Creatinine Ratio 33.2 (12.0-20.0); Calcium, Blood 8.9 mg/dL (8.5-10.1); Creatinine, Blood 2.47 mg/dL (0.60-1.20); Globulin, Blood 3.5 g/dL (2.2-4.0); Potassium, Blood 5.4 mmol/L (3.5-5.5)
[2025-01-04] MEDS ORDERED: FLU VACC TS2024-25(6MOS UP)/PF 45 MCG/0.5 ML SYRINGE IM SCH (11:50)
[2025-01-04] MEDS ORDERED: Calcium Gluconate 10% 100 MG/ML INJ IV ONE (11:50)
[2025-01-04] MEDS ORDERED: Piperacillin/Tazobactam Sod 2.25 GM in NS 50 ML IV SCH (12:00)
[2025-01-04] MEDS ORDERED: Lactated Ringer's 1,000 ML IV ONE (12:20)
[2025-01-04] MEDS ORDERED: Acetaminophen 325 MG TABLET PO PRN (12:50)
[2025-01-04] MEDS ORDERED: OxyCODONE HCL 5 MG TAB PO PRN (12:50)
[2025-01-04] MEDS ORDERED: Sennosides 8.6 MG Tab PO PRN (12:55)
[2025-01-04] MEDS ORDERED: Mometasone Furoate Inhaler 220 mcg 14 ACT INH SCH (12:55)
[2025-01-04 13:52] LABS: Adenovirus Not Detected (NOT DETECT); Bordetella pertussis Not Detected (NOT DETECT); Chlamydophila pneumoniae Not Detected (NOT DETECT); Coronavirus 229E Not Detected (NOT DETECT); Coronavirus HKU1 Not Detected (NOT DETECT); Coronavirus NL63 Not Detected (NOT DETECT); Coronavirus OC43 Not Detected (NOT DETECT); Human Metapneumovirus Not Detected (NOT DETECT); Human Rhinovirus/Enterovirus Not Detected (NOT DETECT); Influenza A/2009-H1 Not Detected (NOT DETECT); Influenza A/H1 Not Detected (NOT DETECT); Influenza A/H3 Not Detected (NOT DETECT); Influenza B Not Detected (NOT DETECT); Mycoplasma pneumoniae Not Detected (NOT DETECT); Parainfluenza Virus 1 Not Detected (NOT DETECT); Parainfluenza Virus 2 Not Detected (NOT DETECT); Parainfluenza Virus 3 Not Detected (NOT DETECT); Parainfluenza Virus 4 Not Detected (NOT DETECT); Respiratory Syncytial Virus Not Detected (NOT DETECT); SARS-Cov-2 (COVID-19), BioFire Not Detected (NOT DETECT)
--- NOTE | 2025-01-04 14:48 | NUR ---
Telephone report from DEBRA Pitts in ED. Anticipate arrival of pt to PCU 9 shortly.
[2025-01-04 15:20] VITALS: BP 133/95
--- NOTE | 2025-01-04 15:32 | NUR ---
Pt arrived to PCU 9. He is alert, oriented to person, place, date and ongoing events. He is in a lot of pain in his chest, with every deep breath, hiccup and cough he winces and groans and states that it is very painful. He does not have recall of events leading up to his admission via ED today. Vital signs stable. He is 99-100 % spo2 on room air. Lung sounds are coarse anteriorly and has occasional moist cough. Heart sounds regular; atrial fibrillation 80 bpm with very wide QRS noted by telemetry. NO edema noted. Abrasion of the right knee noted and also in the sulcus of the left groin. Distal pulses are palpable but feet are cyanotic and cool bilaterally. Pt states numbness of soles of feet due to "diabetic neuropathy".
--- NOTE | 2025-01-04 15:40 | NUR ---
aerospace technician here to start echocardiogram.
--- NOTE | 2025-01-04 17:17 | NUR ---
Pt has been sleeping on his left side since the echocardiogram was completed. SPo2 is 99% on room air.
--- NOTE | 2025-01-04 18:34 | NUR ---
Pt is awake, trying to eat but his hiccups are too painful and so he was given oxycodone and sennokot and softer foods to make it easier and less painful.
[2025-01-04 20:48] VITALS: BP 121/86
[2025-01-04] MEDS ORDERED: Apixaban 5 MG Tab PO SCH (21:00)
[2025-01-04] MEDS ORDERED: Insulin Glargine-Yfgn 100 Unit/mL 3 ML SYR SC SCH (21:00)
[2025-01-04] MEDS ORDERED: Docusate Sodium 100 MG Cap PO SCH (21:00)
[2025-01-04 23:04] VITALS: BP 115/93
[2025-01-05] MEDS ORDERED: Cyclobenzaprine HCl 10 MG Tab PO ONE (02:45)
[2025-01-05] MEDS ORDERED: OxyCODONE HCL 5 MG TAB PO ONE (02:45)
[2025-01-05 03:18] VITALS: BP 147/96
[2025-01-05 04:35] LABS: BASOPHILS ABSOLUTE AUTO 0.07 K/mm3 (0.00-0.23); BASOPHILS PERCENT AUTO 1 % (0-2); EOSINOPHILS ABSOLUTE AUTO 0.15 K/mm3 (0.00-0.68); EOSINOPHILS PERCENT AUTO 1 % (0-6); Hemoglobin 15.8 g/dL (13.5-17.5); IMMATURE GRAN ABSOLUTE AUTO 0.04 K/mm3 (0.00-0.10); IMMATURE GRAN PERCENT AUTO 0 % (0-1); LYMPHOCYTES ABSOLUTE AUTO 1.19 K/mm3 (0.84-5.20); LYMPHOCYTES PERCENT AUTO 11 % (21-46); MONOCYTES ABSOLUTE AUTO 0.87 K/mm3 (0.16-1.47); MONOCYTES PERCENT AUTO 8 % (4-13); Mean Corpuscular HGB 28.5 pg (26.0-34.0); Mean Corpuscular HGB Conc 32.2 g/dL (31.5-36.5); Mean Corpuscular Volume 88 fL (80-100); Mean Platelet Volume 9.6 fL (9.1-12.4); NEUTROPHILS ABSOLUTE AUTO 8.31 K/mm3 (1.96-9.15); NEUTROPHILS PERCENT AUTO 78 % (41-73); Platelet Count 179 K/mm3 (150-400); RDW Coefficient Variation 16.5 % (11.7-14.2); RDW Standard Deviation 53.7 fL (35.1-46.3); Red Blood Cell Count 5.54 M/mm3 (4.30-5.90); White Blood Cell Count 10.63 K/mm3 (4.00-11.30)
[2025-01-05 05:04] LABS: Albumin, Blood 3.2 g/dL (3.4-5.0); Albumin/Globulin Ratio 0.9 (0.8-1.8); Bilirubin, Total 0.6 mg/dL (0.1-1.0); Bun/Creatinine Ratio 35.5 (12.0-20.0); C-REACTIVE PROTEIN, EXT RANGE 0.593 mg/dL (0.000-0.300); Creatinine, Blood 2.17 mg/dL (0.60-1.20); Globulin, Blood 3.4 g/dL (2.2-4.0); Potassium, Blood 5.4 mmol/L (3.5-5.5); Total Protein, Blood 6.6 g/dL (6.4-8.2)
--- NOTE | 2025-01-05 06:06 | NUR ---
SHIFT SUMMARY PT A/OX4, MAKES NEEDS KNOW, APPROPRIATE AFFECT. PT ENDORSES 9/10 CHEST PAIN HE STATES IS FROM CPR ADMINISTERED AT [facility]. ADMINISTERED OXYCODONE WITH LITTLE EFFECT. DR SORTO NOTIFIED AND TO BEDSIDE TO ASSESS PT. SEE NEW MED ORDERS. TROPONIN 233, INFORMED. NO NEW ORDERS AT THIS TIME. PT HAD TWO SMALL EPISODES OF INCONTINENCE THAT HE STATES IS NOT NORMAL FOR HIM. VSS, PT ON 4L NC WHILE SLEEPING, 2L NC WHILE AWAKE. PTS BROTHER CALLED, UPDATE GIVEN. HE REQUESTS NOTIFICATION OF CHANGE IN CONDITION, TRANSFER, OR DISCHARGE. [phone]
[2025-01-05] MEDS ORDERED: OxyCODONE HCL 5 MG TAB PO PRN (08:45)
--- NOTE | 2025-01-05 08:46 | NUR ---
Dr. Proctor was here to round on the patient; Pt had an xray of right knee and the chest at 3 or 4 am today, but it has not been read by the radiologist yet so no report is available on [facility]. New orders received for PT/OT, and medications. Possible discharge today back to [facility].
[2025-01-05 08:56] VITALS: BP 117/66
[2025-01-05] MEDS ORDERED: Amiodarone HCl 200 MG Tab PO SCH (09:00)
[2025-01-05] MEDS ORDERED: Enoxaparin 30 MG/0.3 ML SYR SC SCH (09:00)
[2025-01-05] MEDS ORDERED: Atorvastatin 40 MG Tab PO SCH (09:00)
[2025-01-05] MEDS ORDERED: Levothyroxine Sodium 0.075 MG Tab PO SCH (09:00)
[2025-01-05] MEDS ORDERED: Metoprolol Succinate 50 MG TABCR PO SCH (09:00)
--- NOTE | 2025-01-05 09:39 | NUR ---
Pt has not been able to void yet. He does not feel any urge. Bladder scan done as documented overnight output was 200 cc plus 1 incontinent void, uncertain amount. Scan showed 311 cc, but pt unable to void despite attempt to use urinal while lying in bed. Condom catheter was placed so that sterile urine collection could be done for UA ordered. Pt confirms that he often has urinary incontinence.
--- NOTE | 2025-01-05 11:28 | NUR ---
"Spritual Care | Pt. request Pt. is resting in bed but responded when I entered the room. Pt. quickly displayed evidence of sense of humor when he welcomed my visit. Facilitated a life review. Pt. displayed frustration when at times it was difficult for him to remember details. Listen with empathy and a calming presence. COnsidered matters of santana and belief. Overall, the Pt. displayed evidence of awareness and engagement. Pryaed with the Pt. Pt. verbalized gratitude for the spiritual care visit and welcomed this doll wig hackler to return."
[2025-01-05] MEDS ORDERED: Insulin Human Lispro 100 Units/ML 3ML Syringe SC SCH (11:30)
--- NOTE | 2025-01-05 12:11 | NUR ---
Pt was given a bed bath, then transferred from the bed to the recliner, painfully due to hiccups and activity causing sternal sharp pains with movement. He denied any discomfort in his right knee. No swelling and no ecchymosis noted of the BLE. Pt continues to state that he uses oxygen intermittently at baseline, despite [facility] telephone report to the contrary. He dropped his SPO2 to 86% while sitting on the side of the bed. Oxygen was applied 2 l/min He is 97% while on 2 l/min O2 delivery.
--- NOTE | 2025-01-05 12:15 | NUR ---
BLADDER SCAN 374. Pt has not voided yet this shift.
[2025-01-05 13:15] VITALS: BP 90/81
[2025-01-05 13:44] LABS: Source, Urine Clean Catch
[2025-01-05 13:50] LABS: Appearance, Urine Clear (Clear); Bilirubin, Urine Neg (Neg); Blood, Urine Neg (Neg); Color, Urine Yellow (P-Yellow); Glucose Qualitative, Urine 4+ (Neg); Ketones, Urine Neg (Neg); Leukocyte Esterase, Urine 2+ (Neg); Nitrite, Urine Neg (Neg); Protein, Urine 1+ (Neg); Urobilinogen, Urine NORM (Normal)
[2025-01-05 14:20] LABS: Hyaline Casts 0-2 /lpf (0-2); Red Blood Cells, Urine Not Seen /hpf (0-2)
[2025-01-05 14:21] LABS: Bacteria Mod /hpf; Squamous Epithelial Cells Few /hpf (Few)
[2025-01-05 18:01] VITALS: BP 113/79
--- NOTE | 2025-01-05 18:02 | NUR ---
The pt has been tired in between short activities such as OOB to recliner once, working with PT once, and meals of breakfast and dinner. He declined lunch. He has napped on and off during the day. Appetite is fair. No bowel movement today. Urinary output by condom catheter; pt states he cannot tell when he is voiding. PO fluid intake encouraged.
[2025-01-05 20:00] VITALS: BP 84/61
[2025-01-05 23:28] VITALS: BP 135/119
[2025-01-06 03:50] VITALS: BP 129/68
[2025-01-06 04:23] LABS: BASOPHILS ABSOLUTE AUTO 0.08 K/mm3 (0.00-0.23); BASOPHILS PERCENT AUTO 1 % (0-2); EOSINOPHILS ABSOLUTE AUTO 0.42 K/mm3 (0.00-0.68); EOSINOPHILS PERCENT AUTO 5 % (0-6); Hematocrit 45.9 % (37.0-53.0); Hemoglobin 14.8 g/dL (13.5-17.5); IMMATURE GRAN ABSOLUTE AUTO 0.03 K/mm3 (0.00-0.10); IMMATURE GRAN PERCENT AUTO 0 % (0-1); LYMPHOCYTES ABSOLUTE AUTO 1.44 K/mm3 (0.84-5.20); LYMPHOCYTES PERCENT AUTO 16 % (21-46); MONOCYTES ABSOLUTE AUTO 0.83 K/mm3 (0.16-1.47); MONOCYTES PERCENT AUTO 9 % (4-13); Mean Corpuscular HGB 28.8 pg (26.0-34.0); Mean Corpuscular HGB Conc 32.2 g/dL (31.5-36.5); Mean Corpuscular Volume 89 fL (80-100); Mean Platelet Volume 9.5 fL (9.1-12.4); NEUTROPHILS PERCENT AUTO 69 % (41-73); Platelet Count 162 K/mm3 (150-400); RDW Coefficient Variation 16.9 % (11.7-14.2); RDW Standard Deviation 55.2 fL (35.1-46.3); Red Blood Cell Count 5.14 M/mm3 (4.30-5.90)
[2025-01-06 04:47] LABS: Bun/Creatinine Ratio 31.2 (12.0-20.0); Calcium, Blood 8.4 mg/dL (8.5-10.1); Creatinine, Blood 2.76 mg/dL (0.60-1.20); Potassium, Blood 5.6 mmol/L (3.5-5.5)
--- NOTE | 2025-01-06 05:13 | NUR ---
PT ARRIVED FROM PCU TO ROOM 308 AT APPROXIMATELY 0330. HIS CHEST IS VERY PAINFUL WITH ANY SLIGHT MOVEMENTS. OXYCODONE WAS VERY EFFECTIVE FOR HIS PAIN PER PT REPORT. PT IS REQUIRING 2-4 L WITH SLEEP AND ROOM AIR-2L WHILE AWAKE. WILL NEED HOME O2 EVAL BEFORE DISCHARGE.
--- NOTE | 2025-01-06 05:44 | NUR ---
REPORT GIVEN TO WILLIE RICHARDSON ON MEDICAL FLOOR. PT TRANSFERRED TO MEDICAL FLOOR AT APPROX. 0330. PT ON RA, SATS ABOVE 95%, IN BRIEF. TRANSFERRED ON HOSPITAL BED WITH ALL BELONGINGS AND CHART. PT ALERT AND ORIENTED.
[2025-01-06 07:18] VITALS: BP 100/61
[2025-01-06] MEDS ORDERED: ANORO ELLIPTA1 EAC1 INH (11:16)
[2025-01-06 11:19] VITALS: BP 95/54
[2025-01-06] MEDS ORDERED: NS 1,000 ML IV SCH (15:55)
[2025-01-06 16:07] VITALS: BP 107/57
--- NOTE | 2025-01-06 19:17 | NUR ---
SHIFT SUMMARY: PT A&O X3. OCCASIONALLY FORGETFUL. PLEASANT AND COOPERATIVE. PLAN FOR D/C POSTPONED D/T INCREASED CREATININE. NS INFUSING @ 100/HR. PAIN MEDICATIONS PROVIDED X2. CONDOM CATH REMOVED D/T REDNESS. CALL LIGHT IN REACH. BED IN LOWEST POSITION.
[2025-01-06 19:28] VITALS: BP 106/71
[2025-01-07 00:24] VITALS: BP 90/76
[2025-01-07 04:27] VITALS: BP 92/72
[2025-01-07 05:31] LABS: BASOPHILS ABSOLUTE AUTO 0.06 K/mm3 (0.00-0.23); BASOPHILS PERCENT AUTO 1 % (0-2); EOSINOPHILS ABSOLUTE AUTO 0.36 K/mm3 (0.00-0.68); EOSINOPHILS PERCENT AUTO 5 % (0-6); Hematocrit 41.6 % (37.0-53.0); Hemoglobin 13.7 g/dL (13.5-17.5); IMMATURE GRAN ABSOLUTE AUTO 0.02 K/mm3 (0.00-0.10); IMMATURE GRAN PERCENT AUTO 0 % (0-1); LYMPHOCYTES ABSOLUTE AUTO 1.32 K/mm3 (0.84-5.20); LYMPHOCYTES PERCENT AUTO 18 % (21-46); MONOCYTES ABSOLUTE AUTO 0.66 K/mm3 (0.16-1.47); MONOCYTES PERCENT AUTO 9 % (4-13); Mean Corpuscular HGB 29.5 pg (26.0-34.0); Mean Corpuscular HGB Conc 32.9 g/dL (31.5-36.5); Mean Corpuscular Volume 90 fL (80-100); Mean Platelet Volume 9.4 fL (9.1-12.4); NEUTROPHILS ABSOLUTE AUTO 4.79 K/mm3 (1.96-9.15); NEUTROPHILS PERCENT AUTO 66 % (41-73); Platelet Count 140 K/mm3 (150-400); RDW Coefficient Variation 16.6 % (11.7-14.2); RDW Standard Deviation 54.1 fL (35.1-46.3); Red Blood Cell Count 4.65 M/mm3 (4.30-5.90); White Blood Cell Count 7.21 K/mm3 (4.00-11.30)
[2025-01-07 05:57] LABS: Bun/Creatinine Ratio 29.2 (12.0-20.0); Calcium, Blood 7.8 mg/dL (8.5-10.1); Creatinine, Blood 2.77 mg/dL (0.60-1.20); Potassium, Blood 5.1 mmol/L (3.5-5.5)
--- NOTE | 2025-01-07 07:37 | NUR ---
AUTOMATIC CENTRIFUGAL STATION OPERATOR SUMMARY PTS CHEST IS VERY PAINFUL WITH ANY SLIGHT MOVEMENTS. OXYCODONE WAS VERY EFFECTIVE FOR HIS PAIN PER PT REPORT. PT IS REQUIRING 2 L WITH SLEEP AND ROOM AIR-2L WHILE AWAKE. WILL NEED HOME O2 EVAL BEFORE DISCHARGE.
[2025-01-07 08:02] VITALS: BP 109/65
[2025-01-07 16:15] VITALS: BP 163/90
--- NOTE | 2025-01-07 19:24 | NUR ---
SHIFT SUMMARY: PT A&O X3-4. OCCASIONALLY FORGETFUL. NO ACUTE CHANGES THIS SHIFT. NS CONTINUES TO INFUSE @ 100/HR. NEPHROLOGY CONSULT COMPLETED WITH DR. VASQUEZ THIS EVENING VIA [facility]. SODIUM BICARB TO BE STARTED WITH EVENING SHIFT MEDICATIONS. PT REMAINS VERY PAINFUL IN RIBS/CHEST. RENAL US COMPLETED THIS SHIFT. CALL LIGHT IN REACH. BED IN LOWEST POSITION.
[2025-01-07 19:48] VITALS: BP 98/48
[2025-01-07] MEDS ORDERED: Sodium Bicarbonate 650 MG Tab PO SCH (21:00)
[2025-01-08 00:04] VITALS: BP 96/60
[2025-01-08 04:42] VITALS: BP 138/74
[2025-01-08 06:51] LABS: Albumin, Blood 2.8 g/dL (3.4-5.0); Anion Gap 8 mmol/L (3-11); Blood Urea Nitrogen 67 mg/dL (8-24); Bun/Creatinine Ratio 29.4 (12.0-20.0); CO2, Blood 22 mmol/L (21-32); Calcium, Blood 8.2 mg/dL (8.5-10.1); Chloride, Blood 114 mmol/L (98-108); Creatinine, Blood 2.28 mg/dL (0.60-1.20); Glomerular Filtration Rate 28 (60-); Glucose, Blood 87 mg/dL (70-99); Phosphorus, Blood 3.5 mg/dL (2.5-4.9); Potassium, Blood 4.8 mmol/L (3.5-5.5); Sodium, Blood 139 mmol/L (136-145)
[2025-01-08 07:11] VITALS: BP 120/85
--- NOTE | 2025-01-08 07:13 | NUR ---
REGIONAL ACCOUNT EXECUTIVE SUMMARY PT STILL REQUIRING 1.5-2L RELATED TO CHEST TRAUMA/CPR/CHEST PAIN. PT PULLED OUT 2 IVS OVERNIGHT. IVS REPLACED. PT HAS SCHEDULED METOPROLOL DAILY AND WE WILL ASK DAY SHIFT MD IF THIS NEEDS TO BE DISCONTINUED OR REDUCED BECAUSE PTS BLOOD PRESSURES AND HEART RATES HAVE BEEN RUNNING LOW FOR SEVERAL DAYS AND NEPHROLOGY SUSPECTS THAT SOME OF PTS CORBIN MAY BE DUE TO LOW BPS. PTS CHEST IS STILL VERY PAINFUL BUT PAIN CONTROLLED WITH OXYCODONE. PT WILL NEED A HOME O2 EVAL BEFORE DISCHARGE.
[2025-01-08 11:17] VITALS: BP 130/73
--- NOTE | 2025-01-08 17:14 | NUR ---
SHIFT SUMMARY: PT A&O X3-4. OCCASIONALLY FORGETFUL. PLEASNT AND COOPERATIVE. PT REMAINS PAINFUL IN RIBS/CHEST. IV PULLED IN LAC. NEW IV PLACED IN LWR. PT SPOKE WITH WATER PLANT OPERATOR DR. VASQUEZ VIA FACETIME THIS SHIFT. ORDER FOR BLADDER SCAN QSHIFT. BLADDER SCAN COMPLETED WITH AN AMOUNT OF 358mL. PT VOIDED SHORTLY AFTER WITH A POST VOID OF 55mL. SPOKE WITH DR. BARRY REGARDING TO D/C FLUIDS PER DR. VASQUEZ REQUEST. FLUIDS D/C THIS SHIFT. TELE IN PLACE RUNNING AFLUTTER BBB IN THE 60'S. CALL LIGHT IN REACH. BED IN LOWEST POSITION.
[2025-01-08 19:38] VITALS: BP 120/72
[2025-01-08 23:14] VITALS: BP 129/67
[2025-01-09 03:23] VITALS: BP 135/83
[2025-01-09 05:15] LABS: BASOPHILS ABSOLUTE AUTO 0.05 K/mm3 (0.00-0.23); BASOPHILS PERCENT AUTO 1 % (0-2); EOSINOPHILS ABSOLUTE AUTO 0.31 K/mm3 (0.00-0.68); EOSINOPHILS PERCENT AUTO 5 % (0-6); Hemoglobin 13.5 g/dL (13.5-17.5); IMMATURE GRAN ABSOLUTE AUTO 0.01 K/mm3 (0.00-0.10); IMMATURE GRAN PERCENT AUTO 0 % (0-1); LYMPHOCYTES ABSOLUTE AUTO 0.87 K/mm3 (0.84-5.20); LYMPHOCYTES PERCENT AUTO 15 % (21-46); MONOCYTES ABSOLUTE AUTO 0.55 K/mm3 (0.16-1.47); MONOCYTES PERCENT AUTO 10 % (4-13); Mean Corpuscular HGB 28.4 pg (26.0-34.0); Mean Corpuscular HGB Conc 32.1 g/dL (31.5-36.5); Mean Corpuscular Volume 88 fL (80-100); Mean Platelet Volume 9.2 fL (9.1-12.4); NEUTROPHILS ABSOLUTE AUTO 4.02 K/mm3 (1.96-9.15); NEUTROPHILS PERCENT AUTO 69 % (41-73); Platelet Count 149 K/mm3 (150-400); RDW Coefficient Variation 16.4 % (11.7-14.2); RDW Standard Deviation 53.3 fL (35.1-46.3); Red Blood Cell Count 4.75 M/mm3 (4.30-5.90); White Blood Cell Count 5.81 K/mm3 (4.00-11.30)
[2025-01-09 05:43] LABS: Albumin, Blood 2.7 g/dL (3.4-5.0); Anion Gap 8 mmol/L (3-11); Blood Urea Nitrogen 48 mg/dL (8-24); CO2, Blood 22 mmol/L (21-32); Calcium, Blood 8.3 mg/dL (8.5-10.1); Chloride, Blood 115 mmol/L (98-108); Creatinine, Blood 1.92 mg/dL (0.60-1.20); Glomerular Filtration Rate 35 (60-); Glucose, Blood 84 mg/dL (70-99); Phosphorus, Blood 2.7 mg/dL (2.5-4.9); Potassium, Blood 4.4 mmol/L (3.5-5.5); Sodium, Blood 141 mmol/L (136-145)
[2025-01-09 07:07] VITALS: BP 110/88
[2025-01-09] MEDS ORDERED: HUMALOG JU100 UNIT/2 (11:15)
--- NOTE | 2025-01-09 13:37 | NUR ---
dc summary pt dc this shift back to uvr. dc instruction gone over with pt whom stated understanding. this nurse has attempted to call and give report to uvr x2 with no response back left vm to call hospital back. hard script in yellow transfer packet. pt left via w/c by transportation services.
== END 2025-01-09 13:34 | disposition short-term general hospital (02) | DRG 682 ==
LOC: ER 09:26 → ERHOLD 09:27 → PCU 09:27 → ERHOLD 09:27 → PCU 15:10 → MEDS 01-05 15:15 → PCU 01-05 15:16 → MEDS 01-06 03:39
PROVIDERS: Emergency Medicine; Internal Medicine Nephrology; Student in an Organized Health Care Education/Training Program; ADMIT Internal Medicine
DX: N17.9 Acute kidney failure, unspecified (principal); I71.02 Dissection of abdominal aorta; I13.0 Hypertensive heart and chronic kidney disease with heart failure and stage 1 through stage 4 chronic kidney disease, or unspecified chronic kidney disease; I48.20 Chronic atrial fibrillation, unspecified; I50.42 Chronic combined systolic (congestive) and diastolic (congestive) heart failure; E87.20 Acidosis, unspecified; J93.9 Pneumothorax, unspecified; I25.10 Atherosclerotic heart disease of native coronary artery without angina pectoris; J44.89 Other specified chronic obstructive pulmonary disease; E11.22 Type 2 diabetes mellitus with diabetic chronic kidney disease; N18.30 Chronic kidney disease, stage 3 unspecified; E03.9 Hypothyroidism, unspecified; Z96.612 Presence of left artificial shoulder joint; I45.10 Unspecified right bundle-branch block; J84.10 Pulmonary fibrosis, unspecified; G30.9 Alzheimer's disease, unspecified; F02.80 Dementia in other diseases classified elsewhere, unspecified severity, without behavioral disturbance, psychotic disturbance, mood disturbance, and anxiety; E66.01 Morbid (severe) obesity due to excess calories; I87.2 Venous insufficiency (chronic) (peripheral); S80.211A Abrasion, right knee, initial encounter; E87.5 Hyperkalemia; R55 Syncope and collapse; Z68.27 Body mass index [BMI] 27.0-27.9, adult; Z87.891 Personal history of nicotine dependence; Z88.5 Allergy status to narcotic agent; Z79.890 Hormone replacement therapy; Z79.01 Long term (current) use of anticoagulants; Z79.85 Long-term (current) use of injectable non-insulin antidiabetic drugs; Z79.899 Other long term (current) drug therapy; Z79.891 Long term (current) use of opiate analgesic; Z99.81 Dependence on supplemental oxygen; Z90.49 Acquired absence of other specified parts of digestive tract; Z86.79 Personal history of other diseases of the circulatory system
CPT/HCPCS: 0202U; 36415; 71045; 71046; 73562-RT; 76770; 80048; 80053; 80069; 81001; 82550; 82947; 83880; 84146; 84300; 84484; 85025; 85379; 86140; 87040; 87086; 93005; 93010; 94640; 94664; 94760; 96361; 96374; 97110; 97162; 97165; 97530; 97535; 99285-25; A9270; C8929; G0378; J0612; J1815; J2543; J7030; J7120; Q9957

== ENCOUNTER 2025-05-15 13:40 | Inpatient (IN) | payer OTHER, MEDICARE ==
[~2025-05-15] VITALS: Ht 185.4 cm; Wt 101.5 kg
[~2025-05-15 13:40] MED LIST changes: +ANORO ELLIPTA1 EAC1 INH; +Acetaminophen500 MG PO; +BASAGLAR K100 UNIT/3 SC; +Cefadroxil500 MG PO; +DAPAGLIFLOZIN10 MG PO; +FARXIGA10 MG PO; +FURO20 PO; +HUMALOG JU100 UNIT/2; +LISI5 PO; +Lisinopril2.5 MG PO; +MELATONIN5 M1 PO; +OXYC5 PO
[2025-05-15 14:50] LABS: BASOPHILS ABSOLUTE AUTO 0.07 K/mm3 (0.00-0.23); BASOPHILS PERCENT AUTO 1 % (0-2); EOSINOPHILS ABSOLUTE AUTO 0.49 K/mm3 (0.00-0.68); EOSINOPHILS PERCENT AUTO 6 % (0-6); Hematocrit 50.8 % (37.0-53.0); Hemoglobin 15.3 g/dL (13.5-17.5); IMMATURE GRAN ABSOLUTE AUTO 0.02 K/mm3 (0.00-0.10); IMMATURE GRAN PERCENT AUTO 0 % (0-1); LYMPHOCYTES ABSOLUTE AUTO 1.25 K/mm3 (0.84-5.20); LYMPHOCYTES PERCENT AUTO 16 % (21-46); MONOCYTES ABSOLUTE AUTO 0.59 K/mm3 (0.16-1.47); MONOCYTES PERCENT AUTO 7 % (4-13); Mean Corpuscular HGB Conc 30.1 g/dL (31.5-36.5); Mean Corpuscular Volume 84 fL (80-100); NEUTROPHILS ABSOLUTE AUTO 5.50 K/mm3 (1.96-9.15); NEUTROPHILS PERCENT AUTO 69 % (41-73); NRBC ABSOLUTE 0.00 K/mm3 (0.00-0.02); NRBC Auto 0.0 /100 WBC (0.0-0.2); Platelet Count 207 K/mm3 (150-400); RDW Coefficient Variation 16.1 % (11.7-14.2); RDW Standard Deviation 49.2 fL (35.1-46.3)
[2025-05-15 15:30] LABS: Alanine Aminotransfer (ALT/SGP 21.0 U/L (12-78); Albumin, Blood 3.5 g/dL (3.4-5.0); Albumin/Globulin Ratio 0.9 (0.8-1.8); Anion Gap 7.0 mmol/L (3-11); Aspartate Aminotrans (AST/SGOT 17.0 U/L (12-37); Bilirubin, Total 0.6 mg/dL (0.1-1.0); Blood Urea Nitrogen 34.0 mg/dL (8-24); CO2, Blood 27.0 mmol/L (21-32); Calcium, Blood 9.2 mg/dL (8.5-10.1); Chloride, Blood 106.0 mmol/L (98-108); Creatinine, Blood 1.67 mg/dL (0.60-1.20); Globulin, Blood 3.7 g/dL (2.2-4.0); Glucose, Blood 150.0 mg/dL (70-99); Potassium, Blood 4.3 mmol/L (3.5-5.5); Sodium, Blood 136.0 mmol/L (136-145); Total Protein, Blood 7.2 g/dL (6.4-8.2)
[2025-05-15] MEDS ORDERED: CefTRIAXone Sodium 1,000 MG in NS 100 ML IV ONE (17:20)
[2025-05-15] MEDS ORDERED: CeFAZolin Sodium 1,000 MG in NS 50 ML IV SCH (18:00)
[2025-05-15 18:49] VITALS: BP 136/107
[2025-05-15 20:09] VITALS: BP 144/69
[2025-05-15] MEDS ORDERED: Lactobacil 2-S.Thermo-Bifido 1 1 Cap PO SCH (21:00)
[2025-05-15] MEDS ORDERED: NS 500 ML IV SCH (23:05)
[2025-05-16 04:44] VITALS: BP 127/78
[2025-05-16 04:56] LABS: BASOPHILS ABSOLUTE AUTO 0.09 K/mm3 (0.00-0.23); BASOPHILS PERCENT AUTO 1 % (0-2); EOSINOPHILS ABSOLUTE AUTO 0.61 K/mm3 (0.00-0.68); EOSINOPHILS PERCENT AUTO 7 % (0-6); Hematocrit 46.1 % (37.0-53.0); Hemoglobin 14.2 g/dL (13.5-17.5); IMMATURE GRAN ABSOLUTE AUTO 0.02 K/mm3 (0.00-0.10); IMMATURE GRAN PERCENT AUTO 0 % (0-1); LYMPHOCYTES ABSOLUTE AUTO 1.16 K/mm3 (0.84-5.20); LYMPHOCYTES PERCENT AUTO 13 % (21-46); MONOCYTES ABSOLUTE AUTO 0.69 K/mm3 (0.16-1.47); MONOCYTES PERCENT AUTO 8 % (4-13); Mean Corpuscular HGB Conc 30.8 g/dL (31.5-36.5); Mean Corpuscular Volume 84 fL (80-100); NEUTROPHILS ABSOLUTE AUTO 6.37 K/mm3 (1.96-9.15); NEUTROPHILS PERCENT AUTO 71 % (41-73); NRBC ABSOLUTE 0.00 K/mm3 (0.00-0.02); NRBC Auto 0.0 /100 WBC (0.0-0.2); Platelet Count 187 K/mm3 (150-400); RDW Coefficient Variation 15.9 % (11.7-14.2); RDW Standard Deviation 48.1 fL (35.1-46.3)
[2025-05-16 05:18] LABS: Anion Gap 7.0 mmol/L (3-11); Blood Urea Nitrogen 33.0 mg/dL (8-24); CO2, Blood 27.0 mmol/L (21-32); Calcium, Blood 8.3 mg/dL (8.5-10.1); Chloride, Blood 107.0 mmol/L (98-108); Creatinine, Blood 1.66 mg/dL (0.60-1.20); Glucose, Blood 159.0 mg/dL (70-99); Potassium, Blood 4.2 mmol/L (3.5-5.5); Sodium, Blood 137.0 mmol/L (136-145)
--- NOTE | 2025-05-16 05:55 | NUR ---
REPORT RECEIVED FROM PREVIOUS NURSE. PT A&OX4, USING URINAL BEDSIDE WITH INEZ COLORED URINE. DENIES PAIN OR NEED. IVF INFUSED WITHOUT DIFFICULTY. PT ON 3L NC SPO2 WNL DURING THIS SHIFT. ABD PAD WITH BANDNET APPLIED TO RLE TO PROTECT BLISTERS. PT HAS 2+ PITTING GUILLERMINA IN RLE AND TRACED GUILLERMINA IN L FOOT.
[2025-05-16] MEDS ORDERED: Insulin Regular 100 UNIT/ML 10ML Vial SC SCH (07:30)
[2025-05-16 07:53] VITALS: BP 134/65
[2025-05-16] MEDS ORDERED: Albuterol HFA200 ACT/6.7 GM INH INH PRN (08:35)
[2025-05-16] MEDS ORDERED: Ipratropium/Albuterol SulF 2.5-0.5MG/3 ML Amp INH SCH (08:40)
[2025-05-16] MEDS ORDERED: Insulin Glargine-Yfgn 100 Unit/mL 3 ML SYR SC SCH (09:00)
[2025-05-16] MEDS ORDERED: Enoxaparin 40 MG/0.4 ML SYR SC SCH (09:00)
[2025-05-16] MEDS ORDERED: CefTRIAXone Sodium 1,000 MG in NS 100 ML IV SCH (09:00)
[2025-05-16 15:11] VITALS: BP 134/62
--- NOTE | 2025-05-16 17:21 | NUR ---
SHIFT SUMMARY: PT A&O X4. PLEASANT AND COOPERATIVE WITH CARE. PT ONE PERSON ASSIST c FWW TO RESTROOM. USES URINAL AT BEDSIDE AND OCCASIONALLY INCONTINENT. PT ABLE TO HAVE BM ON TOILET PRIOR TO ASSISTED SHOWER BY INSOLE STIFFENER. EDEMA TO RLE IMPROVED THIS SHIFT. REDNESS AND BLISTERS REMAIN PRESENT. WOUND OPEN TO AIR AT THIS TIME. RECEIVING IV ABX. RECEIVED CALL FROM PT JANNETHER AND MARIBEL STATING PT IS NEEDING TO SCHEDULE [facility] WITH [facility]BDOMINAL AORTIC ANEURYSM. PER DR. VIDAL NOTE, PATIENT TO FOLLOW-UP WITH VASCULAR SURGERY POST DISCHARGE. CALL LIGHT IN REACH. BED IN LOWEST POSITION.
[2025-05-16 20:16] VITALS: BP 128/69
--- NOTE | 2025-05-17 05:09 | NUR ---
SHIFT SUMMARY A&OX4. ABLE TO MAKE ALL NEEDS KNOWN. DENIES PAIN. RECEIVED ABX PER EMAR VIA IV. PT TOLERATED WELL. PT HAS RESTED MOST OF THE NIGHT BUT AWAKENS EASILY PRN. WEARING O2 AT 2 LPM VIA NC. DENIES SOB. SOME EXPIRATORY WHEEZES HEARD IN BILATERAL LOWERS LUNGS. PT HAS RESTED COMOFORTABLY. PT CURRENTLY SLEEPING IN BED AT LOWEST POSITION WITH CALL LIGHT WITHIN REACH.
[2025-05-17 16:43] VITALS: BP 120/66
--- NOTE | 2025-05-17 17:43 | NUR ---
SHIFT SUMMARY: PT A&O X4. PLEASANT AND COOPERATIVE WITH CARE. 1PA c FWW AND GB. CELLULITIS TO RLE LESS RED AND EDEMEDOUS THIS SHIFT. BLISTERS REMAIN UNOPENED. CONTINUE WITH IV ABX WITH A PLAN TO D/C TOMORROW. LUNG SOUNDS REMAIN WHEEZY T/O. MUCINEX AND DUONEBS PROVIDED PER EMAEugene. DEBRA GRAY FROM [facility] UPDATED ON PLAN. CALL LIGHT IN REACH. BED IN LOWEST POSITION.
[2025-05-17 20:22] VITALS: BP 108/85
[2025-05-18 04:59] VITALS: BP 120/52
--- NOTE | 2025-05-18 06:47 | NUR ---
SHIFT SUMMARY: Pt is admitted for cellulitis of the right lower leg. Is alert and able to make needs known. ADLs have been 1p. Denies pain and discomfort when asked. Iv to right AC is patent with dressing that is CDI. on 2lpm via NC to maintain spo2 greater than 88%.
[2025-05-18 07:31] VITALS: BP 133/67
--- NOTE | 2025-05-18 13:56 | NUR ---
DISCHARGE SUMMARY CLIENT AOX4. MEDICATION COMPLIANT. POC BLOOD GLUSOCE WAS 151 & 235. THIS SHIFT. MEDICATED PER EMAR. DISCHARGE ORDERS RECEIVED. CM FAXED MEDICATIONS TO PHARMACY. IV DISCONTINUED. CLIENT TOLERATED PROCEDURE WELL. DISCHARGE PACKET GIVEN AND EXPLAINED TO CLIENT. HARD COPY RX INCLUDED IN FACILITY PACKET. FACILTY PACKET AND CLIENT PROPERTY GIVEN TO [facility] RN HEMODIALYSIS CHARGE. REPORT CALLED TO [facility].
== END 2025-05-18 13:40 | disposition home or self-care (01) | DRG 603 ==
LOC: ER 13:40 → MEDS 13:41
PROVIDERS: Physician Assistant; ADMIT Family Medicine
DX: L03.115 Cellulitis of right lower limb (principal); I50.42 Chronic combined systolic (congestive) and diastolic (congestive) heart failure; I48.20 Chronic atrial fibrillation, unspecified; I13.0 Hypertensive heart and chronic kidney disease with heart failure and stage 1 through stage 4 chronic kidney disease, or unspecified chronic kidney disease; E11.22 Type 2 diabetes mellitus with diabetic chronic kidney disease; J44.9 Chronic obstructive pulmonary disease, unspecified; E03.9 Hypothyroidism, unspecified; I71.43 Infrarenal abdominal aortic aneurysm, without rupture; N18.30 Chronic kidney disease, stage 3 unspecified; G30.9 Alzheimer's disease, unspecified; F02.80 Dementia in other diseases classified elsewhere, unspecified severity, without behavioral disturbance, psychotic disturbance, mood disturbance, and anxiety; Z90.49 Acquired absence of other specified parts of digestive tract; Z98.890 Other specified postprocedural states; Z88.5 Allergy status to narcotic agent; Z87.891 Personal history of nicotine dependence
CPT/HCPCS: 36415; 80048; 80053; 82947; 85025; 94640; 94645; 94664; 94760; 96365; 96366; 96376; 99284-25; A9270; G0378; J0690; J1815; J7040

== ENCOUNTER 2025-06-17 10:43 | Emergency (ER) | payer OTHER ==
[~2025-06-17] VITALS: Ht 185.4 cm; Wt 102.1 kg
[2025-06-17] MEDS ORDERED: NS 1,000 ML IV SCH (10:55)
[2025-06-17] MEDS ORDERED: BISA5EC PO (10:59)
[2025-06-17] MEDS ORDERED: BISA10S PR (10:59)
[2025-06-17] MEDS ORDERED: Fleet Enema132 ML PR (11:00)
[2025-06-17] MEDS ORDERED: DULCOLAX400 MG/5 M PO (11:00)
[2025-06-17] MEDS ORDERED: LOPE2C PO (11:00)
[2025-06-17] MEDS ORDERED: ONDA4ODT MM (11:00)
[2025-06-17] MEDS ORDERED: REFRESH TEARS P10 ML TOP (11:02)
[2025-06-17 11:05] LABS: BASOPHILS ABSOLUTE AUTO 0.08 K/mm3 (0.00-0.23); BASOPHILS PERCENT AUTO 1 % (0-2); EOSINOPHILS ABSOLUTE AUTO 0.36 K/mm3 (0.00-0.68); EOSINOPHILS PERCENT AUTO 4 % (0-6); Hematocrit 48.0 % (37.0-53.0); Hemoglobin 15.1 g/dL (13.5-17.5); IMMATURE GRAN ABSOLUTE AUTO 0.03 K/mm3 (0.00-0.10); IMMATURE GRAN PERCENT AUTO 0 % (0-1); LYMPHOCYTES ABSOLUTE AUTO 1.01 K/mm3 (0.84-5.20); LYMPHOCYTES PERCENT AUTO 10 % (21-46); MONOCYTES ABSOLUTE AUTO 0.70 K/mm3 (0.16-1.47); MONOCYTES PERCENT AUTO 7 % (4-13); Mean Corpuscular HGB Conc 31.5 g/dL (31.5-36.5); Mean Corpuscular Volume 81 fL (80-100); NEUTROPHILS ABSOLUTE AUTO 7.55 K/mm3 (1.96-9.15); NEUTROPHILS PERCENT AUTO 78 % (41-73); NRBC ABSOLUTE 0.00 K/mm3 (0.00-0.02); NRBC Auto 0.0 /100 WBC (0.0-0.2); Platelet Count 198 K/mm3 (150-400); RDW Coefficient Variation 16.2 % (11.7-14.2); RDW Standard Deviation 47.5 fL (35.1-46.3)
[2025-06-17 11:12] LABS: pH Blood Venous 7.36 (7.34-7.37)
[2025-06-17 11:15] LABS: Alanine Aminotransfer (ALT/SGP 18.0 U/L (12-78); Albumin, Blood 2.9 g/dL (3.4-5.0); Albumin/Globulin Ratio 0.7 (0.8-1.8); Anion Gap 9.0 mmol/L (3-11); Aspartate Aminotrans (AST/SGOT 28.0 U/L (12-37); Bilirubin, Total 0.6 mg/dL (0.1-1.0); Blood Urea Nitrogen 50.0 mg/dL (8-24); CO2, Blood 26.0 mmol/L (21-32); Calcium, Blood 8.7 mg/dL (8.5-10.1); Chloride, Blood 103.0 mmol/L (98-108); Creatinine, Blood 1.63 mg/dL (0.60-1.20); Globulin, Blood 4.0 g/dL (2.2-4.0); Glucose, Blood 334.0 mg/dL (70-99); Potassium, Blood 5.1 mmol/L (3.5-5.5); Sodium, Blood 133.0 mmol/L (136-145); Total Protein, Blood 6.9 g/dL (6.4-8.2)
[2025-06-17 14:45] VITALS: BP 143/77
== END 2025-06-17 15:18 | disposition home or self-care (01) ==
LOC: ER 10:43
PROVIDERS: Student in an Organized Health Care Education/Training Program
DX: E11.65 Type 2 diabetes mellitus with hyperglycemia (principal); E11.22 Type 2 diabetes mellitus with diabetic chronic kidney disease; I13.0 Hypertensive heart and chronic kidney disease with heart failure and stage 1 through stage 4 chronic kidney disease, or unspecified chronic kidney disease; I50.40 Unspecified combined systolic (congestive) and diastolic (congestive) heart failure; N18.30 Chronic kidney disease, stage 3 unspecified; E03.9 Hypothyroidism, unspecified; J44.89 Other specified chronic obstructive pulmonary disease; Z87.891 Personal history of nicotine dependence; Z79.4 Long term (current) use of insulin; Z79.899 Other long term (current) drug therapy; Z88.5 Allergy status to narcotic agent
CPT/HCPCS: 71046; 80053; 82803; 82947; 85025; 93005; 93010; 99285-25; A6590; J7030

== ENCOUNTER 2025-07-18 09:12 | Inpatient (IN) | payer OTHER, MEDICARE ==
[~2025-07-18] VITALS: Ht 185.4 cm; Wt 99.0 kg
[~2025-07-18 09:12] MED LIST changes: +BISA10S PR; +BISA5EC PO; -ELIQUIS2.5 MG PO; +Fleet Enema132 ML PR; +LOPE2C PO; +ONDA4ODT MM; +REFRESH TEARS P10 ML BOTHEYES
[2025-07-18] MEDS ORDERED: Albuterol 2.5 MG/3 ML VIAL INH SCH (09:25)
[2025-07-18 09:35] LABS: BASOPHILS ABSOLUTE AUTO 0.07 K/mm3 (0.00-0.23); BASOPHILS PERCENT AUTO 1 % (0-2); EOSINOPHILS ABSOLUTE AUTO 0.29 K/mm3 (0.00-0.68); EOSINOPHILS PERCENT AUTO 4 % (0-6); Hematocrit 49.2 % (37.0-53.0); Hemoglobin 15.4 g/dL (13.5-17.5); IMMATURE GRAN ABSOLUTE AUTO 0.01 K/mm3 (0.00-0.10); IMMATURE GRAN PERCENT AUTO 0 % (0-1); LYMPHOCYTES ABSOLUTE AUTO 0.75 K/mm3 (0.84-5.20); LYMPHOCYTES PERCENT AUTO 11 % (21-46); MONOCYTES ABSOLUTE AUTO 0.81 K/mm3 (0.16-1.47); MONOCYTES PERCENT AUTO 12 % (4-13); Mean Corpuscular HGB Conc 31.3 g/dL (31.5-36.5); Mean Corpuscular Volume 81 fL (80-100); NEUTROPHILS ABSOLUTE AUTO 5.11 K/mm3 (1.96-9.15); NEUTROPHILS PERCENT AUTO 73 % (41-73); NRBC ABSOLUTE 0.00 K/mm3 (0.00-0.02); NRBC Auto 0.0 /100 WBC (0.0-0.2); Platelet Count 157 K/mm3 (150-400); RDW Coefficient Variation 17.3 % (11.7-14.2); RDW Standard Deviation 48.5 fL (35.1-46.3)
[2025-07-18 09:57] LABS: Alanine Aminotransfer (ALT/SGP 20.0 U/L (12-78); Albumin, Blood 3.0 g/dL (3.4-5.0); Albumin/Globulin Ratio 0.8 (0.8-1.8); Anion Gap 9.0 mmol/L (3-11); Aspartate Aminotrans (AST/SGOT 15.0 U/L (12-37); Bilirubin, Total 0.7 mg/dL (0.1-1.0); Blood Urea Nitrogen 28.0 mg/dL (8-24); CO2, Blood 24.0 mmol/L (21-32); Calcium, Blood 8.5 mg/dL (8.5-10.1); Chloride, Blood 108.0 mmol/L (98-108); Creatinine, Blood 1.68 mg/dL (0.60-1.20); Globulin, Blood 3.8 g/dL (2.2-4.0); Glucose, Blood 191.0 mg/dL (70-99); Potassium, Blood 4.0 mmol/L (3.5-5.5); Sodium, Blood 137.0 mmol/L (136-145); Total Protein, Blood 6.8 g/dL (6.4-8.2)
[2025-07-18 10:45] LABS: Influenza A, PCR NEGATIVE (NEGATIVE); Influenza B, PCR NEGATIVE (NEGATIVE); Resp Syncytial Virus, PCR NEGATIVE (NEGATIVE); SARS-Cov-2 (COVID-19) PCR, MMC NEGATIVE (NEGATIVE)
[2025-07-18] MEDS ORDERED: FLU VACC TS2025(65UP)/MF59C/PF 45 MCG/0.5 ML SYRINGE IM SCH (13:15)
[2025-07-18] MEDS ORDERED: Ipratropium/Albuterol SulF 2.5-0.5MG/3 ML Amp INH SCH (16:15)
[2025-07-18] MEDS ORDERED: Formoterol/Mometasone MDI 5/200 mcg 13 GM INH SCH (16:20)
[2025-07-18 16:23] VITALS: BP 119/61
[2025-07-18] MEDS ORDERED: Insulin Regular 100 UNIT/ML 10ML Vial SC SCH (16:30)
[2025-07-18] MEDS ORDERED: Furosemide 10 MG / ML 2ML Vial IV SCH (18:00)
[2025-07-18] MEDS ORDERED: Insulin Glargine-Yfgn 100 Unit/mL 3 ML SYR SC SCH (18:00)
--- NOTE | 2025-07-18 18:30 | NUR ---
ARRIVAL/SHIFT SUMMARY PATIENT ARRIVED ON THE FLOOR WAS ORIENTED TO THE FLOOR. COMPLETED ASSESSMENT OF PATIENT. DURING CHARTING OF THE ADMISSION ASSESSMENT OF THE PATIENT MEDITECH WENT DOWN. DURING THIS, CBG CAME BACK AT 495, NOTIFIED DOCTOR AND ADMINISTERED MEDS PER EMAR. TELE INFORMED THIS RN OF ST ELEVATION, READJUSTED TELE TO PROPER PLACEMENT, AND ST ELEVATION PRESENT. INFORMED DOCTOR, FOLLOWED ORDERS PER EMAR (EKG, TROPONIN). DOCTOR REVIEWED RESULTS WITH PATIENT AND NO CONCERN AT THIS TIME, EKG SIMILAR TO PAST EKG'S. DENIES CHEST PAIN, DISCOMFORT, NO SIGNS OR SYMPTOMS OF DISTRESS. CALL LIGHT WITHIN REACH AND ABLE TO MAKE NEEDS KNOWN.
--- NOTE | 2025-07-18 19:02 | NUR ---
THIS SOLAR DEVELOPMENT ENGINEER HAS REVIEWED AND AGREES WITH ALL NOTES AND ASSESSMENTS BY DEBRA VALLE.
[2025-07-18 19:17] VITALS: BP 127/59
[2025-07-18] MEDS ORDERED: Insulin Regular 100 Unit/ML 1ML Dose SC ONE (22:05)
[2025-07-18] MEDS ORDERED: Insulin Regular 100 UNIT/ML 10ML Vial SC ONE (22:15)
[2025-07-18 22:53] LABS: Alanine Aminotransfer (ALT/SGP 23.0 U/L (12-78); Albumin, Blood 3.0 g/dL (3.4-5.0); Albumin/Globulin Ratio 0.8 (0.8-1.8); Anion Gap 21.0 mmol/L (3-11); Aspartate Aminotrans (AST/SGOT 18.0 U/L (12-37); Bilirubin, Total 0.7 mg/dL (0.1-1.0); Blood Urea Nitrogen 42.0 mg/dL (8-24); CO2, Blood 16.0 mmol/L (21-32); Calcium, Blood 8.2 mg/dL (8.5-10.1); Chloride, Blood 97.0 mmol/L (98-108); Creatinine, Blood 2.21 mg/dL (0.60-1.20); Globulin, Blood 3.8 g/dL (2.2-4.0); Potassium, Blood 4.7 mmol/L (3.5-5.5); Sodium, Blood 129.0 mmol/L (136-145); Total Protein, Blood 6.8 g/dL (6.4-8.2)
[2025-07-18 22:54] LABS: Glucose, Blood 641.0 mg/dL (70-99)
[2025-07-19] VITALS (20 sets, daily range): BP systolic 104–146; BP diastolic 53–97
[2025-07-19 00:22] LABS: pH Blood Venous 7.36 (7.34-7.37)
[2025-07-19 00:55] LABS: Anion Gap 15 mmol/L (3-11); Blood Urea Nitrogen 44 mg/dL (8-24); CO2, Blood 19 mmol/L (21-32); Calcium, Blood 8.1 mg/dL (8.5-10.1); Chloride, Blood 96 mmol/L (98-108); Creatinine, Blood 2.18 mg/dL (0.60-1.20); Glucose, Blood 600 mg/dL (70-99); Potassium, Blood 4.1 mmol/L (3.5-5.5); Sodium, Blood 126 mmol/L (136-145)
--- NOTE | 2025-07-19 02:34 | NUR ---
NURSE NOTES; PATIENT TRANSFER VIA BED TO ICU BED 6 FOR IV INSULIN DRIP. PATIENT ABLE TO STAND AND PIVOT FROM BED TO BED. REPORT BY PHONE TO BREAK NURSE.
[2025-07-19] MEDS ORDERED: NS 1,000 ML IV SCH (02:45)
[2025-07-19] MEDS ORDERED: Insulin Human Regular 100 UNIT in NS 100 ML IV SCH (02:55)
[2025-07-19 03:25] LABS: BASOPHILS ABSOLUTE AUTO 0.01 K/mm3 (0.00-0.23); BASOPHILS PERCENT AUTO 0 % (0-2); EOSINOPHILS ABSOLUTE AUTO 0.00 K/mm3 (0.00-0.68); EOSINOPHILS PERCENT AUTO 0 % (0-6); Hematocrit 44.8 % (37.0-53.0); Hemoglobin 14.1 g/dL (13.5-17.5); IMMATURE GRAN ABSOLUTE AUTO 0.03 K/mm3 (0.00-0.10); IMMATURE GRAN PERCENT AUTO 0 % (0-1); LYMPHOCYTES ABSOLUTE AUTO 0.37 K/mm3 (0.84-5.20); LYMPHOCYTES PERCENT AUTO 4 % (21-46); MONOCYTES ABSOLUTE AUTO 0.35 K/mm3 (0.16-1.47); MONOCYTES PERCENT AUTO 4 % (4-13); Mean Corpuscular HGB Conc 31.5 g/dL (31.5-36.5); Mean Corpuscular Volume 81 fL (80-100); NEUTROPHILS ABSOLUTE AUTO 8.54 K/mm3 (1.96-9.15); NEUTROPHILS PERCENT AUTO 92 % (41-73); NRBC ABSOLUTE 0.00 K/mm3 (0.00-0.02); NRBC Auto 0.0 /100 WBC (0.0-0.2); Platelet Count 187 K/mm3 (150-400); RDW Coefficient Variation 17.1 % (11.7-14.2); RDW Standard Deviation 48.1 fL (35.1-46.3)
[2025-07-19 04:25] LABS: Alanine Aminotransfer (ALT/SGP 22.0 U/L (12-78); Albumin, Blood 2.9 g/dL (3.4-5.0); Albumin/Globulin Ratio 0.8 (0.8-1.8); Anion Gap 12.0 mmol/L (3-11); Aspartate Aminotrans (AST/SGOT 13.0 U/L (12-37); Bilirubin, Total 0.7 mg/dL (0.1-1.0); Blood Urea Nitrogen 45.0 mg/dL (8-24); CO2, Blood 22.0 mmol/L (21-32); Calcium, Blood 8.0 mg/dL (8.5-10.1); Chloride, Blood 98.0 mmol/L (98-108); Creatinine, Blood 2.22 mg/dL (0.60-1.20); Globulin, Blood 3.6 g/dL (2.2-4.0); Glucose, Blood 554.0 mg/dL (70-99); Potassium, Blood 4.1 mmol/L (3.5-5.5); Sodium, Blood 128.0 mmol/L (136-145); Total Protein, Blood 6.5 g/dL (6.4-8.2)
[2025-07-19 05:52] LABS: Anion Gap 11.0 mmol/L (3-11); Blood Urea Nitrogen 45.0 mg/dL (8-24); CO2, Blood 22.0 mmol/L (21-32); Calcium, Blood 8.1 mg/dL (8.5-10.1); Chloride, Blood 101.0 mmol/L (98-108); Creatinine, Blood 2.17 mg/dL (0.60-1.20); Glucose, Blood 457.0 mg/dL (70-99); Potassium, Blood 3.9 mmol/L (3.5-5.5); Sodium, Blood 130.0 mmol/L (136-145)
--- NOTE | 2025-07-19 06:43 | NUR ---
SHIFT SUMMARY RECEIVED PT FROM [facility] FLOOR 0220. A/O X 3, DISORIENTED TO TIME, YEAR 2014, BUT PLEASANT, COOPERATIVE, FOLLOWS COMMANDS AND ANSWERS ALL OTHER QUESTIONS APPROP. INSULIN GTT STARTED PER ORDERS AND TITRATED PER PROTOCOL. SEE [facility]ARE FLOWSHEET FOR DETAILS. DR VILLARREAL NOTIFIED OF AM LAB RESULTS, NO NEW ORDERS AT THIS TIME. VSS AND AFEBRILE. WILL UPDATE DAY RN WITH ALL OUTSTANDING ISSUES AND PROBLEMS TO DATE.
--- NOTE | 2025-07-19 07:00 | NUR ---
ASSUMPTION OF CARE PT RECEIVING INSULIN 6UNITS/HR AND NS 75ML/HR. PT WAKENS TO VERBAL STIMULI. DENIES SOB AND REPORTS BREATHING FEELS OVERALL BETTER. O2 TITRATED DOWN TO 2L NC WHICH IS HIS BASELINE. DENIES CP. ATTENDS IN PLACE. BED IN LOW POSITION, CALL LIGHT WITHIN REACH. PT REPORTS SLEEPING POORLY OVERNIGHT, LIGHTS DIMMED FOR COMFORT.
[2025-07-19] MEDS ORDERED: Enoxaparin 40 MG/0.4 ML SYR SC SCH (09:00)
[2025-07-19 09:02] LABS: Anion Gap 10.0 mmol/L (3-11); Blood Urea Nitrogen 44.0 mg/dL (8-24); CO2, Blood 23.0 mmol/L (21-32); Calcium, Blood 8.1 mg/dL (8.5-10.1); Chloride, Blood 104.0 mmol/L (98-108); Creatinine, Blood 2.04 mg/dL (0.60-1.20); Glucose, Blood 283.0 mg/dL (70-99); Potassium, Blood 3.7 mmol/L (3.5-5.5); Sodium, Blood 133.0 mmol/L (136-145)
[2025-07-19] MEDS ORDERED: Insulin Regular 100 UNIT/ML 10ML Vial SC SCH (11:30)
[2025-07-19 11:43] LABS: Anion Gap 11.0 mmol/L (3-11); Blood Urea Nitrogen 43.0 mg/dL (8-24); CO2, Blood 24.0 mmol/L (21-32); Calcium, Blood 8.3 mg/dL (8.5-10.1); Chloride, Blood 103.0 mmol/L (98-108); Creatinine, Blood 1.99 mg/dL (0.60-1.20); Glucose, Blood 144.0 mg/dL (70-99); Potassium, Blood 3.8 mmol/L (3.5-5.5); Sodium, Blood 134.0 mmol/L (136-145)
--- NOTE | 2025-07-19 11:56 | NUR ---
Pt. is awake in bed and welcomes my visit. Pt. is pleasant and displayed good recall as I facilitated a life review. Pt. verbalized that he had lived at [facility] for 4 yrs. before moving to [facility] in [place]. Listen with empathy and an encouraging presence. Pt. displayed evidence of understanding and awareness. Matters of santana and belief are considered. Pts. nurse brought in his lunch. Prayed for Pt. and his lunch. Pt. verbalized gratitude for the spiritual care visit and welcomed this school health aide to return.
[2025-07-19] MEDS ORDERED: Insulin Glargine-Yfgn 100 Unit/mL 3 ML SYR SC ONE (12:00)
[2025-07-19] MEDS ORDERED: Insulin Glargine 100 Unit/ML 3 ML SYR SC ONE (12:15)
--- NOTE | 2025-07-19 13:19 | NUR ---
UPDATE PT IS ALERT AND ORIENTED. ANSWERS QUESTIONS APPROPRIATELY AND ASSISTS WITH CARE ABLE. HE IS ON 2L NC WHICH IS BASELINE. DENIES SOB BUT DOES HAVE A DRY COUGH. VSS THROUGHOUT THE DAY. DENIES CP. TOLERATED LUNCH WELL, DENIES NAUSEA. PT TRANSITIONED BACK TO SC INSULIN REGIMEN. BED IN LOW POSITION, CALL LIGHT WITHIN REACH.
--- NOTE | 2025-07-19 18:24 | NUR ---
SHIFT SUMMARY PT IS ALERT AND ORIENTED WITH PLEASANT AFFECT. PARTICIPATES IN CONVERSATION AND CARE ABLE. HE IS ON 2L NC. DENIES SOB. PT TRANSITIONED TO SC INSULIN REGIMEN. PT IS INCONTINENT AT BASELINE AND HAD MULTIPLE VOIDS THROUGHOUT THE DAY. NO BM, REQUESTED STOOL SOFTENER AND ADMINISTERED PER EMAR. PT'S BROTHER UPDATED VIA TELEPHONE. [facility] UPDATED. BED IN LOW POSITION, CALL LIGHT WITHIN REACH.
[2025-07-20 05:44] LABS: BASOPHILS ABSOLUTE AUTO 0.03 K/mm3 (0.00-0.23); BASOPHILS PERCENT AUTO 0 % (0-2); EOSINOPHILS ABSOLUTE AUTO 0.08 K/mm3 (0.00-0.68); EOSINOPHILS PERCENT AUTO 1 % (0-6); Hematocrit 46.0 % (37.0-53.0); Hemoglobin 14.8 g/dL (13.5-17.5); IMMATURE GRAN ABSOLUTE AUTO 0.04 K/mm3 (0.00-0.10); IMMATURE GRAN PERCENT AUTO 0 % (0-1); LYMPHOCYTES ABSOLUTE AUTO 1.00 K/mm3 (0.84-5.20); LYMPHOCYTES PERCENT AUTO 7 % (21-46); MONOCYTES ABSOLUTE AUTO 0.63 K/mm3 (0.16-1.47); MONOCYTES PERCENT AUTO 5 % (4-13); Mean Corpuscular HGB Conc 32.2 g/dL (31.5-36.5); Mean Corpuscular Volume 80 fL (80-100); NEUTROPHILS ABSOLUTE AUTO 12.31 K/mm3 (1.96-9.15); NEUTROPHILS PERCENT AUTO 87 % (41-73); NRBC ABSOLUTE 0.00 K/mm3 (0.00-0.02); NRBC Auto 0.0 /100 WBC (0.0-0.2); Platelet Count 186 K/mm3 (150-400); RDW Coefficient Variation 17.3 % (11.7-14.2); RDW Standard Deviation 47.8 fL (35.1-46.3)
[2025-07-20 06:34] LABS: Alanine Aminotransfer (ALT/SGP 23.0 U/L (12-78); Albumin, Blood 2.9 g/dL (3.4-5.0); Albumin/Globulin Ratio 0.9 (0.8-1.8); Anion Gap 10.0 mmol/L (3-11); Aspartate Aminotrans (AST/SGOT 19.0 U/L (12-37); Bilirubin, Total 0.5 mg/dL (0.1-1.0); Blood Urea Nitrogen 51.0 mg/dL (8-24); CO2, Blood 24.0 mmol/L (21-32); Calcium, Blood 7.8 mg/dL (8.5-10.1); Chloride, Blood 106.0 mmol/L (98-108); Creatinine, Blood 1.83 mg/dL (0.60-1.20); Globulin, Blood 3.3 g/dL (2.2-4.0); Glucose, Blood 214.0 mg/dL (70-99); Potassium, Blood 4.0 mmol/L (3.5-5.5); Sodium, Blood 136.0 mmol/L (136-145); Total Protein, Blood 6.2 g/dL (6.4-8.2)
[2025-07-20 07:14] VITALS: BP 136/86
--- NOTE | 2025-07-20 07:44 | NUR ---
Assumed care of pt at 0700. Bedside report received from Dinah RICHARDSON. Pt A&O x 3. Answers questions, follows commands, verbalizes needs. Pleasant and cooperative with care. CBG stable. Dr Reeves in to see patient this AM. Plan of care discussed. SpO2 90% or greater with 2 LPM NC. Pt reports rattle sensation in his chest, plan for flutter therapy today. Pt medical floor status, no telemetry. Up to chair for breakfast this AM with supervision. Pt reports he uses wheelchair at baseline to mobilize but is able to transfer self without difficulty. Tolerated transfer well.
--- NOTE | 2025-07-20 10:43 | NUR ---
Pt. is awake and sitting up in a chair when he welcomed my visit. Pt. is pleasant. Pt. verbalized an expectation to being discharged to [facility] today or tomorrow. Facilitated updates and Pt. displayed evidence of both awareness and engagement. Considered matters of santana and belief. Prayed with Pt. Pt. verbalized gratitude for the spiritual care visit. Will remain availe to the Pt.
[2025-07-20 17:05] VITALS: BP 153/67
[2025-07-20 19:40] VITALS: BP 156/86
[2025-07-21 03:45] VITALS: BP 130/63
[2025-07-21 04:07] LABS: BASOPHILS ABSOLUTE AUTO 0.05 K/mm3 (0.00-0.23); BASOPHILS PERCENT AUTO 1 % (0-2); EOSINOPHILS ABSOLUTE AUTO 0.27 K/mm3 (0.00-0.68); EOSINOPHILS PERCENT AUTO 3 % (0-6); Hematocrit 47.3 % (37.0-53.0); Hemoglobin 14.9 g/dL (13.5-17.5); IMMATURE GRAN ABSOLUTE AUTO 0.02 K/mm3 (0.00-0.10); IMMATURE GRAN PERCENT AUTO 0 % (0-1); LYMPHOCYTES ABSOLUTE AUTO 1.00 K/mm3 (0.84-5.20); LYMPHOCYTES PERCENT AUTO 10 % (21-46); MONOCYTES ABSOLUTE AUTO 0.74 K/mm3 (0.16-1.47); MONOCYTES PERCENT AUTO 8 % (4-13); Mean Corpuscular HGB Conc 31.5 g/dL (31.5-36.5); Mean Corpuscular Volume 80 fL (80-100); NEUTROPHILS ABSOLUTE AUTO 7.85 K/mm3 (1.96-9.15); NEUTROPHILS PERCENT AUTO 79 % (41-73); NRBC ABSOLUTE 0.00 K/mm3 (0.00-0.02); NRBC Auto 0.0 /100 WBC (0.0-0.2); Platelet Count 185 K/mm3 (150-400); RDW Coefficient Variation 17.6 % (11.7-14.2); RDW Standard Deviation 48.2 fL (35.1-46.3)
[2025-07-21 04:28] LABS: Alanine Aminotransfer (ALT/SGP 26.0 U/L (12-78); Albumin, Blood 3.0 g/dL (3.4-5.0); Albumin/Globulin Ratio 0.9 (0.8-1.8); Anion Gap 9.0 mmol/L (3-11); Aspartate Aminotrans (AST/SGOT 20.0 U/L (12-37); Bilirubin, Total 0.6 mg/dL (0.1-1.0); Blood Urea Nitrogen 46.0 mg/dL (8-24); CO2, Blood 26.0 mmol/L (21-32); Calcium, Blood 8.2 mg/dL (8.5-10.1); Chloride, Blood 104.0 mmol/L (98-108); Creatinine, Blood 1.75 mg/dL (0.60-1.20); Globulin, Blood 3.4 g/dL (2.2-4.0); Glucose, Blood 185.0 mg/dL (70-99); Potassium, Blood 3.9 mmol/L (3.5-5.5); Sodium, Blood 135.0 mmol/L (136-145); Total Protein, Blood 6.4 g/dL (6.4-8.2)
--- NOTE | 2025-07-21 06:17 | NUR ---
SHIFT SUMMARY: PT REMAINS A&O X 4, PLEASANT AND COOPERATIVE WITH CARE. PT ABLE TO TRANSFER FROM CHAIR TO BED WITH SBA FOR CORDS. PT LUNGS CLEAR, DIM BASES, NC @ 2LPM AND SPO2 92<. BP STABLE. PT DENIES CHEST PAIN/PRESSURE OR SOB. PT TOLERATES PO INTAKE. INCONTINENT OF URINE; ATTENDS AND DRY FLOW IN PLACE. 4 INCONTINENT VOIDS THIS SHIFT. PT ABLE TO PARTICIPATE IN CARE. INDEPENDENT BED MOBILITY. PG TO HARRIET THAT IS PATENT AND SALINE LOCKED. PIV TO RFA THAT IS PATENT AND SALINE LOCKED. BED LOWERED, CALL LIGHT IN REACH, WILL REPORT OFF TO ONCOMING SHIFT.
[2025-07-21 07:43] VITALS: BP 135/102
[2025-07-21] MEDS ORDERED: Mucinex600 MG PO (14:01)
[2025-07-21] MEDS ORDERED: POTCHL20ER PO (14:02)
[2025-07-21] MEDS ORDERED: DULERA 200 MCG-13 GM INH (14:06)
--- NOTE | 2025-07-21 14:24 | NUR ---
Pt. is awake and sitting up in a chair when he welcomes my visit. Pt. is pleasant. Facilitated an update and the Pt. verbalized an expectation to be discharged to his room at [facility] today. Pt. verbalized that he excited to go home. Listened with emapthy and a calming presence. Prayed with the Pt. Pt. verbalized gratitude for the spiritual care visit.
[2025-07-21 15:00] VITALS: BP 154/97
--- NOTE | 2025-07-21 16:24 | NUR ---
DISCHARGE SUMMARY: PATIENT ALERT AND ORIENTED X4 THROUGHOUT THE SHIFT. WITH NURSE ASSISTANCE AND FWW, PATIENT ABLE TO STAND AND TRANSFER. PATIENT WORKED WITH PT AND OT. PATIENT TAKING ORAL INTAKE WITHOUT DIFFICULTY. REPORTED SOME CONSTIPATION. BOWEL CARE GIVEN. PATIENT DENIED PAIN THROUGHOUT THE SHIFT. PATIENT DENIED SHORTNESS OF BREATH OR DIFFICULTY BREATHING. PATIENT VOIDING MULTIPLE LARGE VOIDS DURING THE SHIFT. URINE WAS A LIGHT COLOR. NO FOUL ODOR NOTED. PATIENT'S VITALS STABLE WITH HR IN THE 70S-80S AND SBP IN THE 140S-150S. PATIENT DENIED CHEST PAIN AND/OR DISCOMFORT. PER MD ORDERS, PATIENT READY FOR DISCHARGE. COORDINATED WITH CARE MANAGEMENT FOR DISCHARGE. PER CARE MANAGEMENT, DISCHARGE RX AND INSTRUCTIONS FAXED TO [facility]. THIS RN SENT PATIENT HOME WITH PATIENT INSTRUCTIONS WELL. PATIENT REPORTED THAT HE IS FEELING VERY WELL AND READY TO GO. PATIENT DISCHARGED WITH O2 TRANSPORT ON 2L VIA NC AND IN A WHEELCHAIR. PATIENT STABLE AT TIME OF DISCHARGE.
[2025-07-25] MEDS ORDERED: ELIQUIS2.5 M1 PO (14:44)
[2025-07-26] MEDS ORDERED: ALUM-MAG HYDROX30 M1 PO (18:34)
== END 2025-07-21 16:00 | disposition home or self-care (01) | DRG 291 ==
LOC: ER 09:12 → MEDS 13:06 → ICUE 13:06 → MEDS 16:07 → ICUE 07-19 02:10
PROVIDERS: Emergency Medicine; Internal Medicine; Nurse Practitioner Acute Care; ADMIT Family Medicine
DX: I13.0 Hypertensive heart and chronic kidney disease with heart failure and stage 1 through stage 4 chronic kidney disease, or unspecified chronic kidney disease (principal); I50.43 Acute on chronic combined systolic (congestive) and diastolic (congestive) heart failure; I45.2 Bifascicular block; J44.1 Chronic obstructive pulmonary disease with (acute) exacerbation; J96.11 Chronic respiratory failure with hypoxia; I48.20 Chronic atrial fibrillation, unspecified; N17.9 Acute kidney failure, unspecified; I44.0 Atrioventricular block, first degree; I25.10 Atherosclerotic heart disease of native coronary artery without angina pectoris; E03.9 Hypothyroidism, unspecified; G30.9 Alzheimer's disease, unspecified; E66.01 Morbid (severe) obesity due to excess calories; N18.30 Chronic kidney disease, stage 3 unspecified; F02.80 Dementia in other diseases classified elsewhere, unspecified severity, without behavioral disturbance, psychotic disturbance, mood disturbance, and anxiety; E11.22 Type 2 diabetes mellitus with diabetic chronic kidney disease; E11.65 Type 2 diabetes mellitus with hyperglycemia; D72.829 Elevated white blood cell count, unspecified; Z99.81 Dependence on supplemental oxygen; Z79.51 Long term (current) use of inhaled steroids; Z79.899 Other long term (current) drug therapy; Z79.890 Hormone replacement therapy; Z79.01 Long term (current) use of anticoagulants; Z79.891 Long term (current) use of opiate analgesic; Z79.4 Long term (current) use of insulin; Z98.890 Other specified postprocedural states; Z90.49 Acquired absence of other specified parts of digestive tract; Z87.891 Personal history of nicotine dependence; Z88.5 Allergy status to narcotic agent; Z86.79 Personal history of other diseases of the circulatory system
CPT/HCPCS: 36415; 71046; 80048; 80053; 82010; 82803; 82947; 83036; 83880; 84484; 85025; 87637; 93005; 93010; 94640; 94664; 94760; 94762; 96374; 97110; 97161; 97165; 97530; 97535; 99285-25; A9270; C1751; J1815; J1938; J2919; J7030

== ENCOUNTER 2025-09-26 06:51 | Inpatient (IN) | payer OTHER ==
[~2025-09-26] VITALS: Ht 182.9 cm; Wt 98.2 kg
[~2025-09-26 06:51] MED LIST changes: +ALUM-MAG HYDROX30 M1 PO; +DULERA 200 MCG-13 GM INH; +ELIQUIS2.5 M1 PO; +Mucinex600 MG PO; +SULTRIDS PO
[2025-09-26] MEDS ORDERED: Morphine Sulfate 4 MG/1 ML Injection IV ONE ×2 (07:00→08:25)
[2025-09-26] MEDS ORDERED: FUROSEMIDE20 MG PO (07:18)
[2025-09-26] MEDS ORDERED: SPIRONOLACTONE25 MG PO (07:18)
[2025-09-26 08:59] LABS: BASOPHILS ABSOLUTE AUTO 0.08 K/mm3 (0.00-0.23); BASOPHILS PERCENT AUTO 1 % (0-2); EOSINOPHILS ABSOLUTE AUTO 0.34 K/mm3 (0.00-0.68); EOSINOPHILS PERCENT AUTO 5 % (0-6); Hematocrit 49.1 % (37.0-53.0); Hemoglobin 15.6 g/dL (13.5-17.5); IMMATURE GRAN ABSOLUTE AUTO 0.04 K/mm3 (0.00-0.10); IMMATURE GRAN PERCENT AUTO 1 % (0-1); LYMPHOCYTES ABSOLUTE AUTO 1.57 K/mm3 (0.84-5.20); LYMPHOCYTES PERCENT AUTO 21 % (21-46); MONOCYTES ABSOLUTE AUTO 0.66 K/mm3 (0.16-1.47); MONOCYTES PERCENT AUTO 9 % (4-13); Mean Corpuscular HGB Conc 31.8 g/dL (31.5-36.5); Mean Corpuscular Volume 84 fL (80-100); NEUTROPHILS ABSOLUTE AUTO 4.86 K/mm3 (1.96-9.15); NEUTROPHILS PERCENT AUTO 64 % (41-73); NRBC ABSOLUTE 0.00 K/mm3 (0.00-0.02); NRBC Auto 0.0 /100 WBC (0.0-0.2); Platelet Count 193 K/mm3 (150-400); RDW Coefficient Variation 20.0 % (11.7-14.2); RDW Standard Deviation 58.4 fL (35.1-46.3)
[2025-09-26] MEDS ORDERED: NS 1,000 ML IV SCH (09:10)
[2025-09-26] MEDS ORDERED: FLU VACC TS2025(65UP)/MF59C/PF 45 MCG/0.5 ML SYRINGE IM SCH (09:10)
[2025-09-26 09:12] LABS: Alanine Aminotransfer (ALT/SGP 26.0 U/L (12-78); Albumin, Blood 3.2 g/dL (3.4-5.0); Albumin/Globulin Ratio 0.8 (0.8-1.8); Anion Gap 9.0 mmol/L (3-11); Aspartate Aminotrans (AST/SGOT 16.0 U/L (12-37); Bilirubin, Total 0.7 mg/dL (0.1-1.0); Blood Urea Nitrogen 54.0 mg/dL (8-24); CO2, Blood 25.0 mmol/L (21-32); Calcium, Blood 9.2 mg/dL (8.5-10.1); Chloride, Blood 104.0 mmol/L (98-108); Creatinine, Blood 2.35 mg/dL (0.60-1.20); Globulin, Blood 3.9 g/dL (2.2-4.0); Glucose, Blood 183.0 mg/dL (70-99); Magnesium, Blood 2.4 mg/dL (1.6-2.4); Phosphorus, Blood 3.9 mg/dL (2.5-4.9); Potassium, Blood 5.1 mmol/L (3.5-5.5); Sodium, Blood 133.0 mmol/L (136-145); Total Protein, Blood 7.1 g/dL (6.4-8.2)
[2025-09-26] MEDS ORDERED: Dextran/Hypromellose/Glycerin 15 DROP/ML BTL BOTHEYES PRN (09:50)
[2025-09-26] MEDS ORDERED: Ondansetron 4 MG SoluTab MM PRN (09:50)
[2025-09-26] MEDS ORDERED: Magnesium Hydroxide Conc 10 ML UDC PO PRN (09:55)
[2025-09-26] MEDS ORDERED: HYDROcodone 5-APAP 325 TAB PO PRN (09:55)
[2025-09-26] MEDS ORDERED: FentaNYL Citrate 50 MCG/ML 2 ML Injection IV PRN (09:55)
[2025-09-26] MEDS ORDERED: Albuterol HFA200 ACT/6.7 GM INH INH PRN (10:25)
[2025-09-26] MEDS ORDERED: Ipratropium/Albuterol SulF 2.5-0.5MG/3 ML Amp INH SCH (10:30)
[2025-09-26 12:52] VITALS: BP 136/59
[2025-09-26 12:53] VITALS: BP 136/59
[2025-09-26 15:21] VITALS: BP 164/87
[2025-09-26 15:22] VITALS: BP 164/87
[2025-09-26 15:24] VITALS: BP 164/87
--- NOTE | 2025-09-26 18:31 | NUR ---
ADMISSION AND SHIFT SUMMARY PATIENT ADMITTED WITH FX OF THE L HIP. PATIENT STATES THAT HE ROLLED OUT OF BED. PATIENT NOTED TO HAVE A SKIN TEAR ON L ELBOW. PATIENT STATES IT WAS FROM THE FALL. PATIENT HAS A DRESSING TO Eugene SHOOK. PATIENT STATES THAT HE HAD CELLULITIS AND HAS A WOUND. PATIENT PAINFUL WITH MOVEMENT. PATIENT HAS PUREWICK IN PLACE BECAUSE OF INCONTINENCE. URINE DARK. PATIENT HAS HX OF BEING ON ELIQUIST. SURGERY TO BE TOMORROW AFTERNOON. PATIENT TO BE NPO AFTER MIDNIGHT. 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 DR MEDRANO NOTIFIED OF TELEMETRY FINDINGS. PATIENT DENIES ANY CP OR SHORTNESS OF BREATH. 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 LAST DOSE OF ELIQUIST WAS ON 09/25 AT 1930 PER FACILITY.
[2025-09-26 19:19] VITALS: BP 132/70
[2025-09-26] MEDS ORDERED: Insulin Glargine-Yfgn 100 Unit/mL 3 ML SYR SC SCH (21:00)
[2025-09-27] VITALS (20 sets, daily range): BP systolic 11–132; BP diastolic 49–75
--- NOTE | 2025-09-27 02:12 | NUR ---
TELE EVENT TELE NOTIFIED THIS RN PT'S HR DROPPED DOWN TO 36 AND SUSTAINED FOR APPROX TWO MINUTES. PT ASYMPTOMATIC AT THIS TIME. LOGISTICS SUPPLY OFFICER PROVIDER NOTIFIED, NO NEW ORDERS AT THIS TIME. WILL CONTINUE TO MONITOR.
[2025-09-27 04:32] LABS: BASOPHILS ABSOLUTE AUTO 0.08 K/mm3 (0.00-0.23); BASOPHILS PERCENT AUTO 1 % (0-2); EOSINOPHILS ABSOLUTE AUTO 0.24 K/mm3 (0.00-0.68); EOSINOPHILS PERCENT AUTO 3 % (0-6); Hematocrit 50.1 % (37.0-53.0); Hemoglobin 15.8 g/dL (13.5-17.5); IMMATURE GRAN ABSOLUTE AUTO 0.03 K/mm3 (0.00-0.10); IMMATURE GRAN PERCENT AUTO 0 % (0-1); LYMPHOCYTES ABSOLUTE AUTO 0.91 K/mm3 (0.84-5.20); LYMPHOCYTES PERCENT AUTO 10 % (21-46); MONOCYTES ABSOLUTE AUTO 0.81 K/mm3 (0.16-1.47); MONOCYTES PERCENT AUTO 9 % (4-13); Mean Corpuscular HGB Conc 31.5 g/dL (31.5-36.5); Mean Corpuscular Volume 84 fL (80-100); NEUTROPHILS ABSOLUTE AUTO 7.42 K/mm3 (1.96-9.15); NEUTROPHILS PERCENT AUTO 78 % (41-73); NRBC ABSOLUTE 0.00 K/mm3 (0.00-0.02); NRBC Auto 0.0 /100 WBC (0.0-0.2); Platelet Count 199 K/mm3 (150-400); RDW Coefficient Variation 19.9 % (11.7-14.2); RDW Standard Deviation 58.4 fL (35.1-46.3)
[2025-09-27 05:01] LABS: Alanine Aminotransfer (ALT/SGP 39.0 U/L (12-78); Albumin, Blood 3.2 g/dL (3.4-5.0); Albumin/Globulin Ratio 0.8 (0.8-1.8); Anion Gap 10.0 mmol/L (3-11); Aspartate Aminotrans (AST/SGOT 22.0 U/L (12-37); Bilirubin, Total 0.7 mg/dL (0.1-1.0); Blood Urea Nitrogen 63.0 mg/dL (8-24); CO2, Blood 23.0 mmol/L (21-32); Calcium, Blood 9.2 mg/dL (8.5-10.1); Chloride, Blood 104.0 mmol/L (98-108); Creatinine, Blood 2.68 mg/dL (0.60-1.20); Globulin, Blood 4.2 g/dL (2.2-4.0); Glucose, Blood 265.0 mg/dL (70-99); Potassium, Blood 5.7 mmol/L (3.5-5.5); Sodium, Blood 131.0 mmol/L (136-145); Total Protein, Blood 7.4 g/dL (6.4-8.2)
--- NOTE | 2025-09-27 05:42 | NUR ---
SHIFT SUMMARY A/OX2, BEDREST AT THIS TIME. NPO SINCE MIDNIGHT. C/O PAIN TO L. HIP, MEDICATED PER EMAR. JR TELE EVENT LAST NIGHT, PLEASE SEE PREVIOUS NOTE. PT ASYMPTOMATIC. NO ACUTE CHANGES AT THIS TIME.
[2025-09-27] MEDS ORDERED: NS 250 ML IV ONE (13:05)
[2025-09-27] MEDS ORDERED: NS 1,000 ML IV SCH ×2 (13:30→15:25)
--- NOTE | 2025-09-27 13:47 | NUR ---
CALL FROM ICU PRODUCTION LEADER. DISCUSSED CASE. PATIENT IS FACING A FEW PROCEDURES. ATTEMPTS HAVE BEEN MADE UNSUCESSFULLY TO PATIENTS FAMILY FOR OBTAINING CONSENT FOR PROCEDURE. UPDATE FROM CHARGE THAT SURGON HAD CONTACTED FAMILY AND THEY PROVIDED CONSENT
--- NOTE | 2025-09-27 13:59 | NUR ---
PT BROUGHT TO ICU 11 BY DEBRA FABIAN AND ELI FROM SURGICAL FLOOR. PT IS ALERT AND COMMUNICATING. PT LOG ROLLED TO REMOVE EXTRA LINEN, SCROTUM VERY EXCORIATED AND PAINFUL, CLOTHS USED TO CLEAN UP PATIENT AND PROTECTIVE BARRIER PLACED. PT COMPLAINED OF SIGNIFICANT PAIN, HE WAS MEDICATED WITH ORAL PAIN MEDICATION. PT WAS EXPLAINED THAT HE NEEDED AN IV LINE AND HE IS IN AGREEMENT. PT ASSISTED TO COMFORTABLE POSITION. CALL LIGHT IN REACH.
--- NOTE | 2025-09-27 14:46 | NUR ---
PT TRANSFERRED TO ICU @1340 ASSUMEED CARE OF PT @0700. VSS BUT TELEMETRY SHOWS CONVERSION TO JUNCTIONAL RHYTHM 40'S. BP STABLE - ASYMPTOMATIC. CONFERRED WITH DR MEDRANO AND DR ANN - DECISION MADE TO HOLD AMIODARONE PO DOSE. EKG PERFORMED. PT REMAINED NPO FOR SURGERY. L HIP PAINFUL / EXTERNALLY ROTATED. ON 2L AFTER ASSUMING CARE DUE TO PT SLEPING HEAVILY AND REQURING 2L TO MAINTAIN SATS >90%. WILDLIFE SCIENCE PROFESSOR CALLED STATING CONSISTENT HR <40BPM. DR MEDRANO AND DR ANN OPTED TO PERFORM PACEMAKER PLACEMENT. ATTEMPTING TO OBTAIN CONSENT FROM NEXT OF KIN DUE TO PT'S BASELINE ALZHEIMERS. THIS WAS EVENTUALLY OBTAINED UPON TRANSFER TO ICU. PT UPDATED REGARDING ALL OF THIS AND STATES BEING CONTENT WITH PLAN. IV LEAKING - ATTEMPTED MULTIPLE TIMES TO OBTAIN NEW LINE - ALERTED INDUSTRIAL RELATIONS DIRECTOR DURING REPORT FOR NEED OF NEW IV AFTER UNSUCCESFUL ATTEMPTS. IV REPORT GIVEN TO ROCIO Trinidad RN. PT TRANSFERRED TO ICU 11 @1340.
[2025-09-27 14:51] LABS: Anion Gap 10.0 mmol/L (3-11); Blood Urea Nitrogen 69.0 mg/dL (8-24); CO2, Blood 24.0 mmol/L (21-32); Calcium, Blood 9.2 mg/dL (8.5-10.1); Chloride, Blood 104.0 mmol/L (98-108); Creatinine, Blood 2.96 mg/dL (0.60-1.20); Glucose, Blood 225.0 mg/dL (70-99); Potassium, Blood 5.0 mmol/L (3.5-5.5); Sodium, Blood 133.0 mmol/L (136-145)
--- NOTE | 2025-09-27 17:10 | NUR ---
JACE HAS REMAINED IN JUNCTIONAL RHYTHM WITH RATE FROM HI 50S TO 70'S. BP HAS REMAINED WITH MAP >65. STOPPED IN TO CHECK ON PT, SPOKE WITH DR. ANN CONCERNING APPROXIMATE TIMES FOR ANY PROCEDURES TOMORROW. PT HAS BEEN SNORING INTERMITTENTLY, APPROPRIATE WHEN AWAKE.
--- NOTE | 2025-09-27 17:18 | NUR ---
JACE'S LEFT LEG REMAINS IN DISTORTED POSITION, FOOT IS COOL TO THE TOUCH BUT HAS PALPABLE PEDAL PULSES. RIGHT LEG IS ALSO COOL TO THE TOUCH BUT PT DENIES NEED FOR WARM BLANKET AT THIS TIME.
[2025-09-28] VITALS (24 sets, daily range): BP systolic 89–134; BP diastolic 52–91
--- NOTE | 2025-09-28 05:29 | NUR ---
SHIFT SUMMERY PT HAS BEEN ALERT AND ORIENTED X4. PAIN HAS BEEN MANAGED EFFECTIVELY; SEE EMAR. HE HAS BEEN IN AN ACCELARATED JUNCTIONAL RHYTHM, BP HAS BEEN WNL. AFEBRILE. NPO SINCE MIDNIGHT. HE HAS HAD NO ACUTE CHANGES OVERNIGHT.
[2025-09-28 05:33] LABS: BASOPHILS ABSOLUTE AUTO 0.07 K/mm3 (0.00-0.23); BASOPHILS PERCENT AUTO 1 % (0-2); EOSINOPHILS ABSOLUTE AUTO 0.43 K/mm3 (0.00-0.68); EOSINOPHILS PERCENT AUTO 5 % (0-6); Hematocrit 46.1 % (37.0-53.0); Hemoglobin 14.6 g/dL (13.5-17.5); IMMATURE GRAN ABSOLUTE AUTO 0.03 K/mm3 (0.00-0.10); IMMATURE GRAN PERCENT AUTO 0 % (0-1); LYMPHOCYTES ABSOLUTE AUTO 0.73 K/mm3 (0.84-5.20); LYMPHOCYTES PERCENT AUTO 9 % (21-46); MONOCYTES ABSOLUTE AUTO 0.57 K/mm3 (0.16-1.47); MONOCYTES PERCENT AUTO 7 % (4-13); Mean Corpuscular HGB Conc 31.7 g/dL (31.5-36.5); Mean Corpuscular Volume 85 fL (80-100); NEUTROPHILS ABSOLUTE AUTO 6.70 K/mm3 (1.96-9.15); NEUTROPHILS PERCENT AUTO 79 % (41-73); NRBC ABSOLUTE 0.00 K/mm3 (0.00-0.02); NRBC Auto 0.0 /100 WBC (0.0-0.2); Platelet Count 147 K/mm3 (150-400); RDW Coefficient Variation 19.7 % (11.7-14.2); RDW Standard Deviation 58.7 fL (35.1-46.3)
[2025-09-28 06:15] LABS: Anion Gap 12.0 mmol/L (3-11); Blood Urea Nitrogen 75.0 mg/dL (8-24); CO2, Blood 19.0 mmol/L (21-32); Calcium, Blood 8.2 mg/dL (8.5-10.1); Chloride, Blood 108.0 mmol/L (98-108); Creatinine, Blood 2.51 mg/dL (0.60-1.20); Glucose, Blood 189.0 mg/dL (70-99); Potassium, Blood 5.4 mmol/L (3.5-5.5); Sodium, Blood 134.0 mmol/L (136-145)
[2025-09-28] MEDS ORDERED: CeFAZolin Sodium 2,000 MG in NS 100 ML IV SCH (09:30)
[2025-09-28] MEDS ORDERED: Tranexamic Acid 100 ML IV SCH (09:30)
[2025-09-28] MEDS ORDERED: Ipratropium/Albuterol SulF 2.5-0.5MG/3 ML Amp INH SCH (10:30)
--- NOTE | 2025-09-28 12:18 | NUR ---
PT TO PROCEDURE AT 1218 VIA GURNEY AND ON 2L NC. PT SLID FROM ICU BED TO [facility] VIA SLIDE SHEET AND 4 STAFF MEMBERS. PT PRE-MEDICATED WITH [facility] PER ORDER. PT A/O AT TIME OF TRANSPORT.
--- NOTE | 2025-09-28 12:32 | NUR ---
TRANSFER NOTE REPORT CALLED INTO LEHR TENDER AT 1232. PT TO SURGICAL UNIT POST PROCEDURE.
[2025-09-28] MEDS ORDERED: NS 1,000 ML IV SCH ×2 (12:35→14:40)
[2025-09-28] MEDS ORDERED: FentaNYL Citrate 50 MCG/ML 2 ML Injection ONE (12:47)
[2025-09-28] MEDS ORDERED: ePHEDrine Sulfate 50 MG/ML 1ML Injection ONE (13:01)
[2025-09-28] MEDS ORDERED: Ondansetron HCl 2 MG / ML 2ML Vial ONE (13:59)
[2025-09-28] MEDS ORDERED: Sugammadex Sodium 200 MG/2ML SDV (100 MG/ML) ONE (14:12)
[2025-09-28] MEDS ORDERED: HYDROmorphone HCl/Pf 1MG SYR IV PRN (14:30)
[2025-09-28] MEDS ORDERED: FentaNYL Citrate 50 MCG/ML 2 ML Injection IV PRN ×3 (14:30)
[2025-09-28] MEDS ORDERED: Morphine Sulfate 4 MG/1 ML Injection IV PRN (14:30)
[2025-09-28] MEDS ORDERED: Ondansetron HCl 2 MG / ML 2ML Vial IV PRN ×2 (14:30→14:40)
[2025-09-28] MEDS ORDERED: Magnesium Hydroxide Conc 10 ML UDC PO PRN (14:35)
[2025-09-28] MEDS ORDERED: Naloxone HCl 0.4MG / ML 1ML Vial IV PRN (14:40)
[2025-09-28] MEDS ORDERED: FLU VACC TS2025(65UP)/MF59C/PF 45 MCG/0.5 ML SYRINGE IM SCH (14:45)
--- NOTE | 2025-09-28 19:37 | NUR ---
SHIFT SUMMARY POD0 L INTRAMEDULARY NAILING, A/OX4, VSS, TOLERATING PO, PAIN TOLERABLE THOUGH HE REPORTS INCREASE IN PAIN WITH MOVEMENT. TELEMETRY PLACED SHORTLY AFTER ARRIVING TO 215 POST OP. TELE CALLED AT APPROX [address] ELEVATION, EKG AND VITALS OBTAINED. EKG DID NOT APPEAR TO SHOW ST ELEVATION, REVIEWED WITH PCU CHIEF SCIENTIFIC OFFICER. PT DENIED HAVING ANY SYMPTOMS T/O THIS TIME. PT REMAINS ON TELEMETRY AT THIS TIME. NO OTHER EVENTS, CALL LIGHT IN REACH.
--- NOTE | 2025-09-29 00:15 | NUR ---
ST ELEVATION TELE CALL FROM [facility] AT [address] ELEVATION ON TELE. HISTORIOGRAPHY TEACHER ANNA NOTIFIED. PT RESTING IN BED WITHOUT ACUTE DISTRESS AND DENIES CHEST PAIN. RESP E/U. SKIN APPEARS DRY. NO N/V. PER THE NOTES BEFORE SHIFT CHANGE YESTERDAY EVENING PT ALSO HAD SOME ST ELEVATION ON TELE. EKG WAS PERFORMED DAYSHIFT WHICH SHOWED NSR AND WAS REVIEWED PER DAY RN NOTES. NO ORDERS WERE PLACED REGARDING. DR. VILLARREAL CALLED AND NOTIFIED OF ST ELEVATION ON TELE AND THAT PT HAD A SIMILAR EVENT AT SHIFT CHANGE. HE ASKED IF PT WAS SYMPTOMATIC WITH CHEST PAIN, AND I LET HIM KNOW THAT PT DENIED CHEST PAIN. HE GAVE NO ORDERS AT THIS TIME.
[2025-09-29 00:52] VITALS: BP 107/62
[2025-09-29] MEDS ORDERED: CeFAZolin Sodium 2,000 MG in NS 100 ML IV SCH (01:15)
--- NOTE | 2025-09-29 04:00 | NUR ---
SHIFT SUMMARY PT S/P L HIP NAILING. PT HAS RESTED T/O THE NIGHT, PAIN MANAGED PER EMAR. VITALS ARE STABLE. ST ELEVATION ON TELE, PROVIDER NOTIFIED WITH NO NEW ORDERS GIVEN. PT HAD SIMILAR EVENT ON TELE AT SHIFT CHANGE. EKG PERFORMED SEE NURSES NOTES. PT DENIES CHEST PAIN. AND HAS RESTED IN BED WITHOUT DISTRESS. PT VOIDING. TOLERATING PO INTAKE. BED IN LOWEST POSITION, CALL LIGHT WITHIN REACH.
[2025-09-29 04:07] VITALS: BP 138/75
[2025-09-29 07:30] LABS: BASOPHILS ABSOLUTE AUTO 0.07 K/mm3 (0.00-0.23); BASOPHILS PERCENT AUTO 1 % (0-2); EOSINOPHILS ABSOLUTE AUTO 0.54 K/mm3 (0.00-0.68); EOSINOPHILS PERCENT AUTO 6 % (0-6); Hematocrit 41.9 % (37.0-53.0); Hemoglobin 13.4 g/dL (13.5-17.5); IMMATURE GRAN ABSOLUTE AUTO 0.02 K/mm3 (0.00-0.10); IMMATURE GRAN PERCENT AUTO 0 % (0-1); LYMPHOCYTES ABSOLUTE AUTO 0.62 K/mm3 (0.84-5.20); LYMPHOCYTES PERCENT AUTO 7 % (21-46); MONOCYTES ABSOLUTE AUTO 0.75 K/mm3 (0.16-1.47); MONOCYTES PERCENT AUTO 9 % (4-13); Mean Corpuscular HGB Conc 32.0 g/dL (31.5-36.5); Mean Corpuscular Volume 85 fL (80-100); NEUTROPHILS ABSOLUTE AUTO 6.54 K/mm3 (1.96-9.15); NEUTROPHILS PERCENT AUTO 77 % (41-73); NRBC ABSOLUTE 0.00 K/mm3 (0.00-0.02); NRBC Auto 0.0 /100 WBC (0.0-0.2); Platelet Count 158 K/mm3 (150-400); RDW Coefficient Variation 19.1 % (11.7-14.2); RDW Standard Deviation 59.2 fL (35.1-46.3)
[2025-09-29 07:48] VITALS: BP 120/60
[2025-09-29 07:57] LABS: Anion Gap 9.0 mmol/L (3-11); Blood Urea Nitrogen 60.0 mg/dL (8-24); CO2, Blood 24.0 mmol/L (21-32); Calcium, Blood 8.3 mg/dL (8.5-10.1); Chloride, Blood 105.0 mmol/L (98-108); Creatinine, Blood 2.41 mg/dL (0.60-1.20); Glucose, Blood 192.0 mg/dL (70-99); Magnesium, Blood 2.2 mg/dL (1.6-2.4); Potassium, Blood 4.7 mmol/L (3.5-5.5); Sodium, Blood 133.0 mmol/L (136-145)
[2025-09-29] MEDS ORDERED: Enoxaparin 30 MG/0.3 ML SYR SC SCH (09:00)
[2025-09-29] MEDS ORDERED: HYDROcodone 5-APAP 325 TAB PO PRN (09:25)
[2025-09-29] MEDS ORDERED: Insulin Human Lispro 100 Units/ML 3ML Syringe SC SCH (11:30)
--- NOTE | 2025-09-29 11:33 | NUR ---
UPDATED [facility] CARE OF PT STATUS
--- NOTE | 2025-09-29 13:00 | NUR ---
CARE ASSUMED OF PT. PT RESTING WITH EYES CLOSED, RESPIRATIONS EVEN AND UNLABORED. CALL LIGHT WITHIN REACH.
--- NOTE | 2025-09-29 13:23 | NUR ---
DRESSING REMOVED AT L HIP AND CLEANSED WITH HYDROGEN PEROXIDE. INCISIONS WNL, AQUACEL DRESSING APPLIED. JELANI AREA CLEANED AND NEW PUREWICK PLACED. REPORT PASSED TO DEBRA WORTHY.
[2025-09-29 15:41] VITALS: BP 124/64
[2025-09-29 20:06] VITALS: BP 108/61
--- NOTE | 2025-09-29 20:12 | NUR ---
SHIFT SUMMARY PT IS POD#1 FROM L HIP REPAIR. PAIN MANGED WITH TYLENOL AND NORCO. PT IS A 2 ASSIST. PT CALLS APPROPRIATELY. BEDSIDE REPORT GIVEN TO IDALMIS RICHARDSON.
[2025-09-29 23:54] VITALS: BP 139/61
[2025-09-30 02:27] VITALS: BP 137/76
--- NOTE | 2025-09-30 06:01 | NUR ---
SHIFT SUMMARY NO ACUTE CHANGES TO REPORT OVERNIGHT, PT HAS RESTED T/O THE NIGHT. PAIN MANAGED PER EMAR. VERY PAINFUL WITH MINIMAL MOVEMENT OF LEG. BUT APPEARS COMFORTABLE AT REST. SURGICAL SITE WNL. VITALS STABLE. PLAN IS FOR DISCHARGE SNF. PLAN OF CARE REMAINS UNCHANGED OVERNIGHT. BED IN LOWEST POSITION, CALL LIGHT WITHIN REACH.
[2025-09-30 06:21] LABS: BASOPHILS ABSOLUTE AUTO 0.07 K/mm3 (0.00-0.23); BASOPHILS PERCENT AUTO 1 % (0-2); EOSINOPHILS ABSOLUTE AUTO 0.58 K/mm3 (0.00-0.68); EOSINOPHILS PERCENT AUTO 8 % (0-6); Hematocrit 41.0 % (37.0-53.0); Hemoglobin 13.1 g/dL (13.5-17.5); IMMATURE GRAN ABSOLUTE AUTO 0.03 K/mm3 (0.00-0.10); IMMATURE GRAN PERCENT AUTO 0 % (0-1); LYMPHOCYTES ABSOLUTE AUTO 0.64 K/mm3 (0.84-5.20); LYMPHOCYTES PERCENT AUTO 9 % (21-46); MONOCYTES ABSOLUTE AUTO 0.56 K/mm3 (0.16-1.47); MONOCYTES PERCENT AUTO 8 % (4-13); Mean Corpuscular HGB Conc 32.0 g/dL (31.5-36.5); Mean Corpuscular Volume 84 fL (80-100); NEUTROPHILS ABSOLUTE AUTO 5.16 K/mm3 (1.96-9.15); NEUTROPHILS PERCENT AUTO 73 % (41-73); NRBC ABSOLUTE 0.00 K/mm3 (0.00-0.02); NRBC Auto 0.0 /100 WBC (0.0-0.2); Platelet Count 163 K/mm3 (150-400); RDW Coefficient Variation 18.6 % (11.7-14.2); RDW Standard Deviation 57.1 fL (35.1-46.3)
[2025-09-30 07:00] LABS: Alanine Aminotransfer (ALT/SGP 13.0 U/L (12-78); Albumin, Blood 2.6 g/dL (3.4-5.0); Albumin/Globulin Ratio 0.7 (0.8-1.8); Anion Gap 6.0 mmol/L (3-11); Aspartate Aminotrans (AST/SGOT 19.0 U/L (12-37); Bilirubin, Total 0.5 mg/dL (0.1-1.0); Blood Urea Nitrogen 52.0 mg/dL (8-24); CO2, Blood 24.0 mmol/L (21-32); Calcium, Blood 8.3 mg/dL (8.5-10.1); Chloride, Blood 107.0 mmol/L (98-108); Creatinine, Blood 2.01 mg/dL (0.60-1.20); Globulin, Blood 3.6 g/dL (2.2-4.0); Glucose, Blood 162.0 mg/dL (70-99); Potassium, Blood 4.8 mmol/L (3.5-5.5); Sodium, Blood 132.0 mmol/L (136-145); Total Protein, Blood 6.2 g/dL (6.4-8.2)
[2025-09-30 07:07] VITALS: BP 114/66
[2025-09-30] MEDS ORDERED: Polyethylene Glycol 3350 17 gm PO PRN ×2 (11:40→11:50)
[2025-09-30 11:54] VITALS: BP 123/69
[2025-09-30 16:41] VITALS: BP 129/66
--- NOTE | 2025-09-30 19:30 | NUR ---
SHIFT SUMMARY: NO NEW OR ACUTE CHANGES DURING THIS SHIFT. PATIENT REMAINS ON 2L O2 VIA NC. TTWB TOLERATED OF AFFECTED HIP. PATIENT HAD MINIMAL COMPLAINTS OF PAIN DURING THIS DAY, ONLY WHEN REPOSITIONING. BED IN LOWEST POSITION, CALL LIGHT WITHIN REACH, WILL REPORT TO ONCOMING RN.
[2025-09-30 19:51] VITALS: BP 128/62
[2025-09-30] MEDS ORDERED: NS 250 ML IV PRN (22:45)
[2025-10-01 00:46] VITALS: BP 125/72
[2025-10-01 05:38] VITALS: BP 143/73
[2025-10-01 05:49] LABS: BASOPHILS ABSOLUTE AUTO 0.04 K/mm3 (0.00-0.23); BASOPHILS PERCENT AUTO 1 % (0-2); EOSINOPHILS ABSOLUTE AUTO 0.48 K/mm3 (0.00-0.68); EOSINOPHILS PERCENT AUTO 6 % (0-6); Hematocrit 40.3 % (37.0-53.0); Hemoglobin 13.0 g/dL (13.5-17.5); IMMATURE GRAN ABSOLUTE AUTO 0.03 K/mm3 (0.00-0.10); IMMATURE GRAN PERCENT AUTO 0 % (0-1); LYMPHOCYTES ABSOLUTE AUTO 0.74 K/mm3 (0.84-5.20); LYMPHOCYTES PERCENT AUTO 10 % (21-46); MONOCYTES ABSOLUTE AUTO 0.62 K/mm3 (0.16-1.47); MONOCYTES PERCENT AUTO 8 % (4-13); Mean Corpuscular HGB Conc 32.3 g/dL (31.5-36.5); Mean Corpuscular Volume 84 fL (80-100); NEUTROPHILS ABSOLUTE AUTO 5.76 K/mm3 (1.96-9.15); NEUTROPHILS PERCENT AUTO 75 % (41-73); NRBC ABSOLUTE 0.00 K/mm3 (0.00-0.02); NRBC Auto 0.0 /100 WBC (0.0-0.2); Platelet Count 169 K/mm3 (150-400); RDW Coefficient Variation 18.7 % (11.7-14.2); RDW Standard Deviation 57.3 fL (35.1-46.3)
[2025-10-01 06:26] LABS: Anion Gap 10.0 mmol/L (3-11); Blood Urea Nitrogen 49.0 mg/dL (8-24); CO2, Blood 25.0 mmol/L (21-32); Calcium, Blood 8.6 mg/dL (8.5-10.1); Chloride, Blood 104.0 mmol/L (98-108); Creatinine, Blood 1.66 mg/dL (0.60-1.20); Glucose, Blood 179.0 mg/dL (70-99); Potassium, Blood 4.6 mmol/L (3.5-5.5); Sodium, Blood 134.0 mmol/L (136-145)
[2025-10-01 07:09] VITALS: BP 117/75
--- NOTE | 2025-10-01 07:35 | NUR ---
SHIFT SUMMARY POD 3 L HIP NAILING. NO ACUTE CHANGES THIS SHIFT. PAIN MANAGED WELL PER EMAR. AQUACEL TO L HIP C/D/I. PUREWICK IN PLACE DRAINING TO SUCTION. AFIB @74 W/BBB PER PIE DOUGH ROLLER. SPO2 96% ON 2L O2 VIA NC. PT RESTING IN BED, RESPIRATIONS EVEN AND UNLABORED. CALL LIGHT WITHIN REACH. REPORT GIVEN TO ONCOMING NURSE.
[2025-10-01 11:27] VITALS: BP 125/68
[2025-10-01 15:07] VITALS: BP 138/69
--- NOTE | 2025-10-01 17:21 | NUR ---
SHIFT SUMMARY PT SLEEPING MAJORITY OF SHIFT TODAY. PUREWICK IN PLACE AFTER LARGE INCONTINENT VOID. RECENTLY MEDICATED FOR PAIN. WILL CONTINUE TO MONITOR.
[2025-10-01 19:04] VITALS: BP 123/94
--- NOTE | 2025-10-02 03:45 | NUR ---
ROUNDED ON PT @ 0315 WITH PT C/O SEVERE ITCHING AND BURNING TO R SIDE OF BACK AND R HIP. OBSERVED WHAT APPEARS TO BE OPEN BLISTERS W/ RED IRRITATED SKIN. AREA CLEANED AND BANDAGES APPLIED. NOTED DISPOSABLE GARLAND HAD SHIFTED TO AREA OF IRRITATION. SEE PICTURES IN CHART.
[2025-10-02 04:33] VITALS: BP 111/59
[2025-10-02 07:25] VITALS: BP 112/79
--- NOTE | 2025-10-02 07:45 | NUR ---
SHIFT SUMMARY POD 4 L HIP NAILING. PT ORIENTED TO PERSON, PLACE, AND SITUATION. PAIN MANAGED WELL PER EMAR. PT TOLERATING PO INTAKE, DENIES N&V. AQUACEL X2 TO L HIP C/D/I. CONTINUOUS PULSE OX IN PLACE SPO2 93% ON 2L O2 VIA NC. PUREWICK IN PLACE, PATENT, AND DRAINING TO SUCTION. PT RESTING IN BED, RESPIRATIONS EVEN AND UNLABORED. REPORT GIVEN TO ONCOMING RN. CALL LIGHT WITHIN REACH.
[2025-10-02 11:17] VITALS: BP 128/59
[2025-10-02 11:18] LABS: BASOPHILS ABSOLUTE AUTO 0.05 K/mm3 (0.00-0.23); BASOPHILS PERCENT AUTO 1 % (0-2); EOSINOPHILS ABSOLUTE AUTO 0.51 K/mm3 (0.00-0.68); EOSINOPHILS PERCENT AUTO 5 % (0-6); Hematocrit 42.0 % (37.0-53.0); Hemoglobin 13.4 g/dL (13.5-17.5); IMMATURE GRAN ABSOLUTE AUTO 0.04 K/mm3 (0.00-0.10); IMMATURE GRAN PERCENT AUTO 0 % (0-1); LYMPHOCYTES ABSOLUTE AUTO 0.86 K/mm3 (0.84-5.20); LYMPHOCYTES PERCENT AUTO 9 % (21-46); MONOCYTES ABSOLUTE AUTO 0.57 K/mm3 (0.16-1.47); MONOCYTES PERCENT AUTO 6 % (4-13); Mean Corpuscular HGB Conc 31.9 g/dL (31.5-36.5); Mean Corpuscular Volume 85 fL (80-100); NEUTROPHILS ABSOLUTE AUTO 7.48 K/mm3 (1.96-9.15); NEUTROPHILS PERCENT AUTO 79 % (41-73); NRBC ABSOLUTE 0.00 K/mm3 (0.00-0.02); NRBC Auto 0.0 /100 WBC (0.0-0.2); Platelet Count 176 K/mm3 (150-400); RDW Coefficient Variation 19.0 % (11.7-14.2); RDW Standard Deviation 58.4 fL (35.1-46.3)
[2025-10-02 11:58] LABS: Alanine Aminotransfer (ALT/SGP 23.0 U/L (12-78); Albumin, Blood 2.4 g/dL (3.4-5.0); Albumin/Globulin Ratio 0.6 (0.8-1.8); Anion Gap 5.0 mmol/L (3-11); Aspartate Aminotrans (AST/SGOT 22.0 U/L (12-37); Bilirubin, Total 0.6 mg/dL (0.1-1.0); Blood Urea Nitrogen 52.0 mg/dL (8-24); CO2, Blood 28.0 mmol/L (21-32); Calcium, Blood 9.1 mg/dL (8.5-10.1); Chloride, Blood 102.0 mmol/L (98-108); Creatinine, Blood 1.59 mg/dL (0.60-1.20); Globulin, Blood 4.0 g/dL (2.2-4.0); Glucose, Blood 305.0 mg/dL (70-99); Magnesium, Blood 2.3 mg/dL (1.6-2.4); Potassium, Blood 4.9 mmol/L (3.5-5.5); Sodium, Blood 130.0 mmol/L (136-145); Total Protein, Blood 6.4 g/dL (6.4-8.2)
[2025-10-02 14:54] VITALS: BP 134/63
--- NOTE | 2025-10-02 18:58 | NUR ---
SUMMARY ASSUMED CARE OF PT @0700. VSS. AXO3. TELE: SR FHB BBB 70'S. ON BASELINE 2LNC - SPO2 >92%. ENCOURAGING INCENTIVE SPIROMETER USE. PT MAINTAINING TTWB STATUS TO L LEG. DRESSING TO L HIP CDI. MALE PUREWICK IN PLACE. PT HAS DENIED NEED FOR PAIN MEDS THIS SHIFT UNTIL THE LATTER END. 2 AQUACELL DRESSINGS CDI - LIGHT SHADOWING NOTED. BLISTERS TO R BACK COVERED WITH MEPILEX FOAM - VISUALIZED - REPOSITIONING IN PLACE. OTHERWISE, PT WORKED WITH PHYSICAL THERAPY WELL TODAY. BED ALARM ON. USING CALL LIGHT AND CONVEYING NEEDS.
[2025-10-02 19:36] VITALS: BP 144/67
[2025-10-02] MEDS ORDERED: Polyethylene Glycol 3350 17 gm PO SCH (21:00)
[2025-10-03 00:17] VITALS: BP 116/63
[2025-10-03] MEDS ORDERED: Magnesium Hydroxide Conc 10 ML UDC PO PRN (02:35)
--- NOTE | 2025-10-03 02:41 | NUR ---
RASH PT HAS RASH ON RIGHT SIDE OF BACK. PT REPORTS ITCHY AND PAINFUL. WEEPING WITH ODOR. DR. ROLLINS CALLED AND NOTIFIED, HE CAME UP TO ASSESS PT. PT TO BE STARTED ON VALTREX FOR SHINGLES. PICTURES TAKEN AND PLACED IN CHART. INDEPENDENT DRIVER MADE AWARE.
--- NOTE | 2025-10-03 04:23 | NUR ---
TRANSFER PT TO TRANSFER TO MEDICAL FLOOR ROOM 332. REPORT GIVEN TO SAMAN DRAPER RN TO ASSUME CARE OF PT.
--- NOTE | 2025-10-03 04:30 | NUR ---
TRANSFER PT TRANSFERRED TO ROOM [address]
--- NOTE | 2025-10-03 04:53 | NUR ---
SHIFT SUMMARY PT HAS RESTED T/O THE NIGHT. PT PAIN MANAGED PER EMAR, PT PAINFUL WITH REPOSITIONING. PT STARTED ON VALTREX FOR SHINGLES PER ORDERS. SEE PREVIOUS NURSES NOTES. VITALS STABLE. NSR ON TELE. BED IN LOWEST POSITION, CALL LIGHT WITHIN REACH.
[2025-10-03 05:04] VITALS: BP 129/72
[2025-10-03 05:04] LABS: BASOPHILS ABSOLUTE AUTO 0.05 K/mm3 (0.00-0.23); BASOPHILS PERCENT AUTO 0 % (0-2); EOSINOPHILS ABSOLUTE AUTO 0.56 K/mm3 (0.00-0.68); EOSINOPHILS PERCENT AUTO 4 % (0-6); Hematocrit 42.6 % (37.0-53.0); Hemoglobin 13.7 g/dL (13.5-17.5); IMMATURE GRAN ABSOLUTE AUTO 0.05 K/mm3 (0.00-0.10); IMMATURE GRAN PERCENT AUTO 0 % (0-1); LYMPHOCYTES ABSOLUTE AUTO 0.83 K/mm3 (0.84-5.20); LYMPHOCYTES PERCENT AUTO 6 % (21-46); MONOCYTES ABSOLUTE AUTO 0.80 K/mm3 (0.16-1.47); MONOCYTES PERCENT AUTO 6 % (4-13); Mean Corpuscular HGB Conc 32.2 g/dL (31.5-36.5); Mean Corpuscular Volume 83 fL (80-100); NEUTROPHILS ABSOLUTE AUTO 11.35 K/mm3 (1.96-9.15); NEUTROPHILS PERCENT AUTO 83 % (41-73); NRBC ABSOLUTE 0.00 K/mm3 (0.00-0.02); NRBC Auto 0.0 /100 WBC (0.0-0.2); Platelet Count 201 K/mm3 (150-400); RDW Coefficient Variation 18.8 % (11.7-14.2); RDW Standard Deviation 56.5 fL (35.1-46.3)
[2025-10-03 06:16] LABS: Alanine Aminotransfer (ALT/SGP 40.0 U/L (12-78); Albumin, Blood 2.3 g/dL (3.4-5.0); Albumin/Globulin Ratio 0.5 (0.8-1.8); Anion Gap 12.0 mmol/L (3-11); Aspartate Aminotrans (AST/SGOT 34.0 U/L (12-37); Bilirubin, Total 0.7 mg/dL (0.1-1.0); Blood Urea Nitrogen 58.0 mg/dL (8-24); CO2, Blood 26.0 mmol/L (21-32); Calcium, Blood 9.2 mg/dL (8.5-10.1); Chloride, Blood 99.0 mmol/L (98-108); Creatinine, Blood 1.59 mg/dL (0.60-1.20); Globulin, Blood 4.3 g/dL (2.2-4.0); Glucose, Blood 238.0 mg/dL (70-99); Potassium, Blood 4.8 mmol/L (3.5-5.5); Sodium, Blood 132.0 mmol/L (136-145); Total Protein, Blood 6.6 g/dL (6.4-8.2)
--- NOTE | 2025-10-03 06:25 | NUR ---
Shift Summary Assumed care of pt from surgical floor around 0400. Pt is AOx4, on bedrest, purewick in place. Medicated x1 with Tylenol for pain after pt care. Pt is contact isolation for shingles. He is currently resting comfortably in bed.
[2025-10-03] MEDS ORDERED: Insulin Regular 100 UNIT/ML 10ML Vial SC SCH (07:30)
[2025-10-03 07:57] VITALS: BP 122/64
[2025-10-03 11:19] VITALS: BP 106/68
[2025-10-03 12:29] LABS: CORONAVIRUS COVID-19 AG Negative (NEGATIVE)
[2025-10-03 15:54] VITALS: BP 127/64
--- NOTE | 2025-10-03 18:26 | NUR ---
END OF SHIFT SUMMARY: A&Ox4. PLEASANT AND COOPERATIVE WITH CARE. CALLS APPROPRIATELY AND IS ABLE TO ADVOCATE NEEDS EFFECTIVELY. VSS. TELE DC'd THIS SHIFT. BREATHING EVEN AND UNLABORED AT MOST TIMES BUT SPO2 LABILE AND WILL QUICKLY DESAT WHEN FORGETS TO BREATHE THROUGH NOSE. 3LPM/NC WHICH IS BASELINE. CONTINENT OF BOWEL, INCONTINENT OF BLADDER. SEVERE SCROTAL AND GROIN EXCORIATIONS FOR WHICH ANTIFUNGAL POWDER WAS ORDERED AND APPLIED. REQUIRES FREQUENT ATTENDS CHANGES SECONDARY TO POLYURIA/FREQUENCY. TOLERATING REGULAR TEXTURE AND CCHO DIET. MEDS WHOLE c FLUIDS. WORKED c OT TODAY TO SIDE OF BED. COVID SWAB COMPLETED PER [place] [facility] REQUIREMENT. RASH TO BACK CROSSING MIDLINE AND WITHOUT PARTICULAR PATTERN NOT C/W SHINGLES INITIALLY THOUGH. WOUND CULTURE AND VIRAL CULTURES OBTAINED. ISOLATION DCd. GLUCOSE HIGH THIS AFTERNOON AT [facility]; NO ADDITIONAL INSULIN PER DR. GONZALEZ. VALACYCLOVIR DCd. MEDICATED PAIN FAIRLY ROUTINELY TO EASE PAIN DURING FREQUENT REPOSITIONING. DESATTING INTO MID-80s INTERMITTENTLY, ESPECIALLY WHEN FALLING ASLEEP. REQUIRES ENCOURAGEMENT AND COACHING TO BREATHE THROUGH NOSE. POWERGLIDE KINKED; UNABLE TO SALVAGE; NO IV ACCESS ORDER OBTAINED. BED IN LOWEST POSITION, CALL LIGHT WITHIN REACH, ALL NEEDS MET. REPORT TO ONCOMING NURSE.
[2025-10-03 20:17] VITALS: BP 151/63
[2025-10-03] MEDS ORDERED: Insulin Glargine-Yfgn 100 Unit/mL 3 ML SYR SC SCH ×2 (21:00)
[2025-10-03] MEDS ORDERED: Miconazole Nitrate 2% 85 GM PWD TOP SCH (21:00)
[2025-10-04 02:51] VITALS: BP 126/81
[2025-10-04 06:13] LABS: BASOPHILS ABSOLUTE AUTO 0.05 K/mm3 (0.00-0.23); BASOPHILS PERCENT AUTO 0 % (0-2); EOSINOPHILS ABSOLUTE AUTO 0.55 K/mm3 (0.00-0.68); EOSINOPHILS PERCENT AUTO 5 % (0-6); Hematocrit 43.5 % (37.0-53.0); Hemoglobin 14.0 g/dL (13.5-17.5); IMMATURE GRAN ABSOLUTE AUTO 0.05 K/mm3 (0.00-0.10); IMMATURE GRAN PERCENT AUTO 0 % (0-1); LYMPHOCYTES ABSOLUTE AUTO 1.08 K/mm3 (0.84-5.20); LYMPHOCYTES PERCENT AUTO 9 % (21-46); MONOCYTES ABSOLUTE AUTO 0.71 K/mm3 (0.16-1.47); MONOCYTES PERCENT AUTO 6 % (4-13); Mean Corpuscular HGB Conc 32.2 g/dL (31.5-36.5); Mean Corpuscular Volume 84 fL (80-100); NEUTROPHILS ABSOLUTE AUTO 9.68 K/mm3 (1.96-9.15); NEUTROPHILS PERCENT AUTO 80 % (41-73); NRBC ABSOLUTE 0.00 K/mm3 (0.00-0.02); NRBC Auto 0.0 /100 WBC (0.0-0.2); Platelet Count 200 K/mm3 (150-400); RDW Coefficient Variation 18.9 % (11.7-14.2); RDW Standard Deviation 56.1 fL (35.1-46.3)
--- NOTE | 2025-10-04 06:13 | NUR ---
SHIFT SUMMARY: PT AOX3-4 SOME CONFUSION AND FORGETFULLNESS BUT REORIENTS EASILY. PT PLEASANT AND COOPERATIVE IN CARE. SEVERAL INCONT VOIDS. JELANI AREA IS EXTREMELY EXCORIATED. POWDER APPLIED. PROVIDER AWARE PER DAYSHIFT. DRESSING WAS CHANGED DUE TO SOME LEAKAGE OF SEROSANGUINOUS FLUID. PT TOLERATED WELL. STILL PAINFUL ON LEFT HIP, MEDICATED PER EMR. TOLERATING MEDICATIONS WELL. NO ACUTE OVERNIGHT EVENTS. PT IN BED RESTING, BED IN LOWEST POSITION, CALL LIGHT IN REACH. CONTINUING CARE.
[2025-10-04 06:46] LABS: Alanine Aminotransfer (ALT/SGP 41.0 U/L (12-78); Albumin, Blood 2.3 g/dL (3.4-5.0); Albumin/Globulin Ratio 0.5 (0.8-1.8); Anion Gap 7.0 mmol/L (3-11); Aspartate Aminotrans (AST/SGOT 29.0 U/L (12-37); Bilirubin, Total 0.7 mg/dL (0.1-1.0); Blood Urea Nitrogen 55.0 mg/dL (8-24); CO2, Blood 30.0 mmol/L (21-32); Calcium, Blood 9.4 mg/dL (8.5-10.1); Chloride, Blood 100.0 mmol/L (98-108); Creatinine, Blood 1.51 mg/dL (0.60-1.20); Globulin, Blood 4.2 g/dL (2.2-4.0); Glucose, Blood 189.0 mg/dL (70-99); Potassium, Blood 5.1 mmol/L (3.5-5.5); Sodium, Blood 132.0 mmol/L (136-145); Total Protein, Blood 6.5 g/dL (6.4-8.2)
[2025-10-04 07:30] VITALS: BP 141/75
[2025-10-04] MEDS ORDERED: Triamcinolone Inj Susp 40 MG / ML 1ML Vial IM ONE (10:20)
[2025-10-04] MEDS ORDERED: CefTRIAXone Sodium 1,000 MG in NS 100 ML IV SCH (10:30)
[2025-10-04 15:15] VITALS: BP 114/59
--- NOTE | 2025-10-04 18:38 | NUR ---
SHIFT SUMMARY PATIENT ALERT AND INTERACTIVE. PATIENT WORKED WITH PT AND OT TODAY. PATIENT ABLE TO DANGLE AT BEDSIDE AND DO SOME EXERCISES. PATIENT MEDICATED FOR PAIN THROUGHOUT THE DAY. PATIENT EATING MORE TODAY AND DRINKING HIS SUPPLEMENTS. PATIENT TO TRANSFER TO [facility] TOMORROW. DRESSING OVER L HIP SURGICAL SITE.
[2025-10-04 20:02] VITALS: BP 137/74
[2025-10-04] MEDS ORDERED: HYDROcodone 5-APAP 325 TAB PO SCH (21:00)
[2025-10-05 02:39] VITALS: BP 117/73
--- NOTE | 2025-10-05 05:21 | NUR ---
END OF SHIFT SUMMARY: ADMITTED FOR HIP FX. SURGERY 09/28. PATIENT LIVES AT [facility]. PATIENT IS TO GO TO [facility] TODAY. PATIENT IS CONFUSED AT TIMES BUT OTHERWISE ALERT AND ORIENTED. PATIENT IS ABLE TO MAKE NEEDS KNOWN. PATIENT CAN ADVOCATE FOR NEEDS EFFECTIVELY. PATIENT IS ON 2L NASAL CANNULA. INCONTINENT OF BOWEL AND BLADDER PATIENT HAS PURWICK IN PLACE WITH AN ATTENDS. TAKES MEDS WHOLE WITH FLUIDS. PATIENT HAS A RASH ON HIS BACK AND GROIN. BED IN LOWEST POSITION. CALL LIGHT WITHIN REACH. REPORT TO ONCOMING NURSE.
[2025-10-05 06:04] LABS: BASOPHILS ABSOLUTE AUTO 0.07 K/mm3 (0.00-0.23); BASOPHILS PERCENT AUTO 1 % (0-2); EOSINOPHILS ABSOLUTE AUTO 0.60 K/mm3 (0.00-0.68); EOSINOPHILS PERCENT AUTO 5 % (0-6); Hematocrit 43.0 % (37.0-53.0); Hemoglobin 13.7 g/dL (13.5-17.5); IMMATURE GRAN ABSOLUTE AUTO 0.04 K/mm3 (0.00-0.10); IMMATURE GRAN PERCENT AUTO 0 % (0-1); LYMPHOCYTES ABSOLUTE AUTO 0.88 K/mm3 (0.84-5.20); LYMPHOCYTES PERCENT AUTO 8 % (21-46); MONOCYTES ABSOLUTE AUTO 0.70 K/mm3 (0.16-1.47); MONOCYTES PERCENT AUTO 6 % (4-13); Mean Corpuscular HGB Conc 31.9 g/dL (31.5-36.5); Mean Corpuscular Volume 83 fL (80-100); NEUTROPHILS ABSOLUTE AUTO 9.27 K/mm3 (1.96-9.15); NEUTROPHILS PERCENT AUTO 80 % (41-73); NRBC ABSOLUTE 0.00 K/mm3 (0.00-0.02); NRBC Auto 0.0 /100 WBC (0.0-0.2); Platelet Count 217 K/mm3 (150-400); RDW Coefficient Variation 18.6 % (11.7-14.2); RDW Standard Deviation 56.9 fL (35.1-46.3)
[2025-10-05 06:35] LABS: Alanine Aminotransfer (ALT/SGP 38.0 U/L (12-78); Albumin, Blood 2.4 g/dL (3.4-5.0); Albumin/Globulin Ratio 0.6 (0.8-1.8); Anion Gap 8.0 mmol/L (3-11); Aspartate Aminotrans (AST/SGOT 22.0 U/L (12-37); Bilirubin, Total 0.6 mg/dL (0.1-1.0); Blood Urea Nitrogen 55.0 mg/dL (8-24); CO2, Blood 29.0 mmol/L (21-32); Calcium, Blood 9.2 mg/dL (8.5-10.1); Chloride, Blood 101.0 mmol/L (98-108); Creatinine, Blood 1.58 mg/dL (0.60-1.20); Globulin, Blood 4.0 g/dL (2.2-4.0); Glucose, Blood 160.0 mg/dL (70-99); Potassium, Blood 4.8 mmol/L (3.5-5.5); Sodium, Blood 133.0 mmol/L (136-145); Total Protein, Blood 6.4 g/dL (6.4-8.2)
[2025-10-05] MEDS ORDERED: DOCU100 PO (10:22)
[2025-10-05] MEDS ORDERED: MICONAZOLE NITR85 GM TOP (10:24)
[2025-10-05] MEDS ORDERED: Triamcinolone A15 G3 TOP (10:24)
--- NOTE | 2025-10-05 12:15 | NUR ---
SHIFT SUMMARY AND DISCHARGE PATIENT ALERT AND INTERACTIVE. PATIENT CONTINUES TO HAVE PAIN IN L HIP AREA. PATIENT MEDICATED PER MAR NEEDED. PATIENT TRANSFERED TO [facility] VIA WHEELCHAIR TRANSPORT. KERI LIFT USED TO TRANSFER PATIENT BECAUSE OF PAIN. PATIENT CONTINUES TO HAVE RASH TO BACK AND GROIN AREA. PER PATIENT, RASH LESS ITCHY AND NOTED TO BE LESS RED. REPORT CALLED TO [facility].
[2025-10-05 22:57] LABS: VARICELLA-ZOSTER VIRUS BY PCR Not Detected; VARICELLA-ZOSTER VIRUS SOURCE BACK
== END 2025-10-05 12:15 | DRG 481 ==
LOC: ER 06:51 → MEDS 09:09 → SURS 09:09 → ICUE 09:09 → SURS 12:38 → ICUE 09-27 13:21 → SURS 09-28 12:49 → MEDS 10-03 04:41 → ENPENDDIS 10-05 09:23 → MEDS 10-05 12:15
PROVIDERS: Family Medicine; Internal Medicine; Orthopaedic Surgery; ADMIT Hospitalist
PROC: 3E03329 Introduction of Other Anti-infective into Peripheral Vein, Percutaneous Approach (ICD-10-PCS; 2025-09-28)
PROC: 0QS736Z Reposition Left Upper Femur with Intramedullary Internal Fixation Device, Percutaneous Approach (ICD-10-PCS; principal; 2025-09-28 12:30)
DX: S72.142A Displaced intertrochanteric fracture of left femur, initial encounter for closed fracture (principal); F02.A18 Dementia in other diseases classified elsewhere, mild, with other behavioral disturbance; I13.0 Hypertensive heart and chronic kidney disease with heart failure and stage 1 through stage 4 chronic kidney disease, or unspecified chronic kidney disease; N17.9 Acute kidney failure, unspecified; I50.42 Chronic combined systolic (congestive) and diastolic (congestive) heart failure; I25.10 Atherosclerotic heart disease of native coronary artery without angina pectoris; E03.9 Hypothyroidism, unspecified; G30.9 Alzheimer's disease, unspecified; I45.10 Unspecified right bundle-branch block; N18.32 Chronic kidney disease, stage 3b; J44.89 Other specified chronic obstructive pulmonary disease; I48.0 Paroxysmal atrial fibrillation; J84.10 Pulmonary fibrosis, unspecified; E87.5 Hyperkalemia; R00.1 Bradycardia, unspecified; I44.0 Atrioventricular block, first degree; E11.22 Type 2 diabetes mellitus with diabetic chronic kidney disease; K59.00 Constipation, unspecified; I71.40 Abdominal aortic aneurysm, without rupture, unspecified; L23.9 Allergic contact dermatitis, unspecified cause; W06.XXXA Fall from bed, initial encounter; Z90.49 Acquired absence of other specified parts of digestive tract; Z98.890 Other specified postprocedural states; Z87.891 Personal history of nicotine dependence; Z86.19 Personal history of other infectious and parasitic diseases; Z79.4 Long term (current) use of insulin; Z79.01 Long term (current) use of anticoagulants; Z79.84 Long term (current) use of oral hypoglycemic drugs; Z79.899 Other long term (current) drug therapy; Z79.890 Hormone replacement therapy; Z88.5 Allergy status to narcotic agent
CPT/HCPCS: 36415; 72192; 73502; 73552; 80048; 80053; 82947; 83735; 84100; 85025; 87070; 87077; 87186; 87205; 87426-QW; 87798; 93005; 93010; 93306; 94640; 94664; 94760; 94762; 96374-59; 96376; 97110; 97110-CQ; 97162; 97166; 97530; 99285-25; A6590; A9270; C1713; J0690; J0696; J1650; J1815; J2270; J2405; J2704; J3010; J3301; J3373; J7030; J7050